=== PATIENT | female | born 1970 | race American Indian/Alaskan Native ===

== ENCOUNTER 2020-11-14 20:15 | Inpatient (IN) | payer MEDICAID ==
[2020-11-14] MEDS ORDERED: BUTALB/ACETAMINOPHEN/CAFFEINE TAB PO ONE (22:27)
[2020-11-14] MEDS ORDERED: diphenhydrAMINE 50 MG/ML VIAL IV ONE (22:28)
[2020-11-14] MEDS ORDERED: METOCLOPRAMIDE 10 MG/2 ML INJ IV ONE (22:28)
[2020-11-14] MEDS ORDERED: hydrALAZINE 20 MG/1 ML INJ IV ONE (22:29)
--- NOTE | 2020-11-14 23:14 | Cat Scan Report ---
CT head/brain Visualized paranasal sinuses and mastoid air cells are well aerated and clear. No calvarial abnormali ty. Con INDICATION / CLINICAL INFORMATION: headache. TECHNIQUE: Axial CT imaging of the brain was obtained without contrast. Coronal and sagittal reformatted imaging obtained and reviewed. All CT scans at this location are performed using CT dose reduction for ALAR A by means of automated exposure control. COMPARISON: None available. FINDINGS: No intracranial hemorrhage, mass, or midline shift is noted. No extra-axial fluid collection. There i s hypodense area 4 cm of edema in the left occipital lobe. The appearance is most likely due to to in farct, possibly subacute infarct. No hemorrhage associated with this finding. No significant surround ing mass effect. Additionally there are multiple lacunar infarcts in the left basial ganglia which ap pear old. No additional significant finding within the brain or cerebellum. Ventricular system and basilar cisterns are unremarkable. IMPRESSION: 1. 4 cm hypodense area within the left occipital lobe. The appearance is most consistent with CVA. Th e appearance is most suggestive of subacute CVA. Please correlate with clinical symptoms. 2. Left basal ganglia lacunar infarctions which are old. 3. No additional significant finding. Signer Name: Jamilah Keith MD Signed: 11/14/2020 11:10 PM Workstation Name: [id number]
--- NOTE | 2020-11-15 00:04 | XRay Report ---
CHEST 1 VIEW INDICATION / CLINICAL INFORMATION: dyspnea. COMPARISON: 09/27/2020 FINDINGS: SUPPORT DEVICES: None. HEART / MEDIASTINUM: No significant abnormality. LUNGS / PLEURA: No significant pulmonary or pleural abnormality. No pneumothorax. ADDITIONAL FINDINGS: No significant additional findings. IMPRESSION: 1. No acute findings. No interval change. Signer Name: Jamilah Keith MD Signed: 11/14/2020 11:59 PM Workstation Name: [id number]
[2020-11-15] MEDS ORDERED: ONDANSETRON 4 MG/2 ML INJ IV ONE (00:07)
[2020-11-15] MEDS ORDERED: MORPHINE 4 MG/1 ML INJ IV ONE (00:07)
[2020-11-15 00:17] LABS: Hematocrit 42.3 % (30.3-42.9); Hemoglobin 14.3 gm/dl (10.1-14.3); Mean Corpuscular HGB Conc 34 % (30-34); Mean Corpuscular Volume 88 fl (79-97); Platelet Count 288 K/mm3 (140-440); Red Cell Distribution Width 12.9 % (13.2-15.2)
[2020-11-15 00:30] LABS: INR 1.04 (0.87-1.13)
[2020-11-15 00:33] LABS: Alanine Aminotransferase 12 units/L (7-56); BUN/Creatinine Ratio 19; Blood Urea Nitrogen 29 mg/dL (7-17); Calcium 9.1 mg/dL (8.4-10.2); Hemolysis Index 8
[2020-11-15] MEDS ORDERED: INSULIN REGULAR, HUMAN 100 UNIT/ML 3ML VIAL IV ONE (00:52)
--- NOTE | 2020-11-15 00:58 | Emergency Department Report ---
ED Headache HPI - General Chief Complaint: Headache Stated Complaint: HEADACHE Time Seen by Provider: 11/14/20 23:49 Source: patient Exam Limitations: no limitations - History of Present Illness Initial Comments: 50-year-old female with a past medical history of hypertension, diabetes, diabetic neuropathy presents with complains of headache for 1 to 2 weeks. Patient is a constant severe left sided frontal headache with associated blurred vision. Patient has been taken multiple anqc-deo-rawpcub medications including BC powders, Advil, and Aleve without improvement. Positive associated nausea without vomiting, fever, neck pain, focal weakness or numbness. Patient denies previous history of headache syndrome or recent trauma. Patient was seen by an np yesterday for eye exam and was diagnosed with cataracts, diabetic retinopathy, and had a visual acuity of OD 20/400 and OS 20/200. She was referred to an whitesmith for outpatient funduscopic photography and optic coherence tomography exam. Patient states she is supposed to wear glasses at her baseline but she does not but does notice an acute decrease in her vision since symptoms started. Patient states she has been compliant with her medications. Pt did take bc powder today. Allergies/Adverse Reactions: Allergies bismuth subsalicylate [From Pepto-Bismol] Allergy (Verified 09/27/20 14:56) Nausea Penicillins Allergy (Verified 09/27/20 14:56) Nausea tramadol Allergy (Verified 09/27/20 14:56) Unknown Home Medications: Ambulatory Orders Gabapentin [Neurontin] 600 mg PO 4XD 09/28/20 ED Review of Systems ROS: Stated complaint: HEADACHE Other details as noted in HPI Comment: All other systems reviewed and negative ED Past Medical Hx - Past Medical History Previous Medical History?: Yes Hx Hypertension: Yes Hx Diabetes: Yes Hx Arthritis: Yes (SPINE) Hx Asthma: Yes Additional medical history: NEUROPATHY TO FEET AND LEGS - Surgical History Past Surgical History?: No - Social History Smoking Status: Never Smoker Substance Use Type: None - Medications Home Medications: Home Medications Medication Instructions Recorded Confirmed Last Taken Type Gabapentin [Neurontin] 600 mg PO 4XD 09/28/20 09/28/20 Unknown History ED Physical Exam - General Limitations: No Limitations - Other Other exam information: General: No acute distress Head: Atraumatic Eyes: normal appearance, STORM ENT: Moist mucous membranes Neck: Normal appearance, no midline tenderness Chest: Clear to auscultation bilaterally CV: Regular rate and rhythm Abdomen: Soft, normal bowel sounds, nontender, nondistended, no rebound or guarding Back: Normal inspection Extremity: Normal inspection, full range of motion Neuro: Alert O x 3, no facial asymmetry, speech clear, no gross motor sensory deficit Psych: Appropriate behavior Skin: No rash ED Course Vital Signs 11/14/20 11/15/20 22:08 01:05 Temperature 97.8 F Pulse Rate 93 H Respiratory 18 Rate Blood Pressure 190/103 146/92 O2 Sat by Pulse 99 Oximetry - Consultations Consultation #1: 11/15/20 01:13 Pt repeat BP 146/92 ED Medical Decision Making - Lab Data Result diagrams: 11/14/20 23:43 11/14/20 23:43 Lab Results 11/14/20 11/14/20 11/14/20 Range/Units 23:43 23:43 23:43 WBC 16.7 H (4.5-11.0) K/mm3 RBC 4.80 (3.65-5.03) M/mm3 Hgb 14.3 (10.1-14.3) gm/dl Hct 42.3 (30.3-42.9) % MCV 88 (79-97) fl MCH 30 (28-32) pg MCHC 34 (30-34) % RDW 12.9 L (13.2-15.2) % Plt Count 288 (140-440) K/mm3 Lymph # (Auto) Refinery Process Engineer PT 13.4 (12.2-14.9) Sec. INR 1.04 (0.87-1.13) APTT 25.0 (24.2-36.6) Sec. Thrombin Time (15.1-19.6) Sec. Sodium 133 L (137-145) mmol/L Potassium 4.9 (3.6-5.0) mmol/L Chloride 95.7 L (98-107) mmol/L Carbon Dioxide 24 (22-30) mmol/L Anion Gap 18 mmol/L BUN 29 H (7-17) mg/dL Creatinine 1.5 H (0.6-1.2) mg/dL Estimated GFR 44 ml/min BUN/Creatinine Ratio 19 % Glucose 392 H (65-100) mg/dL Calcium 9.1 (8.4-10.2) mg/dL Total Bilirubin 0.40 (0.1-1.2) mg/dL AST 12 (5-40) units/L ALT 12 (7-56) units/L Alkaline Phosphatase 179 H (35-129) units/L Troponin T < 0.010 (0.00-0.029) ng/mL Total Protein 7.1 (6.3-8.2) g/dL Albumin 4.0 (3.9-5) g/dL Albumin/Globulin Ratio 1.3 % 11/14/20 Range/Units 23:43 WBC (4.5-11.0) K/mm3 RBC (3.65-5.03) M/mm3 Hgb (10.1-14.3) gm/dl Hct (30.3-42.9) % MCV (79-97) fl MCH (28-32) pg MCHC (30-34) % RDW (13.2-15.2) % Plt Count (140-440) K/mm3 Lymph # (Auto) PT (12.2-14.9) Sec. INR (0.87-1.13) APTT (24.2-36.6) Sec. Thrombin Time 15.6 (15.1-19.6) Sec. Sodium (137-145) mmol/L Potassium (3.6-5.0) mmol/L Chloride (98-107) mmol/L Carbon Dioxide (22-30) mmol/L Anion Gap mmol/L BUN (7-17) mg/dL Creatinine (0.6-1.2) mg/dL Estimated GFR ml/min BUN/Creatinine Ratio % Glucose (65-100) mg/dL Calcium (8.4-10.2) mg/dL Total Bilirubin (0.1-1.2) mg/dL AST (5-40) units/L ALT (7-56) units/L Alkaline Phosphatase (35-129) units/L Troponin T (0.00-0.029) ng/mL Total Protein (6.3-8.2) g/dL Albumin (3.9-5) g/dL Albumin/Globulin Ratio % Critical Care Time: No Critical care attestation.: If time is entered above; I have spent that time in minutes in the direct care of this critically ill patient, excluding procedure time. ED Disposition Clinical Impression: Blurred vision, bilateral, Occipital stroke, Headache, Diabetes, HTN (hypertension) Disposition: DC-09 OP ADMIT IP TO THIS HOSP Is pt being admited?: Yes Condition: Stable Instructions: Diabetes Mellitus Type 2 in Adults (ED), Hypertension (ED) Referrals: JOSSELIN HOFF MD [Primary Care Provider] - 3-5 Days Time of Disposition: 01:03 (Dr Ram)
[2020-11-15] MEDS ORDERED: PROMETHAZINE 25 MG RECT SUPP PR PRN (01:17)
[2020-11-15] MEDS ORDERED: METOCLOPRAMIDE 10 MG TAB PO PRN (01:17)
[2020-11-15] MEDS ORDERED: MAGNESIUM HYDROXIDE (MOM) ORAL LIQD UDC PO PRN (01:17)
[2020-11-15] MEDS ORDERED: DEXTROSE 50% IN WATER (25GM) 50 ML SYRINGE IV PRN (01:21)
--- NOTE | 2020-11-15 01:27 | History and Physical Report ---
History of Present Illness Date of examination: 11/15/20 Chief complaint: Headache Blurred vision History of present illness: 50-year-old female with past medical history of hypertension, diabetes, diabetic neuropathy was brought to the emergency room because of headache for 1 to 2 weeks which is constant severe left sided frontal headache with associated blurred vision. Patient also complained of bilateral leg weakness and mild right upper extremity weakness for last 2 weeks. patient has been taken multiple psrn-mdt-upvvzvc medications including BC powders, Advil, and Aleve without improvement. Patient also complained of nausea but no vomiting. patient was seen by an prototyper yesterday for eye exam and was diagnosed with cataracts, diabetic retinopathy, and had a visual acuity of OD 20/400 and OS 20/200. She was referred to an electric train driver for outpatient funduscopic p hotography and optic coherence tomography exam. Patient states she is supposed to wear glasses at her baseline but she does not but does notice an acute decrease in her vision since symptoms started. Patient states she has been compliant with her medications. Pt did take bc powder today. Past History Past Medical History: diabetes Medications and Allergies Allergies Allergy/AdvReac Type Severity Reaction Status Date / Time bismuth subsalicylate Allergy Nausea Verified 09/27/20 14:56 [From Pepto-Bismol] Penicillins Allergy Nausea Verified 09/27/20 14:56 tramadol Allergy Unknown Verified 09/27/20 14:56 Home Medications Medication Instructions Recorded Confirmed Last Taken Type Gabapentin [Neurontin] 600 mg PO 4XD 09/28/20 09/28/20 Unknown History Review of Systems Eyes: bilateral: blurred vision Ears, nose, mouth and throat: headache Neurological: headaches Exam - Constitutional Vitals: Temp Pulse Resp BP Pulse Ox 97.8 F 93 H 18 146/92 99 11/14/20 22:08 11/14/20 22:08 11/14/20 22:08 11/15/20 01:05 11/14/20 22:08 General appearance: Present: no acute distress - EENT Eyes: Present: PERRL ENT: hearing intact, clear oral mucosa - Neck Neck: Present: supple, normal ROM - Respiratory Respiratory effort: normal Respiratory: bilateral: CTA - Cardiovascular Heart Sounds: Present: S1 & S2. Absent: rub, click - Extremities Extremities: pulses symmetrical, No edema Peripheral Pulses: within normal limits - Abdominal General gastrointestinal: Present: soft, non-tender, non-distended, normal bowel sounds Female genitourinary: Present: normal - Integumentary Integumentary: Present: clear, warm, dry - Musculoskeletal Musculoskeletal: gait normal, strength equal bilaterally - Psychiatric Psychiatric: appropriate mood/affect, intact judgment & insight - Neurologic Neurologic: CNII-XII intact, moves all extremities HEART Score - HEART Score Troponin: Troponin T < 0.010 ng/mL (0.00-0.029) 11/14/20 23:43 Results - Labs CBC & Chem 7: 11/14/20 23:43 11/14/20 23:43 Labs: Laboratory Last Values WBC 16.7 K/mm3 (4.5-11.0) H 11/14/20 23:43 RBC 4.80 M/mm3 (3.65-5.03) 11/14/20 23:43 Hgb 14.3 gm/dl (10.1-14.3) 11/14/20 23:43 Hct 42.3 % (30.3-42.9) 11/14/20 23:43 MCV 88 fl (79-97) 11/14/20 23:43 MCH 30 pg (28-32) 11/14/20 23:43 MCHC 34 % (30-34) 11/14/20 23:43 RDW 12.9 % (13.2-15.2) L 11/14/20 23:43 Plt Count 288 K/mm3 (140-440) 11/14/20 23:43 Lymph # (Auto) 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 (12.2-14.9) 11/14/20 23:43 INR 1.04 (0.87-1.13) 11/14/20 23:43 APTT 25.0 Sec. (24.2-36.6) 11/14/20 23:43 Thrombin Time 15.6 Sec. (15.1-19.6) 11/14/20 23:43 Sodium 133 mmol/L (137-145) L 11/14/20 23:43 Potassium 4.9 mmol/L (3.6-5.0) 11/14/20 23:43 Chloride 95.7 mmol/L (98-107) L 11/14/20 23:43 Carbon Dioxide 24 mmol/L (22-30) 11/14/20 23:43 Anion Gap 18 mmol/L 11/14/20 23:43 BUN 29 mg/dL (7-17) H 11/14/20 23:43 Creatinine 1.5 mg/dL (0.6-1.2) H 11/14/20 23:43 Estimated GFR 44 ml/min 11/14/20 23:43 BUN/Creatinine Ratio 19 % 11/14/20 23:43 Glucose 392 mg/dL (65-100) H 11/14/20 23:43 Calcium 9.1 mg/dL (8.4-10.2) 11/14/20 23:43 Total Bilirubin 0.40 mg/dL (0.1-1.2) 11/14/20 23:43 AST 12 units/L (5-40) 11/14/20 23:43 ALT 12 units/L (7-56) 11/14/20 23:43 Alkaline Phosphatase 179 units/L (35-129) H 11/14/20 23:43 Troponin T < 0.010 ng/mL (0.00-0.029) 11/14/20 23:43 Total Protein 7.1 g/dL (6.3-8.2) 11/14/20 23:43 Albumin 4.0 g/dL (3.9-5) 11/14/20 23:43 Albumin/Globulin Ratio 1.3 % 11/14/20 23:43 - Imaging and Cardiology CT Scan - head: image reviewed Assessment and Plan - Patient Problems (1) Blurred vision, bilateral Current Visit: Yes Status: Acute Plan to address problem: Admit the patient to the medical telemetry. Put the patient on CVA pathway. Aspirin 325 mg p.o. daily. Lipitor 80 mg p.o. daily. Patient is going to seen and evaluated by telemetry neurology. We will do MRI of the brain and MRA of the brain and neck with with and without contrast. Bilateral carotid duplex. We also consult PT OT speech evaluation. We will monitor the blood pressure closely. Please consult neurology in the morning. (2) Diabetes Current Visit: Yes Status: Acute Plan to address problem: We will put the patient on 1800 kcal ADA diet after swallow evaluation. We put the patient on moderate dose Humalog sliding scale. Recheck CBC BMP in the morning (3) Headache Current Visit: Yes Status: Acute Plan to address problem: Tylenol 650 p.o. every 6 as needed. Morphine 1 to 2 mg IV every 4 hours as needed. We will do MRI of the brain with and without contrast. (4) Occipital stroke Current Visit: Yes Status: Acute Plan to address problem: Admit the patient to the medical telemetry. Put the patient on CVA pathway. Aspirin 325 mg p.o. daily. Lipitor 80 mg p.o. daily. Patient is going to seen and evaluated by telemetry neurology. We will do MRI of the brain and MRA of the brain and neck with with and without contrast. Bilateral carotid duplex. We also consult PT OT speech evaluation. We will monitor the blood pressure closely. Please consult neurology in the morning.
--- NOTE | 2020-11-15 01:38 | Emergency Department Report ---
HPI - General Chief Complaint: Headache Time Seen by Provider: 11/14/20 23:49 - HPI HPI: [facility] Tele[facility] Consult Services Stat Consult Date of Service: 11/15/2020 01:00:53 Impression: I63.9 - Cerebrovascular accident (CVA), unspecified mechanism (HCC) Comments/Sign-Out: Patients clinical features are compatible with diagnosis of acute ischemic stroke. Pt not tPA candidate as her LKW>4.5 hrs. Pt agreed to be admitted for stroke blue CT HEAD: Reviewed Left occipital lobe hypodensity Metrics: [facility] Notification Time: 11/15/2020 01:00:53 Stamp Time: 11/15/2020 01:00:53 Our recommendations are outlined below. Recommendations: Antiplatelet Therapy Imaging Studies: MRI Head Without Contrast MRA Neck with and Without Contrast Therapies: Physical Therapy, Occupational Therapy, Speech Therapy Assessment When Applicable Other WorkUp: Infectious/metabolic workup per primary team Check B12 level Check TSH Disposition: Neurology Follow Up Recommended Sign Out: Discussed with Emergency Department Provider Chief Complaint: SMITH and blurred vision History of Present Illness: Patient is a 50 year old Female. DM, HTN, diabetic neuropathy, Left sided frontal SMITH for 1-2 weeks, whe was also having blurred visiion and complaining of nausea Patient saw an hris developer yesterday, who diagnosed diabetic retinopathy and referred her to an oph thalmologist CT showed a Left occipital hypodensity 190/103 88 Past Medical History: Diabetes Mellitus Anticoagulant use: No Antiplatelet use: No Examination: BP(190/103), Pulse(93), Blood Glucose(105) 1A: Level of Consciousness - Alert; keenly responsive + 0 1B: Ask Month and Age - Both Questions Right + 0 1C: Blink Eyes & Squeeze Hands - Performs Both Tasks + 0 2: Test Horizontal Extraocular Movements - Normal + 0 3: Test Visual [place] - Partial Hemianopia + 1 4: Test Facial Palsy (Use Grimace if Obtunded) - Normal symmetry + 0 5A: Test Left Arm Motor Drift - No Drift for 10 Seconds + 0 5B: Test Right Arm Motor Drift - No Drift for 10 Seconds + 0 6A: Test Left Leg Motor Drift - No Drift for 5 Seconds + 0 6B: Test Right Leg Motor Drift - No Drift for 5 Seconds + 0 7: Test Limb Ataxia (FNF/Heel-Mills) - No Ataxia + 0 8: Test Sensation - Normal; No sensory loss + 0 9: Test Language/Aphasia - Normal; No aphasia + 0 10: Test Dysarthria - Normal + 0 11: Test Extinction/Inattention - No abnormality + 0 NIHSS Score: 1 Patient/Family was informed the Neurology Consult would happen via TeleHealth consult by way of interactive audio and video telecommunications and consented to receiving care in this manner. Due to the immediate potential for life-threatening deterioration due to underlying acute neurologic illness, I spent 35 minutes providing critical care. This time includes time for face to face visit via telemedicine, review of medical records, imaging studies and discussion of findings with providers, the patient and/or family. Dr Linda Sanchez [facility] Case [id number] ED Past Medical Hx - Past Medical History Previous Medical History?: Yes Hx Hypertension: Yes Hx Diabetes: Yes Hx Arthritis: Yes (SPINE) Hx Asthma: Yes Additional medical history: NEUROPATHY TO FEET AND LEGS - Surgical History Past Surgical History?: No - Social History Smoking Status: Never Smoker Substance Use Type: None - Medications Home Medications: Home Medications Medication Instructions Recorded Confirmed Last Taken Type Gabapentin [Neurontin] 600 mg PO 4XD 09/28/20 09/28/20 Unknown History ED Review of Systems ROS: Stated complaint: HEADACHE Other details as noted in HPI Physical Exam - Physical Exam Vital Signs: Vital Signs 11/14/20 11/15/20 22:08 01:05 Temperature 97.8 F Pulse Rate 93 H Respiratory 18 Rate Blood Pressure 190/103 146/92 O2 Sat by Pulse 99 Oximetry ED Course Vital Signs 11/14/20 11/15/20 22:08 01:05 Temperature 97.8 F Pulse Rate 93 H Respiratory 18 Rate Blood Pressure 190/103 146/92 O2 Sat by Pulse 99 Oximetry ED Medical Decision Making - Lab Data Result diagrams: 11/14/20 23:43 11/14/20 23:43 Critical care attestation.: If time is entered above; I have spent that time in minutes in the direct care of this critically ill patient, excluding procedure time. ED Disposition Clinical Impression: Blurred vision, bilateral Disposition: DC-09 OP ADMIT IP TO THIS HOSP Is pt being admited?: Yes Condition: Stable Instructions: Diabetes Mellitus Type 2 in Adults (ED), Hypertension (ED) Referrals: JOSSELIN HOFF MD [Primary Care Provider] - 3-5 Days
[2020-11-15] MEDS: FAMOTIDINE 20 MG TAB PO SCH ×4 (01:56→21:44)
[2020-11-15] MEDS: MORPHINE 2 MG/1 ML INJ IV PRN (03:01)
[2020-11-15 03:16] LABS: Total Cells Counted 100
[2020-11-15 03:17] LABS: Platelet Estimate Consistent w Auto
[2020-11-15] MEDS: ASPIRIN 325 MG TAB PO SCH ×2 (09:27→12:10)
[2020-11-15] MEDS: INSULIN LISPRO 100 UNIT/ML VIAL 3 mL SUB-Q SCH ×5 (09:29→21:44)
--- NOTE | 2020-11-15 10:27 | Consultation ---
History of Present Illness Consult date: 11/15/20 Reason for Consult: CVA Chief complaint: Headache w/ blurred vision History of present illness: 50 yo female with htn, dm (w/ retinopathy, neuropathy), presenting with a headache (left frontoparietal, throbbing, w/ nausea w/o emesis) w/ blurred vision for approximately 2 weeks which she has tried to treat w/ OTC meds including BC powder and other NSAIDs. Notes that she was seen by ophthalmology and noted w/ worsening visual acuity. Notes that overall, her vision has improved since the initial insult. Past History Past Medical History: diabetes Medications and Allergies Allergies Allergy/AdvReac Type Severity Reaction Status Date / Time bismuth subsalicylate Allergy Nausea Verified 09/27/20 14:56 [From Pepto-Bismol] Penicillins Allergy Nausea Verified 09/27/20 14:56 tramadol Allergy Unknown Verified 09/27/20 14:56 Home Medications Medication Instructions Recorded Confirmed Last Taken Type Gabapentin [Neurontin] 600 mg PO TID 09/28/20 11/15/20 Unknown History DULoxetine [Cymbalta] 60 mg PO BID 11/15/20 11/15/20 Unknown History Exenatide Microspheres [Bydureon 2 mg SQ 1XW 11/15/20 11/15/20 Unknown History Pen] Insulin Lispro Prot/Lispro 50 unit SQ BIDAC 11/15/20 11/15/20 Unknown History [HumaLOG Mix 75/25 Vial] OXYCODONE hcl [Oxycodone] 15 mg PO 4XD PRN 11/15/20 11/15/20 Unknown History oxyCODONE ER [oxyCONTIN ER] 10 mg PO Q12HR 11/15/20 11/15/20 Unknown History tiZANidine [Zanaflex 4mg TAB] 4 mg PO QID PRN 11/15/20 11/15/20 Unknown History Active Meds: Active Medications Acetaminophen (Acetaminophen 325 Mg Tab) 650 mg PO Q4H PRN PRN Reason: Pain, Mild (1-3) Aspirin (Aspirin 325 Mg Tab) 325 mg PO QDAY ESTER Atorvastatin Calcium (Atorvastatin 40 Mg Tab) 80 mg PO QHS ESTER Bisacodyl (Bisacodyl 10 Mg Rect Supp) 10 mg MD QDAY PRN PRN Reason: Constipation Dextrose (Dextrose 50% In Water (25gm) 50 Ml Syringe) 50 ml IV Q30MIN PRN; Protocol PRN Reason: Hypoglycemia Famotidine (Famotidine 20 Mg Tab) 20 mg PO BID [facility] Last Admin: 11/15/20 01:56 Dose: 20 mg Documented by: Insulin Human Lispro (Insulin Lispro 100 Unit/Ml Vial 3 Ml) 0 unit SUB-Q ACHS [facility]; Protocol Last Admin: 11/15/20 10:06 Dose: Not Given Documented by: Labetalol HCl (Labetalol 20 Mg/4 Ml Inj) 10 mg IV Q5MIN PRN PRN Reason: to maintain SBP < 180 Magnesium Hydroxide (Magnesium Hydroxide (Mom) Oral Liqd Udc) 30 ml PO Q4H PRN PRN Reason: Constipation Metoclopramide HCl (Metoclopramide 10 Mg Tab) 10 mg PO Q6H PRN PRN Reason: Nausea And Vomiting Morphine Sulfate (Morphine 2 Mg/1 Ml Inj) 2 mg IV Q4H PRN PRN Reason: Pain, Moderate (4-6) Last Admin: 11/15/20 03:01 Dose: 2 mg Documented by: Ondansetron HCl (Ondansetron 4 Mg/2 Ml Inj) 4 mg IV Q8H PRN PRN Reason: Nausea And Vomiting Promethazine HCl (Promethazine 25 Mg Rect Supp) 25 mg MD Q6H PRN PRN Reason: Nausea And Vomiting Sodium Chloride (Sodium Chloride 0.9% 10 Ml Flush Syringe) 10 ml IV PRN PRN PRN Reason: LINE FLUSH Review of Systems All systems: negative (as per HPI;) Physical Examination - Vital Signs Vital Signs: Vital Signs Temp Pulse Resp BP Pulse Ox 97.8 F 93 H 18 190/103 99 11/14/20 22:08 11/14/20 22:08 11/14/20 22:08 11/14/20 22:08 11/14/20 22:08 - Physical Exam Narrative exam: Gen: nad, well-nourished; Head: normocephalic; Eyes: no gaze deviation; no ptosis; ENT: normal vocalization; CVS: warm and well-perfused; Pulm: no respiratory distress; GI: non-distended, protuberant; Ext: no cyanosis at distal extremities; Skin: no acute rash at distal extremities; Heme: no pathologic bruising at distal extremities; Neuro: alert, oriented to name, age, month, year, surroundings, no dysarthria, no aphasia, CN 2 - PERRL, visual heredia intact, CN 3, 4, 6 - EOMI, CN 5 - facial sensation symmetric to light touch, CN 7 - facial movement symmetric, CN 8 - he aring grossly intact, CN 9, 10 - uvula midline, CN 11 - shrug symmetric, CN 12 - tongue midline; Motor - at least 5-/5 in all exts except 4+/5 at LUE; Sensory - light touch symmetric, Cerebellar - fnf /hts intact, Gait - deferred secondary to fall risk; NIHSS (1a.) Level of Consciousness:0 (1b.) LOC Questions:0 (1c.) LOC Commands:0 (2.) Best Gaze:0 (3.) Visual:0 (4.) Facial Palsy:0 (5a.) Motor Arm, Left:0 (5b.) Motor Arm, Right:0 (6a.) Motor Leg, Left:0 (6b.) Motor Leg, Right:0 (7.) Limb Ataxia:0 (8.) Sensory:0 (9.) Best Language:0 (10.) Dysarthria:0 (11.) Extinction and Inattention:0 NIHSS Total Score:0 Results - Laboratory Findings CBC and BMP: 11/14/20 23:43 11/14/20 23:43 Abnormal Lab Findings: Abnormal Labs 11/14/20 11/14/20 11/15/20 23:43 23:43 04:33 WBC 16.7 H RDW 12.9 L Seg Neuts % (Manual) 78.0 H Seg Neutrophils # Man 13.0 H Sodium 133 L Chloride 95.7 L BUN 29 H Creatinine 1.5 H Glucose 392 H POC Glucose 200 H Alkaline Phosphatase 179 H 11/15/20 08:09 WBC RDW Seg Neuts % (Manual) Seg Neutrophils # Man Sodium Chloride BUN Creatinine Glucose POC Glucose 265 H Alkaline Phosphatase Assessment and Plan 50 yo female with htn, dm (w/ retinopathy, neuropathy), presenting with a headache (left frontoparietal, throbbing, w/ nausea w/o emesis) w/ blurred vision for approximately 2 weeks and noted with a subacute left occipital stroke. 1. Acute Ischemic Stroke: ASA 325 mg PO qday; Plavix 75 mg PO qday x 21 days; MRI Brain w/o contrast official results pending; MRA Head w/o contrast reveals intracranial atherosclerotic dx involving bilateral P1, TTEcho & CUS results pending; if TTE is normal, recommend YAMILEX (in the setting of leukocytosis, ?subacute endocarditis), confirm LDL/HgbA1C/TSH-T4, telemetry, SBP goal 160-200 mmHg and DBP 80-100 mmHg for for 48 more hours and then normalize; statin therapy for a goal LDL of 70, when patient passes swallow evaluation. PT/OT evaluation for low vision therapy. Long-term risk-factor modification, including a strict diet/exercise regimen for secondary stroke prophylaxis. 2. Hypertension - goal SBP 160-200 mmHg and DBP 80-100 mmHg for 48 more hours and then normalize. 3. Diabetes Mellitus - maintain euglycemia. 4. Blurred Vision - low vision OT evaluation/management. 5. Neuropathy - continue home regimen of gabapentin. 6. Headache (unilateral, non-positional) - ordered MRV Head w/o contrast to r/o cortical vein thrombosis. 7. Leukocytosis - per primary team. 8. Renal Insufficiency - per primary team. Parth Richard MD Neurology
--- NOTE | 2020-11-15 11:05 | Vascular Lab Report ---
BILATERAL CAROTID DOPPLER ULTRASOUND INDICATION : stroke TECHNIQUE: Grayscale and color Doppler imaging performed through the neck. COMPARISON: None FINDINGS: Right: There is mild soft plaque at the bifurcation. Peak systolic velocity in the CCA is 56 cm/s w ith end-diastolic velocity of 16 cm/s. Peak systolic velocity in the proximal ICA is 86 cm/s with end -diastolic velocity of 30 cm/s. ICA to CCA ratio is less than 2. There is antegrade flow in the ECA and the vertebral artery. Left: There is mild smooth partially calcified plaque in the mid CCA. Peak systolic velocity in the C CA is 99 cm/s with end-diastolic velocity of 22 cm/s. Peak systolic velocity in the proximal ICA is 9 2 cm/s with end-diastolic velocity of 35 cm/s. ICA to CCA ratio is less than 2. There is antegrade f low in the ECA and the vertebral artery. IMPRESSION: No hemodynamically significant stenosis by NASCET criteria. Doppler velocities indicate l ess than 50% luminal narrowing bilaterally. Signer Name: Marcial Self Jr, MD Signed: 11/15/2020 11:01 AM Workstation Name: [id number]
[2020-11-15] MEDS: ONDANSETRON 4 MG/2 ML INJ IV PRN (12:09)
[2020-11-15] MEDS: oxyCODONE /ACETAMINOPHEN 5-325MG TAB PO PRN (12:10)
--- NOTE | 2020-11-15 12:30 | Magnetic Resonance Report ---
MRA HEAD WITHOUT CONTRAST HISTORY: Left occipital cerebrovascular accident. COMPARISON: none TECHNIQUE: Routine MRA of the head performed. 3-D/MIP reformats postprocessed. CONTRAST: none FINDINGS: MRA HEAD: Intracranial vertebral arteries: Right vertebral artery is dominant. There appears to be a moderate s tenosis at the distal V4 segment of the left vertebral artery at the basilar artery origin. Basilar artery: Basilar artery has an unremarkable appearance. Posterior cerebral arteries: Bilateral stenoses are seen at the origins of the P1 segments of both po sterior cerebral artery suggesting the presence of intercranial atherosclerotic disease or vasospasm. There is decreased visualization of the P3 and proximal V4 segments of the left occipital artery ind icating slow flow in this region. There is evidence of occlusion of the mid and distal P 4 segments o f the left posterior cerebral artery. Intracranial internal carotid arteries: No significant abnormality. Anterior cerebral arteries: Bilaterally symmetrical A1 segments of the anterior cerebral arteries are demonstrated. No abnormalities are seen along the course of the A2 segments or visualized pericallos al branches. Middle cerebral arteries: Normal and symmetrical M1 segments are demonstrated bilaterally. No abnorma lities are seen on evaluation of the insular or opercular branches of the middle cerebral arteries. IMPRESSION: 1. No evidence of occlusion of the mid and distal V4 segments of the left posterior cerebral artery. 2. Findings suggest bilateral stenoses at the origins of the P1 segments of both posterior cerebral a rteries. 3. The anterior circulation has an unremarkable appearance. Signer Name: Roberto Edouard MD Signed: 11/15/2020 12:26 PM Workstation Name: [id number]
--- NOTE | 2020-11-15 13:18 | Progress Note ---
Assessment and Plan Assessment and plan: ---Acute ischemic stroke Current Visit: Yes Status: Acute Plan to address problem: Aspirin 325 mg daily Plavix 75 mg daily for 21 days MRI brain positive for occipital stroke. MRA brain shows no critical stenosis MRV head to rule out cortical vein thrombosis ordered Neurology recommendations appreciated Speech therapy PT/OT Tylenol as needed for headache --Headache Current Visit: Yes Status: Acute Plan to address problem: She denies any history of migraines in the past Need to have an MRV head with and without contrast to rule out any cortical vein thrombosis Neurology recommendations appreciated ---Diabetes Current Visit: Yes Status: Acute Plan to address problem: We will put the patient on 1800 kcal ADA diet after swallow evaluation. We put the patient on moderate dose Humalog sliding scale. Recheck CBC BMP in the morning History Interval history: Patient complains of headache on the left side Has associated nausea with no vomiting Denies any neck stiffness Hospitalist Physical - Physical exam Narrative exam: VITAL SIGNS: Reviewed. GENERAL: Awake HEAD: No signs of head trauma. EYES: Pupils are equal. Extraocular motions intact. MOUTH: Oropharynx is normal. NECK: No adenopathy, no JVD. CHEST: Chest with diminished breath sounds bilaterally. No wheezes, rales, or rhonchi. CARDIAC: normal S1 and S2, without murmurs, gallops, or rubs. ABDOMEN: Soft, non tender and non distended. No rebound or guarding, and no masses palpated. Bowel Sounds normal. MUSCULOSKELETAL: No edema NEUROLOGIC EXAM: Alert and oriented x3. No focal neurologic deficits SKIN: No obvious lesions - Constitutional Vitals: Temp Pulse Resp BP Pulse Ox 97.6 F 85 18 124/63 98 11/15/20 08:11 11/15/20 08:11 11/15/20 08:11 11/15/20 08:11 11/15/20 08:11 HEART Score - HEART Score Troponin: Troponin T < 0.010 ng/mL (0.00-0.029) 11/15/20 01:35 Results - Labs CBC & Chem 7: 11/14/20 23:43 11/14/20 23:43 Labs: Laboratory Last Values WBC 16.7 K/mm3 (4.5-11.0) H 11/14/20 23:43 RBC 4.80 M/mm3 (3.65-5.03) 11/14/20 23:43 Hgb 14.3 gm/dl (10.1-14.3) 11/14/20 23:43 Hct 42.3 % (30.3-42.9) 11/14/20 23:43 MCV 88 fl (79-97) 11/14/20 23:43 MCH 30 pg (28-32) 11/14/20 23:43 MCHC 34 % (30-34) 11/14/20 23:43 RDW 12.9 % (13.2-15.2) L 11/14/20 23:43 Plt Count 288 K/mm3 (140-440) 11/14/20 23:43 Lymph # (Auto) Lap Maker 11/14/20 23:43 Add Manual Diff Complete 11/14/20 23: Total Counted 100 11/14/20 23:43 Seg Neuts % (Manual) 78.0 % (40.0-70.0) H 11/14/20 23:43 Lymphocytes % (Manual) 18.0 % (13.4-35.0) 11/14/20 23:43 Monocytes % (Manual) 2.0 % (0.0-7.3) 11/14/20 23:43 Eosinophils % (Manual) 2.0 % (0.0-4.3) 11/14/20 23:43 Nucleated RBC % Not Reportable 11/14/20 23:43 Seg Neutrophils # Man 13.0 K/mm3 (1.8-7.7) H 11/14/20 23:43 Band Neutrophils # 0.0 K/mm3 11/14/20 23:43 Lymphocytes # (Manual) 3.0 K/mm3 (1.2-5.4) 11/14/20 23:43 Abs React Lymphs (Man) 0.0 K/mm3 11/14/20 23:43 Monocytes # (Manual) 0.3 K/mm3 (0.0-0.8) 11/14/20 23:43 Eosinophils # (Manual) 0.3 K/mm3 (0.0-0.4) 11/14/20 23:43 Basophils # (Manual) 0.0 K/mm3 (0.0-0.1) 11/14/20 23:43 Metamyelocytes # 0.0 K/mm3 11/14/20 23:43 Myelocytes # 0.0 K/mm3 11/14/20 23:43 Promyelocytes # 0.0 K/mm3 11/14/20 23:43 Blast Cells # 0.0 K/mm3 11/14/20 23:43 WBC Morphology Not Reportable 11/14/20 23:43 Hypersegmented Neuts Not Reportable 11/14/20 23:43 Hyposegmented Neuts Not Reportable 11/14/20 23:43 Hypogranular Neuts Not Reportable 11/14/20 23:43 Smudge Cells Not Reportable 11/14/20 23:43 Toxic Granulation Not Reportable 11/14/20 23:43 Toxic Vacuolation Not Reportable 11/14/20 23:43 Dohle Bodies Not Reportable 11/14/20 23:43 Pelger-Huet Anomaly Not Reportable 11/14/20 23:43 Dinah Rods Not Reportable 11/14/20 23:43 Platelet Estimate Consistent w auto 11/14/20 23:43 Clumped Platelets Not Reportable 11/14/20 23:43 Plt Clumps, EDTA Not Reportable 11/14/20 23:43 Large Platelets Not Reportable 11/14/20 23:43 Giant Platelets Not Reportable 11/14/20 23:43 Platelet Satelliting Not Reportable 11/14/20 23:43 Plt Morphology Comment Not Reportable 11/14/20 23:43 RBC Morphology Not Reportable 11/14/20 23:43 Dimorphic RBCs Not Reportable 11/14/20 23:43 Polychromasia Not Reportable 11/14/20 23:43 Hypochromasia Not Reportable 11/14/20 23:43 Poikilocytosis Not Reportable 11/14/20 23:43 Anisocytosis Not Reportable 11/14/20 23:43 Microcytosis Not Reportable 11/14/20 23:43 Macrocytosis Not Reportable 11/14/20 23:43 Spherocytes Not Reportable 11/14/20 23:43 Pappenheimer Bodies Not Reportable 11/14/20 23:43 Sickle Cells Not Reportable 11/14/20 23:43 Target Cells Not Reportable 11/14/20 23:43 Tear Drop Cells Not Reportable 11/14/20 23:43 Ovalocytes Not Reportable 11/14/20 23:43 Helmet Cells Not Reportable 11/14/20 23:43 [place] Bodies Not Reportable 11/14/20 23:43 [place] Rings Not Reportable 11/14/20 23:43 Joby Cells Not Reportable 11/14/20 23:43 Bite Cells Not Reportable 11/14/20 23:43 Crenated Cell Not Reportable 11/14/20 23:43 Elliptocytes Not Reportable 11/14/20 23:43 Acanthocytes (Spur) Not Reportable 11/14/20 23:43 Rouleaux Not Reportable 11/14/20 23:43 Hemoglobin C Crystals Not Reportable 11/14/20 23:43 Schistocytes Not Reportable 11/14/20 23:43 Malaria parasites Not Reportable 11/14/20 23:43 [place] Bodies Not Reportable 11/14/20 23:43 Hem Pathologist Commnt No 11/14/20 23:43 PT 13.4 Sec. (12.2-14.9) 11/14/20 23:43 INR 1.04 (0.87-1.13) 11/14/20 23:43 APTT 25.0 Sec. (24.2-36.6) 11/14/20 23:43 Thrombin Time 15.6 Sec. (15.1-19.6) 11/14/20 23:43 Sodium 133 mmol/L (137-145) L 11/14/20 23:43 Potassium 4.9 mmol/L (3.6-5.0) 11/14/20 23:43 Chloride 95.7 mmol/L (98-107) L 11/14/20 23:43 Carbon Dioxide 24 mmol/L (22-30) 11/14/20 23:43 Anion Gap 18 mmol/L 11/14/20 23:43 BUN 29 mg/dL (7-17) H 11/14/20 23:43 Creatinine 1.5 mg/dL (0.6-1.2) H 11/14/20 23:43 Estimated GFR 44 ml/min 11/14/20 23:43 BUN/Creatinine Ratio 19 % 11/14/20 23:43 Glucose 392 mg/dL (65-100) H 11/14/20 23:43 POC Glucose 284 mg/dL (70-105) H 11/15/20 11:51 Calcium 9.1 mg/dL (8.4-10.2) 11/14/20 23:43 Total Bilirubin 0.40 mg/dL (0.1-1.2) 11/14/20 23:43 AST 12 units/L (5-40) 11/14/20 23:43 ALT 12 units/L (7-56) 11/14/20 23:43 Alkaline Phosphatase 179 units/L (35-129) H 11/14/20 23:43 Troponin T < 0.010 ng/mL (0.00-0.029) 11/15/20 01:35 Total Protein 7.1 g/dL (6.3-8.2) 11/14/20 23:43 Albumin 4.0 g/dL (3.9-5) 11/14/20 23:43 Albumin/Globulin Ratio 1.3 % 11/14/20 23:43 Sanders/IV: Voiding Method Toilet IV Catheter Type [Left Forearm INT / Saline Lock ] Active Medications - Current Medications Current Medications: Generic Name Dose Route Start Last Admin Trade Name Freq PRN Reason Stop Dose Admin Acetaminophen 650 mg 11/15/20 01:17 Acetaminophen 325 Mg Tab PO Q4H PRN Pain, Mild (1-3) Aspirin 325 mg 11/15/20 10:00 11/15/20 12:10 Aspirin 325 Mg Tab PO 325 mg QDAY ESTER Administration Atorvastatin Calcium 80 mg 11/15/20 22:00 Atorvastatin 40 Mg Tab PO QHS ESTER Bisacodyl 10 mg 11/15/20 01:17 Bisacodyl 10 Mg Rect Supp MN QDAY PRN Constipation Dextrose 50 ml 11/15/20 01:21 Dextrose 50% In Water (25gm) 50 Ml Syringe IV Q30MIN PRN Hypoglycemia Protocol Famotidine 20 mg 11/15/20 02:00 11/15/20 12:10 Famotidine 20 Mg Tab PO 20 mg BID ESTER Administration Insulin Human Lispro 0 unit 11/15/20 07:30 11/15/20 12:10 Insulin Lispro 100 Unit/Ml Vial 3 Ml SUB-Q 4 unit ACHS ESTER Administration Protocol Labetalol HCl 10 mg 11/15/20 01:17 Labetalol 20 Mg/4 Ml Inj IV Q5MIN PRN to maintain SBP < 180 Magnesium Hydroxide 30 ml 11/15/20 01:17 Magnesium Hydroxide (Mom) Oral Liqd Udc PO Q4H PRN Constipation Metoclopramide HCl 10 mg 11/15/20 01:17 Metoclopramide 10 Mg Tab PO Q6H PRN Nausea And Vomiting Morphine Sulfate 2 mg 11/15/20 01:17 11/15/20 03:01 Morphine 2 Mg/1 Ml Inj IV 2 mg Q4H PRN Administration Pain, Moderate (4-6) Ondansetron HCl 4 mg 11/15/20 01:17 11/15/20 12:09 Ondansetron 4 Mg/2 Ml Inj IV 4 mg Q8H PRN Administration Nausea And Vomiting Oxycodone/Acetaminophen 2 tab 11/15/20 12:00 11/15/20 12:10 Oxycodone /Acetaminophen 5-325mg Tab PO 2 tab Q8H PRN Administration Pain, Moderate (4-6) Promethazine HCl 25 mg 11/15/20 01:17 Promethazine 25 Mg Rect Supp MN Q6H PRN Nausea And Vomiting Sodium Chloride 10 ml 11/15/20 01:17 Sodium Chloride 0.9% 10 Ml Flush Syringe IV PRN PRN LINE FLUSH
[2020-11-15] MEDS ORDERED: INSULIN REGULAR, HUMAN 100 UNITS/1 ML ONE (13:30)
--- NOTE | 2020-11-15 13:32 | Magnetic Resonance Report ---
NONENHANCED MR SCAN OF THE BRAIN: INDICATION / CLINICAL INFORMATION: stroke. TECHNIQUE: Multiplanar, multisequence MR images of the brain obtained. COMPARISON: CT scan of the brain from 11/14/2020 FINDINGS: BRAIN / INTRACRANIAL CONTENTS: 1. Subacute infarction in the left posterior cerebral artery territory; questionable petechial change s; no significant mass effect over the left occipital horn 2. Encephalomalacia in the left corpus stratum from old ischemia 3. Focal area of restrictive diffusion in the left side of corpus callosum extending into corpus call osum splenium, consistent with cytotoxic lesion of the corpus callosum; these are usually transient a nd seen in seizures, metabolic derangements, GARBAGE PERSON malignancy and due to drugs 4. Focal area of increased signal intensity in the right medial globus pallidus and left basal gangli a: Asymmetric; probably due to lacune that is at least several weeks old CRANIOCERVICAL JUNCTION: No significant abnormality. VASCULAR FLOW-VOIDS: No significant abnormality. ORBITS: No significant abnormality of visualized orbits. SINUSES / MASTOIDS: No significant abnormality of visualized sinuses and mastoid air cells. ADDITIONAL FINDINGS: Empty sella IMPRESSION: 1. Subacute infarction in the left posterior cerebral artery territory; questionable petechial change s Focal area of restrictive diffusion in the corpus callosum extending towards the corpus callosum sple nium on the left side Transient toxic lesion of corpus callosum Focal asymmetric basal ganglia lesions probably ischemic Signer Name: Cherry Jerez MD Signed: 11/15/2020 1:27 PM Workstation Name: [id number]
--- NOTE | 2020-11-15 17:07 | Magnetic Resonance Report ---
MRV brain without contrast. HISTORY: Cortical vein thrombosis, cerebrovascular accident. FINDINGS: 2-D [id number] MRV of the head was performed. The motion degrades the image quality lizbet pite repeat imaging at. There is relative small caliber of the left transverse and sigmoid sinuses wh ich appears to reflect developmental hypoplasia. There is no clear evidence of thrombosis involving t ransverse or sigmoid sinuses bilaterally. The heterogeneous signal seen within the left internal jugu lar vein may reflect flow related artifact at. The superior sagittal and straight sinuses also appear patent at. The internal cerebral veins are unr emarkable and best seen on the source images at. The veins of Rosemarie as well as the cortical veins yesica ng the high cerebral convexities demonstrate appropriate signal intensity. 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 There is no clear MRA evidence of venous sinus thrombosis. Signer Name: Dominic Mahan MD Signed: 11/15/2020 5:03 PM Workstation Name: [id number]
[2020-11-15] MEDS: ACETAMINOPHEN 325 MG TAB PO PRN (21:43)
[2020-11-16] MEDS: MORPHINE 2 MG/1 ML INJ IV PRN ×3 (00:33→21:43)
[2020-11-16] MEDS: ONDANSETRON 4 MG/2 ML INJ IV PRN (05:04)
[2020-11-16] MEDS: oxyCODONE /ACETAMINOPHEN 5-325MG TAB PO PRN (05:15)
[2020-11-16 07:28] LABS: Chol/HDL Ratio 4.91 %
[2020-11-16] MEDS: ASPIRIN 325 MG TAB PO SCH (09:46)
[2020-11-16] MEDS: FAMOTIDINE 20 MG TAB PO SCH ×2 (09:46→21:43)
[2020-11-16] MEDS: INSULIN LISPRO 100 UNIT/ML VIAL 3 mL SUB-Q SCH ×4 (09:48→21:43)
[2020-11-16] MEDS ORDERED: INSULIN GLARGINE 100 UNITS/ML SUB-Q SCH (10:00)
--- NOTE | 2020-11-16 10:47 | Progress Note ---
Assessment and Plan Assessment and plan: ---Acute ischemic stroke Current Visit: Yes Status: Acute Plan to address problem: Aspirin 325 mg daily Plavix 75 mg daily for 21 days MRI brain positive for occipital stroke. MRA brain shows no critical stenosis MRV head to rule out cortical vein thrombosis showed no thrombosis in the intracranial veins Transthoracic echocardiogram performed but results still pending. Patient will need a YAMILEX as per neurology if echo is negative. Neurology recommendations appreciated Speech therapy ordered PT/OT ordered Tylenol as needed for headache --Headache Current Visit: Yes Status: Acute Plan to address problem: She denies any history of migraines in the past Need to have an MRV head with and without contrast to rule out any cortical vein thrombosis Neurology recommendations appreciated ---Diabetes Current Visit: Yes Status: Acute Plan to address problem: We will put the patient on 1800 kcal ADA diet after swallow evaluation. We put the patient on moderate dose Humalog sliding scale. Recheck CBC BMP in the morning History Interval history: Her headache is improved Eager to go home Awaiting echocardiogram Hospitalist Physical - Physical exam Narrative exam: VITAL SIGNS: Reviewed. GENERAL: Awake HEAD: No signs of head trauma. EYES: Pupils are equal. Extraocular motions intact. MOUTH: Oropharynx is normal. NECK: No adenopathy, no JVD. CHEST: Chest with diminished breath sounds bilaterally. No wheezes, rales, or rhonchi. CARDIAC: normal S1 and S2, without murmurs, gallops, or rubs. ABDOMEN: Soft, non tender and non distended. No rebound or guarding, and no masses palpated. Bowel Sounds normal. MUSCULOSKELETAL: No edema NEUROLOGIC EXAM: Alert and oriented x3. No focal neurologic deficits SKIN: No obvious lesions - Constitutional Vitals: Temp Pulse Resp BP Pulse Ox 98.4 F 91 H 20 138/73 96 11/16/20 07:48 11/16/20 07:48 11/16/20 04:40 11/16/20 07:48 11/16/20 07:48 HEART Score - HEART Score Troponin: Troponin T < 0.010 ng/mL (0.00-0.029) 11/15/20 01:35 Results - Labs CBC & Chem 7: 11/14/20 23:43 11/14/20 23:43 Labs: Laboratory Last Values WBC 16.7 K/mm3 (4.5-11.0) H 11/14/20 23:43 RBC 4.80 M/mm3 (3.65-5.03) 11/14/20 23:43 Hgb 14.3 gm/dl (10.1-14.3) 11/14/20 23:43 Hct 42.3 % (30.3-42.9) 11/14/20 23:43 MCV 88 fl (79-97) 11/14/20 23:43 MCH 30 pg (28-32) 11/14/20 23:43 MCHC 34 % (30-34) 11/14/20 23:43 RDW 12.9 % (13.2-15.2) L 11/14/20 23:43 Plt Count 288 K/mm3 (140-440) 11/14/20 23:43 Lymph # (Auto) Animal Husbandry Technician 11/14/20 23:43 Add Manual Diff Complete 11/14/20 23:43 Total Counted 100 11/14/20 23:43 Seg Neuts % (Manual) 78.0 % (40.0-70.0) H 11/14/20 23:43 Lymphocytes % (Manual) 18.0 % (13.4-35.0) 11/14/20 23:43 Monocytes % (Manual) 2.0 % (0.0-7.3) 11/14/20 23:43 Eosinophils % (Manual) 2.0 % (0.0-4.3) 11/14/20 23:43 Nucleated RBC % Not Reportable 11/14/20 23:43 Seg Neutrophils # Man 13.0 K/mm3 (1.8-7.7) H 11/14/20 23:43 Band Neutrophils # 0.0 K/mm3 11/14/20 23:43 Lymphocytes # (Manual) 3.0 K/mm3 (1.2-5.4) 11/14/20 23:43 Abs React Lymphs (Man) 0.0 K/mm3 11/14/20 23:43 Monocytes # (Manual) 0.3 K/mm3 (0.0-0.8) 11/14/20 23:43 Eosinophils # (Manual) 0.3 K/mm3 (0.0-0.4) 11/14/20 23:43 Basophils # (Manual) 0.0 K/mm3 (0.0-0.1) 11/14/20 23:43 Metamyelocytes # 0.0 K/mm3 11/14/20 23:43 Myelocytes # 0.0 K/mm3 11/14/20 23:43 Promyelocytes # 0.0 K/mm3 11/14/20 23:43 Blast Cells # 0.0 K/mm3 11/14/20 23:43 WBC Morphology Not Reportable 11/14/20 23:43 Hypersegmented Neuts Not Reportable 11/14/20 23:43 Hyposegmented Neuts Not Reportable 11/14/20 23:43 Hypogranular Neuts Not Reportable 11/14/20 23:43 Smudge Cells Not Reportable 11/14/20 23:43 Toxic Granulation Not Reportable 11/14/20 23:43 Toxic Vacuolation Not Reportable 11/14/20 23:43 Dohle Bodies Not Reportable 11/14/20 23:43 Pelger-Huet Anomaly Not Reportable 11/14/20 23:43 Dinah Rods Not Reportable 11/14/20 23:43 Platelet Estimate Consistent w auto 11/14/20 23:43 Clumped Platelets Not Reportable 11/14/20 23:43 Plt Clumps, EDTA Not Reportable 11/14/20 23:43 Large Platelets Not Reportable 11/14/20 23:43 Giant Platelets Not Reportable 11/14/20 23:43 Platelet Satelliting Not Reportable 11/14/20 23:43 Plt Morphology Comment Not Reportable 11/14/20 23:43 RBC Morphology Not Reportable 11/14/20 23:43 Dimorphic RBCs Not Reportable 11/14/20 23:43 Polychromasia Not Reportable 11/14/20 23:43 Hypochromasia Not Reportable 11/14/20 23:43 Poikilocytosis Not Reportable 11/14/20 23:43 Anisocytosis Not Reportable 11/14/20 23:43 Microcytosis Not Reportable 11/14/20 23:43 Macrocytosis Not Reportable 11/14/20 23:43 Spherocytes Not Reportable 11/14/20 23:43 Pappenheimer Bodies Not Reportable 11/14/20 23:43 Sickle Cells Not Reportable 11/14/20 23:43 Target Cells Not Reportable 11/14/20 23:43 Tear Drop Cells Not Reportable 11/14/20 23:43 Ovalocytes Not Reportable 11/14/20 23:43 Helmet Cells Not Reportable 11/14/20 23:43 Serrato-Mcfall Bodies Not Reportable 11/14/20 23:43 [place] Rings Not Reportable 11/14/20 23:43 [place] Cells Not Reportable 11/14/20 23:43 Bite Cells Not Reportable 11/14/20 23:43 Crenated Cell Not Reportable 11/14/20 23:43 Elliptocytes Not Reportable 11/14/20 23:43 Acanthocytes (Spur) Not Reportable 11/14/20 23:43 Rouleaux Not Reportable 11/14/20 23:43 Hemoglobin C Crystals Not Reportable 11/14/20 23:43 Schistocytes Not Reportable 11/14/20 23:43 Malaria parasites Not Reportable 11/14/20 23:43 [place] Bodies Not Reportable 11/14/20 23:43 Hem Pathologist Commnt No 11/14/20 23:43 PT 13.4 Sec. (12.2-14.9) 11/14/20 23:43 INR 1.04 (0.87-1.13) 11/14/20 23:43 APTT 25.0 Sec. (24.2-36.6) 11/14/20 23:43 Thrombin Time 15.6 Sec. (15.1-19.6) 11/14/20 23:43 Sodium 133 mmol/L (137-145) L 11/14/20 23:43 Potassium 4.9 mmol/L (3.6-5.0) 11/14/20 23:43 Chloride 95.7 mmol/L (98-107) L 11/14/20 23:43 Carbon Dioxide 24 mmol/L (22-30) 11/14/20 23:43 Anion Gap 18 mmol/L 11/14/20 23:43 BUN 29 mg/dL (7-17) H 11/14/20 23:43 Creatinine 1.5 mg/dL (0.6-1.2) H 11/14/20 23:43 Estimated GFR 44 ml/min 11/14/20 23:43 BUN/Creatinine Ratio 19 % 11/14/20 23:43 Glucose 392 mg/dL (65-100) H 11/14/20 23:43 POC Glucose 335 mg/dL (70-105) H 11/16/20 07:49 Hemoglobin A1c 14.6 % (4-6) H 11/16/20 05:57 Calcium 9.1 mg/dL (8.4-10.2) 11/14/20 23:43 Total Bilirubin 0.40 mg/dL (0.1-1.2) 11/14/20 23:43 AST 12 units/L (5-40) 11/14/20 23:43 ALT 12 units/L (7-56) 11/14/20 23:43 Alkaline Phosphatase 179 units/L (35-129) H 11/14/20 23:43 Troponin T < 0.010 ng/mL (0.00-0.029) 11/15/20 01:35 Total Protein 7.1 g/dL (6.3-8.2) 11/14/20 23:43 Albumin 4.0 g/dL (3.9-5) 11/14/20 23:43 Albumin/Globulin Ratio 1.3 % 11/14/20 23:43 Triglycerides 211 mg/dL (2-149) H 11/16/20 05:57 Cholesterol 172 mg/dL (50-199) 11/16/20 05:57 LDL Cholesterol Direct 122 mg/dL (50-130) 11/16/20 05:57 HDL Cholesterol 35 mg/dL (40-59) L 11/16/20 05:57 Cholesterol/HDL Ratio 4.91 % 11/16/20 05:57 Sanders/IV: Voiding Method Toilet IV Catheter Type [Left Forearm INT / Saline Lock ] Active Medications - Current Medications Current Medications: Generic Name Dose Route Start Last Admin Trade Name Freq PRN Reason Stop Dose Admin Acetaminophen 650 mg 11/15/20 01:17 11/15/20 21:43 Acetaminophen 325 Mg Tab PO 650 mg Q4H PRN Administration Pain, Mild (1-3) Aspirin 325 mg 11/15/20 10:00 11/16/20 09:46 Aspirin 325 Mg Tab PO 325 mg QDAY ESTER Administration Atorvastatin Calcium 80 mg 11/15/20 22:00 11/15/20 21:44 Atorvastatin 40 Mg Tab PO 80 mg QHS ESTER Administration Bisacodyl 10 mg 11/15/20 01:17 Bisacodyl 10 Mg Rect Supp OK QDAY PRN Constipation Dextrose 50 ml 11/15/20 01:21 Dextrose 50% In Water (25gm) 50 Ml Syringe IV Q30MIN PRN Hypoglycemia Protocol Famotidine 20 mg 11/15/20 02:00 11/16/20 09:46 Famotidine 20 Mg Tab PO 20 mg BID ESTER Administration Insulin Glargine 20 units 11/16/20 10:00 11/16/20 09:46 Insulin Glargine 100 Units/Ml SUB-Q 20 units QAM ESTER Administration Insulin Human Lispro 0 unit 11/15/20 07:30 11/16/20 09:48 Insulin Lispro 100 Unit/Ml Vial 3 Ml SUB-Q 6 unit ACHS ESTER Administration Protocol Labetalol HCl 10 mg 11/15/20 01:17 Labetalol 20 Mg/4 Ml Inj IV Q5MIN PRN to maintain SBP < 180 Magnesium Hydroxide 30 ml 11/15/20 01:17 Magnesium Hydroxide (Mom) Oral Liqd Udc PO Q4H PRN Constipation Metoclopramide HCl 10 mg 11/15/20 01:17 Metoclopramide 10 Mg Tab PO Q6H PRN Nausea And Vomiting Morphine Sulfate 2 mg 11/15/20 01:17 11/16/20 00:33 Morphine 2 Mg/1 Ml Inj IV 2 mg Q4H PRN Administration Pain, Moderate (4-6) Ondansetron HCl 4 mg 11/15/20 01:17 11/16/20 05:04 Ondansetron 4 Mg/2 Ml Inj IV 4 mg Q8H PRN Administration Nausea And Vomiting Oxycodone/Acetaminophen 2 tab 11/15/20 12:00 11/16/20 05:15 Oxycodone /Acetaminophen 5-325mg Tab PO 2 tab Q8H PRN Administration Pain, Moderate (4-6) Promethazine HCl 25 mg 11/15/20 01:17 Promethazine 25 Mg Rect Supp OK Q6H PRN Nausea And Vomiting Sodium Chloride 10 ml 11/15/20 01:17 Sodium Chloride 0.9% 10 Ml Flush Syringe IV PRN PRN LINE FLUSH Nutrition/Malnutrition Assess - Dietary Evaluation Nutrition/Malnutrition Findings: Nutrition Notes Start: 11/15/20 13:47 Freq: Status: Active Protocol: Document 11/15/20 13:47 MELANIE (Rec: 11/15/20 14:07 MELANIE [id number]) Co-Sign 11/15/20 13:47 LP Nutrition Notes Need for Assessment generated from: MD Order,special education paraeducator,MST, Education Initial or Follow up Assessment Current Diagnosis Diabetes,Hypertension,Stroke Other Pertinent Diagnosis diabetic neuropathy, diabetic retinopathy, cataracts Current Diet NPO Labs/Tests 11/14 Na 133 BUN 29 Cr 1.5 BG 392 Pertinent Medications Insulin Zofran Height 5 ft 6 in Weight 103.147 kg Usual Body Weight 110.5 kg [place] Body Weight (kg) 59.09 BMI 36.7 Intake Prior to Admission Poor Weight change and time frame 6.4% wt loss, 1 month Weight Status Obese Subjective/Other Information MD consult for diet education, 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 Pt given education. 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 Pt reports nausea and appetite improving. Pt states normal intake is 1-2 meals/day . Burn Absent Trauma Absent GI Symptoms None Food Allergy No Current % PO Negligible Minimum of two criteria No Interpretation of Weight Loss (severe) >5% in 1 month #2 Nutrition Diagnosis Food and nutrition-related knowledge deficit Etiology pt has no prior diet education As Evidenced by Signs and Symptoms pt has questions #1 Nutrition Diagnosis Inadequate oral intake Etiology decreased appetite, nausea As Evidenced by Signs and Symptoms pt with 0% intakes Is patient on ventilator? No Is Patient Ambulatory and/or Out of Bed Yes REE-([facility]-ambulatory/OOB) [ 2155.686 [id number]] Kcal/Kg value to use for calculation 17 Approximate Energy Requirements Using 1753 kcal/Kg Calculation Used for Recommendations Kcal/kg Additional Notes Pro: 65-81 g (0.8-1 g/kg AdjBW , 81.0kg) Fluid: 1 ml/kcal Nutrition Intervention Change Diet Order: Diet advancement when medically able Teaching Recipient Patient Learning Readiness Good Teaching Methods Discussion,Handout Response to Teaching Verbalize understanding Education Handouts Provided CHO Counting for Diabetes Barriers to Learning No Barriers RD phone number provided Yes Patient aware of follow up options Yes Goal #1 Diet advancement Anticipated Discharge Needs: Consistent CHO diet Follow-Up By: 11/19/20 Additional Comments F/U for diet advancement/ intakes
[2020-11-16] MEDS ORDERED: INSULIN LISPRO 100 UNIT/ML VIAL 3 mL SUB-Q ONE (16:00)
[2020-11-16] MEDS: INSULIN GLARGINE 100 UNITS/ML SUB-Q SCH (21:48)
[2020-11-17] MEDS: ACETAMINOPHEN 325 MG TAB PO PRN ×2 (01:32→21:20)
[2020-11-17] MEDS: MORPHINE 2 MG/1 ML INJ IV PRN (04:43)
[2020-11-17] MEDS: INSULIN GLARGINE 100 UNITS/ML SUB-Q SCH ×2 (09:36→21:22)
[2020-11-17] MEDS: INSULIN LISPRO 100 UNIT/ML VIAL 3 mL SUB-Q SCH ×7 (09:36→21:22)
[2020-11-17] MEDS: ASPIRIN 325 MG TAB PO SCH (09:37)
[2020-11-17] MEDS: FAMOTIDINE 20 MG TAB PO SCH ×2 (09:37→21:21)
--- NOTE | 2020-11-17 13:46 | Progress Note ---
Assessment and Plan Assessment and plan: ---Acute ischemic stroke Current Visit: Yes Status: Acute Plan to address problem: Aspirin 325 mg daily Plavix 75 mg daily for 21 days MRI brain positive for occipital stroke. MRA brain shows no critical stenosis MRV head to rule out cortical vein thrombosis showed no thrombosis in the intracranial veins Transthoracic echocardiogram - negative shunt, thrombus. Patient will need a YAMILEX as per neurology. Cardiology consulted. Neurology recommendations appreciated Speech therapy/PT/OT Tylenol as needed for headache --Headache Current Visit: Yes Status: Acute Plan to address problem: Resolved She denies any history of migraines in the past MRV head with and without contrast -ve for cortical vein thrombosis Neurology recommendations appreciated ---Diabetes Current Visit: Yes Status: Acute Plan to address problem: Has poorly controlled DM - HbA1c 14.6 Lantus and lispro. Will adjust dose accordingly History Interval history: Has no complaints. Echo reveiwed. No thrombus or vegetation. Will need YAMILEX as per neurology Cardiology consulted Hospitalist Physical - Physical exam Narrative exam: VITAL SIGNS: Reviewed. GENERAL: Awake HEAD: No signs of head trauma. EYES: Pupils are equal. Extraocular motions intact. MOUTH: Oropharynx is normal. NECK: No adenopathy, no JVD. CHEST: Chest with diminished breath sounds bilaterally. No wheezes, rales, or rhonchi. CARDIAC: normal S1 and S2, without murmurs, gallops, or rubs. ABDOMEN: Soft, non tender and non distended. No rebound or guarding, and no masses palpated. Bowel Sounds normal. MUSCULOSKELETAL: No edema NEUROLOGIC EXAM: Alert and oriented x3. No focal neurologic deficits SKIN: No obvious lesions - Constitutional Vitals: Temp Pulse Resp BP Pulse Ox 98.3 F 96 H 18 132/84 94 11/17/20 09:13 11/17/20 09:25 11/17/20 09:13 11/17/20 09:13 11/17/20 09:13 HEART Score - HEART Score Troponin: Troponin T < 0.010 ng/mL (0.00-0.029) 11/15/20 01:35 Results - Labs CBC & Chem 7: 11/14/20 23:43 11/14/20 23:43 Labs: Laboratory Last Values WBC 16.7 K/mm3 (4.5-11.0) H 11/14/20 23:43 RBC 4.80 M/mm3 (3.65-5.03) 11/14/20 23:43 Hgb 14.3 gm/dl (10.1-14.3) 11/14/20 23:43 Hct 42.3 % (30.3-42.9) 11/14/20 23:43 MCV 88 fl (79-97) 11/14/20 23:43 MCH 30 pg (28-32) 11/14/20 23:43 MCHC 34 % (30-34) 11/14/20 23:43 RDW 12.9 % (13.2-15.2) L 11/14/20 23:43 Plt Count 288 K/mm3 (140-440) 11/14/20 23:43 Lymph # (Auto) Notched Blade Loader 11/14/20 23:43 Add Manual Diff Complete 11/14/20 23:43 Total Counted 100 11/14/20 23:43 Seg Neuts % (Manual) 78.0 % (40.0-70.0) H 11/14/20 23:43 Lymphocytes % (Manual) 18.0 % (13.4-35.0) 11/14/20 23:43 Monocytes % (Manual) 2.0 % (0.0-7.3) 11/14/20 23:43 Eosinophils % (Manual) 2.0 % (0.0-4.3) 11/14/20 23:43 Nucleated RBC % Not Reportable 11/14/20 23:43 Seg Neutrophils # Man 13.0 K/mm3 (1.8-7.7) H 11/14/20 23:43 Band Neutrophils # 0.0 K/mm3 11/14/20 23:43 Lymphocytes # (Manual) 3.0 K/mm3 (1.2-5.4) 11/14/20 23:43 Abs React Lymphs (Man) 0.0 K/mm3 11/14/20 23:43 Monocytes # (Manual) 0.3 K/mm3 (0.0-0.8) 11/14/20 23:43 Eosinophils # (Manual) 0.3 K/mm3 (0.0-0.4) 11/14/20 23:43 Basophils # (Manual) 0.0 K/mm3 (0.0-0.1) 11/14/20 23:43 Metamyelocytes # 0.0 K/mm3 11/14/20 23:43 Myelocytes # 0.0 K/mm3 11/14/20 23:43 Promyelocytes # 0.0 K/mm3 11/14/20 23:43 Blast Cells # 0.0 K/mm3 11/14/20 23:43 WBC Morphology Not Reportable 11/14/20 23:43 Hypersegmented Neuts Not Reportable 11/14/20 23:43 Hyposegmented Neuts Not Reportable 11/14/20 23:43 Hypogranular Neuts Not Reportable 11/14/20 23:43 Smudge Cells Not Reportable 11/14/20 23:43 Toxic Granulation Not Reportable 11/14/20 23:43 Toxic Vacuolation Not Reportable 11/14/20 23:43 Dohle Bodies Not Reportable 11/14/20 23:43 Pelger-Huet Anomaly Not Reportable 11/14/20 23:43 Dinah Rods Not Reportable 11/14/20 23:43 Platelet Estimate Consistent w auto 11/14/20 23:43 Clumped Platelets Not Reportable 11/14/20 23:43 Plt Clumps, EDTA Not Reportable 11/14/20 23:43 Large Platelets Not Reportable 11/14/20 23:43 Giant Platelets Not Reportable 11/14/20 23:43 Platelet Satelliting Not Reportable 11/14/20 23:43 Plt Morphology Comment Not Reportable 11/14/20 23:43 RBC Morphology Not Reportable 11/14/20 23:43 Dimorphic RBCs Not Reportable 11/14/20 23:43 Polychromasia Not Reportable 11/14/20 23:43 Hypochromasia Not Reportable 11/14/20 23:43 Poikilocytosis Not Reportable 11/14/20 23:43 Anisocytosis Not Reportable 11/14/20 23:43 Microcytosis Not Reportable 11/14/20 23:43 Macrocytosis Not Reportable 11/14/20 23:43 Spherocytes Not Reportable 11/14/20 23:43 Pappenheimer Bodies Not Reportable 11/14/20 23:43 Sickle Cells Not Reportable 11/14/20 23:43 Target Cells Not Reportable 11/14/20 23:43 Tear Drop Cells Not Reportable 11/14/20 23:43 Ovalocytes Not Reportable 11/14/20 23:43 Helmet Cells Not Reportable 11/14/20 23:43 Serrato-Whetstone Bodies Not Reportable 11/14/20 23:43 [place] Rings Not Reportable 11/14/20 23:43 Joby Cells Not Reportable 11/14/20 23:43 Bite Cells Not Reportable 11/14/20 23:43 Crenated Cell Not Reportable 11/14/20 23:43 Elliptocytes Not Reportable 11/14/20 23:43 Acanthocytes (Spur) Not Reportable 11/14/20 23:43 Rouleaux Not Reportable 11/14/20 23:43 Hemoglobin C Crystals Not Reportable 11/14/20 23:43 Schistocytes Not Reportable 11/14/20 23:43 Malaria parasites Not Reportable 11/14/20 23:43 [place] Bodies Not Reportable 11/14/20 23:43 Hem Pathologist Commnt No 11/14/20 23:43 PT 13.4 Sec. (12.2-14.9) 11/14/20 23:43 INR 1.04 (0.87-1.13) 11/14/20 23:43 APTT 25.0 Sec. (24.2-36.6) 11/14/20 23:43 Thrombin Time 15.6 Sec. (15.1-19.6) 11/14/20 23:43 Sodium 133 mmol/L (137-145) L 11/14/20 23:43 Potassium 4.9 mmol/L (3.6-5.0) 11/14/20 23:43 Chloride 95.7 mmol/L (98-107) L 11/14/20 23:43 Carbon Dioxide 24 mmol/L (22-30) 11/14/20 23:43 Anion Gap 18 mmol/L 11/14/20 23:43 BUN 29 mg/dL (7-17) H 11/14/20 23:43 Creatinine 1.5 mg/dL (0.6-1.2) H 11/14/20 23:43 Estimated GFR 44 ml/min 11/14/20 23:43 BUN/Creatinine Ratio 19 % 11/14/20 23:43 Glucose 392 mg/dL (65-100) H 11/14/20 23:43 POC Glucose 289 mg/dL (70-105) H 11/17/20 12:26 Hemoglobin A1c 14.6 % (4-6) H 11/16/20 05:57 Calcium 9.1 mg/dL (8.4-10.2) 11/14/20 23:43 Total Bilirubin 0.40 mg/dL (0.1-1.2) 11/14/20 23:43 AST 12 units/L (5-40) 11/14/20 23:43 ALT 12 units/L (7-56) 11/14/20 23:43 Alkaline Phosphatase 179 units/L (35-129) H 11/14/20 23:43 Troponin T < 0.010 ng/mL (0.00-0.029) 11/15/20 01:35 Total Protein 7.1 g/dL (6.3-8.2) 11/14/20 23:43 Albumin 4.0 g/dL (3.9-5) 11/14/20 23:43 Albumin/Globulin Ratio 1.3 % 11/14/20 23:43 Triglycerides 211 mg/dL (2-149) H 11/16/20 05:57 Cholesterol 172 mg/dL (50-199) 11/16/20 05:57 LDL Cholesterol Direct 122 mg/dL (50-130) 11/16/20 05:57 HDL Cholesterol 35 mg/dL (40-59) L 11/16/20 05:57 Cholesterol/HDL Ratio 4.91 % 11/16/20 05:57 - Diagnostic Impressions Diagnostic Impressions: Echocardiogram 11/15/20 13:14 Transthoracic Echocardiogram Indication: CVA BP: 124/63 HR: 87 Conclusions *The estimated ejection fraction is 55-60%. *There is an E to A reversal in the mitral valve flow pattern suggestive of diastolic dysfunction. *The right ventricular global systolic function is normal. Findings Left Ventricle: Global left ventricular wall motion and contractility are within normal limits. The estimated ejection fraction is 55-60%. There is an E to A reversal in the mitral valve flow pattern suggestive of diastolic dysfunction. Left Atrium: The left atrium is normal in size with no visual thrombus identified. Right Ventricle: The right ventricular global systolic function is normal. Right Atrium: The right atrium appears normal. Aortic Valve: The aortic valve is trileaflet. The leaflets are thin with normal excursion. There is no aortic stenosis or regurgitation present. Mitral Valve: The mitral valve appears normal in structure and function. Tricuspid Valve: The tricuspid valve appears normal in structure and function. The right ventricular systolic pressure is calculated at 15 mmHg. Pulmonic Valve: The pulmonic valve appears normal in structure and function. Measurements Chambers 2D Name Value Normal Range IVSd (2D) 1.22 cm (0.6 - 1.1) LVPWd (2D) 1.24 cm (0.6 - 1.1) LVIDd (2D) 3.81 cm (3.7 - 5.6) LVIDs (2D) 2.58 cm (2 - 3.8) LV FS (2D) 32.44 % - EF Teichholz (2D) 61.49 % - Ao root diameter (2D) 3.11 cm (2 - 3.7) Volumes/Mass Name Value Normal Range LA ESV SP 4CH (A/L) 31.17 ml - LA ESV SP 2CH (A/L) 19.58 ml - LA ESV BP (A/L) 29.37 ml - LA ESV BP (A/L) index 13.92 ml/m2 - LA ESV SP 4CH (MOD) 29.1 ml - LA ESV SP 2CH (MOD) 19.37 ml - LA ESV BP (MOD) 28.17 ml - LA ESV BP (MOD) index 13.35 ml/m2 - Diastolic/Systolic Function Name Value Normal Range MV E-wave Vmax 0.64 m/sec - MV deceleration time 310.23 msec - MV A-wave Vmax 0.91 m/sec - MV E:A ratio 0.71 ratio - Aortic Valve Name Value Normal Range AV Vmax 1.4 m/sec - AV VTI 22.38 cm - AV peak gradient 7.85 mmHg - AV mean gradient 3.63 mmHg - LVOT diameter 2.12 cm - LVOT Vmax 1.15 m/sec - LVOT VTI 22.56 cm - LVOT peak gradient 5.3 mmHg - LVOT mean gradient 2.64 mmHg - SV LVOT 79.21 ml - [place] (continuity Vmax) 2.89 cm2 - [place] (continuity VTI) 3.54 cm2 - Ascending Ao 3.27 cm - Tricuspid Valve Name Value Normal Range TR Vmax 1.72 m/sec - TR peak gradient 12 mmHg - RAP 3 mmHg - RVSP 15 mmHg - IVC diameter 1.4 cm (1.2 - 2.3) Pulmonic Valve/Qp:Qs Name Value Normal Range PV Vmax 0.7 m/sec - PV peak gradient 1.99 mmHg - ID end-diastolic Vmax 0.88 m/sec - PV acceleration time 91.34 msec - Sanders/IV: Voiding Method Toilet IV Catheter Type [Left Forearm INT / Saline Lock ] Active Medications - Current Medications Current Medications: Generic Name Dose Route Start Last Admin Trade Name Freq PRN Reason Stop Dose Admin Acetaminophen 650 mg 11/15/20 01:17 11/17/20 01:32 Acetaminophen 325 Mg Tab PO 650 mg Q4H PRN Administration Pain, Mild (1-3) Aspirin 325 mg 11/15/20 10:00 11/17/20 09:37 Aspirin 325 Mg Tab PO 325 mg QDAY ESTER Administration Atorvastatin Calcium 80 mg 11/15/20 22:00 11/16/20 21:43 Atorvastatin 40 Mg Tab PO 80 mg QHS ESTER Administration Bisacodyl 10 mg 11/15/20 01:17 Bisacodyl 10 Mg Rect Supp ID QDAY PRN Constipation Dextrose 50 ml 11/15/20 01:21 Dextrose 50% In Water (25gm) 50 Ml Syringe IV Q30MIN PRN Hypoglycemia Protocol Famotidine 20 mg 11/15/20 02:00 11/17/20 09:37 Famotidine 20 Mg Tab PO 20 mg BID ESTER Administration Insulin Glargine 20 units 11/16/20 22:00 11/17/20 09:36 Insulin Glargine 100 Units/Ml SUB-Q 20 units BID ESTER Administration Insulin Human Lispro 0 unit 11/15/20 07:30 11/17/20 13:03 Insulin Lispro 100 Unit/Ml Vial 3 Ml SUB-Q 6 unit ACHS ESTER Administration Protocol Insulin Human Lispro 4 unit 11/17/20 11:30 11/17/20 13:03 Insulin Lispro 100 Unit/Ml Vial 3 Ml SUB-Q 4 unit ACHS ESTER Administration Labetalol HCl 10 mg 11/15/20 01:17 Labetalol 20 Mg/4 Ml Inj IV Q5MIN PRN to maintain SBP < 180 Magnesium Hydroxide 30 ml 11/15/20 01:17 Magnesium Hydroxide (Mom) Oral Liqd Udc PO Q4H PRN Constipation Metoclopramide HCl 10 mg 11/15/20 01:17 Metoclopramide 10 Mg Tab PO Q6H PRN Nausea And Vomiting Morphine Sulfate 2 mg 11/15/20 01:17 11/17/20 04:43 Morphine 2 Mg/1 Ml Inj IV 2 mg Q4H PRN Administration Pain, Moderate (4-6) Ondansetron HCl 4 mg 11/15/20 01:17 11/16/20 05:04 Ondansetron 4 Mg/2 Ml Inj IV 4 mg Q8H PRN Administration Nausea And Vomiting Oxycodone/Acetaminophen 2 tab 11/15/20 12:00 11/16/20 05:15 Oxycodone /Acetaminophen 5-325mg Tab PO 2 tab Q8H PRN Administration Pain, Moderate (4-6) Promethazine HCl 25 mg 11/15/20 01:17 Promethazine 25 Mg Rect Supp ID Q6H PRN Nausea And Vomiting Sodium Chloride 10 ml 11/15/20 01:17 Sodium Chloride 0.9% 10 Ml Flush Syringe IV PRN PRN LINE FLUSH Nutrition/Malnutrition Assess - Dietary Evaluation Nutrition/Malnutrition Findings: Nutrition Notes Start: 11/15/20 13:47 Freq: Status: Active Protocol: Document 11/15/20 13:47 MELANIE (Rec: 11/15/20 14:07 MELANIE [id number]) Co-Sign 11/15/20 13:47 LP Nutrition Notes Need for Assessment generated from: MD Order,consumer relations complaint clerk,MST, Education Initial or Follow up Assessment Current Diagnosis Diabetes,Hypertension,Stroke Other Pertinent Diagnosis diabetic neuropathy, diabetic retinopathy, cataracts Current Diet NPO Labs/Tests 11/14 Na 133 BUN 29 Cr 1.5 BG 392 Pertinent Medications Insulin Zofran Height 5 ft 6 in Weight 103.147 kg Usual Body Weight 110.5 kg [place] Body Weight (kg) 59.09 BMI 36.7 Intake Prior to Admission Poor Weight change and time frame 6.4% wt loss, 1 month Weight Status Obese Subjective/Other Information MD consult for diet education, meat market manager for MST. Pt given education. 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 Pt reports nausea and appetite improving. Pt states normal intake is 1-2 meals/day . Burn Absent Trauma Absent GI Symptoms None Food Allergy No Current % PO Negligible Minimum of two criteria No Interpretation of Weight Loss (severe) >5% in 1 month #2 Nutrition Diagnosis Food and nutrition-related knowledge deficit Etiology pt has no prior diet education As Evidenced by Signs and Symptoms pt has questions #1 Nutrition Diagnosis Inadequate oral intake Etiology decreased appetite, nausea As Evidenced by Signs and Symptoms pt with 0% intakes Is patient on ventilator? No Is Patient Ambulatory and/or Out of Bed Yes REE-([place]-St. Jeor-ambulatory/OOB) [ 2155.686 NUTR.MSJOOB] Kcal/Kg value to use for calculation 17 Approximate Energy Requirements Using 1753 kcal/Kg Calculation Used for Recommendations Kcal/kg Additional Notes Pro: 65-81 g (0.8-1 g/kg AdjBW , 81.0kg) Fluid: 1 ml/kcal Nutrition Intervention Change Diet Order: Diet advancement when medically able Teaching Recipient Patient Learning Readiness Good Teaching Methods Discussion,Handout Response to Teaching Verbalize understanding Education Handouts Provided CHO Counting for Diabetes Barriers to Learning No Barriers RD phone number provided Yes Patient aware of follow up options Yes Goal #1 Diet advancement Anticipated Discharge Needs: Consistent CHO diet Follow-Up By: 11/19/20 Additional Comments F/U for diet advancement/ intakes
--- NOTE | 2020-11-17 16:25 | Consultation ---
History of Present Illness Consult date: 11/17/20 Requesting physician: BEAU ZHAO Consult reason: other (YAMILEX) History of present illness: Pt is a 50-year-old AA female, previously unknown to our practice, who presented with complaints of a headache and associated blurred vision x 2 weeks prior to arrival. Pt was found to have subacute left occipital stroke. Cardiology has been consulted to perform YAMILEX to r/o endocarditis. TTE completed 11/15/2020 revealed no thrombus or valvular vegetation. Past History Past Medical History: diabetes, hypertension, hyperlipidemia Social history: denies: smoking, alcohol abuse Medications and Allergies Allergies Allergy/AdvReac Type Severity Reaction Status Date / Time bismuth subsalicylate Allergy Nausea Verified 09/27/20 14:56 [From Pepto-Bismol] Penicillins Allergy Nausea Verified 09/27/20 14:56 tramadol Allergy Unknown Verified 09/27/20 14:56 Home Medications Medication Instructions Recorded Confirmed Last Taken Type Gabapentin [Neurontin] 600 mg PO TID 09/28/20 11/15/20 Unknown History DULoxetine [Cymbalta] 60 mg PO BID 11/15/20 11/15/20 Unknown History Exenatide Microspheres [Bydureon 2 mg SQ 1XW 11/15/20 11/15/20 Unknown History Pen] Insulin Lispro Prot/Lispro 50 unit SQ BIDAC 11/15/20 11/15/20 Unknown History [HumaLOG Mix 75/25 Vial] OXYCODONE hcl [Oxycodone] 15 mg PO 4XD PRN 11/15/20 11/15/20 Unknown History oxyCODONE ER [oxyCONTIN ER] 10 mg PO Q12HR 11/15/20 11/15/20 Unknown History tiZANidine [Zanaflex 4mg TAB] 4 mg PO QID PRN 11/15/20 11/15/20 Unknown History Active Meds: Active Medications Acetaminophen (Acetaminophen 325 Mg Tab) 650 mg PO Q4H PRN PRN Reason: Pain, Mild (1-3) Last Admin: 11/17/20 01:32 Dose: 650 mg Documented by: Aspirin (Aspirin 325 Mg Tab) 325 mg PO QDAY [facility] Last Admin: 11/17/20 09:37 Dose: 325 mg Documented by: Atorvastatin Calcium (Atorvastatin 40 Mg Tab) 80 mg PO QHS [facility] Last Admin: 11/16/20 21:43 Dose: 80 mg Documented by: Bisacodyl (Bisacodyl 10 Mg Rect Supp) 10 mg UT QDAY PRN PRN Reason: Constipation Dextrose (Dextrose 50% In Water (25gm) 50 Ml Syringe) 50 ml IV Q30MIN PRN; Protocol PRN Reason: Hypoglycemia Famotidine (Famotidine 20 Mg Tab) 20 mg PO BID [facility] Last Admin: 11/17/20 09:37 Dose: 20 mg Documented by: Insulin Glargine (Insulin Glargine 100 Units/Ml) 20 units SUB-Q BID [facility] Last Admin: 11/17/20 09:36 Dose: 20 units Documented by: Insulin Human Lispro (Insulin Lispro 100 Unit/Ml Vial 3 Ml) 0 unit SUB-Q [facility]; Protocol Last Admin: 11/17/20 13:03 Dose: 6 unit Documented by: Insulin Human Lispro (Insulin Lispro 100 Unit/Ml Vial 3 Ml) 4 unit SUB-Q [facility] Last Admin: 11/17/20 13:03 Dose: 4 unit Documented by: Labetalol HCl (Labetalol 20 Mg/4 Ml Inj) 10 mg IV Q5MIN PRN PRN Reason: to maintain SBP < 180 Magnesium Hydroxide (Magnesium Hydroxide (Mom) Oral Liqd Udc) 30 ml PO Q4H PRN PRN Reason: Constipation Metoclopramide HCl (Metoclopramide 10 Mg Tab) 10 mg PO Q6H PRN PRN Reason: Nausea And Vomiting Morphine Sulfate (Morphine 2 Mg/1 Ml Inj) 2 mg IV Q4H PRN PRN Reason: Pain, Moderate (4-6) Last Admin: 11/17/20 04:43 Dose: 2 mg Documented by: Ondansetron HCl (Ondansetron 4 Mg/2 Ml Inj) 4 mg IV Q8H PRN PRN Reason: Nausea And Vomiting Last Admin: 11/16/20 05:04 Dose: 4 mg Documented by: Oxycodone/Acetaminophen (Oxycodone /Acetaminophen 5-325mg Tab) 2 tab PO Q8H PRN PRN Reason: Pain, Moderate (4-6) Last Admin: 11/16/20 05:15 Dose: 2 tab Documented by: Promethazine HCl (Promethazine 25 Mg Rect Supp) 25 mg UT Q6H PRN PRN Reason: Nausea And Vomiting Sodium Chloride (Sodium Chloride 0.9% 10 Ml Flush Syringe) 10 ml IV PRN PRN PRN Reason: LINE FLUSH Review of Systems Constitutional: no fever, no chills, no sweats Eyes: bilateral: blurred vision Ears, nose, mouth and throat: no dysphagia Cardiovascular: no chest pain, no palpitations, no syncope, no lightheadedness Respiratory: no cough, no shortness of breath Gastrointestinal: no abdominal pain, no nausea, no vomiting Genitourinary Female: no dysuria Musculoskeletal: no neck stiffness, no neck pain Integumentary: no rash, no wounds Neurological: headaches, no head injury, no paralysis, no weakness, no parathesias, no numbness, no tingling, no seizures, no syncope, no vertigo Endocrine: no cold intolerance, no heat intolerance Hematologic/Lymphatic: no easy bruising, no easy bleeding Allergic/Immunologic: no anaphylaxis Physical Examination Last Vital Signs Temp 98.3 F 11/17/20 09:13 Pulse 96 H 11/17/20 09:25 Resp 18 11/17/20 09:13 BP 132/84 11/17/20 09:13 Pulse Ox 94 11/17/20 09:13 General appearance: no acute distress HEENT: Positive: EOMI, Normocephaly, Mucus Membranes Moist Neck: Positive: neck supple, trachea midline. Negative: JVD/HJR Cardiac: Positive: Reg Rate and Rhythm, S1/S2 Lungs: Positive: clear to auscultation Neuro: Positive: Grossly Intact Abdomen: Positive: Soft. Negative: Tender Skin: Negative: Rash Musculoskeletal: No Fluid Collection Extremities: Present: upper extr. pulses, lower extr. pulses. Absent: edema Results 11/14/20 23:43 11/14/20 23:43 - Imaging and Cardiology Echo: report reviewed (11/15/2020 - EF 50-55%, mild diastolic dysfxn, no thrombus or vegetation) EKG: report reviewed, image reviewed - EKG Interpretation EKG: no acute changes EKG interpretations - Telemetry EKG Rhythm: Sinus Rhythm - EKG Sinus rhythms and dysrhythmias: sinus rhythm Assessment and Plan Plan for YAMILEX in AM. NPO after midnight. Continue PRN IV Labetalol for now. Will optimize PO antihypertensive regimen following procedure in AM. Continue ASA and statin. Pt seen in conjunction with Dr. Ramírez, who agrees with the assessment and plan of care. - Patient Problems (1) CVA (cerebral vascular accident) Current Visit: Yes Status: Acute Qualifiers: Laterality of affected vessel: left (2) Headache Current Visit: Yes Status: Acute (3) Leukocytosis Current Visit: Yes Status: Acute (4) QUENTIN (acute kidney injury) Current Visit: Yes Status: Acute (5) Elevated LFTs Current Visit: Yes Status: Acute (6) HTN (hypertension) Current Visit: Yes Status: Chronic Qualifiers: Hypertension type: essential hypertension Qualified Code(s): I10 - Essential (primary) hypertension (7) HLD (hyperlipidemia) Current Visit: Yes Status: Chronic Qualifiers: Hyperlipidemia type: mixed hyperlipidemia Qualified Code(s): E78.2 - Mixed hyperlipidemia (8) DM2 (diabetes mellitus, type 2) Current Visit: Yes Status: Chronic
[2020-11-18] MEDS: MORPHINE 2 MG/1 ML INJ IV PRN (06:24)
[2020-11-18 08:00] LABS: Hematocrit 43.1 % (30.3-42.9); Hemoglobin 14.1 gm/dl (10.1-14.3); Mean Corpuscular HGB Conc 33 % (30-34); Mean Corpuscular Volume 89 fl (79-97); Platelet Count 290 K/mm3 (140-440); Red Blood Count 4.84 M/mm3 (3.65-5.03); Red Cell Distribution Width 12.8 % (13.2-15.2)
[2020-11-18] MEDS: oxyCODONE /ACETAMINOPHEN 5-325MG TAB PO PRN (08:00)
[2020-11-18 08:18] LABS: Calcium 9.2 mg/dL (8.4-10.2)
[2020-11-18] MEDS ORDERED: SODIUM CHLORIDE 0.9% 500 ML 500 ML ONE (08:41)
[2020-11-18] MEDS ORDERED: BENZOCAINE 20% TOP SPRAY 0.5 ML UNIT DOSE MM ONE (08:41)
[2020-11-18] MEDS ORDERED: propofoL 200 MG/20 ML VIAL IV ONE ×2 (08:45→08:46)
[2020-11-18] MEDS ORDERED: SODIUM CHLORIDE 0.9% 500 ML 500 ML IV SCH (09:00)
[2020-11-18] MEDS ORDERED: BENZOCAINE 20% TOP SPRAY 0.5 ML UNIT DOSE MM NR (09:00)
[2020-11-18] MEDS: INSULIN LISPRO 100 UNIT/ML VIAL 3 mL SUB-Q SCH ×8 (09:46→22:09)
[2020-11-18] MEDS: INSULIN GLARGINE 100 UNITS/ML SUB-Q SCH ×2 (09:46→22:08)
[2020-11-18] MEDS: ASPIRIN 325 MG TAB PO SCH (09:46)
[2020-11-18] MEDS: FAMOTIDINE 20 MG TAB PO SCH ×2 (09:52→22:08)
--- NOTE | 2020-11-18 10:21 | Anesthesia Day of Surgery ---
Anesthesia Day of Surgery - Day of Surgery Patient Examined: Yes Patient H&P Reviewed: Yes Patient is NPO: Yes
--- NOTE | 2020-11-18 10:21 | Anesthesia Consultation ---
Anesthesia Consult and Med Hx Date of service: 11/18/20 - Airway Anesthetic Teeth Evaluation: Good ROM Head & Neck: Adequate Mental/Hyoid Distance: Adequate Mallampati Class: Class II Intubation Access Assessment: Good - Pulmonary Exam CTA: Yes - Cardiac Exam Cardiac Exam: RRR - Pre-Operative Health Status ASA Pre-Surgery Classification: ASA4 Proposed Anesthetic Plan: MAC - Pulmonary Hx Asthma: Yes Hx Sleep Apnea: Yes - Cardiovascular System Hx Hypertension: Yes - Other Systems Hx Cancer: No
--- NOTE | 2020-11-18 10:24 | Post Anesthesia Evaluation ---
- Post Anesthesia Evaluation Patient Participated: Yes Airway Patent: Yes Stable Respiratory Function: Yes Nausea/Vomiting: No Temp > 96.8F: Yes Pain Manageable: Yes Adequeate Hydration: Yes Anesthesia Complications: No Block Receding Appropriately: Not Applicable Patient on Ventilator: No
--- NOTE | 2020-11-18 12:03 | Progress Note ---
Assessment and Plan Assessment and plan: ---Acute ischemic stroke Current Visit: Yes Status: Acute Plan to address problem: Aspirin 325 mg daily Plavix 75 mg daily for 21 days MRI brain positive for occipital stroke. MRA brain shows no critical stenosis TTE and YAMILEX- negative shunt or thrombus. Neurology recommendations appreciated Speech therapy/PT/OT Tylenol as needed for headache --Headache Current Visit: Yes Status: Acute Plan to address problem: Resolved She denies any history of migraines in the past MRV head with and without contrast -ve for cortical vein thrombosis She still complains of severe left sided headache. Will start on verapamil 80mg TID as per my discussion with teleneurologiust Will check ESR and CRP to rule out GCA though not likely given young age. If ESR or CRP is elevated, she will need steroids at discharge and rheumatology follow up Neurology recommendations appreciated ---Diabetes Current Visit: Yes Status: Acute Plan to address problem: Has poorly controlled DM - HbA1c 14.6 Lantus and lispro. 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 History Interval history: She complains of very severe headache on the left side. Has slight tenderness around the temporal area. YAMILEX negative for vegetation or embolus/thrombus Hospitalist Physical - Physical exam Narrative exam: VITAL SIGNS: Reviewed. GENERAL: Awake HEAD: No signs of head trauma. EYES: Pupils are equal. Extraocular motions intact. MOUTH: Oropharynx is normal. NECK: No adenopathy, no JVD. CHEST: Chest with diminished breath sounds bilaterally. No wheezes, rales, or rhonchi. CARDIAC: normal S1 and S2, without murmurs, gallops, or rubs. ABDOMEN: Soft, non tender and non distended. No rebound or guarding, and no masses palpated. Bowel Sounds normal. MUSCULOSKELETAL: No edema NEUROLOGIC EXAM: Alert and oriented x3. No focal neurologic deficits SKIN: No obvious lesions - Constitutional Vitals: Temp Pulse Resp BP Pulse Ox 97.4 F L 84 18 154/81 100 11/18/20 11:52 11/18/20 11:52 11/18/20 11:52 11/18/20 11:52 11/18/20 11:52 HEART Score - HEART Score Troponin: Troponin T < 0.010 ng/mL (0.00-0.029) 11/15/20 01:35 Results - Labs CBC & Chem 7: 11/18/20 07:40 11/18/20 07:40 Labs: Laboratory Last Values WBC 13.6 K/mm3 (4.5-11.0) H 11/18/20 07:40 RBC 4.84 M/mm3 (3.65-5.03) 11/18/20 07:40 Hgb 14.1 gm/dl (10.1-14.3) 11/18/20 07:40 Hct 43.1 % (30.3-42.9) H 11/18/20 07:40 MCV 89 fl (79-97) 11/18/20 07:40 MCH 29 pg (28-32) 11/18/20 07:40 MCHC 33 % (30-34) 11/18/20 07:40 RDW 12.8 % (13.2-15.2) L 11/18/20 07:40 Plt Count 290 K/mm3 (140-440) 11/18/20 07:40 Lymph # (Auto) Acid Splicer 11/14/20 23:43 Add Manual Diff Complete 11/14/20 23:43 Total Counted 100 11/14/20 23:43 Seg Neuts % (Manual) 78.0 % (40.0-70.0) H 11/14/20 23:43 Lymphocytes % (Manual) 18.0 % (13.4-35.0) 11/14/20 23:43 Monocytes % (Manual) 2.0 % (0.0-7.3) 11/14/20 23:43 Eosinophils % (Manual) 2.0 % (0.0-4.3) 11/14/20 23:43 Nucleated RBC % Not Reportable 11/14/20 23:43 Seg Neutrophils # Man 13.0 K/mm3 (1.8-7.7) H 11/14/20 23:43 Band Neutrophils # 0.0 K/mm3 11/14/20 23:43 Lymphocytes # (Manual) 3.0 K/mm3 (1.2-5.4) 11/14/20 23:43 Abs React Lymphs (Man) 0.0 K/mm3 11/14/20 23:43 Monocytes # (Manual) 0.3 K/mm3 (0.0-0.8) 11/14/20 23:43 Eosinophils # (Manual) 0.3 K/mm3 (0.0-0.4) 11/14/20 23:43 Basophils # (Manual) 0.0 K/mm3 (0.0-0.1) 11/14/20 23:43 Metamyelocytes # 0.0 K/mm3 11/14/20 23:43 Myelocytes # 0.0 K/mm3 11/14/20 23:43 Promyelocytes # 0.0 K/mm3 11/14/20 23:43 Blast Cells # 0.0 K/mm3 11/14/20 23:43 WBC Morphology Not Reportable 11/14/20 23:43 Hypersegmented Neuts Not Reportable 11/14/20 23:43 Hyposegmented Neuts Not Reportable 11/14/20 23:43 Hypogranular Neuts Not Reportable 11/14/20 23:43 Smudge Cells Not Reportable 11/14/20 23:43 Toxic Granulation Not Reportable 11/14/20 23:43 Toxic Vacuolation Not Reportable 11/14/20 23:43 Dohle Bodies Not Reportable 11/14/20 23:43 Pelger-Huet Anomaly Not Reportable 11/14/20 23:43 Dinah Rods Not Reportable 11/14/20 23:43 Platelet Estimate Consistent w auto 11/14/20 23:43 Clumped Platelets Not Reportable 11/14/20 23:43 Plt Clumps, EDTA Not Reportable 11/14/20 23:43 Large Platelets Not Reportable 11/14/20 23:43 Giant Platelets Not Reportable 11/14/20 23:43 Platelet Satelliting Not Reportable 11/14/20 23:43 Plt Morphology Comment Not Reportable 11/14/20 23:43 RBC Morphology Not Reportable 11/14/20 23:43 Dimorphic RBCs Not Reportable 11/14/20 23:43 Polychromasia Not Reportable 11/14/20 23:43 Hypochromasia Not Reportable 11/14/20 23:43 Poikilocytosis Not Reportable 11/14/20 23:43 Anisocytosis Not Reportable 11/14/20 23:43 Microcytosis Not Reportable 11/14/20 23:43 Macrocytosis Not Reportable 11/14/20 23:43 Spherocytes Not Reportable 11/14/20 23:43 Pappenheimer Bodies Not Reportable 11/14/20 23:43 Sickle Cells Not Reportable 11/14/20 23:43 Target Cells Not Reportable 11/14/20 23:43 Tear Drop Cells Not Reportable 11/14/20 23:43 Ovalocytes Not Reportable 11/14/20 23:43 Helmet Cells Not Reportable 11/14/20 23:43 Serrato-[place] Bodies Not Reportable 11/14/20 23:43 [place] Rings Not Reportable 11/14/20 23:43 Joby Cells Not Reportable 11/14/20 23:43 Bite Cells Not Reportable 11/14/20 23:43 Crenated Cell Not Reportable 11/14/20 23:43 Elliptocytes Not Reportable 11/14/20 23:43 Acanthocytes (Spur) Not Reportable 11/14/20 23:43 Rouleaux Not Reportable 11/14/20 23:43 Hemoglobin C Crystals Not Reportable 11/14/20 23:43 Schistocytes Not Reportable 11/14/20 23:43 Malaria parasites Not Reportable 11/14/20 23:43 [place] Bodies Not Reportable 11/14/20 23:43 Hem Pathologist Commnt No 11/14/20 23:43 PT 13.4 Sec. (12.2-14.9) 11/14/20 23:43 INR 1.04 (0.87-1.13) 11/14/20 23:43 APTT 25.0 Sec. (24.2-36.6) 11/14/20 23:43 Thrombin Time 15.6 Sec. (15.1-19.6) 11/14/20 23:43 Sodium 137 mmol/L (137-145) 11/18/20 07:40 Potassium 5.0 mmol/L (3.6-5.0) 11/18/20 07:40 Chloride 102.2 mmol/L (98-107) 11/18/20 07:40 Carbon Dioxide 28 mmol/L (22-30) 11/18/20 07:40 Anion Gap 12 mmol/L 11/18/20 07:40 BUN 22 mg/dL (7-17) H 11/18/20 07:40 Creatinine 1.3 mg/dL (0.6-1.2) H 11/18/20 07:40 Estimated GFR 52 ml/min 11/18/20 07:40 BUN/Creatinine Ratio 17 % 11/18/20 07:40 Glucose 319 mg/dL (65-100) H 11/18/20 07:40 POC Glucose 264 mg/dL (70-105) H 11/18/20 11:21 Hemoglobin A1c 14.6 % (4-6) H 11/16/20 05:57 Calcium 9.2 mg/dL (8.4-10.2) 11/18/20 07:40 Total Bilirubin 0.40 mg/dL (0.1-1.2) 11/14/20 23:43 AST 12 units/L (5-40) 11/14/20 23:43 ALT 12 units/L (7-56) 11/14/20 23:43 Alkaline Phosphatase 179 units/L (35-129) H 11/14/20 23:43 Troponin T < 0.010 ng/mL (0.00-0.029) 11/15/20 01:35 Total Protein 7.1 g/dL (6.3-8.2) 11/14/20 23:43 Albumin 4.0 g/dL (3.9-5) 11/14/20 23:43 Albumin/Globulin Ratio 1.3 % 11/14/20 23:43 Triglycerides 211 mg/dL (2-149) H 11/16/20 05:57 Cholesterol 172 mg/dL (50-199) 11/16/20 05:57 LDL Cholesterol Direct 122 mg/dL (50-130) 11/16/20 05:57 HDL Cholesterol 35 mg/dL (40-59) L 11/16/20 05:57 Cholesterol/HDL Ratio 4.91 % 11/16/20 05:57 Sanders/IV: Voiding Method Toilet IV Catheter Type [Left Forearm INT / Saline Lock ] Active Medications - Current Medications Current Medications: Generic Name Dose Route Start Last Admin Trade Name Freq PRN Reason Stop Dose Admin Acetaminophen 650 mg 11/15/20 01:17 11/17/20 21:20 Acetaminophen 325 Mg Tab PO 650 mg Q4H PRN Administration Pain, Mild (1-3) Aspirin 325 mg 11/15/20 10:00 11/18/20 09:46 Aspirin 325 Mg Tab PO Not Given [facility] Atorvastatin Calcium 80 mg 11/15/20 22:00 11/17/20 21:20 Atorvastatin 40 Mg Tab PO 80 mg [facility]HS [facility] Administration Bisacodyl 10 mg 11/15/20 01:17 Bisacodyl 10 Mg Rect Supp OR QDAY PRN Constipation Dextrose 50 ml 11/15/20 01:21 Dextrose 50% In Water (25gm) 50 Ml Syringe IV Q30MIN PRN Hypoglycemia Protocol Famotidine 20 mg 11/15/20 02:00 11/18/20 09:52 Famotidine 20 Mg Tab PO Not Given BID [facility] Insulin Glargine 20 units 11/16/20 22:00 11/18/20 09:46 Insulin Glargine 100 Units/Ml SUB-Q Not Given BID [facility] Insulin Human Lispro 0 unit 11/15/20 07:30 11/18/20 11:47 Insulin Lispro 100 Unit/Ml Vial 3 Ml SUB-Q 6 unit [facility] Administration Protocol Insulin Human Lispro 4 unit 11/17/20 11:30 11/18/20 11:48 Insulin Lispro 100 Unit/Ml Vial 3 Ml SUB-Q 4 unit [facility] Administration Labetalol HCl 10 mg 11/15/20 01:17 Labetalol 20 Mg/4 Ml Inj IV Q5MIN PRN to maintain SBP < 180 Magnesium Hydroxide 30 ml 11/15/20 01:17 Magnesium Hydroxide (Mom) Oral Liqd Udc PO Q4H PRN Constipation Metoclopramide HCl 10 mg 11/15/20 01:17 Metoclopramide 10 Mg Tab PO Q6H PRN Nausea And Vomiting Morphine Sulfate 2 mg 11/15/20 01:17 11/18/20 06:24 Morphine 2 Mg/1 Ml Inj IV 2 mg Q4H PRN Administration Pain, Moderate (4-6) Ondansetron HCl 4 mg 11/15/20 01:17 11/16/20 05:04 Ondansetron 4 Mg/2 Ml Inj IV 4 mg Q8H PRN Administration Nausea And Vomiting Oxycodone/Acetaminophen 2 tab 11/15/20 12:00 11/18/20 08:00 Oxycodone /Acetaminophen 5-325mg Tab PO 2 tab Q8H PRN Administration Pain, Moderate (4-6) Promethazine HCl 25 mg 11/15/20 01:17 Promethazine 25 Mg Rect Supp OR Q6H PRN Nausea And Vomiting Sodium Chloride 10 ml 11/15/20 01:17 Sodium Chloride 0.9% 10 Ml Flush Syringe IV PRN PRN LINE FLUSH Verapamil HCl 80 mg 11/18/20 11:58 Verapamil 80 Mg Tab PO Q8HR [facility] Nutrition/Malnutrition Assess - Dietary Evaluation Nutrition/Malnutrition Findings: Nutrition Notes Start: 11/15/20 13:47 Freq: Status: Active Protocol: Document 11/15/20 13:47 BK (Rec: 11/15/20 14:07 BK [id number]) Co-Sign 11/15/20 13:47 LP Nutrition Notes Need for Assessment generated from: 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 Pt given education. 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 Pt reports nausea and appetite improving. Pt states normal intake is 1-2 meals/day . Burn Absent Trauma Absent GI Symptoms None Food Allergy No Current % PO Negligible Minimum of two criteria No Interpretation of Weight Loss (severe) >5% in 1 month #2 Nutrition Diagnosis Food and nutrition-related knowledge deficit Etiology pt has no prior diet education As Evidenced by Signs and Symptoms pt has questions #1 Nutrition Diagnosis Inadequate oral intake Etiology decreased appetite, nausea As Evidenced by Signs and Symptoms pt with 0% intakes Is patient on ventilator? No Is Patient Ambulatory and/or Out of Bed Yes [facility] [ 3904.296 [id number]] Kcal/Kg value to use for calculation 17 Approximate Energy Requirements Using 1753 kcal/Kg Calculation Used for Recommendations Kcal/kg Additional Notes Pro: 65-81 g (0.8-1 g/kg AdjBW , 81.0kg) Fluid: 1 ml/kcal Nutrition Intervention Change Diet Order: Diet advancement when medically able Teaching Recipient Patient Learning Readiness Good Teaching Methods Discussion,Handout Response to Teaching Verbalize understanding Education Handouts Provided CHO Counting for Diabetes Barriers to Learning No Barriers RD phone number provided Yes Patient aware of follow up options Yes Goal #1 Diet advancement Anticipated Discharge Needs: Consistent CHO diet Follow-Up By: 11/19/20 Additional Comments F/U for diet advancement/ intakes
[2020-11-18] MEDS: VERAPAMIL 80 MG TAB PO SCH ×3 (12:47→22:08)
--- NOTE | 2020-11-18 16:35 | Progress Note ---
Assessment and Plan YAMILEX this AM revealed no cardiac source of emboli - normal LV size & fxn, no cardiac source of emboli with no clots seen in LA or MARCELL, normal pulse wave Doppler, neg bubble study, interatrial septum, no vegetation in all valves, mild MR, grade 1 aorta. Continue ASA and statin. Agree with current antihypertensive regimen. Otherwise stable cardiac status. Pt may be discharged from a Cardiology perspective. Recommend follow-up within 1-2 weeks ([phone]). Pt seen in conjunction with Dr. Ramírez, who agrees with the assessment and plan of care. - Patient Problems (1) CVA (cerebral vascular accident) Current Visit: Yes Status: Acute Qualifiers: Laterality of affected vessel: left (2) Headache Current Visit: Yes Status: Acute (3) Leukocytosis Current Visit: Yes Status: Acute (4) QUENTIN (acute kidney injury) Current Visit: Yes Status: Acute (5) Elevated LFTs Current Visit: Yes Status: Acute (6) HTN (hypertension) Current Visit: Yes Status: Chronic Qualifiers: Hypertension type: essential hypertension Qualified Code(s): I10 - Essential (primary) hypertension (7) HLD (hyperlipidemia) Current Visit: Yes Status: Chronic Qualifiers: Hyperlipidemia type: mixed hyperlipidemia Qualified Code(s): E78.2 - Mixed hyperlipidemia (8) DM2 (diabetes mellitus, type 2) Current Visit: Yes Status: Chronic Subjective Date of service: 11/18/20 Principal diagnosis: CVA Interval history: C/o severe headache this AM prior to YAMILEX. Otherwise no cardiac complaints. Tele reviewed - SR 80s, no events. Objective Last Vital Signs Temp 97.4 F L 11/18/20 11:52 Pulse 89 11/18/20 12:47 Resp 18 11/18/20 11:52 BP 158/70 11/18/20 12:47 Pulse Ox 100 11/18/20 11:52 - Physical Examination General: No Apparent Distress HEENT: Positive: EOMI, Normocephaly, Mucus Membranes Moist Neck: Positive: neck supple, trachea midline. Negative: JVD/HJR Cardiac: Positive: Reg Rate and Rhythm, S1/S2 Lungs: Positive: clear to auscultation Neuro: Positive: Grossly Intact Abdomen: Positive: Soft. Negative: Tender Skin: Negative: Rash Musculoskeletal: No Fluid Collection Extremities: Present: upper extr. pulses, lower extr. pulses. Absent: edema - Labs and Meds CBC 11/18/20 Range/Units 07:40 WBC 13.6 H (4.5-11.0) K/mm3 RBC 4.84 (3.65-5.03) M/mm3 Hgb 14.1 (10.1-14.3) gm/dl Hct 43.1 H (30.3-42.9) % Plt Count 290 (140-440) K/mm3 Comprehensive Metabolic Panel 11/18/20 Range/Units 07:40 Sodium 137 (137-145) mmol/L Potassium 5.0 (3.6-5.0) mmol/L Chloride 102.2 (98-107) mmol/L Carbon Dioxide 28 (22-30) mmol/L BUN 22 H (7-17) mg/dL Creatinine 1.3 H (0.6-1.2) mg/dL Glucose 319 H (65-100) mg/dL Calcium 9.2 (8.4-10.2) mg/dL - Imaging and Cardiology EKG: report reviewed, image reviewed Echo: report reviewed (11/15/2020 - EF 50-55%, mild diastolic dysfxn, no thrombus or vegetation) YAMILEX: report reviewed (11/18/2020 - normal LV size & fxn, no cardiac source of emboli with no clots seen in LA or MARCELL, normal pulse wave Doppler, neg bubble study, interatrial septum, no vegetation in all valves, mild MR, grade 1 aorta) - Telemetry EKG Rhythm: Sinus Rhythm - EKG Sinus rhythms and dysrhythmias: sinus rhythm
[2020-11-18] MEDS: ACETAMINOPHEN 325 MG TAB PO PRN ×2 (17:34→22:14)
[2020-11-19] MEDS: VERAPAMIL 80 MG TAB PO SCH ×2 (05:17→14:29)
[2020-11-19] MEDS: ACETAMINOPHEN 325 MG TAB PO PRN (08:08)
[2020-11-19] MEDS: INSULIN LISPRO 100 UNIT/ML VIAL 3 mL SUB-Q SCH ×4 (08:09→11:34)
[2020-11-19] MEDS: ASPIRIN 325 MG TAB PO SCH (09:08)
[2020-11-19] MEDS: FAMOTIDINE 20 MG TAB PO SCH (09:08)
[2020-11-19] MEDS: INSULIN GLARGINE 100 UNITS/ML SUB-Q SCH (09:08)
--- NOTE | 2020-11-19 09:23 | Discharge Summary ---
Providers - Providers Date of Admission: 11/15/20 01:04 Date of discharge: 11/19/20 Attending physician: BETO COWAN 11/15/20 01:17 Consult to Case Management [CONS] Routine Services Needed at Discharge: Other Notified:: cm notified Consult to Dietitian/Nutrition [CONS] Routine Physician Instructions: Reason For Exam: Reason for Consult: Nutrition Recommendations Reason for Consult: Diet education Occupational Therapy Evaluate and Treat [CONS] Routine Comment: Reason For Exam: Neuro deficits 11/15/20 07:50 Consult to Physician [CONS] Routine Comment: Consulting Provider: FOX FAY Physician Instructions: Reason For Exam: CVA 11/15/20 09:18 Physical Therapy Evaluation and Treat [CONS] Routine Comment: weakness Reason For Exam: debillity 11/17/20 11:01 Consult to Physician [CONS] Routine Comment: Consulting Provider: ROBIN HARDY Physician Instructions: Reason For Exam: For YAMILEX [facility] Reason for admission: h/a Condition: Stable Hospital course: Pt is a 50-year-old AA female, previously unknown to our practice, who presented with complaints of a headache and associated blurred vision x 2 weeks prior to arrival. Pt was found to have subacute left occipital stroke. Neurology was consulted and patient underwent work-up with MRI brain positive for occipital stroke. MRA brain showed no critical stenosis. Cardiology was consulted to perform YAMILEX to r/o endocarditis or embolic source. TTE completed 11/15/2020 revealed no thrombus or valvular vegetation. TTE and YAMILEX- negative shunt or thrombus. Patient was evaluated by speech therapy, physical therapy and Occupational Therapy. Recommendations were for home. Patient also complained of chronic headache. Patient denied history of migraines in the past. TTE and YAMILEX- negative shunt or thrombus. ESR and CRP were obtained to rule out GCA. ESR was elevated at 70. Therefore, patient will be discharged with Medrol Dosepak. Discussed with neurology. Patient will follow up with Dr. Tompkins as an outpatient. Patient will have CT of the head and if negative for bleed will be discharged home. Dedicated discharge time 35 minutes Disposition: DC-01 TO HOME OR SELFCARE Time spent for discharge: 35 - Discharge Diagnoses (1) Temporal arteritis syndrome Status: Acute (2) QUENTIN (acute kidney injury) Status: Acute (3) CVA (cerebral vascular accident) Status: Acute Qualifiers: Laterality of affected vessel: left (4) Diabetes Status: Acute (5) Elevated LFTs Status: Acute (6) Headache Status: Acute (7) Occipital stroke Status: Acute (8) DM2 (diabetes mellitus, type 2) Status: Chronic (9) HLD (hyperlipidemia) Status: Chronic Qualifiers: Hyperlipidemia type: mixed hyperlipidemia Qualified Code(s): E78.2 - Mixed hyperlipidemia (10) HTN (hypertension) Status: Chronic Qualifiers: Hypertension type: essential hypertension Qualified Code(s): I10 - Essential (primary) hypertension Core Measure Documentation - Palliative Care Palliative Care/ Comfort Measures: Not Applicable - Core Measures Any of the following diagnoses?: stroke - Stroke Discharge Requirements Statin for LDL = or >70 mg/dl on DC: Yes Anticoag for atrial fib/atrial flutter: Not Applicable Antithrombotic for ischemic stroke: Yes Exam - Constitutional Vitals: Temp Pulse Resp BP Pulse Ox 98.2 F 87 14 158/87 97 11/19/20 07:21 11/19/20 08:52 11/19/20 09:07 11/19/20 07:21 11/19/20 08:52 General appearance: Present: no acute distress, well-nourished - EENT Eyes: Present: PERRL ENT: hearing intact, clear oral mucosa - Neck Neck: Present: supple, normal ROM - Respiratory Respiratory effort: normal Respiratory: bilateral: CTA - Cardiovascular Heart Sounds: Present: S1 & S2. Absent: rub, click - Extremities Extremities: pulses symmetrical, No edema Peripheral Pulses: within normal limits - Abdominal General gastrointestinal: Present: soft, non-tender, non-distended, normal bowel sounds Female genitourinary: Present: normal - Integumentary Integumentary: Present: clear, warm, dry - Musculoskeletal Musculoskeletal: gait normal, strength equal bilaterally - Psychiatric Psychiatric: appropriate mood/affect, intact judgment & insight - Neurologic Neurologic: CNII-XII intact, moves all extremities Plan Activity: advance as tolerated Weight Bearing Status: Weight Bear as Tolerated Diet: low fat, low cholesterol, low salt Follow up with: JOSSELIN HOFF MD [Primary Care Provider] - 3-5 Days FLORENCIO FLORES MD [Staff Physician] - 7 Days Prescriptions: Aspirin 325 mg PO QDAY #30 tablet verapamiL [Calan] 80 mg PO Q8HR #90 tablet DULoxetine [Cymbalta] 60 mg PO BID #60 cap Insulin Lispro Prot/Lispro [HumaLOG Mix 75/25 Vial] 50 unit SQ BIDAC 30 Days units AtorvaSTATin [Lipitor] 80 mg PO QHS #30 tablet Gabapentin [Neurontin] 600 mg PO TID #90 oxyCODONE ER [oxyCONTIN ER] 10 mg PO Q12HR #10 oxyCODONE /ACETAMINOPHEN [Percocet 5/325 mg] 2 tab PO Q8H PRN #10 tablet PRN Reason: Pain, Moderate (4-6) tiZANidine [Zanaflex 4mg TAB] 4 mg PO QID PRN #10 PRN Reason: muscle relaxer
--- NOTE | 2020-11-19 10:09 | Cat Scan Report ---
CT HEAD WITHOUT CONTRAST INDICATION / CLINICAL INFORMATION: headache. TECHNIQUE: Axial imaging performed from the skull apex through the skull base without the use of cont rast. Sagittal and coronal reformatted images. All CT scans at this location are performed using CT dose reduction for ALARA by means of automated exposure control. COMPARISON: 11/14/2020 FINDINGS: CEREBRAL PARENCHYMA: Subacute to early chronic infarct in the posterior left occipital lobe is stable measuring 2.7 x 3.8 cm in axial plane. Chronic focal infarct in the left anterior basal ganglia clyde ures 1.3 x 0.4 cm. Mild nonspecific chronic white matter changes are noted and unchanged. No acute pa renchymal abnormality is appreciated since the previous exam. HEMORRHAGE: None. EXTRA-AXIAL SPACES: Normal in size and morphology for the patient's age. VENTRICULAR SYSTEM: Normal in size and morphology for the patient's age. MIDLINE SHIFT OR HERNIATION: None. CEREBELLUM / BRAINSTEM: No significant abnormality. CALVARIUM: No significant abnormality. ORBITS: Normal as visualized. PARANASAL SINUSES / MASTOID AIR CELLS: Normal as visualized. SOFT TISSUES of HEAD: No significant abnormality. ADDITIONAL FINDINGS: None. IMPRESSION: Stable appearance of the evolving subacute ischemic infarct in the left occipital lobe. No evidence f or hemorrhage or significant mass effect. Chronic left basal ganglia infarct. Mild nonspecific chronic white matter changes. No new acute process. Signer Name: Marcial Self Jr, MD Signed: 11/19/2020 10:05 AM Workstation Name: [id number]
[2020-11-19 11:33] VITALS: BP 143/71
== END 2020-11-19 16:51 | disposition home health service (06) | DRG 64 ==
LOC: ED 20:15 → IMCU 11-15 01:04 → 4A 11-15 03:56
PROVIDERS: ADMIT Internal Medicine Geriatric Medicine; ATTEND Hospitalist
DX: I63.9 Cerebral infarction, unspecified (principal); N17.0 Acute kidney failure with tubular necrosis; R51.9 Headache, unspecified; H53.8 Other visual disturbances; I10 Essential (primary) hypertension; E11.40 Type 2 diabetes mellitus with diabetic neuropathy, unspecified; M19.90 Unspecified osteoarthritis, unspecified site; R29.701 NIHSS score 1; E78.2 Mixed hyperlipidemia; E11.319 Type 2 diabetes mellitus with unspecified diabetic retinopathy without macular edema; M31.6 Other giant cell arteritis; D72.829 Elevated white blood cell count, unspecified; J45.909 Unspecified asthma, uncomplicated; Z88.0 Allergy status to penicillin; Z88.8 Allergy status to other drugs, medicaments and biological substances; Z79.84 Long term (current) use of oral hypoglycemic drugs; Z79.899 Other long term (current) drug therapy
CPT/HCPCS: 36415; 70450; 70544; 70546; 70551; 71045; 80048; 80053; 80061; 82962; 83036; 84484; 85007; 85025; 85027; 85610; 85652; 85670; 85730; 86140; 93005; 93306; 93312; 93320; 93325; 93880; 96366; 96374; G0378; A9270-GY; A9577; J1815; J2270; J2405; J2704; J7040

== ENCOUNTER 2021-02-01 03:50 | Emergency (ER) | payer MEDICAID ==
[2021-02-01 04:22] VITALS: BP 178/100
[2021-02-01 05:05] LABS: Basophils # (Auto) 0.1 K/mm3 (0.0-0.1); Basophils % (Auto) 0.4 % (0.0-1.8); Eosinophils # (Auto) 0.1 K/mm3 (0.0-0.4); Eosinophils % (Auto) 0.7 % (0.0-4.3); Hematocrit 41.4 % (30.3-42.9); Hemoglobin 13.4 gm/dl (10.1-14.3); Lymphocytes # (Auto) 3.2 K/mm3 (1.2-5.4); Lymphocytes % (Auto) 21.8 % (13.4-35.0); Mean Corpuscular HGB Conc 32 % (30-34); Mean Corpuscular Volume 89 fl (79-97); Monocytes # (Auto) 0.8 K/mm3 (0.0-0.8); Monocytes % (Auto) 5.4 % (0.0-7.3); Platelet Count 300 K/mm3 (140-440); Red Blood Count 4.65 M/mm3 (3.65-5.03)
[2021-02-01 05:25] LABS: Alanine Aminotransferase 11 units/L (7-56); Albumin 4.1 g/dL (3.9-5); BUN/Creatinine Ratio 19; Blood Urea Nitrogen 21 mg/dL (7-17); Calcium 9.2 mg/dL (8.4-10.2); Hemolysis Index 0
== END 2021-02-01 04:15 | disposition left against medical advice (07) ==
LOC: ED 03:50
DX: M79.673 Pain in unspecified foot (principal); Z53.21 Procedure and treatment not carried out due to patient leaving prior to being seen by health care provider
CPT/HCPCS: 36415; 80053; 85025

== ENCOUNTER 2021-02-01 08:13 | Emergency (ER) | payer MEDICAID ==
[2021-02-01] MEDS ORDERED: oxyCODONE /ACETAMINOPHEN 5-325MG TAB PO ONE (08:48)
--- NOTE | 2021-02-01 08:54 | Emergency Department Report ---
ED General Adult HPI - General Chief complaint: Pain General Stated complaint: DIABETES/LEG AND FEET PAIN Time Seen by Provider: 02/01/21 08:47 Source: patient Mode of arrival: Ambulatory Limitations: No Limitations - History of Present Illness Initial comments: 50-year-old female presents to the emergency room with complaining of bilateral foot pain from her neuropathy. Patient states she ran out of her oxycodone and gabapentin 3 days ago, which she normally takes for neuropathy. she has a past medical history of hypertension diabetes and asthma. Patient denies any chest pain or shortness of breath ,she denies frequent urination thirst she denies any falls or injuries this is her chronic neuropathy pain. Patient states that she has appointment with her PCP on February 06 and plan to get her refills for her pain medication then. She is not out of her insulin she states she took her usual morning dose of 50 units of lispro prior to coming to the emergency room. Patient is in no acute distress -: This morning Location: lower extremity (Bilateral foot pain) Radiation: non-radiation Severity scale (0 -10): 9 Quality: burning Consistency: constant Worsens with: none Associated Symptoms: denies other symptoms. denies: chest pain, fever/chills, loss of appetite, malaise, nausea/vomiting, shortness of breath, syncope, weakness, other Treatments Prior to Arrival: none - Related Data Home Medications Medication Instructions Recorded Confirmed Last Taken Exenatide Microspheres [Bydureon 2 mg SQ 1XW 11/15/20 11/23/20 Unknown Pen] OXYCODONE hcl [Oxycodone] 15 mg PO 4XD PRN 11/15/20 11/23/20 Unknown Previous Rx's Medication Instructions Recorded Last Taken Type Aspirin 325 mg PO QDAY #30 tablet 11/19/20 Unknown Rx AtorvaSTATin [Lipitor] 80 mg PO QHS #30 tablet 11/19/20 Unknown Rx DULoxetine [Cymbalta] 60 mg PO BID #60 cap 11/19/20 Unknown Rx Insulin Lispro Prot/Lispro 50 unit SQ BIDAC 30 Days units 11/19/20 Unknown Rx [HumaLOG Mix 75/25 Vial] oxyCODONE /ACETAMINOPHEN [Percocet 2 tab PO Q8H PRN #10 tablet 11/19/20 Unknown Rx 5/325 mg] tiZANidine [Zanaflex 4mg TAB] 4 mg PO QID PRN #10 11/19/20 Unknown Rx verapamiL [Calan] 80 mg PO Q8HR #90 tablet 11/19/20 Unknown Rx Clopidogrel [Plavix] 75 mg PO QDAY #90 tablet 11/26/20 Unknown Rx Gabapentin [Neurontin] 600 mg PO TID #90 cap 02/01/21 Unknown Rx Allergies Allergy/AdvReac Type Severity Reaction Status Date / Time bismuth subsalicylate Allergy Nausea Verified 09/27/20 14:56 [From Pepto-Bismol] Penicillins Allergy Nausea Verified 09/27/20 14:56 tramadol Allergy Unknown Verified 09/27/20 14:56 ED Review of Systems ROS: Stated complaint: DIABETES/LEG AND FEET PAIN Other details as noted in HPI Comment: All other systems reviewed and negative Constitutional: no symptoms reported. denies: weakness Eyes: denies: eye pain ENT: denies: ear pain, dental pain, congestion Respiratory: denies: cough, shortness of breath, SOB with exertion, wheezing Cardiovascular: denies: chest pain, palpitations, dyspnea on exertion, edema, syncope, paroxysmal nocturnal dyspnea Endocrine: denies: excessive sweating, intolerance to cold, increased hunger, increased thirst, increased urine, unexplained weight gain Genitourinary: denies: urgency, dysuria, frequency, hematuria, discharge Skin: denies: rash, change in hair/nails Neurological: denies: headache, numbness Psychiatric: denies: anxiety, auditory hallucinations ED Past Medical Hx - Past Medical History Hx Hypertension: Yes Hx Diabetes: Yes Hx Arthritis: Yes (SPINE) Hx Asthma: Yes Additional medical history: NEUROPATHY TO FEET AND LEGS. Obesity - Social History Smoking Status: Never Smoker - Medications Home Medications: Home Medications Medication Instructions Recorded Confirmed Last Taken Type Exenatide Microspheres [Bydureon 2 mg SQ 1XW 11/15/20 11/23/20 Unknown History Pen] OXYCODONE hcl [Oxycodone] 15 mg PO 4XD PRN 11/15/20 11/23/20 Unknown History Aspirin 325 mg PO QDAY #30 tablet 11/19/20 11/23/20 Unknown Rx AtorvaSTATin [Lipitor] 80 mg PO QHS #30 tablet 11/19/20 11/23/20 Unknown Rx DULoxetine [Cymbalta] 60 mg PO BID #60 cap 11/19/20 11/23/20 Unknown Rx Insulin Lispro Prot/Lispro 50 unit SQ BIDAC 30 Days units 11/19/20 11/23/20 Unknown Rx [HumaLOG Mix 75/25 Vial] oxyCODONE /ACETAMINOPHEN [Percocet 2 tab PO Q8H PRN #10 tablet 11/19/20 11/23/20 Unknown Rx 5/325 mg] tiZANidine [Zanaflex 4mg TAB] 4 mg PO QID PRN #10 11/19/20 11/23/20 Unknown Rx verapamiL [Calan] 80 mg PO Q8HR #90 tablet 11/19/20 11/23/20 Unknown Rx Clopidogrel [Plavix] 75 mg PO QDAY #90 tablet 11/26/20 Unknown Rx Gabapentin [Neurontin] 600 mg PO TID #90 cap 02/01/21 Unknown Rx ED Physical Exam - General Limitations: No Limitations General appearance: alert, in no apparent distress - Head Head exam: Present: atraumatic - Eye Eye exam: Present: normal appearance - ENT ENT exam: Present: normal exam - Neck Neck exam: Present: normal inspection - Respiratory Respiratory exam: Present: normal lung sounds bilaterally - Cardiovascular Cardiovascular Exam: Present: regular rate, normal heart sounds - GI/Abdominal GI/Abdominal exam: Present: soft. Absent: distended, tenderness - Extremities Exam Extremities exam: Present: normal inspection, normal capillary refill. Absent: full ROM, tenderness, pedal edema, joint swelling, calf tenderness - Back Exam Back exam: Present: normal inspection - Neurological Exam Neurological exam: Present: alert, oriented X3 - Psychiatric Psychiatric exam: Present: normal affect - Skin Skin exam: Present: warm, dry, intact ED Course Vital Signs 02/01/21 02/01/21 02/01/21 08:22 08:24 09:01 Temperature 98.3 F Pulse Rate 106 H Respiratory 18 16 Rate Blood Pressure 168/89 O2 Sat by Pulse 100 98 Oximetry 02/01/21 09:35 Temperature Pulse Rate Respiratory 18 Rate Blood Pressure O2 Sat by Pulse 98 Oximetry - Reevaluation(s) Reevaluation #1: 02/01/21 10:02 Pain has diminished and patient feels like she is ready to go home ED Medical Decision Making - Medical Decision Making 50-year-old patient with a history of diabetes and neuropathy. She has been out of her neuropathy medication for 3 days. She takes Neurontin 600 mg 3 times daily she also takes oxycodone 10 mg q. eight as needed for pain. Patient states she is out of her meds and had to establish care with a new PCP her new PCP appointment is on February 06. Patient is not out of her insulin she confirms that she took 50 units of lispro this morning her blood sugar is 353 in the emergency room but because of her insistence that she took her lispro I will not give any additional insulin today. She denies any symptoms other than neuropathy pain to her her feet bilaterally. Patient will consist continue with taking her insulin as prescribed - Differential Diagnosis Diabetic neuropathy Critical Care Time: No Critical care attestation.: If time is entered above; I have spent that time in minutes in the direct care of this critically ill patient, excluding procedure time. ED Disposition Clinical Impression: Neuropathy, Hyperglycemia Disposition: - TO HOME OR SELFCARE Is pt being admited?: No Does the pt Need Aspirin: No Condition: Stable Instructions: Peripheral Neuropathy, Hyperglycemia, [id number] Additional Instructions: Please continue to take your insulin as previously prescribed. Check your sugar at home if your blood sugar continue to be greater than 300 and please follow-up with your primary care doctor as soon as possible or return to the emergency room for any worsening symptoms. In addition to the gabapentin please take Tylenol 650 every 4-6 hours as needed for pain. Prescriptions: Gabapentin [Neurontin] 600 mg PO TID #90 cap Referrals: PRIMARY MD KENNETH [Primary Care Provider] - 3-5 Days NEFTALY RUIZ MD [Staff Physician] - 3-5 Days Time of Disposition: 10:11
[2021-02-01 11:12] VITALS: BP 148/82
== END 2021-02-01 11:10 | disposition home or self-care (01) ==
LOC: ED 08:13
DX: E11.65 Type 2 diabetes mellitus with hyperglycemia (principal); E11.40 Type 2 diabetes mellitus with diabetic neuropathy, unspecified; I10 Essential (primary) hypertension; J45.909 Unspecified asthma, uncomplicated; M19.91 Primary osteoarthritis, unspecified site; Z79.4 Long term (current) use of insulin; Z79.899 Other long term (current) drug therapy; Z88.0 Allergy status to penicillin; Z88.8 Allergy status to other drugs, medicaments and biological substances
CPT/HCPCS: 36415; 80053; 82962; 85025; 99282

== ENCOUNTER 2021-03-17 10:24 | Outpatient (CLI) | payer MEDICAID ==
[2021-03-17] MEDS ORDERED: LIDOCAINE (4%) 40 MG/ML TOPICAL SOLN 50 ML BOTTLE TP ONE (12:41)
[2021-03-17] MEDS ORDERED: SODIUM HYPOCHLORITE, DAKIN'S 1/2 STRENGTH (0.25%) 473 ML TOPICAL SOLN TP SCH (13:00)
== END 2021-03-17 10:25 | disposition home or self-care (01) ==
LOC: WOUND 10:24
PROVIDERS: ATTEND Surgery
DX: E11.621 Type 2 diabetes mellitus with foot ulcer (principal); I70.235 Atherosclerosis of native arteries of right leg with ulceration of other part of foot; L97.513 Non-pressure chronic ulcer of other part of right foot with necrosis of muscle; I70.234 Atherosclerosis of native arteries of right leg with ulceration of heel and midfoot; L97.411 Non-pressure chronic ulcer of right heel and midfoot limited to breakdown of skin; E11.40 Type 2 diabetes mellitus with diabetic neuropathy, unspecified; E11.52 Type 2 diabetes mellitus with diabetic peripheral angiopathy with gangrene; I96 Gangrene, not elsewhere classified; L84 Corns and callosities; I10 Essential (primary) hypertension; F40.240 Claustrophobia; F32.9 Major depressive disorder, single episode, unspecified; Z87.891 Personal history of nicotine dependence
CPT/HCPCS: 11043; 11046; A6260; G0463; 99214

== ENCOUNTER 2021-03-24 11:08 | Inpatient (IN) | payer MEDICAID ==
[2021-03-24] MEDS ORDERED: VANCOMYCIN/NS 1 GM/250 ML 1 GM/250 ML BAG IV ONE (11:33)
[2021-03-24] MEDS ORDERED: ONDANSETRON 4 MG/2 ML INJ ONE (11:40)
[2021-03-24] MEDS ORDERED: MORPHINE 4 MG/1 ML INJ ONE (11:40)
--- NOTE | 2021-03-24 11:40 | Emergency Department Report ---
ED General Adult HPI - General Stated complaint: RT FOOT PAIN/FEVER Time Seen by Provider: 03/24/21 11:31 Source: patient, EMS - History of Present Illness Initial comments: Patient is 50 years old female with history of diabetes, hypertension and asthma. Patient recently diagnosed with diabetic foot and underwent abscess department. Patient also had a vascular surgery including superficial femoral artery stenting and popliteal artery also. Patient brought to the emergency room via EMS from a local wound clinic after patient found to be febrile and right foot turned into black color. - Related Data Home Medications Medication Instructions Recorded Confirmed Last Taken Exenatide Microspheres [Bydureon 2 mg SQ 1XW 11/15/20 02/23/21 Unknown Pen] Previous Rx's Medication Instructions Recorded Last Taken Type AtorvaSTATin [Lipitor] 80 mg PO QHS #30 tablet 11/19/20 Unknown Rx DULoxetine [Cymbalta] 60 mg PO BID #60 cap 11/19/20 Unknown Rx tiZANidine [Zanaflex 4mg TAB] 4 mg PO QID PRN #10 11/19/20 Unknown Rx verapamiL [Calan] 80 mg PO Q8HR #90 tablet 11/19/20 Unknown Rx Clopidogrel [Plavix] 75 mg PO QDAY #90 tablet 11/26/20 Unknown Rx Gabapentin [Neurontin] 600 mg PO TID #90 cap 02/01/21 Unknown Rx Aspirin EC [Halfprin EC] 81 mg PO QDAY #30 tablet 02/28/21 Unknown Rx Insulin NPH/Regular [NovoLIN 70/30] 22 unit SUB-Q BIDDIAB 30 Days 02/28/21 Unknown Rx Lispro Insulin [HumaLOG] 0 unit SUB-Q ACHS 30 Days #1 units 02/28/21 Unknown Rx Pantoprazole [Protonix TAB] 40 mg PO QDAC #30 tablet 02/28/21 Unknown Rx oxyCODONE /ACETAMINOPHEN [Percocet 2 tab PO Q4H PRN #20 tablet 02/28/21 Unknown Rx 5/325 mg] Allergies Allergy/AdvReac Type Severity Reaction Status Date / Time bismuth subsalicylate Allergy Nausea Verified 02/20/21 15:36 [From Pepto-Bismol] Penicillins Allergy Nausea Verified 02/20/21 15:36 tramadol Allergy Unknown Verified 09/27/20 14:56 ED Review of Systems ROS: Stated complaint: RT FOOT PAIN/FEVER Other details as noted in HPI Comment: All other systems reviewed and negative Constitutional: chills, fever Respiratory: denies: cough, shortness of breath Cardiovascular: denies: chest pain, palpitations Gastrointestinal: denies: abdominal pain, nausea, vomiting Musculoskeletal: denies: back pain Neurological: denies: headache, weakness ED Past Medical Hx - Past Medical History Hx Hypertension: Yes Hx Diabetes: Yes Hx Deep Vein Thrombosis: No Hx Arthritis: Yes (SPINE) Hx Asthma: Yes Additional medical history: NEUROPATHY TO FEET AND LEGS. Obesity - Surgical History Hx Pacemaker: No Hx Internal Defibrillator: No - Social History Smoking Status: Never Smoker - Medications Home Medications: Home Medications Medication Instructions Recorded Confirmed Last Taken Type Exenatide Microspheres [Bydureon 2 mg SQ 1XW 11/15/20 02/23/21 Unknown History Pen] AtorvaSTATin [Lipitor] 80 mg PO QHS #30 tablet 11/19/20 02/23/21 Unknown Rx DULoxetine [Cymbalta] 60 mg PO BID #60 cap 11/19/20 02/23/21 Unknown Rx tiZANidine [Zanaflex 4mg TAB] 4 mg PO QID PRN #10 11/19/20 02/23/21 Unknown Rx verapamiL [Calan] 80 mg PO Q8HR #90 tablet 11/19/20 02/23/21 Unknown Rx Clopidogrel [Plavix] 75 mg PO QDAY #90 tablet 11/26/20 02/23/21 Unknown Rx Gabapentin [Neurontin] 600 mg PO TID #90 cap 02/01/21 02/23/21 Unknown Rx Aspirin EC [Halfprin EC] 81 mg PO QDAY #30 tablet 02/28/21 Unknown Rx Insulin NPH/Regular [NovoLIN 70/30] 22 unit SUB-Q BIDDIAB 30 Days 02/28/21 Unknown Rx Lispro Insulin [HumaLOG] 0 unit SUB-Q ACHS 30 Days #1 units 02/28/21 Unknown Rx Pantoprazole [Protonix TAB] 40 mg PO QDAC #30 tablet 02/28/21 Unknown Rx oxyCODONE /ACETAMINOPHEN [Percocet 2 tab PO Q4H PRN #20 tablet 02/28/21 Unknown Rx 5/325 mg] ED Physical Exam - General General appearance: alert, in distress - Head Head exam: Present: atraumatic, normocephalic, normal inspection - Eye Eye exam: Present: normal appearance - ENT ENT exam: Present: normal exam, normal orophraynx, mucous membranes moist - Neck Neck exam: Present: normal inspection, full ROM. Absent: tenderness, meningismus - Respiratory Respiratory exam: Present: normal lung sounds bilaterally (She is below the) - Cardiovascular Cardiovascular Exam: Present: regular rate ( knee to be with DrJoel), normal rhy thm, normal heart sounds - GI/Abdominal GI/Abdominal exam: Present: soft, normal bowel sounds. Absent: distended, tenderness, guarding, rebound, rigid, organomegaly, mass, bruit, pulsatile mass, hernia - Extremities Exam Extremities exam: Present: other (Right foot with wet gangrene. I cannot appreciate any peripheral pulses.) - Neurological Exam Neurological exam: Present: alert, oriented X3, CN II-XII intact ED Course Vital Signs 03/24/21 11:26 Temperature 100.3 F H Pulse Rate 106 H Respiratory 28 H Rate Blood Pressure 156/98 Blood Pressure 156/98 [Left] O2 Sat by Pulse 99 Oximetry - Consultations Consultation #1: 03/24/21 12:02 Cells Vascular surgeons consulted and offices stated that one of the surgeons can come down and examined the patient. 03/24/21 12:32 I discussed the patient with Dr. RODRIGUES, vascular surgeon. He advised admit the patient to the hospitalist, continue vancomycin and agreed with the Rocephin. ED Medical Decision Making - Lab Data Result diagrams: 03/24/21 11:52 03/24/21 11:52 - Medical Decision Making Patient is 50 years old female with history of diabetes, hypertension and asthma. Patient recently diagnosed with diabetic foot and underwent abscess department. Patient also had a vascular surgery including superficial femoral artery stenting and popliteal artery also. Patient brought to the emergency room via EMS from a local wound clinic after patient found to be febrile and right foot turned into black color. Examination of foot revealed white gangrene of right foot. I immediately consulted Dr. Luis's, patient surgeon and he advised to contact vascular surgeon. I discussed the patient with Dr. RODRIGUES, he advised to continue vancomycin and add Rocephin and he will follow up with the patient in the hospital. Labs reviewed and showed a white blood cells of 13,000. I discussed the patient with Dr. Suazo, he agreed to admit the patient to medical service for further management. Critical Care Time: Yes Critical care time in (mins) excluding proc time.: 30 Critical care attestation.: If time is entered above; I have spent that time in minutes in the direct care of this critically ill patient, excluding procedure time. ED Disposition Clinical Impression: Gangrene of right foot, Acute hyperkalemia Disposition: OP ADMIT IP TO THIS HOSP Is pt being admited?: Yes Condition: Stable Referrals: PRIMARY CARE,MD [Primary Care Provider] - 3-5 Days
[2021-03-24] MEDS ORDERED: MORPHINE 4 MG/1 ML INJ IV ONE (11:41)
[2021-03-24] MEDS ORDERED: ONDANSETRON 4 MG/2 ML INJ IV ONE (11:42)
[2021-03-24] MEDS ORDERED: ACETAMINOPHEN 500 MG TAB PO ONE (11:46)
[2021-03-24] MEDS ORDERED: SODIUM CHLORIDE 0.9% 1000 ML 1,000 ML IV ONE (11:54)
[2021-03-24 12:29] LABS: Basophils % (Auto) 0.3 % (0.0-1.8); Eosinophils # (Auto) 0.1 K/mm3 (0.0-0.4); Eosinophils % (Auto) 0.4 % (0.0-4.3); Hematocrit 32.3 % (30.3-42.9); Hemoglobin 10.9 gm/dl (10.1-14.3); Lymphocytes # (Auto) 1.9 K/mm3 (1.2-5.4); Lymphocytes % (Auto) 13.4 % (13.4-35.0); Mean Corpuscular HGB Conc 34 % (30-34); Mean Corpuscular Volume 89 fl (79-97); Monocytes # (Auto) 1.6 K/mm3 (0.0-0.8); Monocytes % (Auto) 11.6 % (0.0-7.3); Platelet Count 417 K/mm3 (140-440); Red Blood Count 3.63 M/mm3 (3.65-5.03)
[2021-03-24] MEDS ORDERED: cefTRIAXone/NS 1 GM/50 ML 1 GM/50 ML BAG IV ONE (12:30)
[2021-03-24 12:39] LABS: INR 1.25 (0.87-1.13)
[2021-03-24 12:40] LABS: Partial Thromboplastin Time 32.6 Sec. (24.2-36.6)
[2021-03-24 12:47] LABS: Alanine Aminotransferase 25 units/L (7-56); Albumin 2.5 g/dL (3.9-5); BUN/Creatinine Ratio 14; Blood Urea Nitrogen 17 mg/dL (7-17); Calcium 8.9 mg/dL (8.4-10.2); Hemolysis Index 12
[2021-03-24 12:58] LABS: Bilirubin,Direct < 0.2 mg/dL (0-0.2)
[2021-03-24] MEDS ORDERED: INSULIN REGULAR, HUMAN 100 UNITS/1 ML IV ONE (13:28)
[2021-03-24] MEDS ORDERED: DEXTROSE 50% IN WATER (25GM) 50 ML SYRINGE IV ONE (13:28)
--- NOTE | 2021-03-24 16:26 | Consultation ---
History of Present Illness - Reason for Consult Consult date: 03/24/21 RLE necotic foot Requesting physician: DERIK INGRAM - History of Present Illness 50 years old female with history of diabetes, hypertension and asthma. Patient recently diagnosed with diabetic foot and underwent abscess debridement patient also had a vascular surgery including superficial femoral artery stenting and popliteal artery also. Patient brought to the emergency room via EMS from a local wound clinic after patient found to be febrile and right foot turned into black color. Contacted by ER for necrotic foot. Ordered arterial duplex and ISABELLA. Patient has a palpable right DP. Difficult to palpate PT due to swelling. PVR and ISABELLA of the right lower extremity are within normal limits. Arterial duplex demonstrates some distal monophasic flow which based on recent angiogram likely represents low resistance waveforms due to underlying wound. Ulcer is quite extensive and also has necrotic first and second digit. Third and fourth digit are dusky. Discussed this in depth with patient. ROS: Stated complaint: RT FOOT PAIN/FEVER Other details as noted in HPI Comment: All other systems reviewed and negative Constitutional: chills, fever Respiratory: denies: cough, shortness of breath Cardiovascular: denies: chest pain, palpitations Gastrointestinal: denies: abdominal pain, nausea, vomiting Musculoskeletal: denies: back pain Neurological: denies: headache, weakness Past Medical History Hx Hypertension: Yes Hx Diabetes: Yes Hx Deep Vein Thrombosis: No Hx Arthritis: Yes (SPINE) Hx Asthma: Yes Additional medical history: NEUROPATHY TO FEET AND LEGS. Obesity Surgical History Hx Pacemaker: No Hx Internal Defibrillator: No Social History Smoking Status: Never Smoker Medications and Allergies Allergies Allergy/AdvReac Type Severity Reaction Status Date / Time bismuth subsalicylate Allergy Nausea Verified 02/20/21 15:36 [From Pepto-Bismol] Penicillins Allergy Nausea Verified 02/20/21 15:36 tramadol Allergy Unknown Verified 09/27/20 14:56 Home Medications Medication Instructions Recorded Confirmed Last Taken Type Exenatide Microspheres [Bydureon 2 mg SQ 1XW 11/15/20 02/23/21 Unknown History Pen] AtorvaSTATin [Lipitor] 80 mg PO QHS #30 tablet 11/19/20 02/23/21 Unknown Rx DULoxetine [Cymbalta] 60 mg PO BID #60 cap 11/19/20 02/23/21 Unknown Rx tiZANidine [Zanaflex 4mg TAB] 4 mg PO QID PRN #10 11/19/20 02/23/21 Unknown Rx verapamiL [Calan] 80 mg PO Q8HR #90 tablet 11/19/20 02/23/21 Unknown Rx Clopidogrel [Plavix] 75 mg PO QDAY #90 tablet 11/26/20 02/23/21 Unknown Rx Gabapentin [Neurontin] 600 mg PO TID #90 cap 02/01/21 02/23/21 Unknown Rx Aspirin EC [Halfprin EC] 81 mg PO QDAY #30 tablet 02/28/21 Unknown Rx Insulin NPH/Regular [NovoLIN 70/30] 22 unit SUB-Q BIDDIAB 30 Days 02/28/21 Unknown Rx Lispro Insulin [HumaLOG] 0 unit SUB-Q ACHS 30 Days #1 units 02/28/21 Unknown Rx Pantoprazole [Protonix TAB] 40 mg PO QDAC #30 tablet 02/28/21 Unknown Rx oxyCODONE /ACETAMINOPHEN [Percocet 2 tab PO Q4H PRN #20 tablet 02/28/21 Unknown Rx 5/325 mg] Exam - Constitutional Vitals: Temp Pulse Resp BP Pulse Ox 100.3 F H 93 H 12 145/62 97 03/24/21 11:26 03/24/21 14:00 03/24/21 13:31 03/24/21 13:31 03/24/21 13:31 General appearance: Present: mild distress (Right foot) - EENT Eyes: Present: EOM intact ENT: hearing intact - Neck Neck: Present: supple - Respiratory Respiratory effort: normal - Extremities Extremities: pulses intact, abnormal (Right first and second digit are gangrenous, third and fourth digit are dusky, and dorsum of the foot has a large wound with fibrinous exudate) - Psychiatric Psychiatric: appropriate mood/affect, cooperative Results - Labs CBC & Chem 7: 03/24/21 11:52 03/24/21 11:52 Labs: Abnormal lab results 03/24/21 03/24/21 03/24/21 Range/Units 11:52 11:52 11:52 WBC 13.8 H (4.5-11.0) K/mm3 RBC 3.63 L (3.65-5.03) M/mm3 RDW 13.0 L (13.2-15.2) % Warren % (Auto) 11.6 H (0.0-7.3) % Warren # (Auto) 1.6 H (0.0-0.8) K/mm3 Seg Neutrophils % 74.3 H (40.0-70.0) % Seg Neutrophils # 10.3 H (1.8-7.7) K/mm3 PT 15.5 H (12.2-14.9) Sec. INR 1.25 H (0.87-1.13) Sodium 134 L (137-145) mmol/L Potassium 6.1 H* (3.6-5.0) mmol/L Glucose 224 H (65-100) mg/dL Alkaline Phosphatase 255 H (35-129) units/L Total Protein 8.9 H (6.3-8.2) g/dL Albumin 2.5 L (3.9-5) g/dL Assessment and Plan 50-year-old uncontrolled diabetic female with right forefoot and dorsal midfoot ulceration with gangrene. Patient has palpable pulses and adequate blood flow to heal. Underlying reason for poor healing is uncontrolled diabetes and probable infectious component. Recommend infectious disease consult. Recommend wound care consult. Options involve TMA versus BKA. TMA may be partially open. TMA may also require staging based on how patient responds to antibiotics with open and then closed TMA.
--- NOTE | 2021-03-24 16:44 | Vascular Lab Report ---
DUPLEX DOPPLER LOWER EXTREMITY ARTERIAL, BILATERAL INDICATION: Right foot ulcer/gangrene. History of right SFA and popliteal artery stenting with debridement of rig ht foot ulcer. History of diabetes, hypertension and hyperlipidemia. TECHNIQUE: Arterial duplex examination of both lower extremities performed using B-mode, color flow and spectral Doppler assessment. FINDINGS: RIGHT: Common Femoral Artery: PSV 149 cm/sec. Triphasic waveform. Proximal SFA: PSV 164 cm/sec. Triphasic waveform. Mid SFA: PSV 152 cm/sec. Biphasic waveform. Distal SFA: PSV 167 cm/sec. Triphasic waveform. Popliteal artery: PSV 142 cm/sec. Biphasic waveform. Posterior tibial artery: PSV 111 cm/sec. Biphasic waveform. Dorsalis Pedis Artery: PSV 113 cm/sec. Monophasic waveform. LEFT: Common Femoral Artery: PSV 111 cm/sec. Triphasic waveform. Proximal SFA: PSV 144 cm/sec. Triphasic waveform. Mid SFA: PSV 142 cm/sec. Triphasic waveform. Distal SFA: PSV 78 cm/sec. Biphasic waveform. Popliteal artery: PSV 139 cm/sec. Biphasic waveform. Posterior tibial artery: PSV 41 cm/sec. Biphasic waveform. Dorsalis Pedis Artery: PSV 42 cm/sec. Biphasic waveform. Right ISABELLA: 1.12. Left ISABELLA: Unable to calculate IMPRESSION: 1. Interval improvement of the previously seen abnormally elevated right SFA velocity following stent placement. Normal right ISABELLA. 2. Unable to calculate left ISABELLA for reasons unspecified by technologist. No sonographic evidence of h emodynamically significant left lower extremity peripheral artery disease. Signer Name: Mark Anthony Bowen MD Signed: 03/24/2021 4:40 PM Workstation Name: [id number]
[2021-03-24 19:15] LABS: BUN/Creatinine Ratio 15; Blood Urea Nitrogen 16 mg/dL (7-17); Calcium 8.6 mg/dL (8.4-10.2); Hemolysis Index 58
[2021-03-24] MEDS ORDERED: ACETAMINOPHEN 325 MG TAB PO PRN (22:31)
[2021-03-24] MEDS ORDERED: GABAPENTIN 100 MG CAP PO ONE (22:40)
[2021-03-24] MEDS: ACETAMINOPHEN 325 MG TAB PO PRN (22:45)
[2021-03-24] MEDS ORDERED: ONDANSETRON 4 MG/2 ML INJ IV PRN (23:35)
[2021-03-24] MEDS ORDERED: SODIUM CHLORIDE 0.9% 1000 ML 1,000 ML IV SCH (23:45)
--- NOTE | 2021-03-24 23:45 | History and Physical Report ---
History of Present Illness Date of examination: 03/24/21 Date of admission: 03/24/21 13:21 Chief complaint: Right foot gangrene and right foot ulcer for 1 month History of present illness: Patient is 50 years old female with history of diabetes, hypertension and ast hma. Patient recently diagnosed with diabetic foot and underwent abscess department. Patient also had a vascular surgery including superficial femoral artery stenting and popliteal artery also. Patient brought to the emergency room via EMS from a local wound clinic after patient found to be febrile and right foot turned into black color. No gangrenous changes of the first 4 toes and a deep ulcer exposing the tendons on the right dorsum of the foot 10 cm x 7 cm x 1 cm depth. Also low-grade fever. Patient has a recent admission in January and was discharged on February 02, [id number]. Patient had extensive wound debridement of the right foot. Patient had necrotizing infection of the right foot. Patient was discharged on IV antibiotics. Patient also had a vascular surgery intervention and extensive debridement of the right dorsum of the foot. -- "Discharge summary from 02/28/2021 50-year-old obese female patient was admitted on 02/21/21 with diabetic ketoacidosis and cellulitis of the foot secondary to spider bite In the emergency room Patient blood glucose was 668 bicarb 22 anion gap 23 sodium 127 potassium 5.1 and lactic acid 2.10, WBC 29.6 Patient also found to have right foot cellulitis/ulcer X-ray ; soft tissue swelling CT right lower extremity diffuse edema with subcutaneous emphysema seenalong the medial distal right foot no drainable abscess no CT evidence of osteomyelitis CT Patient placed on DKA protocol, IV antibiotics, subsequently underwent surgical debridement of right foot per surgery Received postop care, blood sugars brought to reasonable control, HbA1c 15.5. patient had arterial doppler with findings suggestive of Rt SFA narrowing, s/p Atherectomy with Angioplasty of Right SFA and Popliteal Artery by vascular. Wound Culture growing beta-hemolytic group B streptococcus. ID recommended to continue IV ceftriaxone 2 g daily for 6 weeks ending 04/06/2021, PICC line was placed. Patient was then discharged home in stable condition with home health and home IV antibiotics set up. - - Past Medical History --Hypertension: Yes --Diabetes: Yes --Deep Vein Thrombosis: No --Arthritis: Yes (SPINE) --Asthma: Yes Additional medical history: NEUROPATHY TO FEET AND LEGS. Obesity - Surgical History no - Social History Smoking Status: Never Smoker Review of Systems ROS: Stated complaint: RT FOOT PAIN/FEVER Other details as noted in HPI Comment: All other systems reviewed and negative Constitutional: chills, fever Respiratory: denies: cough, shortness of breath Cardiovascular: denies: chest pain, palpitations Gastrointestinal: denies: abdominal pain, nausea, vomiting Musculoskeletal: denies: back pain Neurological: denies: headache, weakness Medications and Allergies Allergies Allergy/AdvReac Type Severity Reaction Status Date / Time bismuth subsalicylate Allergy Nausea Verified 02/20/21 15:36 [From Pepto-Bismol] Penicillins Allergy Nausea Verified 02/20/21 15:36 tramadol Allergy Unknown Verified 09/27/20 14:56 Home Medications Medication Instructions Recorded Confirmed Last Taken Type Exenatide Microspheres [Bydureon 2 mg SQ 1XW 11/15/20 02/23/21 Unknown History Pen] AtorvaSTATin [Lipitor] 80 mg PO QHS #30 tablet 11/19/20 02/23/21 Unknown Rx DULoxetine [Cymbalta] 60 mg PO BID #60 cap 11/19/20 02/23/21 Unknown Rx tiZANidine [Zanaflex 4mg TAB] 4 mg PO QID PRN #10 11/19/20 02/23/21 Unknown Rx verapamiL [Calan] 80 mg PO Q8HR #90 tablet 11/19/20 02/23/21 Unknown Rx Clopidogrel [Plavix] 75 mg PO QDAY #90 tablet 11/26/20 02/23/21 Unknown Rx Gabapentin [Neurontin] 600 mg PO TID #90 cap 02/01/21 02/23/21 Unknown Rx Aspirin EC [Halfprin EC] 81 mg PO QDAY #30 tablet 02/28/21 Unknown Rx Insulin NPH/Regular [NovoLIN 70/30] 22 unit SUB-Q BIDDIAB 30 Days 02/28/21 Unknown Rx Lispro Insulin [HumaLOG] 0 unit SUB-Q ACHS 30 Days #1 units 02/28/21 Unknown Rx Pantoprazole [Protonix TAB] 40 mg PO QDAC #30 tablet 02/28/21 Unknown Rx oxyCODONE /ACETAMINOPHEN [Percocet 2 tab PO Q4H PRN #20 tablet 02/28/21 Unknown Rx 5/325 mg] Active Meds: Active Medications Acetaminophen (Acetaminophen 325 Mg Tab) 650 mg PO Q6H PRN PRN Reason: Pain, Mild (1-3) Acetaminophen (Acetaminophen 325 Mg Tab) 650 mg PO Q4H PRN PRN Reason: Pain MILD(1-3)/Fever >100.5/SMITH Aspirin (Aspirin Ec 81 Mg Tab) 81 mg PO QDAY ESTER Atorvastatin Calcium (Atorvastatin 40 Mg Tab) 80 mg PO QHS ESTER Duloxetine HCl (Duloxetine 30 Mg Cap) 60 mg PO BID ESTER Famotidine (Famotidine 20 Mg/2 Ml Inj) 20 mg IV BID ESTER Gabapentin (Gabapentin 300 Mg Cap) 600 mg PO TID ESTER Hydromorphone HCl (Hydromorphone 1 Mg/1 Ml Inj) 0.5 mg IV Q3H PRN PRN Reason: Pain , Severe (7-10) Sodium Chloride (Nacl 0.9% 1000 Ml) 1,000 mls @ 100 mls/hr IV DIRECT ESTER Stop: 03/25/21 12:00 Insulin Human Isoph/Insulin Regular (Insulin Nph/Regular 70/30 Inj) 22 unit SUB-Q BIDDIAB ESTER Insulin Human Lispro (Insulin Lispro 100 Unit/Ml) 0 unit SUB-Q ACHS ESTER; Protocol Ondansetron HCl (Ondansetron 4 Mg/2 Ml Inj) 4 mg IV Q8H PRN PRN Reason: Nausea And Vomiting Oxycodone/Acetaminophen (Oxycodone /Acetaminophen 5-325mg Tab) 2 tab PO Q4H PRN PRN Reason: Pain, Moderate (4-6) Pantoprazole Sodium (Pantoprazole 40 Mg Tab) 40 mg PO QDAC ESTER Sodium Chloride (Sodium Chloride 0.9% 10 Ml Flush Syringe) 10 ml IV BID ESTER Sodium Chloride (Sodium Chloride 0.9% 10 Ml Flush Syringe) 10 ml IV PRN PRN PRN Reason: LINE FLUSH Tizanidine HCl (Tizanidine Tab 4 Mg Tab) 4 mg PO QID PRN PRN Reason: muscle relaxer Verapamil HCl (Verapamil 80 Mg Tab) 80 mg PO Q8HR ESTER Exam - Constitutional Vitals: Temp Pulse Resp BP Pulse Ox 98.3 F 100 H 13 170/86 97 03/24/21 16:42 03/24/21 19:01 03/24/21 20:01 03/24/21 20:01 03/24/21 20:01 General appearance: Present: no acute distress, well-nourished - EENT Eyes: Present: PERRL ENT: hearing intact, clear oral mucosa - Neck Neck: Present: supple, normal ROM - Respiratory Respiratory effort: normal Respiratory: bilateral: CTA - Cardiovascular Heart rate: 78 Rhythm: regular Heart Sounds: Present: S1 & S2. Absent: rub, click - Extremities Extremities: pulses symmetrical, No edema, abnormal (Right foot extensive gangrenous changes especially involving the first 4 toes and large ulcer on the dorsum of the foot 10 cm x 7 cm x 1 cm depth exposing the tendons.) Extremity abnormal: other (Same as above.) Peripheral Pulses: within normal limits - Abdominal General gastrointestinal: Present: soft, non-tender, non-distended, normal bowel sounds Female genitourinary: Present: normal - Integumentary Integumentary: Present: clear, warm, dry - Musculoskeletal Musculoskeletal: gait normal, strength equal bilaterally - Psychiatric Psychiatric: appropriate mood/affect, intact judgment & insight - Neurologic Neurologic: CNII-XII intact, moves all extremities Results - Labs CBC & Chem 7: 03/25/21 04:34 03/25/21 04:34 Labs: Laboratory Last Values WBC 13.8 K/mm3 (4.5-11.0) H 03/24/21 11:52 RBC 3.63 M/mm3 (3.65-5.03) L 03/24/21 11:52 Hgb 10.9 gm/dl (10.1-14.3) 03/24/21 11:52 Hct 32.3 % (30.3-42.9) 03/24/21 11:52 MCV 89 fl (79-97) 03/24/21 11:52 MCH 30 pg (28-32) 03/24/21 11:52 MCHC 34 % (30-34) 03/24/21 11:52 RDW 13.0 % (13.2-15.2) L 03/24/21 11:52 Plt Count 417 K/mm3 (140-440) 03/24/21 11:52 Lymph % (Auto) 13.4 % (13.4-35.0) 03/24/21 11:52 [place] % (Auto) 11.6 % (0.0-7.3) H 03/24/21 11:52 Eos % (Auto) 0.4 % (0.0-4.3) 03/24/21 11:52 Baso % (Auto) 0.3 % (0.0-1.8) 03/24/21 11:52 Lymph # (Auto) 1.9 K/mm3 (1.2-5.4) 03/24/21 11:52 [place] # (Auto) 1.6 K/mm3 (0.0-0.8) H 03/24/21 11:52 Eos # (Auto) 0.1 K/mm3 (0.0-0.4) 03/24/21 11:52 Baso # (Auto) 0.0 K/mm3 (0.0-0.1) 03/24/21 11:52 Seg Neutrophils % 74.3 % (40.0-70.0) H 03/24/21 11:52 Seg Neutrophils # 10.3 K/mm3 (1.8-7.7) H 03/24/21 11:52 PT 15.5 Sec. (12.2-14.9) H 03/24/21 11:52 INR 1.25 (0.87-1.13) H 03/24/21 11:52 APTT 32.6 Sec. (24.2-36.6) 03/24/21 11:52 Sodium 133 mmol/L (137-145) L 03/24/21 18:50 Potassium 5.4 mmol/L (3.6-5.0) H 03/24/21 18:50 Chloride 99.8 mmol/L (98-107) 03/24/21 18:50 Carbon Dioxide 22 mmol/L (22-30) 03/24/21 18:50 Anion Gap 17 mmol/L 03/24/21 18:50 BUN 16 mg/dL (7-17) 03/24/21 18:50 Creatinine 1.1 mg/dL (0.6-1.2) 03/24/21 18:50 Estimated GFR > 60 ml/min 03/24/21 18:50 BUN/Creatinine Ratio 15 % 03/24/21 18:50 Glucose 259 mg/dL (65-100) H 03/24/21 18:50 Calcium 8.6 mg/dL (8.4-10.2) 03/24/21 18:50 Total Bilirubin 0.40 mg/dL (0.1-1.2) 03/24/21 11:52 Direct Bilirubin < 0.2 mg/dL (0-0.2) 03/24/21 11:52 Indirect Bilirubin 0.2 mg/dL 03/24/21 11:52 AST 21 units/L (5-40) 03/24/21 11:52 ALT 25 units/L (7-56) 03/24/21 11:52 Alkaline Phosphatase 255 units/L (35-129) H 03/24/21 11:52 Total Protein 8.9 g/dL (6.3-8.2) H 03/24/21 11:52 Albumin 2.5 g/dL (3.9-5) L 03/24/21 11:52 Albumin/Globulin Ratio 0.4 % 03/24/21 11:52 Short CBC 03/24/21 03/25/21 Range/Units 11:52 04:34 WBC 13.8 H 9.7 (4.5-11.0) K/mm3 Hgb 10.9 9.4 L (10.1-14.3) gm/dl Hct 32.3 28.8 L (30.3-42.9) % Plt Count 417 387 (140-440) K/mm3 BMP 03/24/21 03/24/21 03/25/21 11:52 18:50 04:34 Sodium 134 L 133 L 135 L Potassium 6.1 H* 5.4 H 4.8 Chloride 98.9 99.8 100.0 Carbon Dioxide 24 22 24 BUN 17 16 18 H Creatinine 1.2 1.1 1.1 Glucose 224 H 259 H 224 H Calcium 8.9 8.6 8.2 L Liver Function 03/24/21 03/25/21 Range/Units 11:52 04:34 Total Bilirubin 0.40 0.20 (0.1-1.2) mg/dL Direct Bilirubin < 0.2 (0-0.2) mg/dL AST 21 18 (5-40) units/L ALT 25 20 (7-56) units/L Alkaline Phosphatase 255 H 210 H (35-129) units/L Albumin 2.5 L 2.5 L (3.9-5) g/dL Microbiology: Microbiology 03/24/21 11:52 Peripheral/Venous Blood Culture - Preliminary Culture in Progress 03/24/21 11:52 Peripheral/Venous Blood Culture - Preliminary Culture in Progress Assessment and Plan Advance Directives: Yes (Full code) VTE prophylaxis?: Chemical Plan of care discussed with patient/family: Yes - Patient Problems (1) Gangrene of right foot Current Visit: Yes Status: Acute Plan to address problem: Patient was admitted here and discharged on 02/28/2021 with IV antibiotics till April 06, 2021 and referral to wound care clinic. Now the right foot has become gangrenous especially the first 4 toes. May need amputation-TMA versus right below-knee Surgery and vascular surgery consulted Patient initiated on IV antibiotics-ceftriaxone and vancomycin (2) Peripheral vascular disease Current Visit: Yes Status: Chronic Plan to address problem: Vascular surgery consulted (3) Hypertension Current Visit: Yes Status: Chronic Qualifiers: Hypertension type: essential hypertension Qualified Code(s): I10 - Essential (primary) hypertension Plan to address problem: Continue antihypertensives (4) IDDM (insulin dependent diabetes mellitus) Current Visit: Yes Status: Chronic Plan to address problem: Tight control of blood glucose levels Check hemoglobin A1c Adjust insulin and coverage for now (5) DVT prophylaxis Current Visit: Yes Status: Acute Plan to address problem: On heparin and GI prophylaxis
[2021-03-25] MEDS ORDERED: BUPIVACAINE/PF (0.25%) 2.5 MG/ML 30 ML VIAL INFILTRATI ONE
[2021-03-25] MEDS: VERAPAMIL 80 MG TAB PO SCH ×4 (00:03→23:08)
[2021-03-25] MEDS: HYDROmorphone 1 MG/1 ML INJ IV PRN ×6 (02:50→21:30)
[2021-03-25 06:24] LABS: Basophils % (Auto) 0.4 % (0.0-1.8); Eosinophils # (Auto) 0.1 K/mm3 (0.0-0.4); Eosinophils % (Auto) 0.7 % (0.0-4.3); Hematocrit 28.8 % (30.3-42.9); Hemoglobin 9.4 gm/dl (10.1-14.3); Lymphocytes # (Auto) 1.6 K/mm3 (1.2-5.4); Lymphocytes % (Auto) 16.9 % (13.4-35.0); Mean Corpuscular HGB Conc 33 % (30-34); Mean Corpuscular Volume 90 fl (79-97); Monocytes # (Auto) 1.4 K/mm3 (0.0-0.8); Monocytes % (Auto) 14.4 % (0.0-7.3); Platelet Count 387 K/mm3 (140-440); Red Blood Count 3.22 M/mm3 (3.65-5.03); Red Cell Distribution Width 12.8 % (13.2-15.2)
[2021-03-25] MEDS: PANTOPRAZOLE 40 MG TAB PO SCH (06:34)
[2021-03-25 06:46] LABS: Alanine Aminotransferase 20 units/L (7-56); Albumin 2.5 g/dL (3.9-5); BUN/Creatinine Ratio 16; Blood Urea Nitrogen 18 mg/dL (7-17); Calcium 8.2 mg/dL (8.4-10.2); Hemolysis Index 53
[2021-03-25] MEDS ORDERED: NON-FORMULARY EACH (Gabapentin [Neurontin] 600 MG Tablet) PO SCH (08:00)
[2021-03-25] MEDS: GABAPENTIN 300 MG CAP PO SCH ×3 (09:22→21:40)
[2021-03-25] MEDS: DULoxetine 30 MG CAP PO SCH ×2 (09:22→21:41)
[2021-03-25] MEDS: ASPIRIN EC 81 MG TAB PO SCH (09:22)
[2021-03-25] MEDS: INSULIN LISPRO 100 UNIT/ML SUB-Q SCH ×2 (09:23→18:02)
[2021-03-25] MEDS ORDERED: FAMOTIDINE 20 MG/2 ML INJ IV SCH (10:00)
[2021-03-25] MEDS: cefTRIAXone/NS 2 GM/100 ML 2 GM/100 ML BAG IV SCH (10:39)
[2021-03-25] MEDS: INSULIN NPH/REGULAR 70/30 INJ SUB-Q SCH ×2 (10:40→18:05)
[2021-03-25] MEDS: oxyCODONE /ACETAMINOPHEN 5-325MG TAB PO PRN ×2 (10:47→22:01)
--- NOTE | 2021-03-25 14:16 | Progress Note ---
Assessment and Plan - Patient Problems (1) Atherosclerosis of right lower extremity with gangrene Current Visit: Yes Status: Acute Plan to address problem: 1) I discussed this pt's situation with Dr. Harkins, vascular surgery. We both agree that TMA vs BKA is indicated. I presented both options to the pt. She desires to proceed with a right BKA. Will post in the OR at 4:00 pm today. Subjective Date of service: 03/25/21 Patient Reports: Positive: still having pain Objective Vital Signs - 12hr 03/25/21 03/25/21 03/25/21 04:16 06:16 09:19 Temperature 98.1 F 99.2 F Pulse Rate 91 H 102 H Respiratory 20 18 Rate Blood Pressure 158/86 158/86 132/67 O2 Sat by Pulse 96 98 Oximetry - Integumentary other (No change in right foot exam.) - Labs 03/25/21 04:34 03/25/21 04:34 Diabetes panel 03/24/21 03/25/21 03/25/21 Range/Units 18:50 04:34 04:34 Sodium 133 L 135 L (137-145) mmol/L Potassium 5.4 H 4.8 (3.6-5.0) mmol/L Chloride 99.8 100.0 (98-107) mmol/L Carbon Dioxide 22 24 (22-30) mmol/L BUN 16 18 H (7-17) mg/dL Creatinine 1.1 1.1 (0.6-1.2) mg/dL Glucose 259 H 224 H (65-100) mg/dL Hemoglobin A1c 12.0 H (4-6) % Calcium 8.6 8.2 L (8.4-10.2) mg/dL AST 18 (5-40) units/L ALT 20 (7-56) units/L Alkaline Phosphatase 210 H (35-129) units/L Total Protein 8.2 (6.3-8.2) g/dL Albumin 2.5 L (3.9-5) g/dL Calcium panel 03/24/21 03/25/21 Range/Units 18:50 04:34 Calcium 8.6 8.2 L (8.4-10.2) mg/dL Albumin 2.5 L (3.9-5) g/dL Pituitary panel 03/24/21 03/25/21 Range/Units 18:50 04:34 Sodium 133 L 135 L (137-145) mmol/L Potassium 5.4 H 4.8 (3.6-5.0) mmol/L Chloride 99.8 100.0 (98-107) mmol/L Carbon Dioxide 22 24 (22-30) mmol/L BUN 16 18 H (7-17) mg/dL Creatinine 1.1 1.1 (0.6-1.2) mg/dL Glucose 259 H 224 H (65-100) mg/dL Calcium 8.6 8.2 L (8.4-10.2) mg/dL Adrenal panel 03/24/21 03/25/21 Range/Units 18:50 04:34 Sodium 133 L 135 L (137-145) mmol/L Potassium 5.4 H 4.8 (3.6-5.0) mmol/L Chloride 99.8 100.0 (98-107) mmol/L Carbon Dioxide 22 24 (22-30) mmol/L BUN 16 18 H (7-17) mg/dL Creatinine 1.1 1.1 (0.6-1.2) mg/dL Glucose 259 H 224 H (65-100) mg/dL Calcium 8.6 8.2 L (8.4-10.2) mg/dL Total Bilirubin 0.20 (0.1-1.2) mg/dL AST 18 (5-40) units/L ALT 20 (7-56) units/L Alkaline Phosphatase 210 H (35-129) units/L Total Protein 8.2 (6.3-8.2) g/dL Albumin 2.5 L (3.9-5) g/dL
--- NOTE | 2021-03-25 14:47 | Anesthesia Consultation ---
Anesthesia Consult and Med Hx Date of service: 03/25/21 - Airway Anesthetic Teeth Evaluation: Poor (multiple chipped teeth) ROM Head & Neck: Adequate Mental/Hyoid Distance: Adequate Mallampati Class: Class III Intubation Access Assessment: Possibly Difficult - Pre-Operative Health Status ASA Pre-Surgery Classification: ASA3 Proposed Anesthetic Plan: General - Pulmonary Hx Asthma: Yes Hx Pneumonia: No Hx Sleep Apnea: Yes - Cardiovascular System Hx Hypertension: Yes Hx Pacemaker: No Hx Internal Defibrillator: No Hx Peripheral Vascular Disease: Yes (had revascularization of the right lower extremity) - Central Nervous System CVA: Yes (had CVA in Nov 2020, memory loss, vision changes, weakness, unknown cause ) - Endocrine Hx Insulin Dependent Diabetes: Yes (uncontrolled diabetes, A1c 15.5) - Other Systems Hx Alcohol Use: No Hx Cancer: No Hx Obesity: Yes (BMI 35.2)
--- NOTE | 2021-03-25 14:52 | Anesthesia Day of Surgery ---
Anesthesia Day of Surgery - Day of Surgery Patient Examined: Yes Patient H&P Reviewed: Yes Patient is NPO: Yes (after 8AM)
[2021-03-25] MEDS ORDERED: propofoL 200 MG/20 ML VIAL IV ONE (15:56)
[2021-03-25] MEDS ORDERED: LIDOCAINE MPF (2%) 20 MG/1 ML VIAL 5 ML ONE (15:56)
[2021-03-25] MEDS ORDERED: ONDANSETRON 4 MG/2 ML INJ IV PRN (16:00)
[2021-03-25] MEDS ORDERED: BUPIVACAINE/PF (0.5%) 5 MG/1 ML 30 ML VIAL INFILTRATI ONE (16:12)
[2021-03-25] MEDS ORDERED: SODIUM CHLORIDE 0.9% 1000 ML 1,000 ML ONE (16:29)
[2021-03-25] MEDS ORDERED: SODIUM CHLORIDE 0.9% IRR 1,500 ML BOTTLE IR ONE ×2 (16:58)
--- NOTE | 2021-03-25 16:58 | Progress Note ---
Assessment and Plan 50-year-old obese female patient was admitted on 02/21/21 with diabetic ketoacidosis and cellulitis of the foot secondary to spider bite was discharged home on IV ceftriaxone 2 g daily for 6 weeks ending 04/06/2021 brought back to the emergency room via EMS from a local wound clinic after patient found to be febrile and right foot turned into black color. A/P; -- Gangrene of right foot Patient was admitted here and discharged on 02/28/2021 with IV antibiotics till April 06, 2021 and referral to wound care clinic. Now the right foot has become gangrenous especially the first 4 toes. May need amputation-TMA versus right below-knee Surgery and vascular surgery consulted Patient initiated on IV antibiotics-ceftriaxone and vancomycin --Peripheral vascular disease Vascular surgery consulted --Hypertension Continue antihypertensives --IDDM (insulin dependent diabetes mellitus) Tight control of blood glucose levels Check hemoglobin A1c Adjust insulin and coverage for now --DVT prophylaxis On heparin and GI prophylaxis --Full CODE STATUS Daily clinical course: 03/25/21: Patient is scheduled for right foot amputation today, continue empiric antibiotics, n.p.o. for now. Follow clinically. Subjective Date of service: 03/25/21 Interval history: Patient seen and examined. Medical records and medication list reviewed. No acute event overnight noted by the RN. Patient waiting for right foot amputation Discussed plan of care at bedside with patient. Objective - Exam Narrative Exam: General appearance: Present: no acute distress, well-nourished - EENT Eyes: Present: PERRL ENT: hearing intact, clear oral mucosa - Neck Neck: Present: supple, normal ROM - Respiratory Respiratory effort: normal Respiratory: bilateral: CTA - Cardiovascular Heart rate: 78 Rhythm: regular Heart Sounds: Present: S1 & S2. Absent: rub, click - Extremities Extremities: pulses symmetrical, No edema, abnormal (Right foot extensive gangrenous changes especially involving the first 4 toes and large ulcer on the dorsum of the foot 10 cm x 7 cm x 1 cm depth exposing the tendons.) Extremity abnormal: other (Same as above.) Peripheral Pulses: within normal limits - Abdominal General gastrointestinal: Present: soft, non-tender, non-distended, normal bowel sounds Female genitourinary: Present: normal - Integumentary Integumentary: Present: clear, warm, dry - Musculoskeletal Musculoskeletal: gait normal, strength equal bilaterally - Psychiatric Psychiatric: appropriate mood/affect, intact judgment & insight - Neurologic Neurologic: CNII-XII intact, moves all extremities - Constitutional Vitals: Vital Signs - 12hr 03/25/21 03/25/21 03/25/21 06:16 09:19 16:08 Temperature 99.2 F 98.9 F Pulse Rate 102 H 96 H Respiratory 18 18 Rate Blood Pressure 158/86 132/67 178/98 O2 Sat by Pulse 98 100 Oximetry - Labs CBC & Chem 7: 03/26/21 04:39 03/27/21 05:15 Labs: Abnormal lab results 03/24/21 03/25/21 03/25/21 Range/Units 18:50 04:34 04:34 RBC 3.22 L (3.65-5.03) M/mm3 Hgb 9.4 L (10.1-14.3) gm/dl Hct 28.8 L (30.3-42.9) % RDW 12.8 L (13.2-15.2) % Kaufman % (Auto) 14.4 H (0.0-7.3) % Kaufman # (Auto) 1.4 H (0.0-0.8) K/mm3 Sodium 133 L 135 L (137-145) mmol/L Potassium 5.4 H (3.6-5.0) mmol/L BUN 18 H (7-17) mg/dL Glucose 259 H 224 H (65-100) mg/dL POC Glucose (70-105) mg/dL Hemoglobin A1c (4-6) % Calcium 8.2 L (8.4-10.2) mg/dL Alkaline Phosphatase 210 H (35-129) units/L Albumin 2.5 L (3.9-5) g/dL 03/25/21 03/25/21 Range/Units 04:34 12:07 RBC (3.65-5.03) M/mm3 Hgb (10.1-14.3) gm/dl Hct (30.3-42.9) % RDW (13.2-15.2) % [place]auf[place] % (Auto) (0.0-7.3) % [place] # (Auto) (0.0-0.8) K/mm3 Sodium (137-145) mmol/L Potassium (3.6-5.0) mmol/L BUN (7-17) mg/dL Glucose (65-100) mg/dL POC Glucose 248 H (70-105) mg/dL Hemoglobin A1c 12.0 H (4-6) % Calcium (8.4-10.2) mg/dL Alkaline Phosphatase (35-129) units/L Albumin (3.9-5) g/dL
[2021-03-25] MEDS ORDERED: ONDANSETRON 4 MG/2 ML INJ ONE (18:41)
--- NOTE | 2021-03-25 18:56 | Procedure Note ---
Date of procedure: 03/25/21 Pre-op diagnosis: Right foot gangrene Post-op diagnosis: same Procedure: Right BKA Description of procedure: Pt was placed supine on the OR table. General anesthesia was administered. RLE was prepped and draped. The right proximal- mid leg was incised with a long posterior flap. SQ bleeding was controlled with the Bovie. Greater saphenous vein was clamped, divided and ligated with 2-0 silk ties. Anterior compartment musculature was divided with the Bovie, exposing the tibia. The lateral compartment musculature was divided exposing the fibula. The anterior tibial artery and vein were clamped and stick tied with sutures of 2-0 silk. The tibia and fibula were amputated with a bone saw. The posterior musculature was divided with an amputation knife. Right leg and foot were passed off the table. Posterior tibial and peroneal vessels were clamped with hemostats and ligated with stick ties of 2-0 silk. Smaller bleeders were controlled with the Bovie. Wound was irrigated with warm saline. Anterior and posterior fascia were approximated with interrupted sutures of 2-0 Vicryl. Skin was approximated with taylor. Xeroform gauze was applied to the incision followed by dry 4 X 4's, a Kerlix wrap and a Coban wrap. Pt tolerated the pr ocedure well. Pt was taken to PACU in stable condition. Anesthesia: other (LMA) Surgeon: ALEXIS GOODMAN Estimated blood loss: other (300 ml) Pathology: list (Right leg and foot) Specimen disposition: to lab Condition: stable Disposition: PACU
[2021-03-25] MEDS ORDERED: fentaNYL 100 MCG/2 ML INJ ONE (19:08)
[2021-03-25] MEDS ORDERED: MIDAZOLAM 2 MG/2 ML INJ ONE ×2 (19:12→20:02)
[2021-03-25] MEDS ORDERED: LACTATED RINGERS 1,000 ML ONE (19:12)
[2021-03-25] MEDS ORDERED: KETAMINE/STERILE WATER 50 MG/ML SYRINGE ONE (19:23)
[2021-03-25] MEDS ORDERED: MIDAZOLAM 2 MG/2 ML INJ IV PRN (20:09)
--- NOTE | 2021-03-25 20:50 | Post Anesthesia Evaluation ---
- Post Anesthesia Evaluation Patient Participated: Yes Airway Patent: Yes Stable Respiratory Function: Yes Nausea/Vomiting: No Temp > 96.8F: Yes Pain Manageable: Yes Adequeate Hydration: Yes Anesthesia Complications: No Other Comments: Ketamine 25mg IV given in PACU by myself for post op analgesia.
[2021-03-25] MEDS: tiZANidine TAB 4 MG TAB PO PRN (23:09)
[2021-03-26] MEDS: HYDROmorphone 1 MG/1 ML INJ IV PRN ×5 (00:37→22:34)
[2021-03-26] MEDS: INSULIN LISPRO 100 UNIT/ML SUB-Q SCH ×5 (00:47→22:48)
[2021-03-26 05:54] LABS: Basophils % (Auto) 0.3 % (0.0-1.8); Hematocrit 25.1 % (30.3-42.9); Hemoglobin 8.4 gm/dl (10.1-14.3); Lymphocytes # (Auto) 2.4 K/mm3 (1.2-5.4); Lymphocytes % (Auto) 18.7 % (13.4-35.0); Mean Corpuscular HGB Conc 33 % (30-34); Mean Corpuscular Volume 90 fl (79-97); Monocytes # (Auto) 1.1 K/mm3 (0.0-0.8); Monocytes % (Auto) 8.4 % (0.0-7.3); Platelet Count 343 K/mm3 (140-440); Red Cell Distribution Width 12.6 % (13.2-15.2)
[2021-03-26 06:21] LABS: BUN/Creatinine Ratio 16; Blood Urea Nitrogen 18 mg/dL (7-17); Calcium 7.7 mg/dL (8.4-10.2); Hemolysis Index 2
[2021-03-26] MEDS: VERAPAMIL 80 MG TAB PO SCH ×3 (07:05→22:33)
[2021-03-26] MEDS: INSULIN NPH/REGULAR 70/30 INJ SUB-Q SCH ×2 (10:15→18:32)
[2021-03-26] MEDS: GABAPENTIN 300 MG CAP PO SCH ×3 (10:15→22:32)
[2021-03-26] MEDS: ASPIRIN EC 81 MG TAB PO SCH (10:15)
[2021-03-26] MEDS: DULoxetine 30 MG CAP PO SCH ×2 (10:15→22:33)
[2021-03-26] MEDS: cefTRIAXone/NS 2 GM/100 ML 2 GM/100 ML BAG IV SCH (10:16)
[2021-03-26] MEDS: PANTOPRAZOLE 40 MG TAB PO SCH (10:16)
--- NOTE | 2021-03-26 13:07 | Progress Note ---
Assessment and Plan - Patient Problems (1) Atherosclerosis of right lower extremity with gangrene Current Visit: Yes Status: Acute Plan to address problem: 1) Satisfactory course. I asked the nurses to give the pt some IV analgesics. Pt can be discharged once her pain is controlled on oral narcotics. She can f/u in my office in 2 weeks. Subjective Date of service: 03/26/21 Patient Reports: Positive: other (C/o pain at BKA site.) Objective Vital Signs - 12hr 03/26/21 03/26/21 03/26/21 01:07 04:15 07:19 Temperature 98.4 F 99.4 F Pulse Rate 83 96 H Respiratory 22 18 20 Rate Blood Pressure 109/80 121/71 O2 Sat by Pulse 93 100 Oximetry - Musculoskeletal other (Right BKA stump is c/d/i.) - Labs 03/26/21 04:39 03/26/21 04:39 Diabetes panel 03/26/21 Range/Units 04:39 Sodium 136 L (137-145) mmol/L Potassium 5.7 H (3.6-5.0) mmol/L Chloride 102.2 (98-107) mmol/L Carbon Dioxide 22 (22-30) mmol/L BUN 18 H (7-17) mg/dL Creatinine 1.1 (0.6-1.2) mg/dL Glucose 191 H (65-100) mg/dL Calcium 7.7 L (8.4-10.2) mg/dL Calcium panel 03/26/21 Range/Units 04:39 Calcium 7.7 L (8.4-10.2) mg/dL Pituitary panel 03/26/21 Range/Units 04:39 Sodium 136 L (137-145) mmol/L Potassium 5.7 H (3.6-5.0) mmol/L Chloride 102.2 (98-107) mmol/L Carbon Dioxide 22 (22-30) mmol/L BUN 18 H (7-17) mg/dL Creatinine 1.1 (0.6-1.2) mg/dL Glucose 191 H (65-100) mg/dL Calcium 7.7 L (8.4-10.2) mg/dL Adrenal panel 03/26/21 Range/Units 04:39 Sodium 136 L (137-145) mmol/L Potassium 5.7 H (3.6-5.0) mmol/L Chloride 102.2 (98-107) mmol/L Carbon Dioxide 22 (22-30) mmol/L BUN 18 H (7-17) mg/dL Creatinine 1.1 (0.6-1.2) mg/dL Glucose 191 H (65-100) mg/dL Calcium 7.7 L (8.4-10.2) mg/dL
--- NOTE | 2021-03-26 14:43 | Progress Note ---
Assessment and Plan 50-year-old obese female patient was admitted on 02/21/21 with diabetic ketoacidosis and cellulitis of the foot secondary to spider bite was discharged home on IV ceftriaxone 2 g daily for 6 weeks ending 04/06/2021 brought back to the emergency room via EMS from a local wound clinic after patient found to be febrile and right foot turned into black color. A/P; -- Gangrene of right foot Patient was admitted here and discharged on 02/28/2021 with IV antibiotics till April 06, 2021 and referral to wound care clinic. Now the right foot has become gangrenous especially the first 4 toes. Surgery and vascular surgery consulted, status post right leg BKA Continue empiric Rocephin for now, PT consulted --Hyperkalemia, ordered Kayexalate, monitor BMP --Peripheral vascular disease Vascular surgery consulted --Hypertension Continue antihypertensives --IDDM (insulin dependent diabetes mellitus) Tight control of blood glucose levels Check hemoglobin A1c Adjust insulin and coverage for now --DVT prophylaxis On heparin and GI prophylaxis --Full CODE STATUS Daily clinical course: 03/25/21: Patient is scheduled for right foot amputation today, continue empiric antibiotics, n.p.o. for now. Follow clinically. 03/26/21: s/p right BKA yesterday. cont to adjust pain meds. wait for PT eval. K 5.7 - ordered kayexalate. Subjective Date of service: 03/26/21 Interval history: Patient seen and examined. Medical records and medication list reviewed. No acute event overnight noted by the RN. Patient continues to complains of severe pain and intermittently screaming out Discussed plan of care at bedside with patient's RN. Objective - Exam Narrative Exam: General appearance: Present: Appears to be in moderate distress due to right leg pain - EENT Eyes: Present: PERRL ENT: hearing intact, clear oral mucosa - Neck Neck: Present: supple, normal ROM - Respiratory Respiratory effort: normal Respiratory: bilateral: CTA - Cardiovascular Heart rate: 78 Rhythm: regular Heart Sounds: Present: S1 & S2. Absent: rub, click - Extremities Extremities: pulses symmetrical, No edema, abnormal -right leg BKA noted without any active bleeding or discharges. Amputated leg covered with wound dressing. Extremity abnormal: other (Same as above.) Peripheral Pulses: within normal limits - Abdominal General gastrointestinal: Present: soft, non-tender, non-distended, normal bowel sounds Female genitourinary: Present: normal - Integumentary Integumentary: Present: clear, warm, dry - Musculoskeletal Musculoskeletal: gait normal, strength equal bilaterally - Psychiatric Psychiatric: appropriate mood/affect, intact judgment & insight - Neurologic Neurologic: CNII-XII intact, moves all extremities - Constitutional Vitals: Vital Signs - 12hr 03/26/21 03/26/21 04:15 07:19 Temperature 98.4 F 99.4 F Pulse Rate 83 96 H Respiratory 18 20 Rate Blood Pressure 109/80 121/71 O2 Sat by Pulse 93 100 Oximetry - Labs CBC & Chem 7: 03/26/21 04:39 03/27/21 05:15 Labs: Abnormal lab results 03/25/21 03/25/21 03/25/21 Range/Units 12:07 16:08 19:21 WBC (4.5-11.0) K/mm3 RBC (3.65-5.03) M/mm3 Hgb (10.1-14.3) gm/dl Hct (30.3-42.9) % RDW (13.2-15.2) % [place] % (Auto) (0.0-7.3) % [place] # (Auto) (0.0-0.8) K/mm3 Seg Neutrophils % (40.0-70.0) % Seg Neutrophils # (1.8-7.7) K/mm3 Sodium (137-145) mmol/L Potassium (3.6-5.0) mmol/L BUN (7-17) mg/dL Glucose (65-100) mg/dL POC Glucose 248 H 137 H 175 H (70-105) mg/dL Calcium (8.4-10.2) mg/dL 03/25/21 03/26/21 03/26/21 Range/Units 21:17 04:39 04:39 WBC 12.6 H (4.5-11.0) K/mm3 RBC 2.80 L (3.65-5.03) M/mm3 Hgb 8.4 L (10.1-14.3) gm/dl Hct 25.1 L (30.3-42.9) % RDW 12.6 L (13.2-15.2) % [place] % (Auto) 8.4 H (0.0-7.3) % [place] # (Auto) 1.1 H (0.0-0.8) K/mm3 Seg Neutrophils % 72.6 H (40.0-70.0) % Seg Neutrophils # 9.1 H (1.8-7.7) K/mm3 Sodium 136 L (137-145) mmol/L Potassium 5.7 H (3.6-5.0) mmol/L BUN 18 H (7-17) mg/dL Glucose 191 H (65-100) mg/dL POC Glucose 210 H (70-105) mg/dL Calcium 7.7 L (8.4-10.2) mg/dL 03/26/21 03/26/21 Range/Units 07:22 11:44 WBC (4.5-11.0) K/mm3 RBC (3.65-5.03) M/mm3 Hgb (10.1-14.3) gm/dl Hct (30.3-42.9) % RDW (13.2-15.2) % [place] % (Auto) (0.0-7.3) % [place] # (Auto) (0.0-0.8) K/mm3 Seg Neutrophils % (40.0-70.0) % Seg Neutrophils # (1.8-7.7) K/mm3 Sodium (137-145) mmol/L Potassium (3.6-5.0) mmol/L BUN (7-17) mg/dL Glucose (65-100) mg/dL POC Glucose 190 H 245 H (70-105) mg/dL Calcium (8.4-10.2) mg/dL
[2021-03-26] MEDS ORDERED: SODIUM POLYSTYRENE 15 GM/60 ML ORAL LIQD PO SCH (15:00)
--- NOTE | 2021-03-26 15:18 | Post Anesthesia Evaluation ---
- Post Anesthesia Evaluation Patient Participated: Yes Airway Patent: Yes Stable Respiratory Function: Yes Nausea/Vomiting: No Temp > 96.8F: Yes Pain Manageable: Yes Adequeate Hydration: Yes Anesthesia Complications: No
[2021-03-27] MEDS: oxyCODONE /ACETAMINOPHEN 5-325MG TAB PO PRN (05:20)
[2021-03-27 06:09] LABS: BUN/Creatinine Ratio 14; Blood Urea Nitrogen 14 mg/dL (7-17); Calcium 8.1 mg/dL (8.4-10.2); Hemolysis Index 0
[2021-03-27] MEDS: INSULIN LISPRO 100 UNIT/ML SUB-Q SCH ×3 (08:16→23:05)
[2021-03-27] MEDS: PANTOPRAZOLE 40 MG TAB PO SCH (08:26)
[2021-03-27] MEDS: GABAPENTIN 300 MG CAP PO SCH ×3 (08:26→23:09)
[2021-03-27] MEDS: VERAPAMIL 80 MG TAB PO SCH ×2 (08:38→13:20)
[2021-03-27] MEDS: INSULIN NPH/REGULAR 70/30 INJ SUB-Q SCH ×2 (08:39→17:24)
[2021-03-27] MEDS: DULoxetine 30 MG CAP PO SCH ×2 (09:30→23:10)
[2021-03-27] MEDS: ASPIRIN EC 81 MG TAB PO SCH (09:30)
[2021-03-27] MEDS: cefTRIAXone/NS 2 GM/100 ML 2 GM/100 ML BAG IV SCH (09:33)
[2021-03-27] MEDS: HYDROmorphone 1 MG/1 ML INJ IV PRN ×2 (09:39→17:18)
--- NOTE | 2021-03-27 14:28 | Progress Note ---
Assessment and Plan 50-year-old obese female patient was admitted on 02/21/21 with diabetic ketoacidosis and cellulitis of the foot secondary to spider bite was discharged home on IV ceftriaxone 2 g daily for 6 weeks ending 04/06/2021 brought back to the emergency room via EMS from a local wound clinic after patient found to be febrile and right foot turned into black color. A/P; -- Gangrene of right foot Patient was admitted here and discharged on 02/28/2021 with IV antibiotics till April 06, 2021 and referral to wound care clinic. Now the right foot has become gangrenous especially the first 4 toes. Surgery and vascular surgery consulted, status post right leg BKA Continue empiric Rocephin for now, PT consulted --Hyperkalemia, s/p Kayexalate, monitor BMP --Peripheral vascular disease Vascular surgery consulted --Hypertension Continue antihypertensives --IDDM (insulin dependent diabetes mellitus) Tight control of blood glucose levels Check hemoglobin A1c Adjust insulin and coverage for now --DVT prophylaxis On heparin and GI prophylaxis --Full CODE STATUS Daily clinical course: 03/25/21: Patient is scheduled for right foot amputation today, continue empiric antibiotics, n.p.o. for now. Follow clinically. 03/26/21: s/p right BKA yesterday. cont to adjust pain meds. wait for PT eval. K 5.7 - ordered kayexalate. 03/27/21: Continue to complains of severe pain on amputated leg. Pending PT eval and will follow surgery recommendation. Potassium level appears to be normal today. Subjective Date of service: 03/27/21 Interval history: Patient seen and examined. Medical records and medication list reviewed. No acute event overnight noted by the RN. Patient continues to complains of severe pain on amputated right leg PT eval pending Discussed plan of care at bedside with patient's RN. Objective - Exam Narrative Exam: General appearance: Present: Appears to be in moderate distress due to right leg pain - EENT Eyes: Present: PERRL ENT: hearing intact, clear oral mucosa - Neck Neck: Present: supple, normal ROM - Respiratory Respiratory effort: normal Respiratory: bilateral: CTA - Cardiovascular Heart rate: 78 Rhythm: regular Heart Sounds: Present: S1 & S2. Absent: rub, click - Extremities Extremities: pulses symmetrical, No edema, abnormal -right leg BKA noted without any active bleeding or discharges. Amputated leg covered with wound dressing. Extremity abnormal: other (Same as above.) Peripheral Pulses: within normal limits - Abdominal General gastrointestinal: Present: soft, non-tender, non-distended, normal bowel sounds Female genitourinary: Present: normal - Integumentary Integumentary: Present: clear, warm, dry - Musculoskeletal Musculoskeletal: gait normal, strength equal bilaterally - Psychiatric Psychiatric: appropriate mood/affect, intact judgment & insight - Neurologic Neurologic: CNII-XII intact, moves all extremities - Constitutional Vitals: Vital Signs - 12hr 03/27/21 03/27/21 03/27/21 04:38 05:00 07:15 Temperature 100.0 F H 99.7 F H Pulse Rate 116 H 106 H Respiratory 22 18 Rate Respiratory 20 Rate [Right Foot] Blood Pressure 125/91 127/71 O2 Sat by Pulse 90 93 Oximetry 03/27/21 03/27/21 03/27/21 07:16 08:38 11:37 Temperature 99.5 F Pulse Rate 107 H 106 H 97 H Respiratory 18 Rate Respiratory Rate [Right Foot] Blood Pressure 127/71 130/76 O2 Sat by Pulse 96 96 Oximetry 03/27/21 13:20 Temperature Pulse Rate 97 H Respiratory Rate Respiratory Rate [Right Foot] Blood Pressure 130/76 O2 Sat by Pulse Oximetry - Labs CBC & Chem 7: 03/26/21 04:39 03/27/21 05:15 Labs: Abnormal lab results 03/26/21 03/26/21 03/27/21 Range/Units 17:28 21:27 05:15 Glucose 123 H (65-100) mg/dL POC Glucose 183 H 126 H (70-105) mg/dL Calcium 8.1 L (8.4-10.2) mg/dL 03/27/21 03/27/21 Range/Units 07:17 11:39 Glucose (65-100) mg/dL POC Glucose 127 H 189 H (70-105) mg/dL Calcium (8.4-10.2) mg/dL
--- NOTE | 2021-03-27 15:11 | Event Note ---
Date: 03/27/21 Patient Covid test came as positive Patient is apparently asymptomatic We will transfer the patient to Covid floor and will consult ID Order for inflammatory markers
[2021-03-27] MEDS: ACETAMINOPHEN 325 MG TAB PO PRN (16:33)
[2021-03-27 16:55] LABS: C-Reactive Protein 25.4 mg/dL (0.00-1.30)
[2021-03-27] MEDS: SODIUM CHLORIDE 0.9% 1000 ML 1,000 ML IV SCH (16:59)
[2021-03-27] MEDS: HEPARIN 5,000 UNIT/1 ML VIAL SUB-Q SCH (18:19)
--- NOTE | 2021-03-27 20:51 | XRay Report ---
CHEST 1 VIEW INDICATION / CLINICAL INFORMATION: covid PNA. COMPARISON: 02/24/2021 FINDINGS: SUPPORT DEVICES: None. HEART / MEDIASTINUM: No significant abnormality. LUNGS / PLEURA: No significant pulmonary or pleural abnormality. No pneumothorax. ADDITIONAL FINDINGS: No significant additional findings. IMPRESSION: No acute disease or interval change from 02/24/2021 Signer Name: Hank Randall MD FACR Signed: 03/27/2021 8:46 PM Workstation Name: [id number]
[2021-03-28] MEDS: VERAPAMIL 80 MG TAB PO SCH ×4 (00:25→23:41)
[2021-03-28] MEDS: oxyCODONE /ACETAMINOPHEN 5-325MG TAB PO PRN ×2 (00:26→06:47)
[2021-03-28] MEDS: HEPARIN 5,000 UNIT/1 ML VIAL SUB-Q SCH ×4 (00:57→22:31)
[2021-03-28] MEDS: INSULIN LISPRO 100 UNIT/ML SUB-Q SCH ×5 (00:58→23:06)
[2021-03-28] MEDS: SODIUM CHLORIDE 0.9% 1000 ML 1,000 ML IV SCH ×3 (05:51→19:46)
[2021-03-28 06:39] LABS: Basophils % (Auto) 0.1 % (0.0-1.8); Hematocrit 23.9 % (30.3-42.9); Hemoglobin 7.8 gm/dl (10.1-14.3); Lymphocytes % (Auto) 11.9 % (13.4-35.0); Mean Corpuscular HGB Conc 33 % (30-34); Mean Corpuscular Volume 88 fl (79-97); Monocytes % (Auto) 5.9 % (0.0-7.3); Platelet Count 328 K/mm3 (140-440); Red Cell Distribution Width 12.8 % (13.2-15.2)
[2021-03-28 07:44] LABS: Calcium 8.3 mg/dL (8.4-10.2)
[2021-03-28] MEDS: cefTRIAXone/NS 2 GM/100 ML 2 GM/100 ML BAG IV SCH (10:22)
[2021-03-28] MEDS: ASPIRIN EC 81 MG TAB PO SCH (10:23)
[2021-03-28] MEDS: DULoxetine 30 MG CAP PO SCH ×2 (10:23→23:32)
[2021-03-28] MEDS: PANTOPRAZOLE 40 MG TAB PO SCH (10:23)
[2021-03-28] MEDS: GABAPENTIN 300 MG CAP PO SCH ×3 (10:23→19:49)
[2021-03-28] MEDS: INSULIN NPH/REGULAR 70/30 INJ SUB-Q SCH ×2 (10:24→18:30)
[2021-03-28] MEDS ORDERED: SODIUM POLYSTYRENE 15 GM/60 ML ORAL LIQD PO NR (10:30)
--- NOTE | 2021-03-28 12:30 | Progress Note ---
Assessment and Plan 50-year-old obese female patient was admitted on 02/21/21 with diabetic ketoacidosis and cellulitis of the foot secondary to spider bite was discharged home on IV ceftriaxone 2 g daily for 6 weeks ending 04/06/2021 brought back to the emergency room via EMS from a local wound clinic after patient found to be febrile and right foot turned into black color. s/p BKA and now tested positive for COVID. A/P; --COVID-19 infection CXR w/o any infiltrates Patient asymptomatic, follow inflammatory markers consulted ID -- Gangrene of right foot Patient was admitted here and discharged on 02/28/2021 with IV antibiotics till April 06, 2021 and referral to wound care clinic. Now the right foot has become gangrenous especially the first 4 toes. Surgery and vascular surgery consulted, status post right leg BKA Continue empiric Rocephin for now, PT consulted --Hyperkalemia, s/p Kayexalate, monitor BMP --Peripheral vascular disease Vascular surgery consulted --Hypertension Continue antihypertensives --IDDM (insulin dependent diabetes mellitus) Tight control of blood glucose levels hemoglobin A1c 12 Adjust insulin dose as needed --normocytic anemia, follow h/h --DVT prophylaxis On heparin and GI prophylaxis --Full CODE STATUS Daily clinical course: 03/25/21: Patient is scheduled for right foot amputation today, continue empiric antibiotics, n.p.o. for now. Follow clinically. 03/26/21: s/p right BKA yesterday. cont to adjust pain meds. wait for PT eval. K 5.7 - ordered kayexalate. 03/27/21: Continue to complains of severe pain on amputated leg. Pending PT eval and will follow surgery recommendation. Potassium level appears to be normal today. 03/28/21: PT recommended ARMANDO, tested positive for covid. Per ID: she is currently on oxygen but not sure merely for comfort or due to hypoxia. Discussed with RN who will try to wean the oxygen off. If she remains hypoxic, start remdesivir and steroids. Subjective Date of service: 03/28/21 Interval history: Patient seen and examined. Medical records and medication list reviewed. No acute event overnight noted by the RN. Patient continues to complains of severe pain on amputated right leg PT recommended ARMANDO, she tested positive for COVID Discussed plan of care at bedside with patient's RN. Objective - Exam Narrative Exam: General appearance: Present: Appears to be in moderate distress due to right leg pain - EENT Eyes: Present: PERRL ENT: hearing intact, clear oral mucosa - Neck Neck: Present: supple, normal ROM - Respiratory Respiratory effort: normal Respiratory: bilateral: CTA - Cardiovascular Heart rate: 78 Rhythm: regular Heart Sounds: Present: S1 & S2. Absent: rub, click - Extremities Extremities: pulses symmetrical, No edema, abnormal -right leg BKA noted without any active bleeding or discharges. Amputated leg covered with wound dressing. Extremity abnormal: other (Same as above.) Peripheral Pulses: within normal limits - Abdominal General gastrointestinal: Present: soft, non-tender, non-distended, normal bowel sounds Female genitourinary: Present: normal - Integumentary Integumentary: Present: clear, warm, dry - Musculoskeletal Musculoskeletal: gait normal, strength equal bilaterally - Psychiatric Psychiatric: appropriate mood/affect, intact judgment & insight - Neurologic Neurologic: CNII-XII intact, moves all extremities - Constitutional Vitals: Vital Signs - 12hr 03/28/21 04:00 Temperature 98.7 F Pulse Rate 100 H Respiratory 16 Rate Blood Pressure 108/67 O2 Sat by Pulse 93 Oximetry - Labs CBC & Chem 7: 03/28/21 05:50 03/28/21 05:50 Labs: Abnormal lab results 03/26/21 03/27/21 03/27/21 Range/Units Unknown 11:39 16:17 WBC (4.5-11.0) K/mm3 RBC (3.65-5.03) M/mm3 Hgb (10.1-14.3) gm/dl Hct (30.3-42.9) % RDW (13.2-15.2) % Lymph % (Auto) (13.4-35.0) % [place] # (Auto) (0.0-0.8) K/mm3 Seg Neutrophils % (40.0-70.0) % Seg Neutrophils # (1.8-7.7) K/mm3 D-Dimer 1177.49 H (0-234) ng/mlDDU Potassium (3.6-5.0) mmol/L BUN (7-17) mg/dL Creatinine (0.6-1.2) mg/dL Glucose (65-100) mg/dL POC Glucose 189 H (70-105) mg/dL Calcium (8.4-10.2) mg/dL Ferritin (10.0-200.0) ng/mL Lactate Dehydrogenase (91-180) units/L C-Reactive Protein (0.00-1.30) mg/dL Coronavirus (PCR) Positive A (Negative) 03/27/21 03/27/21 03/27/21 Range/Units 16:17 16:17 16:23 WBC (4.5-11.0) K/mm3 RBC (3.65-5.03) M/mm3 Hgb (10.1-14.3) gm/dl Hct (30.3-42.9) % RDW (13.2-15.2) % Lymph % (Auto) (13.4-35.0) % [place] # (Auto) (0.0-0.8) K/mm3 Seg Neutrophils % (40.0-70.0) % Seg Neutrophils # (1.8-7.7) K/mm3 D-Dimer (0-234) ng/mlDDU Potassium (3.6-5.0) mmol/L BUN (7-17) mg/dL Creatinine (0.6-1.2) mg/dL Glucose (65-100) mg/dL POC Glucose 186 H (70-105) mg/dL Calcium (8.4-10.2) mg/dL Ferritin 385.5 H (10.0-200.0) ng/mL Lactate Dehydrogenase 230 H (91-180) units/L C-Reactive Protein 25.40 H (0.00-1.30) mg/dL Coronavirus (PCR) (Negative) 03/27/21 03/28/21 03/28/21 Range/Units 20:55 05:50 05:50 WBC 16.5 H (4.5-11.0) K/mm3 RBC 2.70 L (3.65-5.03) M/mm3 Hgb 7.8 L (10.1-14.3) gm/dl Hct 23.9 L (30.3-42.9) % RDW 12.8 L (13.2-15.2) % Lymph % (Auto) 11.9 L (13.4-35.0) % [place] # (Auto) 1.0 H (0.0-0.8) K/mm3 Seg Neutrophils % 82.1 H (40.0-70.0) % Seg Neutrophils # 13.5 H (1.8-7.7) K/mm3 D-Dimer (0-234) ng/mlDDU Potassium 5.1 H (3.6-5.0) mmol/L BUN 21 H (7-17) mg/dL Creatinine 1.4 H (0.6-1.2) mg/dL Glucose 140 H (65-100) mg/dL POC Glucose 172 H (70-105) mg/dL Calcium 8.3 L (8.4-10.2) mg/dL Ferritin (10.0-200.0) ng/mL Lactate Dehydrogenase (91-180) units/L C-Reactive Protein (0.00-1.30) mg/dL Coronavirus (PCR) (Negative) 03/28/21 03/28/21 Range/Units 07:42 11:44 WBC (4.5-11.0) K/mm3 RBC (3.65-5.03) M/mm3 Hgb (10.1-14.3) gm/dl Hct (30.3-42.9) % RDW (13.2-15.2) % Lymph % (Auto) (13.4-35.0) % [place] # (Auto) (0.0-0.8) K/mm3 Seg Neutrophils % (40.0-70.0) % Seg Neutrophils # (1.8-7.7) K/mm3 D-Dimer (0-234) ng/mlDDU Potassium (3.6-5.0) mmol/L BUN (7-17) mg/dL Creatinine (0.6-1.2) mg/dL Glucose (65-100) mg/dL POC Glucose 148 H 161 H (70-105) mg/dL Calcium (8.4-10.2) mg/dL Ferritin (10.0-200.0) ng/mL Lactate Dehydrogenase (91-180) units/L C-Reactive Protein (0.00-1.30) mg/dL Coronavirus (PCR) (Negative)
[2021-03-28] MEDS ORDERED: SODIUM POLYSTYRENE 15 GM/60 ML ORAL LIQD PO PRN (13:00)
--- NOTE | 2021-03-28 16:55 | Consultation ---
History of Present Illness - Reason for Consult Consult date: 03/28/21 COVID-19 Requesting physician: BARBARA CORREA - History of Present Illness The patient is a 50-year-old female with diabetes, hypertension, known to me from her recent hospitalization for right foot necrotic wound and cellulitis for which she was set up with IV antibiotics for 6 weeks ending 04/06/2021 was admitted to the hospital on 03/24/2021 with significant worsening. She is now s tatus post BKA by Dr. Luis on 03/25/2021. Preprocedural Covid test ordered came back positive, hence infectious diseases was consulted. Review of Systems: Poor historian, limited ROS Medications and Allergies Allergies Allergy/AdvReac Type Severity Reaction Status Date / Time bismuth subsalicylate Allergy Nausea Verified 02/20/21 15:36 [From Pepto-Bismol] Penicillins Allergy Nausea Verified 02/20/21 15:36 tramadol Allergy Unknown Verified 09/27/20 14:56 Home Medications Medication Instructions Recorded Confirmed Last Taken Type Exenatide Microspheres [Bydureon 2 mg SQ 1XW 11/15/20 03/26/21 Unknown History Pen] AtorvaSTATin [Lipitor] 80 mg PO QHS #30 tablet 11/19/20 03/26/21 Unknown Rx DULoxetine [Cymbalta] 60 mg PO BID #60 cap 11/19/20 03/26/21 Unknown Rx tiZANidine [Zanaflex 4mg TAB] 4 mg PO QID PRN #10 11/19/20 03/26/21 Unknown Rx verapamiL [Calan] 80 mg PO Q8HR #90 tablet 11/19/20 03/26/21 Unknown Rx Clopidogrel [Plavix] 75 mg PO QDAY #90 tablet 11/26/20 03/26/21 Unknown Rx Gabapentin [Neurontin] 600 mg PO TID #90 cap 02/01/21 03/26/21 Unknown Rx Aspirin EC [Halfprin EC] 81 mg PO QDAY #30 tablet 02/28/21 03/26/21 Unknown Rx Insulin NPH/Regular [NovoLIN 70/30] 22 unit SUB-Q BIDDIAB 30 Days 02/28/21 03/26/21 Unknown Rx Lispro Insulin [HumaLOG] 0 unit SUB-Q ACHS 30 Days #1 units 02/28/21 03/26/21 Unknown Rx Pantoprazole [Protonix TAB] 40 mg PO QDAC #30 tablet 02/28/21 03/26/21 Unknown Rx oxyCODONE /ACETAMINOPHEN [Percocet 2 tab PO Q4H PRN #20 tablet 02/28/21 03/26/21 Unknown Rx 5/325 mg] Active Meds: Active Medications Acetaminophen (Acetaminophen 325 Mg Tab) 650 mg PO Q4H PRN PRN Reason: Pain MILD(1-3)/Fever >100.5/SMITH Last Admin: 03/27/21 16:33 Dose: 650 mg Documented by: Aspirin (Aspirin Ec 81 Mg Tab) 81 mg PO QDAY [facility] Last Admin: 03/28/21 10:23 Dose: 81 mg Documented by: Atorvastatin Calcium (Atorvastatin 40 Mg Tab) 80 mg PO QHS [facility] Last Admin: 03/27/21 23:10 Dose: 80 mg Documented by: Duloxetine HCl (Duloxetine 30 Mg Cap) 60 mg PO BID [facility] Last Admin: 03/28/21 10:23 Dose: 60 mg Documented by: Gabapentin (Gabapentin 300 Mg Cap) 600 mg PO TID [facility] Last Admin: 03/28/21 14:05 Dose: 600 mg Documented by: Heparin Sodium (Porcine) (Heparin 5,000 Unit/1 Ml Vial) 5,000 unit SUB-Q Q8HR [facility] Last Admin: 03/28/21 14:05 Dose: 5,000 unit Documented by: Hydromorphone HCl (Hydromorphone 1 Mg/1 Ml Inj) 2 mg IV Q3H PRN PRN Reason: Pain , Severe (7-10) Last Admin: 03/27/21 17:18 Dose: 2 mg Documented by: Ceftriaxone Sodium (Rocephin/Ns 2 Gm/100 Ml) 2 gm in 100 mls @ 200 mls/hr IV Q24HR [facility]; Protocol Last Admin: 03/28/21 10:22 Dose: 200 mls/hr Documented by: Sodium Chloride (Nacl 0.9% 1000 Ml) 1,000 mls @ 75 mls/hr IV DIRECT [facility] Last Admin: 03/28/21 05:54 Dose: 75 mls/hr Documented by: Insulin Human Isoph/Insulin Regular (Insulin Nph/Regular 70/30 Inj) 22 unit SUB-Q BIDDIAB [facility] Last Admin: 03/28/21 10:24 Dose: 22 unit Documented by: Insulin Human Lispro (Insulin Lispro 100 Unit/Ml) 0 unit SUB-Q ACHS [facility]; Prot ocol Last Admin: 03/28/21 12:30 Dose: 2 unit Documented by: Labetalol HCl (Labetalol 20 Mg/4 Ml Inj) 5 mg IV Q10MIN PRN PRN Reason: Hypertension Ondansetron HCl (Ondansetron 4 Mg/2 Ml Inj) 4 mg IV Q8H PRN PRN Reason: Nausea And Vomiting Last Admin: 03/26/21 00:37 Dose: 4 mg Documented by: Oxycodone/Acetaminophen (Oxycodone /Acetaminophen 5-325mg Tab) 2 tab PO Q4H PRN PRN Reason: Pain, Moderate (4-6) Last Admin: 03/28/21 06:47 Dose: 2 tab Documented by: Pantoprazole Sodium (Pantoprazole 40 Mg Tab) 40 mg PO QDAC [facility] Last Admin: 03/28/21 10:23 Dose: 40 mg Documented by: Sodium Chloride (Sodium Chloride 0.9% 10 Ml Flush Syringe) 10 ml IV BID [facility] Last Admin: 03/28/21 10:24 Dose: 10 ml Documented by: Sodium Chloride (Sodium Chloride 0.9% 10 Ml Flush Syringe) 10 ml IV PRN PRN PRN Reason: LINE FLUSH Sodium Polystyrene Sulfonate (Sodium Polystyrene 15 Gm/60 Ml Oral Liqd) 15 gm PO Q6HR PRN PRN Reason: Hyperkalemia Tizanidine HCl (Tizanidine Tab 4 Mg Tab) 4 mg PO QID PRN PRN Reason: muscle relaxer Last Admin: 03/25/21 23:09 Dose: 4 mg Documented by: Verapamil HCl (Verapamil 80 Mg Tab) 80 mg PO Q8HR [facility] Last Admin: 03/28/21 06:46 Dose: 80 mg Documented by: Physical Examination - Physical Exam Narrative exam: Physical Exam: Constitutional: sleepy. No acute distress Head, Ears, Nose: Normocephalic, atraumatic. External ears, nose normal Eyes: Conjunctivae/corneas clear. No icterus. No ptosis. Neck: Supple, no meningeal signs Cardiovascular: S1, S2 normal. Respiratory: Good air entry, clear to auscultation bilaterally GI: Soft, non-tender; bowel sounds normal. No peritoneal signs Musculoskeletal: Right BKA in dressing Skin: No rash or abscess Hem/Lymphatic: No palpable cervical or supraclavicular nodes. No lymphangitis Psych: no agitation, calm Neurological: sleepy, poor historian - Constitutional Vitals: Vital Signs Temp Pulse Resp BP Pulse Ox 98.7 F 103 H 16 108/67 93 03/28/21 04:00 03/28/21 11:00 03/28/21 04:00 03/28/21 04:00 03/28/21 04:00 Temperature -Last 24 Hours Temperature 98.7 F Temperature 98.5 F Temperature 99.4 F Results - Labs CBC & Chem 7: 03/28/21 05:50 03/28/21 05:50 Labs: Abnormal lab results 03/27/21 03/27/21 03/27/21 Range/Units 16:17 16:17 16:23 WBC (4.5-11.0) K/mm3 RBC (3.65-5.03) M/mm3 Hgb (10.1-14.3) gm/dl Hct (30.3-42.9) % RDW (13.2-15.2) % Lymph % (Auto) (13.4-35.0) % [place] # (Auto) (0.0-0.8) K/mm3 Seg Neutrophils % (40.0-70.0) % Seg Neutrophils # (1.8-7.7) K/mm3 Potassium (3.6-5.0) mmol/L BUN (7-17) mg/dL Creatinine (0.6-1.2) mg/dL Glucose (65-100) mg/dL POC Glucose 186 H (70-105) mg/dL Calcium (8.4-10.2) mg/dL Ferritin 385.5 H (10.0-200.0) ng/mL Lactate Dehydrogenase 230 H (91-180) units/L C-Reactive Protein 25.40 H (0.00-1.30) mg/dL 03/27/21 03/28/21 03/28/21 Range/Units 20:55 05:50 05:50 WBC 16.5 H (4.5-11.0) K/mm3 RBC 2.70 L (3.65-5.03) M/mm3 Hgb 7.8 L (10.1-14.3) gm/dl Hct 23.9 L (30.3-42.9) % RDW 12.8 L (13.2-15.2) % Lymph % (Auto) 11.9 L (13.4-35.0) % [place] # (Auto) 1.0 H (0.0-0.8) K/mm3 Seg Neutrophils % 82.1 H (40.0-70.0) % Seg Neutrophils # 13.5 H (1.8-7.7) K/mm3 Potassium 5.1 H (3.6-5.0) mmol/L BUN 21 H (7-17) mg/dL Creatinine 1.4 H (0.6-1.2) mg/dL Glucose 140 H (65-100) mg/dL POC Glucose 172 H (70-105) mg/dL Calcium 8.3 L (8.4-10.2) mg/dL Ferritin (10.0-200.0) ng/mL Lactate Dehydrogenase (91-180) units/L C-Reactive Protein (0.00-1.30) mg/dL 03/28/21 03/28/21 Range/Units 07:42 11:44 WBC (4.5-11.0) K/mm3 RBC (3.65-5.03) M/mm3 Hgb (10.1-14.3) gm/dl Hct (30.3-42.9) % RDW (13.2-15.2) % Lymph % (Auto) (13.4-35.0) % [place] # (Auto) (0.0-0.8) K/mm3 Seg Neutrophils % (40.0-70.0) % Seg Neutrophils # (1.8-7.7) K/mm3 Potassium (3.6-5.0) mmol/L BUN (7-17) mg/dL Creatinine (0.6-1.2) mg/dL Glucose (65-100) mg/dL POC Glucose 148 H 161 H (70-105) mg/dL Calcium (8.4-10.2) mg/dL Ferritin (10.0-200.0) ng/mL Lactate Dehydrogenase (91-180) units/L C-Reactive Protein (0.00-1.30) mg/dL - Imaging and Cardiology Chest x-ray: report reviewed, image reviewed (no pneumonia) Assessment and Plan Cultures: SARS CoV2 PCR: Positive 03/24/2021 blood culture: No growth 03/24/2021 right fourth toe wound culture: GNR A/P: 50-year-old female with diabetes, hypertension, known to me from her recent hospitalization for right foot necrotic wound and cellulitis for which she was set up with IV antibiotics for 6 weeks ending 04/06/2021 was admitted to the hospital on 03/24/2021 with significant worsening and gangrene: #COVID-19: Chest x-ray from last night does not show any evidence of pneumonia. And is on minimal oxygen at this time. #Sepsis, gangrenous right foot: Status post right BKA #Diabetes mellitus #Peripheral vascular disease Recs: -hope to stop abx soon since patient got BKA -From COVID-19 standpoint, it is unclear if she is currently on oxygen merely for comfort or due to hypoxia. Discussed with RN who will try to wean the oxygen off. If she remains hypoxic, start remdesivir and steroids with blood sugar monitoring due to her DM -Difficult to interpret her inflammatory markers in the setting of gangrenous foot and recent surgery Edison Limon MD, FACP [facility] ([facility] O: [phone] F: [phone]
[2021-03-28] MEDS: HYDROmorphone 1 MG/1 ML INJ IV PRN (23:50)
[2021-03-29] MEDS: ACETAMINOPHEN 325 MG TAB PO PRN ×2 (04:48→22:50)
[2021-03-29] MEDS: SODIUM CHLORIDE 0.9% 1000 ML 1,000 ML IV SCH (06:11)
[2021-03-29] MEDS: VERAPAMIL 80 MG TAB PO SCH ×4 (06:12→21:12)
[2021-03-29] MEDS: HEPARIN 5,000 UNIT/1 ML VIAL SUB-Q SCH ×3 (06:30→21:07)
[2021-03-29] MEDS: INSULIN LISPRO 100 UNIT/ML SUB-Q SCH ×4 (10:11→23:58)
[2021-03-29] MEDS: PANTOPRAZOLE 40 MG TAB PO SCH (10:13)
[2021-03-29] MEDS: ASPIRIN EC 81 MG TAB PO SCH (10:13)
[2021-03-29] MEDS: INSULIN NPH/REGULAR 70/30 INJ SUB-Q SCH ×2 (10:13→16:35)
[2021-03-29] MEDS: DULoxetine 30 MG CAP PO SCH ×2 (10:13→21:13)
[2021-03-29] MEDS: GABAPENTIN 300 MG CAP PO SCH ×3 (10:13→21:04)
[2021-03-29] MEDS: cefTRIAXone/NS 2 GM/100 ML 2 GM/100 ML BAG IV SCH (10:14)
--- NOTE | 2021-03-29 11:21 | Progress Note ---
Assessment and Plan Cultures: SARS CoV2 PCR: Positive 03/24/2021 blood culture: No growth 03/24/2021 right fourth toe wound culture: GNR A/P: 50-year-old female with diabetes, hypertension, known to me from her recent hospitalization for right foot necrotic wound and cellulitis for which she was set up with IV antibiotics for 6 weeks ending 04/06/2021 was admitted to the hospital on 03/24/2021 with significant worsening and gangrene: #COVID-19: Remains on oxygen. #Acute hypoxic respiratory failure: on NC. #Sepsis, gangrenous right foot: Status post right BKA #Diabetes mellitus #Peripheral vascular disease Recs: -continue Ceftriaxone for now, given low grade fevers -Hypoxia has remained persistent, also with low-grade fevers. We will start her on remdesivir and steroids -Monitor blood sugars closely given she is diabetic -Monitor inflammatory markers every 2 to 3 days Edison Limon MD, FACP [facility] ([facility] O: [phone] F: [phone] Subjective Date of service: 03/29/21 Interval history: Low-grade fever, remains on oxygen. Pain in leg. Objective - Exam Narrative Exam: Physical Exam: Constitutional: sleepy. No acute distress Head, Ears, Nose: Normocephalic, atraumatic. External ears, nose normal Eyes: Conjunctivae/corneas clear. No icterus. No ptosis. Neck: Supple, no meningeal signs Cardiovascular: S1, S2 normal. Respiratory: Good air entry, clear to auscultation bilaterally GI: Soft, non-tender; bowel sounds normal. No peritoneal signs Musculoskeletal: Right BKA in dressing Skin: No rash or abscess Hem/Lymphatic: No palpable cervical or supraclavicular nodes. No lymphangitis Psych: no agitation, calm Neurological: sleepy, poor historian - Constitutional Vitals: Vital Signs Temp Pulse Resp BP Pulse Ox 100.9 F H 110 H 20 130/77 84 03/29/21 04:23 03/29/21 04:23 03/29/21 04:23 03/29/21 04:23 03/29/21 04:23 Temperature -Last 24 Hours Temperature 100.9 F Temperature 99.4 F - Labs CBC & Chem 7: 03/28/21 05:50 03/28/21 05:50 Labs: Abnormal lab results 03/28/21 03/28/21 03/28/21 Range/Units 11:44 18:27 21:57 POC Glucose 161 H 134 H 120 H (70-105) mg/dL 03/29/21 03/29/21 Range/Units 07:38 11:08 POC Glucose 127 H 125 H (70-105) mg/dL
[2021-03-29] MEDS ORDERED: REMDESIVIR 200 MG in SODIUM CHLORIDE 0.9% 250ML 250 ML IV ONE (12:00)
[2021-03-29] MEDS ORDERED: SODIUM CHLORIDE 0.9% 50 ML IVPB IV SCH (12:00)
[2021-03-29] MEDS: dexAMETHasone 4 MG/ML VIAL IV SCH (14:20)
--- NOTE | 2021-03-29 16:10 | Progress Note ---
Assessment and Plan - Patient Problems (1) Gangrene of right foot Current Visit: Yes Status: Acute Plan to address problem: S/p Rt BKA (2) Peripheral vascular disease Current Visit: Yes Status: Chronic Plan to address problem: S/p right BKA (3) Hypertension Current Visit: Yes Status: Chronic Qualifiers: Hypertension type: essential hypertension Qualified Code(s): I10 - Essential (primary) hypertension Plan to address problem: Continue antihypertensives (4) IDDM (insulin dependent diabetes mellitus) Current Visit: Yes Status: Chronic Plan to address problem: Tight control of blood glucose levels Check hemoglobin A1c Increase insulin by 5 units (5) QUENTIN (acute kidney injury) Current Visit: No Status: Acute Plan to address problem: IV fluids initiated Vasomotor nephropathy (6) DVT prophylaxis Current Visit: Yes Status: Acute Plan to address problem: On heparin and GI prophylaxis Subjective Date of service: 03/29/21 Principal diagnosis: Right foot gangrene, s/p right BKA, Covid positive Interval history: 50-year-old obese female patient was admitted on 02/21/21 with diabetic ketoacidosis and cellulitis of the foot secondary to spider bite was discharged home on IV ceftriaxone 2 g daily for 6 weeks ending 04/06/2021 brought back to the emergency room via EMS from a local wound clinic after patient found to be febrile and right foot turned into black color. s/p BKA and now tested positive for COVID. Daily clinical course: 03/25/21: Patient is scheduled for right foot amputation today, continue empiric antibiotics, n.p.o. for now. Follow clinically. 03/26/21: s/p right BKA yesterday. cont to adjust pain meds. wait for PT eval. K 5.7 - ordered kayexalate. 03/27/21: Continue to complains of severe pain on amputated leg. Pending PT eval and will follow surgery recommendation. Potassium level appears to be normal today. 03/28/21: PT recommended ARMANDO, tested positive for covid. Per ID: she is currently on oxygen but not sure merely for comfort or due to hypoxia. Discussed with RN who will try to wean the oxygen off. If she remains hypoxic, start remdesivir and steroids. 03/29/21 S/p BKA of the right lower extremity Covid positive Patient on 35 L nasal cannula oxygen IV antibiotics as per ID recommendations Objective - Constitutional Vitals: Vital Signs - 12hr 03/29/21 04:23 Temperature 100.9 F H Pulse Rate 110 H Respiratory 20 Rate Blood Pressure 130/77 O2 Sat by Pulse 84 Oximetry General appearance: Present: no acute distress, well-nourished - EENT Eyes: PERRL, EOM intact ENT: hearing intact, clear oral mucosa Ears: bilateral: normal - Neck Neck: supple, normal ROM - Respiratory Respiratory effort: normal Respiratory: bilateral: CTA - Breasts Breasts: normal - Cardiovascular Heart rate: 78 Rhythm: regular Heart Sounds: Present: S1 & S2. Absent: gallop, rub Extremities: pulses intact, No edema, normal color, Full ROM, abnormal (Right BKA) Extremity abnormal: other (Right BKA) - Gastrointestinal General gastrointestinal: Present: soft, non-tender, non-distended, normal bowel sounds - Genitourinary Female genitourinary: normal - Integumentary Integumentary: clear, warm, dry - Musculoskeletal Musculoskeletal: 1, strength equal bilaterally - Neurologic Neurologic: moves all extremities - Psychiatric Psychiatric: memory intact, appropriate mood/affect, intact judgment & insight - Labs CBC & Chem 7: 03/30/21 00:51 03/30/21 03:55 Labs: Abnormal lab results 03/28/21 03/28/21 03/29/21 Range/Units 18:27 21:57 07:38 POC Glucose 134 H 120 H 127 H (70-105) mg/dL 03/29/21 Range/Units 11:08 POC Glucose 125 H (70-105) mg/dL
[2021-03-30] MEDS ORDERED: ACETAMINOPHEN 650 MG RECT SUPP PR PRN ×2 (00:14→01:58)
[2021-03-30] MEDS ORDERED: SODIUM CHLORIDE 0.9% 1000 ML 1,000 ML IV SCH (00:40)
[2021-03-30 01:17] LABS: Basophils % (Auto) 0.1 % (0.0-1.8); Hematocrit 23.2 % (30.3-42.9); Hemoglobin 7.5 gm/dl (10.1-14.3); Lymphocytes # (Auto) 1.3 K/mm3 (1.2-5.4); Mean Corpuscular HGB Conc 33 % (30-34); Mean Corpuscular Volume 90 fl (79-97); Monocytes # (Auto) 0.5 K/mm3 (0.0-0.8); Platelet Count 363 K/mm3 (140-440); Red Blood Count 2.59 M/mm3 (3.65-5.03); Red Cell Distribution Width 13.4 % (13.2-15.2)
[2021-03-30] MEDS ORDERED: SODIUM BICARB 8.4% 50 MEQ/50 ML SYRINGE IV ONE (01:29)
[2021-03-30 05:08] LABS: Albumin 2.4 g/dL (3.9-5); Calcium 7.9 mg/dL (8.4-10.2)
[2021-03-30] MEDS: VERAPAMIL 80 MG TAB PO SCH ×3 (05:52→22:00)
[2021-03-30] MEDS: HEPARIN 5,000 UNIT/1 ML VIAL SUB-Q SCH ×3 (06:00→21:58)
[2021-03-30] MEDS: INSULIN LISPRO 100 UNIT/ML SUB-Q SCH ×4 (09:07→21:57)
[2021-03-30] MEDS: PANTOPRAZOLE 40 MG TAB PO SCH (09:10)
[2021-03-30] MEDS: GABAPENTIN 300 MG CAP PO SCH (09:10)
[2021-03-30] MEDS: DULoxetine 30 MG CAP PO SCH ×2 (09:10→21:58)
[2021-03-30] MEDS: ASPIRIN EC 81 MG TAB PO SCH (09:10)
[2021-03-30] MEDS: cefTRIAXone/NS 2 GM/100 ML 2 GM/100 ML BAG IV SCH (09:10)
[2021-03-30] MEDS: dexAMETHasone 4 MG/ML VIAL IV SCH (09:11)
[2021-03-30] MEDS: INSULIN NPH/REGULAR 70/30 INJ SUB-Q SCH ×3 (10:35→17:14)
--- NOTE | 2021-03-30 10:49 | Progress Note ---
Assessment and Plan - Patient Problems (1) Acute hyperkalemia Current Visit: Yes Status: Acute Plan to address problem: Patient initiated on IV calcium gluconate and [facility] was requested to put the order in (2) QUENTIN (acute kidney injury) Current Visit: No Status: Acute Plan to address problem: IV fluids initiated Vasomotor nephropathy Creatinine worsened to 5.3 from 1.4 Nephrology consult requested (3) Gangrene of right foot Current Visit: Yes Status: Acute Plan to address problem: S/p Rt BKA (4) Peripheral vascular disease Current Visit: Yes Status: Chronic Plan to address problem: S/p right BKA (5) Hypertension Current Visit: Yes Status: Chronic Qualifiers: Hypertension type: essential hypertension Qualified Code(s): I10 - Essential (primary) hypertension Plan to address problem: Continue antihypertensives Blood pressure well controlled (6) IDDM (insulin dependent diabetes mellitus) Current Visit: Yes Status: Chronic Plan to address problem: Tight control of blood glucose levels Check hemoglobin A1c Increase insulin by 5 units (7) DVT prophylaxis Current Visit: Yes Status: Acute Plan to address problem: On heparin and GI prophylaxis Subjective Date of service: 03/30/21 Principal diagnosis: Right foot gangrene, s/p right BKA, Covid positive Interval history: 50-year-old obese female patient was admitted on 02/21/21 with diabetic ketoacidosis and cellulitis of the foot secondary to spider bite was discharged home on IV ceftriaxone 2 g daily for 6 weeks ending 04/06/2021 brought back to the emergency room via EMS from a local wound clinic after patient found to be febrile and right foot turned into black color. s/p BKA and now tested positive for COVID. Daily clinical course: 03/25/21: Patient is scheduled for right foot amputation today, continue empiric antibiotics, n.p.o. for now. Follow clinically. 03/26/21: s/p right BKA yesterday. cont to adjust pain meds. wait for PT eval. K 5.7 - ordered kayexalate. 03/27/21: Continue to complains of severe pain on amputated leg. Pending PT eval and will follow surgery recommendation. Potassium level appears to be normal today. 03/28/21: PT recommended ARMANDO, tested positive for covid. Per ID: she is currently on oxygen but not sure merely for comfort or due to hypoxia. Discussed with RN who will try to wean the oxygen off. If she remains hypoxic, start remdesivir and steroids. 03/29/21 S/p BKA of the right lower extremity Covid positive Patient on 35 L nasal cannula oxygen IV antibiotics as per ID recommendations 03/30/21 On 35 L high flow oxygen Slightly lethargic Creatinine has worsened from 1.4-5.3 over the last 48 hours Renal consult requested--- Dr. Valenzuela data visualization developer today IV fluids increased to 100 mL/h Objective - Constitutional Vitals: Vital Signs - 12hr 03/29/21 03/30/21 03/30/21 23:52 01:00 02:05 Temperature 100.2 F H Pulse Rate Respiratory 22 Rate Blood Pressure O2 Sat by Pulse 94 94 94 Oximetry 03/30/21 03/30/21 03/30/21 02:27 05:01 05:52 Temperature 98.9 F 98.7 F Pulse Rate 91 H 363 H Respiratory 22 Rate Blood Pressure 132/85 O2 Sat by Pulse 92 91 Oximetry 03/30/21 08:04 Temperature Pulse Rate Respiratory Rate Blood Pressure O2 Sat by Pulse 91 Oximetry General appearance: Present: no acute distress, well-nourished - EENT Eyes: PERRL, EOM intact ENT: hearing intact, clear oral mucosa Ears: bilateral: normal - Neck Neck: supple, normal ROM - Respiratory Respiratory effort: normal Respiratory: bilateral: CTA - Breasts Breasts: normal - Cardiovascular Rhythm: regular Heart Sounds: Present: S1 & S2. Absent: gallop, rub Extremities: pulses intact, No edema, normal color, Full ROM, abnormal (Right BKA) Extremity abnormal: other (Right BKA) - Gastrointestinal General gastrointestinal: Present: soft, non-tender, non-distended, normal bowel sounds - Genitourinary Female genitourinary: normal - Integumentary Integumentary: clear, warm, dry - Musculoskeletal Musculoskeletal: 1, strength equal bilaterally - Neurologic Neurologic: moves all extremities - Psychiatric Psychiatric: memory intact, appropriate mood/affect, intact judgment & insight - Labs CBC & Chem 7: 03/30/21 00:51 03/30/21 03:55 Labs: Abnormal lab results 03/29/21 03/29/21 03/29/21 Range/Units 07:38 11:08 16:30 WBC (4.5-11.0) K/mm3 RBC (3.65-5.03) M/mm3 Hgb (10.1-14.3) gm/dl Hct (30.3-42.9) % Lymph % (Auto) (13.4-35.0) % Seg Neutrophils % (40.0-70.0) % Seg Neutrophils # (1.8-7.7) K/mm3 POC ABG pCO2 (32.0-48.0) mmHg POC ABG pO2 (83-108) mmHg ABG Hemoglobin (12.0-17.5) ABG Oxyhemoglobin (94-98) ABG Potassium (3.40-4.50) mmol/L ABG Chloride (98-107) mmol/L ABG Glucose (65-95) mg/dL Potassium (3.6-5.0) mmol/L Chloride (98-107) mmol/L Carbon Dioxide (22-30) mmol/L BUN (7-17) mg/dL Creatinine (0.6-1.2) mg/dL Glucose (65-100) mg/dL POC Glucose 127 H 125 H 156 H (70-105) mg/dL Calcium (8.4-10.2) mg/dL AST (5-40) units/L Alkaline Phosphatase (35-129) units/L Albumin (3.9-5) g/dL Arterial Blood Glucose (65-95) mg/dL Arterial Blood Ionized Calcium (4.6-5.3) mg/dL 03/29/21 03/30/21 03/30/21 Range/Units 21:40 00:17 00:51 WBC 16.2 H (4.5-11.0) K/mm3 RBC 2.59 L (3.65-5.03) M/mm3 Hgb 7.5 L (10.1-14.3) gm/dl Hct 23.2 L (30.3-42.9) % Lymph % (Auto) 8.0 L (13.4-35.0) % Seg Neutrophils % 88.9 H (40.0-70.0) % Seg Neutrophils # 14.4 H (1.8-7.7) K/mm3 POC ABG pCO2 26.6 L (32.0-48.0) mmHg POC ABG pO2 66.7 L (83-108) mmHg ABG Hemoglobin 7.9 L (12.0-17.5) ABG Oxyhemoglobin 91.8 L (94-98) ABG Potassium 5.5 H (3.40-4.50) mmol/L ABG Chloride 112.0 H (98-107) mmol/L ABG Glucose 233 H (65-95) mg/dL Potassium (3.6-5.0) mmol/L Chloride (98-107) mmol/L Carbon Dioxide (22-30) mmol/L BUN (7-17) mg/dL Creatinine (0.6-1.2) mg/dL Glucose (65-100) mg/dL POC Glucose 183 H (70-105) mg/dL Calcium (8.4-10.2) mg/dL AST (5-40) units/L Alkaline Phosphatase (35-129) units/L Albumin (3.9-5) g/dL Arterial Blood Glucose 233 H (65-95) mg/dL Arterial Blood Ionized Calcium 4.4 L (4.6-5.3) mg/dL 03/30/21 03/30/21 Range/Units 03:55 07:42 WBC (4.5-11.0) K/mm3 RBC (3.65-5.03) M/mm3 Hgb (10.1-14.3) gm/dl Hct (30.3-42.9) % Lymph % (Auto) (13.4-35.0) % Seg Neutrophils % (40.0-70.0) % Seg Neutrophils # (1.8-7.7) K/mm3 POC ABG pCO2 (32.0-48.0) mmHg POC ABG pO2 (83-108) mmHg ABG Hemoglobin (12.0-17.5) ABG Oxyhemoglobin (94-98) ABG Potassium (3.40-4.50) mmol/L ABG Chloride (98-107) mmol/L ABG Glucose (65-95) mg/dL Potassium 5.6 H (3.6-5.0) mmol/L Chloride 107.1 H (98-107) mmol/L Carbon Dioxide 17 L D (22-30) mmol/L BUN 50 H (7-17) mg/dL Creatinine 5.3 H D (0.6-1.2) mg/dL Glucose 239 H (65-100) mg/dL POC Glucose 264 H (70-105) mg/dL Calcium 7.9 L (8.4-10.2) mg/dL AST 124 H (5-40) units/L Alkaline Phosphatase 136 H (35-129) units/L Albumin 2.4 L (3.9-5) g/dL Arterial Blood Glucose (65-95) mg/dL Arterial Blood Ionized Calcium (4.6-5.3) mg/dL
[2021-03-30] MEDS ORDERED: CALCIUM GLUCONATE 2,000 MG in SODIUM CHLORIDE 0.9% 100 ML IV ONE (10:56)
--- NOTE | 2021-03-30 10:57 | Progress Note ---
Assessment and Plan Cultures: SARS CoV2 PCR: Positive 03/24/2021 blood culture: No growth 03/24/2021 right fourth toe wound culture: GNR A/P: 50-year-old female with diabetes, hypertension, known to me from her recent hospitalization for right foot necrotic wound and cellulitis for which she was set up with IV antibiotics for 6 weeks ending 04/06/2021 was admitted to the hospital on 03/24/2021 with significant worsening and gangrene: #COVID-19: hypoxia worse. #Acute hypoxic respiratory failure: on HFNC. #QUENTIN: creatinine much worse. #Sepsis, gangrenous right foot: Status post right BKA #Diabetes mellitus #Peripheral vascular disease Recs: -creatinine worsened, hence remdesivir held -continue steroids, Decadron D2 of 10 -continue Ceftriaxone for now -Monitor inflammatory markers every 2 to 3 days -probably not a candidate for tocilizumab due to her gangrenous R foot requiring BKA Edison Limon MD, FACP [facility] O: [phone] F: [phone] Subjective Date of service: 03/30/21 Principal diagnosis: Right foot gangrene, s/p right BKA, Covid positive Interval history: Low-grade fever. Oxygenation has worsened requiring HFNC. Also, creatinine much worse. Objective - Exam Narrative Exam: Physical Exam: (deferred to minimize risk of transmission) reviewed in chart - Constitutional Vitals: Vital Signs Temp Pulse Resp BP Pulse Ox 98.7 F 363 H 22 132/85 91 03/30/21 05:01 03/30/21 05:52 03/30/21 05:01 03/30/21 05:01 03/30/21 08:04 Temperature -Last 24 Hours Temperature 98.7 F Temperature 98.9 F Temperature 100.2 F Temperature 100.0 F - Labs CBC & Chem 7: 03/30/21 00:51 03/30/21 03:55 Labs: Abnormal lab results 03/29/21 03/29/21 03/29/21 Range/Units 07:38 11:08 16:30 WBC (4.5-11.0) K/mm3 RBC (3.65-5.03) M/mm3 Hgb (10.1-14.3) gm/dl Hct (30.3-42.9) % Lymph % (Auto) (13.4-35.0) % Seg Neutrophils % (40.0-70.0) % Seg Neutrophils # (1.8-7.7) K/mm3 POC ABG pCO2 (32.0-48.0) mmHg POC ABG pO2 (83-108) mmHg ABG Hemoglobin (12.0-17.5) ABG Oxyhemoglobin (94-98) ABG Potassium (3.40-4.50) mmol/L ABG Chloride (98-107) mmol/L ABG Glucose (65-95) mg/dL Potassium (3.6-5.0) mmol/L Chloride (98-107) mmol/L Carbon Dioxide (22-30) mmol/L BUN (7-17) mg/dL Creatinine (0.6-1.2) mg/dL Glucose (65-100) mg/dL POC Glucose 127 H 125 H 156 H (70-105) mg/dL Calcium (8.4-10.2) mg/dL AST (5-40) units/L Alkaline Phosphatase (35-129) units/L Albumin (3.9-5) g/dL Arterial Blood Glucose (65-95) mg/dL Arterial Blood Ionized Calcium (4.6-5.3) mg/dL 03/29/21 03/30/21 03/30/21 Range/Units 21:40 00:17 00:51 WBC 16.2 H (4.5-11.0) K/mm3 RBC 2.59 L (3.65-5.03) M/mm3 Hgb 7.5 L (10.1-14.3) gm/dl Hct 23.2 L (30.3-42.9) % Lymph % (Auto) 8.0 L (13.4-35.0) % Seg Neutrophils % 88.9 H (40.0-70.0) % Seg Neutrophils # 14.4 H (1.8-7.7) K/mm3 POC ABG pCO2 26.6 L (32.0-48.0) mmHg POC ABG pO2 66.7 L (83-108) mmHg ABG Hemoglobin 7.9 L (12.0-17.5) ABG Oxyhemoglobin 91.8 L (94-98) ABG Potassium 5.5 H (3.40-4.50) mmol/L ABG Chloride 112.0 H (98-107) mmol/L ABG Glucose 233 H (65-95) mg/dL Potassium (3.6-5.0) mmol/L Chloride (98-107) mmol/L Carbon Dioxide (22-30) mmol/L BUN (7-17) mg/dL Creatinine (0.6-1.2) mg/dL Glucose (65-100) mg/dL POC Glucose 183 H (70-105) mg/dL Calcium (8.4-10.2) mg/dL AST (5-40) units/L Alkaline Phosphatase (35-129) units/L Albumin (3.9-5) g/dL Arterial Blood Glucose 233 H (65-95) mg/dL Arterial Blood Ionized Calcium 4.4 L (4.6-5.3) mg/dL 03/30/21 03/30/21 Range/Units 03:55 07:42 WBC (4.5-11.0) K/mm3 RBC (3.65-5.03) M/mm3 Hgb (10.1-14.3) gm/dl Hct (30.3-42.9) % Lymph % (Auto) (13.4-35.0) % Seg Neutrophils % (40.0-70.0) % Seg Neutrophils # (1.8-7.7) K/mm3 POC ABG pCO2 (32.0-48.0) mmHg POC ABG pO2 (83-108) mmHg ABG Hemoglobin (12.0-17.5) ABG Oxyhemoglobin (94-98) ABG Potassium (3.40-4.50) mmol/L ABG Chloride (98-107) mmol/L ABG Glucose (65-95) mg/dL Potassium 5.6 H (3.6-5.0) mmol/L Chloride 107.1 H (98-107) mmol/L Carbon Dioxide 17 L D (22-30) mmol/L BUN 50 H (7-17) mg/dL Creatinine 5.3 H D (0.6-1.2) mg/dL Glucose 239 H (65-100) mg/dL POC Glucose 264 H (70-105) mg/dL Calcium 7.9 L (8.4-10.2) mg/dL AST 124 H (5-40) units/L Alkaline Phosphatase 136 H (35-129) units/L Albumin 2.4 L (3.9-5) g/dL Arterial Blood Glucose (65-95) mg/dL Arterial Blood Ionized Calcium (4.6-5.3) mg/dL
--- NOTE | 2021-03-30 11:50 | Consultation ---
History of Present Illness - Reason for Consult Consult date: 03/30/21 acute renal failure, accelerated hypertension Requesting physician: LIYA GARCIA - History of Present Illness Patient is 50 years old female with history of diabetes, hypertension and asthma. Patient recently diagnosed with diabetic foot and underwent abscess department. Patient also had a vascular surgery including superficial femoral artery stenting and popliteal artery also. Patient brought to the emergency room via EMS from a local wound clinic after patient found to be febrile and rig ht foot turned into black color. she is s/p bka and found to be covid positive and now with QUENTIN ROS: Stated complaint: RT FOOT PAIN/FEVER Other details as noted in HPI Comment: All other systems reviewed and negative Constitutional: chills, fever Respiratory: denies: cough, shortness of breath Cardiovascular: denies: chest pain, palpitations Gastrointestinal: denies: abdominal pain, nausea, vomiting Musculoskeletal: denies: back pain - Past Medical History Hx Hypertension: Yes Hx Diabetes: Yes Hx Deep Vein Thrombosis: No Hx Arthritis: Yes (SPINE) Hx Asthma: Yes Additional medical history: NEUROPATHY TO FEET AND LEGS. Obesity - Surgical History Hx Pacemaker: No Hx Internal Defibrillator: No - Social History Smoking Status: Never Smoker t Medications and Allergies Allergies Allergy/AdvReac Type Severity Reaction Status Date / Time bismuth subsalicylate Allergy Nausea Verified 02/20/21 15:36 [From Pepto-Bismol] Penicillins Allergy Nausea Verified 02/20/21 15:36 tramadol Allergy Unknown Verified 09/27/20 14:56 Home Medications Medication Instructions Recorded Confirmed Last Taken Type Exenatide Microspheres [Bydureon 2 mg SQ 1XW 11/15/20 03/26/21 Unknown History Pen] AtorvaSTATin [Lipitor] 80 mg PO QHS #30 tablet 11/19/20 03/26/21 Unknown Rx DULoxetine [Cymbalta] 60 mg PO BID #60 cap 11/19/20 03/26/21 Unknown Rx tiZANidine [Zanaflex 4mg TAB] 4 mg PO QID PRN #10 11/19/20 03/26/21 Unknown Rx verapamiL [Calan] 80 mg PO Q8HR #90 tablet 11/19/20 03/26/21 Unknown Rx Clopidogrel [Plavix] 75 mg PO QDAY #90 tablet 11/26/20 03/26/21 Unknown Rx Gabapentin [Neurontin] 600 mg PO TID #90 cap 02/01/21 03/26/21 Unknown Rx Aspirin EC [Halfprin EC] 81 mg PO QDAY #30 tablet 02/28/21 03/26/21 Unknown Rx Insulin NPH/Regular [NovoLIN 70/30] 22 unit SUB-Q BIDDIAB 30 Days 02/28/21 03/26/21 Unknown Rx Lispro Insulin [HumaLOG] 0 unit SUB-Q ACHS 30 Days #1 units 02/28/21 03/26/21 Unknown Rx Pantoprazole [Protonix TAB] 40 mg PO QDAC #30 tablet 02/28/21 03/26/21 Unknown Rx oxyCODONE /ACETAMINOPHEN [Percocet 2 tab PO Q4H PRN #20 tablet 02/28/21 03/26/21 Unknown Rx 5/325 mg] Active Meds: Active Medications Acetaminophen (Acetaminophen 325 Mg Tab) 650 mg PO Q4H PRN PRN Reason: Pain MILD(1-3)/Fever >100.5/SMITH Last Admin: 03/29/21 22:50 Dose: 650 mg Documented by: Acetaminophen (Acetaminophen 650 Mg Rect Supp) 650 mg [place] Q4H PRN PRN Reason: Pain, Mild (1-3) Aspirin (Aspirin Ec 81 Mg Tab) 81 mg PO QDAY [facility] Last Admin: 03/30/21 09:10 Dose: 81 mg Documented by: Atorvastatin Calcium (Atorvastatin 40 Mg Tab) 80 mg PO QHS [facility] Last Admin: 03/29/21 22:28 Dose: Not Given Documented by: Dexamethasone (Dexamethasone 4 Mg/Ml Vial) 6 mg IV DAILY [facility] Stop: 04/07/21 10:01 Last Admin: 03/30/21 09:11 Dose: 6 mg Documented by: Duloxetine HCl (Duloxetine 30 Mg Cap) 60 mg PO BID [facility] Last Admin: 03/30/21 09:10 Dose: 60 mg Documented by: Gabapentin (Gabapentin 100 Mg Cap) 100 mg PO Q8HR [facility] Heparin Sodium (Porcine) (Heparin 5,000 Unit/1 Ml Vial) 5,000 unit SUB-Q Q8HR [facility] Last Admin: 03/30/21 06:00 Dose: 5,000 unit Documented by: Hydromorphone HCl (Hydromorphone 1 Mg/1 Ml Inj) 1 mg IV Q4H PRN PRN Reason: Pain , Severe (7-10) Last Admin: 03/28/21 23:50 Dose: 1 mg Documented by: Ceftriaxone Sodium (Rocephin/Ns 2 Gm/100 Ml) 2 gm in 100 mls @ 200 mls/hr IV Q24HR [facility]; Protocol Last Admin: 03/30/21 09:10 Dose: 200 mls/hr Documented by: Sodium Chloride (Nacl 0.9% 1000 Ml) 1,000 mls @ 100 mls/hr IV DIRECT [facility] Insulin Human Isoph/Insulin Regular (Insulin Nph/Regular 70/30 Inj) 27 unit SUB-Q BIDDIAB [facility] Insulin Human Lispro (Insulin Lispro 100 Unit/Ml) 0 unit SUB-Q ACHS [facility]; Protocol Last Admin: 03/30/21 09:07 Dose: 4 unit Documented by: Labetalol HCl (Labetalol 20 Mg/4 Ml Inj) 5 mg IV Q10MIN PRN PRN Reason: Hypertension Ondansetron HCl (Ondansetron 4 Mg/2 Ml Inj) 4 mg IV Q8H PRN PRN Reason: Nausea And Vomiting Last Admin: 03/26/21 00:37 Dose: 4 mg Documented by: Oxycodone/Acetaminophen (Oxycodone /Acetaminophen 5-325mg Tab) 2 tab PO Q4H PRN PRN Reason: Pain, Moderate (4-6) Last Admin: 03/28/21 06:47 Dose: 2 tab Documented by: Pantoprazole Sodium (Pantoprazole 40 Mg Tab) 40 mg PO QDAC [facility] Last Admin: 03/30/21 09:10 Dose: 40 mg Documented by: Sodium Chloride (Sodium Chloride 0.9% 10 Ml Flush Syringe) 10 ml IV BID [facility] Last Admin: 03/30/21 09:10 Dose: 10 ml Documented by: Sodium Chloride (Sodium Chloride 0.9% 10 Ml Flush Syringe) 10 ml IV PRN PRN PRN Reason: LINE FLUSH Sodium Chloride (Sodium Chloride 0.9% 50 Ml Ivpb) 50 ml IV 2100 [facility] Stop: 04/02/21 21:01 Last Admin: 03/29/21 14:20 Dose: 50 ml Documented by: Sodium Polystyrene Sulfonate (Sodium Polystyrene 15 Gm/60 Ml Oral Liqd) 15 gm PO ONCE ONE Stop: 03/30/21 13:01 Tizanidine HCl (Tizanidine Tab 4 Mg Tab) 4 mg PO QID PRN PRN Reason: muscle relaxer Last Admin: 03/25/21 23:09 Dose: 4 mg Documented by: Verapamil HCl (Verapamil 80 Mg Tab) 80 mg PO Q8HR [facility] Last Admin: 03/30/21 05:52 Dose: 80 mg Documented by: Exam - Vital Signs Vital signs: Vital Signs Temp Pulse Resp BP Pulse Ox 100.3 F H 109 H 21 156/98 99 03/24/21 11:26 03/24/21 11:26 03/24/21 11:26 03/24/21 11:03/24/21 11:26 - Physical Exam Narrative exam: deferred to minimize transmission of COVID Results - Lab Results 03/30/21 00:51 03/30/21 03:55 Most recent lab results ABG pH 7.357 (7.320-7.450) 03/30/21 00:17 ABG O2 Saturation 92.5 (0-100) 03/30/21 00:17 Calcium 7.9 mg/dL (8.4-10.2) L 03/30/21 03:55 Assessment and Plan Impression: * QUENTIN--likely atn due to COVID and hypoperfusion with sepsis * Hyperkalemia * Metabolic aciosis * Covid PNA * Acute Hypoxic Resp Failure * Type 2 DM * PVD s/p BKA Recs: * creatinine worsened, remdesivir held * strict i/os, avoid nephrotoxins * daily lytes * place galelgos to gravitiy if urinary retension * follow up renal us and post void residual * treat k medically, kayezalate ordered * follow up urine lytes and ua * ivfs, add sodium bicarb gtt * she is high risk of progression of renal disease, will need ENDODONTICS DENTIST if no improvement in next 24 to 36 hrs * continue steroids * iv abx per ID * Monitor inflammatory markers every 2 to 3 days * probably not a candidate for tocilizumab due to her gangrenous R foot re quiring BKA per ID
[2021-03-30] MEDS ORDERED: SODIUM POLYSTYRENE 15 GM/60 ML ORAL LIQD PO ONE ×2 (12:00→13:00)
[2021-03-30] MEDS ORDERED: SODIUM CHLORIDE 0.45% 1000 ML 1,000 ML with SODIUM BICARBONATE 75 MEQ IV SCH (12:00)
[2021-03-30] MEDS: GABAPENTIN 100 MG CAP PO SCH ×2 (14:14→21:58)
[2021-03-30 16:33] LABS: Creatinine,Urine 175.6 mg/dL (0.1-20.0)
[2021-03-30 16:39] LABS: Bacteria,Urine 4+ /HPF (Negative); Bilirubin,Urine NEG (Negative); Blood,Urine MOD (Negative); Color,Urine Amber (Yellow); Mucus,Urine 1+ /HPF; Urobilinogen,Urine < 2.0 mg/dL (<2.0)
[2021-03-30] MEDS ORDERED: REMDESIVIR 100 MG in SODIUM CHLORIDE 0.9% 250ML 250 ML IV SCH (21:00)
[2021-03-30] MEDS: oxyCODONE /ACETAMINOPHEN 5-325MG TAB PO PRN (21:58)
[2021-03-31 03:09] LABS: Basophils % (Auto) 0.1 % (0.0-1.8); Hematocrit 25.7 % (30.3-42.9); Hemoglobin 8.5 gm/dl (10.1-14.3); Lymphocytes # (Auto) 1.2 K/mm3 (1.2-5.4); Lymphocytes % (Auto) 6.9 % (13.4-35.0); Mean Corpuscular HGB Conc 33 % (30-34); Mean Corpuscular Volume 89 fl (79-97); Monocytes # (Auto) 0.7 K/mm3 (0.0-0.8); Monocytes % (Auto) 4.2 % (0.0-7.3); Platelet Count 433 K/mm3 (140-440); Red Blood Count 2.88 M/mm3 (3.65-5.03); Red Cell Distribution Width 13.5 % (13.2-15.2)
[2021-03-31 03:22] LABS: Calcium 8.3 mg/dL (8.4-10.2)
[2021-03-31] MEDS: HEPARIN 5,000 UNIT/1 ML VIAL SUB-Q SCH ×3 (05:18→21:37)
[2021-03-31] MEDS: VERAPAMIL 80 MG TAB PO SCH ×3 (05:18→21:36)
[2021-03-31] MEDS: GABAPENTIN 100 MG CAP PO SCH ×3 (05:18→21:37)
--- NOTE | 2021-03-31 11:10 | Progress Note ---
Assessment and Plan Cultures: SARS CoV2 PCR: Positive 03/24/2021 blood culture: No growth 03/24/2021 right fourth toe wound culture: Pseudomonas A/P: 50-year-old female with diabetes, hypertension, known to me from her recent hospitalization for right foot necrotic wound and cellulitis for which she was set up with IV antibiotics for 6 weeks ending 04/06/2021 was admitted to the hospital on 03/24/2021 with significant worsening and gangrene: #COVID-19: hypoxia worse. #Acute hypoxic respiratory failure: on HFNC. #QUENTIN: creatinine much worse. CK also elevated. #Sepsis, gangrenous right foot: Status post right BKA. Wound culture with Pseudomonas. #Diabetes mellitus #Peripheral vascular disease Recs: -creatinine remains elevated, continue to hold remdesivir hence remdesivir held -continue steroids, Decadron D3 of 10 -ceftriaxone switched to levofloxacin renally dosed -Monitor inflammatory markers every 2 to 3 days -As per hospital criteria, not a candidate for tocilizumab due to her gangrenous R foot requiring BKA Edison Limon MD, FACP [facility] O: [phone] F: [phone] Subjective Date of service: 03/31/21 Principal diagnosis: Right foot gangrene, s/p right BKA, Covid positive Interval history: No fever. Moved to [facility], remains on HFNC. Creatinine remains elevated, was seen by nephrology. Objective - Exam Narrative Exam: Physical Exam: (deferred to minimize risk of transmission) reviewed in chart - Constitutional Vitals: Vital Signs Temp Pulse Resp BP Pulse Ox 98.7 F 82 20 134/71 96 03/31/21 08:00 03/31/21 10:00 03/30/21 09:06 03/31/21 05:18 03/31/21 08:37 Temperature -Last 24 Hours Temperature 98.7 F Temperature 99.1 F Temperature 98.8 F Temperature 97.8 F - Labs CBC & Chem 7: 03/31/21 02:38 03/31/21 02:38 Labs: Abnormal lab results 03/30/21 03/30/21 03/30/21 Range/Units 11:24 11:48 16:59 WBC (4.5-11.0) K/mm3 RBC (3.65-5.03) M/mm3 Hgb (10.1-14.3) gm/dl Hct (30.3-42.9) % Lymph % (Auto) (13.4-35.0) % Seg Neutrophils % (40.0-70.0) % Seg Neutrophils # (1.8-7.7) K/mm3 Sodium (137-145) mmol/L Chloride (98-107) mmol/L Carbon Dioxide (22-30) mmol/L BUN (7-17) mg/dL Creatinine (0.6-1.2) mg/dL Glucose (65-100) mg/dL POC Glucose 303 H 285 H (70-105) mg/dL Calcium (8.4-10.2) mg/dL Total Creatine Kinase > 2000 H (30-135) units/L Urine WBC (Auto) (0.0-6.0) /HPF U Epithel Cells (Auto) (0-13.0) /HPF Urine Creatinine (0.1-20.0) mg/dL 03/30/21 03/30/21 03/30/21 Range/Units 21:39 23:51 Unknown WBC (4.5-11.0) K/mm3 RBC (3.65-5.03) M/mm3 Hgb (10.1-14.3) gm/dl Hct (30.3-42.9) % Lymph % (Auto) (13.4-35.0) % Seg Neutrophils % (40.0-70.0) % Seg Neutrophils # (1.8-7.7) K/mm3 Sodium (137-145) mmol/L Chloride (98-107) mmol/L Carbon Dioxide (22-30) mmol/L BUN (7-17) mg/dL Creatinine (0.6-1.2) mg/dL Glucose (65-100) mg/dL POC Glucose 247 H (70-105) mg/dL Calcium (8.4-10.2) mg/dL Total Creatine Kinase 4345 H (30-135) units/L Urine WBC (Auto) (0.0-6.0) /HPF U Epithel Cells (Auto) (0-13.0) /HPF Urine Creatinine 175.6 H (0.1-20.0) mg/dL 05/03/31/21 03/31/21 Range/Units Unknown 02:38 02:38 WBC 17.3 H (4.5-11.0) K/mm3 RBC 2.88 L (3.65-5.03) M/mm3 Hgb 8.5 L (10.1-14.3) gm/dl Hct 25.7 L (30.3-42.9) % Lymph % (Auto) 6.9 L (13.4-35.0) % Seg Neutrophils % 88.8 H (40.0-70.0) % Seg Neutrophils # 15.4 H (1.8-7.7) K/mm3 Sodium 146 H (137-145) mmol/L Chloride 108.6 H (98-107) mmol/L Carbon Dioxide 19 L (22-30) mmol/L BUN 66 H (7-17) mg/dL Creatinine 6.1 H (0.6-1.2) mg/dL Glucose 243 H (65-100) mg/dL POC Glucose (70-105) mg/dL Calcium 8.3 L (8.4-10.2) mg/dL Total Creatine Kinase (30-135) units/L Urine WBC (Auto) 23.0 H (0.0-6.0) /HPF U Epithel Cells (Auto) 33.0 H (0-13.0) /HPF Urine Creatinine (0.1-20.0) mg/dL
[2021-03-31] MEDS: INSULIN LISPRO 100 UNIT/ML SUB-Q SCH ×4 (11:44→21:37)
[2021-03-31] MEDS: PANTOPRAZOLE 40 MG TAB PO SCH (11:44)
[2021-03-31] MEDS: INSULIN NPH/REGULAR 70/30 INJ SUB-Q SCH ×2 (11:44→16:51)
[2021-03-31] MEDS: DULoxetine 30 MG CAP PO SCH ×2 (11:45→21:35)
[2021-03-31] MEDS: dexAMETHasone 4 MG/ML VIAL IV SCH (11:45)
[2021-03-31] MEDS: ASPIRIN EC 81 MG TAB PO SCH (11:45)
--- NOTE | 2021-03-31 13:31 | Progress Note ---
Assessment and Plan Impression: * QUENTIN--likely atn due to COVID and hypoperfusion with sepsis * Hyperkalemia * Metabolic aciosis * Covid PNA * Sepsis * UTI * Acute Hypoxic Resp Failure * Type 2 DM * PVD s/p BKA Recs: * creatinine worsened, remdesivir held * strict i/os, avoid nephrotoxins * daily lytes * place gallegos to gravitiy if urinary retension * follow up renal us and post void residual, still not done * treat k medically, kayezalate ordered * follow up urine lytes and ua noted, uti with ATN * ivfs, added sodium bicarb gtt * she is high risk of progression of renal disease, will need [employer] if no improvement in next 24hrs * continue steroids * iv abx per ID * Monitor inflammatory markers every 2 to 3 days * probably not a candidate for tocilizumab due to her gangrenous R foot requiring BKA per ID Subjective Date of service: 03/31/21 Principal diagnosis: Right foot gangrene, s/p right BKA, Covid positive Interval history: events noted Objective - Exam Narrative Exam: deferred to minimize transmission of COVID - Vital Signs Vital signs: Vital Signs - 12hr 03/31/21 03/31/21 03/31/21 02:51 04:00 05:18 Temperature 99.1 F Pulse Rate 87 Blood Pressure 134/71 O2 Sat by Pulse 98 Oximetry 03/31/21 03/31/21 03/31/21 08:00 08:37 10:00 Temperature 98.7 F Pulse Rate 82 Blood Pressure O2 Sat by Pulse 96 Oximetry 03/31/21 12:32 Temperature 98.6 F Pulse Rate Blood Pressure O2 Sat by Pulse Oximetry - Lab 03/31/21 02:38 03/31/21 02:38 Most recent lab results ABG pH 7.357 (7.320-7.450) 03/30/21 00:17 ABG O2 Saturation 92.5 (0-100) 03/30/21 00:17 Calcium 8.3 mg/dL (8.4-10.2) L 03/31/21 02:38 Urine Creatinine 175.6 mg/dL (0.1-20.0) H 03/30/21 Unknown Urine Sodium 72 mmol/L 03/30/21 Unknown Medications & Allergies - Medications Allergies/Adverse Reactions: Allergies bismuth subsalicylate [From Pepto-Bismol] Allergy (Verified 02/20/21 15:36) Nausea Penicillins Allergy (Verified 02/20/21 15:36) Nausea tramadol Allergy (Verified 09/27/20 14:56) Unknown Home Medications: Home Medications Medication Instructions Recorded Confirmed Last Taken Type Exenatide Microspheres [Bydureon 2 mg SQ 1XW 11/15/20 03/26/21 Unknown History Pen] AtorvaSTATin [Lipitor] 80 mg PO QHS #30 tablet 11/19/20 03/26/21 Unknown Rx DULoxetine [Cymbalta] 60 mg PO BID #60 cap 11/19/20 03/26/21 Unknown Rx tiZANidine [Zanaflex 4mg TAB] 4 mg PO QID PRN #10 11/19/20 03/26/21 Unknown Rx verapamiL [Calan] 80 mg PO Q8HR #90 tablet 11/19/20 03/26/21 Unknown Rx Clopidogrel [Plavix] 75 mg PO QDAY #90 tablet 11/26/20 03/26/21 Unknown Rx Gabapentin [Neurontin] 600 mg PO TID #90 cap 02/01/21 03/26/21 Unknown Rx Aspirin EC [Halfprin EC] 81 mg PO QDAY #30 tablet 02/28/21 03/26/21 Unknown Rx Insulin NPH/Regular [NovoLIN 70/30] 22 unit SUB-Q BIDDIAB 30 Days 02/28/21 03/26/21 Unknown Rx Lispro Insulin [HumaLOG] 0 unit SUB-Q ACHS 30 Days #1 units 02/28/21 03/26/21 Unknown Rx Pantoprazole [Protonix TAB] 40 mg PO QDAC #30 tablet 02/28/21 03/26/21 Unknown Rx oxyCODONE /ACETAMINOPHEN [Percocet 2 tab PO Q4H PRN #20 tablet 02/28/21 03/26/21 Unknown Rx 5/325 mg] Active Medications: Generic Name Dose Route Start Last Admin Trade Name Freq PRN Reason Stop Dose Admin Acetaminophen 650 mg 03/24/21 23:35 03/29/21 22:50 Acetaminophen 325 Mg Tab PO 650 mg Q4H PRN Administration Pain MILD(1-3)/Fever >100.5/SMITH Acetaminophen 650 mg 03/30/21 01:58 Acetaminophen 650 Mg Rect Supp MO Q4H PRN Pain, Mild (1-3) Aspirin 81 mg 03/25/21 10:00 03/31/21 11:45 Aspirin Ec 81 Mg Tab PO 81 mg QDAY [facility] Administration Atorvastatin Calcium 80 mg 03/25/21 22:00 03/30/21 21:58 Atorvastatin 40 Mg Tab PO 80 mg QHS [facility] Administration Dexamethasone 6 mg 03/29/21 12:00 03/31/21 11:45 Dexamethasone 4 Mg/Ml Vial IV 04/07/21 10:01 6 mg DAILY [facility] Administration Duloxetine HCl 60 mg 03/25/21 10:00 03/31/21 11:45 Duloxetine 30 Mg Cap PO 60 mg BID [facility] Administration Gabapentin 100 mg 03/30/21 14:00 03/31/21 05:18 Gabapentin 100 Mg Cap PO 100 mg Q8HR [facility] Administration Heparin Sodium (Porcine) 5,000 unit 03/27/21 18:07 03/31/21 05:18 Heparin 5,000 Unit/1 Ml Vial SUB-Q 5,000 unit Q8HR [facility] Administration Hydromorphone HCl 1 mg 03/28/21 17:57 03/28/21 23:50 Hydromorphone 1 Mg/1 Ml Inj IV 1 mg Q4H PRN Administration Pain , Severe (7-10) Sodium Bicarbonate 75 meq/ 1,075 mls @ 100 mls/hr 03/30/21 12:00 03/30/21 13:30 Sodium Chloride IV 100 mls/hr DIRECT [facility] Administration Levofloxacin/Dextrose 500 mg in 100 mls @ 100 mls/hr 03/31/21 12:00 Levaquin 500mg/100ml IV Q48H [facility] Protocol Insulin Human Isoph/Insulin Regular 27 unit 03/30/21 12:00 03/31/21 11:44 Insulin Nph/Regular 70/30 Inj SUB-Q 27 unit BIDDIAB [facility] Administration Insulin Human Lispro 0 unit 03/25/21 07:30 03/31/21 11:44 Insulin Lispro 100 Unit/Ml SUB-Q 4 unit ACHS [facility] Administration Protocol Labetalol HCl 5 mg 03/25/21 20:09 Labetalol 20 Mg/4 Ml Inj IV Q10MIN PRN Hypertension Ondansetron HCl 4 mg 03/24/21 23:35 03/26/21 00:37 Ondansetron 4 Mg/2 Ml Inj IV 4 mg Q8H PRN Administration Nausea And Vomiting Oxycodone/Acetaminophen 2 tab 03/24/21 23:33 03/30/21 21:58 Oxycodone /Acetaminophen 5-325mg Tab PO 2 tab Q4H PRN Administration Pain, Moderate (4-6) Pantoprazole Sodium 40 mg 03/25/21 07:30 03/31/21 11:44 Pantoprazole 40 Mg Tab PO 40 mg QDAC [facility] Administration Sodium Chloride 10 ml 03/24/21 23:45 03/31/21 11:45 Sodium Chloride 0.9% 10 Ml Flush Syringe IV 10 ml BID [facility] Administration Sodium Chloride 10 ml 03/24/21 23:35 Sodium Chloride 0.9% 10 Ml Flush Syringe IV PRN PRN LINE FLUSH Tizanidine HCl 4 mg 03/24/21 23:33 03/25/21 23:09 Tizanidine Tab 4 Mg Tab PO 4 mg QID PRN Administration muscle relaxer Verapamil HCl 80 mg 03/24/21 23:45 03/31/21 05:18 Verapamil 80 Mg Tab PO 80 mg Q8HR [facility] Administration
[2021-03-31] MEDS: oxyCODONE /ACETAMINOPHEN 5-325MG TAB PO PRN ×2 (13:44→16:51)
[2021-03-31 14:57] LABS: Alanine Aminotransferase 37 units/L (7-56); Albumin 2.3 g/dL (3.9-5); Blood Urea Nitrogen 76 mg/dL (7-17); Calcium 7.6 mg/dL (8.4-10.2); Hemolysis Index 5
[2021-03-31 14:59] LABS: BUN/Creatinine Ratio 12
[2021-03-31] MEDS: cefTRIAXone/NS 2 GM/100 ML 2 GM/100 ML BAG IV SCH (21:10)
[2021-03-31] MEDS: tiZANidine TAB 4 MG TAB PO PRN (21:35)
[2021-03-31] MEDS ORDERED: SODIUM BICARBONATE 75 MEQ in SODIUM CHLORIDE 0.45% 1000 ML 1,000 ML IV SCH (23:00)
[2021-04-01] MEDS: VERAPAMIL 80 MG TAB PO SCH ×3 (05:02→21:04)
[2021-04-01] MEDS: GABAPENTIN 100 MG CAP PO SCH ×3 (05:02→21:04)
[2021-04-01] MEDS: HEPARIN 5,000 UNIT/1 ML VIAL SUB-Q SCH ×3 (05:03→21:05)
[2021-04-01] MEDS: oxyCODONE /ACETAMINOPHEN 5-325MG TAB PO PRN ×2 (05:06→16:56)
[2021-04-01 05:28] LABS: Albumin 2.3 g/dL (3.9-5)
--- NOTE | 2021-04-01 07:56 | Progress Note ---
Assessment and Plan - Patient Problems (1) Acute respiratory failure with hypoxia Current Visit: Yes Status: Acute Plan to address problem: Patient on high flow oxygen nearly FiO2 100% Patient may need intubation (2) Pneumonia due to COVID-19 virus Current Visit: Yes Status: Acute Plan to address problem: IV Decadron for now No remdesivir because of the high creatinine (3) Acute hyperkalemia Current Visit: Yes Status: Acute Plan to address problem: Patient initiated on IV calcium gluconate and [facility] was requested to put the order in (4) QUENTIN (acute kidney injury) Current Visit: No Status: Acute Plan to address problem: IV fluids initiated Vasomotor nephropathy Creatinine worsened to 5.3 from 1.4 on 03/30/2021 Nephrology consult requested Creatinine has worsened to 6.6 today-03/31/2021 from 5.3 (5) Gangrene of right foot Current Visit: Yes Status: Acute Plan to address problem: S/p Rt BKA (6) Peripheral vascular disease Current Visit: Yes Status: Chronic Plan to address problem: S/p right BKA (7) Hypertension Current Visit: Yes Status: Chronic Qualifiers: Hypertension type: essential hypertension Qualified Code(s): I10 - Essential (primary) hypertension Plan to address problem: Continue antihypertensives Blood pressure well controlled (8) IDDM (insulin dependent diabetes mellitus) Current Visit: Yes Status: Chronic Plan to address problem: Tight control of blood glucose levels Check hemoglobin A1c Increase insulin by 5 units (9) DVT prophylaxis Current Visit: Yes Status: Acute Plan to address problem: On heparin and GI prophylaxis Subjective Date of service: 03/31/21 Principal diagnosis: Right foot gangrene, s/p right BKA, Covid positive Interval history: 50-year-old obese female patient was admitted on 02/21/21 with diabetic ketoacidosis and cellulitis of the foot secondary to spider bite was discharged home on IV ceftriaxone 2 g daily for 6 weeks ending 04/06/2021 brought back to the emergency room via EMS from a local wound clinic after patient found to be febrile and right foot turned into black color. s/p BKA and now tested positive for COVID. Daily clinical course: 03/25/21: Patient is scheduled for right foot amputation today, continue empiric antibiotics, n.p.o. for now. Follow clinically. 03/26/21: s/p right BKA yesterday. cont to adjust pain meds. wait for PT eval. K 5.7 - ordered kayexalate. 03/27/21: Continue to complains of severe pain on amputated leg. Pending PT eval and will follow surgery recommendation. Potassium level appears to be normal today. 03/28/21: PT recommended ARMANDO, tested positive for covid. Per ID: she is currently on oxygen but not sure merely for comfort or due to hypoxia. Discussed with RN who will try to wean the oxygen off. If she remains hypoxic, start remdesivir and steroids. 03/29/21 S/p BKA of the right lower extremity Covid positive Patient on 35 L nasal cannula oxygen IV antibiotics as per ID recommendations 03/30/21 On 35 L high flow oxygen Slightly lethargic Creatinine has worsened from 1.4-5.3 over the last 48 hours Renal consult requested--- Dr. Valenzuela couture alterations dressmaker today IV fluids increased to 100 mL/h 03/31/2021 On 100% FiO2 Objective - Constitutional Vitals: Vital Signs - 12hr 03/31/21 03/31/21 03/31/21 20:00 20:08 21:00 Temperature 99.0 F Pulse Rate 87 88 81 Pulse Rate [ 87 From Monitor] Respiratory 10 L 10 L Rate Respiratory Rate [ Generalized] Respiratory Rate [Right Knee] Blood Pressure 151/85 147/80 O2 Sat by Pulse 95 95 Oximetry 03/31/21 03/31/21 03/31/21 21:36 22:00 23:00 Temperature Pulse Rate 85 86 69 Pulse Rate [ From Monitor] Respiratory 12 10 L Rate Respiratory Rate [ Generalized] Respiratory Rate [Right Knee] Blood Pressure 147/80 149/82 149/82 O2 Sat by Pulse 95 93 Oximetry 03/31/21 03/31/21 04/01/21 23:30 23:38 00:00 Temperature 98.1 F Pulse Rate 69 70 Pulse Rate [ 70 From Monitor] Respiratory 10 L 11 L Rate Respiratory 12 Rate [ Generalized] Respiratory 12 Rate [Right Knee] Blood Pressure 112/61 117/70 O2 Sat by Pulse 94 95 Oximetry 04/01/21 04/01/21 04/01/21 00:05 01:00 02:00 Temperature Pulse Rate 69 72 74 Pulse Rate [ From Monitor] Respiratory 11 L 12 Rate Respiratory Rate [ Generalized] Respiratory Rate [Right Knee] Blood Pressure 125/71 121/70 O2 Sat by Pulse 95 96 Oximetry 04/01/21 04/01/21 04/01/21 02:10 03:00 03:34 Temperature 98.8 F Pulse Rate 71 Pulse Rate [ From Monitor] Respiratory 11 L Rate Respiratory Rate [ Generalized] Respiratory Rate [Right Knee] Blood Pressure 125/68 O2 Sat by Pulse 94 96 Oximetry 04/01/21 04/01/21 04/01/21 04:00 05:00 05:02 Temperature Pulse Rate 78 85 86 Pulse Rate [ 79 From Monitor] Respiratory 11 L 13 Rate Respiratory Rate [ Generalized] Respiratory Rate [Right Knee] Blood Pressure 130/71 137/78 137/78 O2 Sat by Pulse 95 97 Oximetry 04/01/21 04/01/21 04/01/21 05:06 06:00 06:06 Temperature Pulse Rate 87 Pulse Rate [ From Monitor] Respiratory 15 15 10 L Rate Respiratory Rate [ Generalized] Respiratory Rate [Right Knee] Blood Pressure 137/78 O2 Sat by Pulse 98 Oximetry General appearance: Present: severe distress, well-nourished - EENT Eyes: PERRL, EOM intact ENT: hearing intact, clear oral mucosa Ears: bilateral: normal - Neck Neck: supple, normal ROM - Respiratory Respiratory effort: normal Respiratory: bilateral: CTA - Breasts Breasts: normal - Cardiovascular Heart rate: 108 Rhythm: regular Heart Sounds: Present: S1 & S2. Absent: gallop, rub Extremities: no ischemia, pulses intact, No edema, normal color, Full ROM, abnormal (BKA) Extremity abnormal: other (BKA) - Gastrointestinal General gastrointestinal: Present: soft, non-tender, non-distended, normal bowel sounds, hypoactive bowel sounds - Genitourinary Female genitourinary: normal - Integumentary Integumentary: clear, warm, dry - Musculoskeletal Musculoskeletal: 1, strength equal bilaterally - Neurologic Neurologic: moves all extremities - Psychiatric Psychiatric: memory intact, appropriate mood/affect, intact judgment & insight - Labs CBC & Chem 7: 03/31/21 02:38 04/01/21 04:50 Labs: Abnormal lab results 03/31/21 03/31/21 03/31/21 Range/Units 07:52 11:31 14:10 Sodium (137-145) mmol/L Chloride 107.9 H (98-107) mmol/L Carbon Dioxide 19 L (22-30) mmol/L BUN 76 H (7-17) mg/dL Creatinine 6.6 H (0.6-1.2) mg/dL Glucose 235 H (65-100) mg/dL POC Glucose 209 H 214 H (70-105) mg/dL Calcium 7.6 L (8.4-10.2) mg/dL AST 84 H (5-40) units/L Alkaline Phosphatase 138 H (35-129) units/L Total Creatine Kinase (30-135) units/L Albumin 2.3 L (3.9-5) g/dL 03/31/21 03/31/21 03/31/21 Range/Units 14:10 15:25 16:50 Sodium (137-145) mmol/L Chloride (98-107) mmol/L Carbon Dioxide (22-30) mmol/L BUN (7-17) mg/dL Creatinine (0.6-1.2) mg/dL Glucose (65-100) mg/dL POC Glucose 197 H 201 H (70-105) mg/dL Calcium (8.4-10.2) mg/dL AST (5-40) units/L Alkaline Phosphatase (35-129) units/L Total Creatine Kinase 3042 H (30-135) units/L Albumin (3.9-5) g/dL 03/31/21 03/31/21 04/01/21 Range/Units 21:12 23:10 04:50 Sodium 146 H (137-145) mmol/L Chloride 108.3 H (98-107) mmol/L Carbon Dioxide (22-30) mmol/L BUN 83 H (7-17) mg/dL Creatinine 7.1 H (0.6-1.2) mg/dL Glucose (65-100) mg/dL POC Glucose 125 H (70-105) mg/dL Calcium 8.0 L (8.4-10.2) mg/dL AST 70 H (5-40) units/L Alkaline Phosphatase 134 H (35-129) units/L Total Creatine Kinase 1972 H (30-135) units/L Albumin 2.3 L (3.9-5) g/dL
[2021-04-01] MEDS: INSULIN LISPRO 100 UNIT/ML SUB-Q SCH ×4 (09:05→23:17)
[2021-04-01] MEDS: PANTOPRAZOLE 40 MG TAB PO SCH (10:03)
[2021-04-01] MEDS: INSULIN NPH/REGULAR 70/30 INJ SUB-Q SCH ×2 (10:03→17:49)
[2021-04-01] MEDS: DULoxetine 30 MG CAP PO SCH ×2 (10:04→21:04)
[2021-04-01] MEDS: dexAMETHasone 4 MG/ML VIAL IV SCH (10:04)
[2021-04-01] MEDS: ASPIRIN EC 81 MG TAB PO SCH (10:04)
[2021-04-01] MEDS ORDERED: SODIUM CHLORIDE 0.9% 100 ML IV PRN (11:51)
--- NOTE | 2021-04-01 12:41 | Progress Note ---
Assessment and Plan Cultures: SARS CoV2 PCR: Positive 03/24/2021 blood culture: No growth 03/24/2021 right fourth toe wound culture: Pseudomonas A/P: 50-year-old female with diabetes, hypertension, known to me from her recent hospitalization for right foot necrotic wound and cellulitis for which she was set up with IV antibiotics for 6 weeks ending 04/06/2021 was admitted to the hospital on 03/24/2021 with significant worsening and gangrene: #COVID-19: severe. As per hospital criteria, not a candidate for tocilizumab due to her gangrenous R foot requiring BKA #Acute hypoxic respiratory failure: on HFNC. #QUENTIN: creatinine much worse. CK also elevated. Nephrology following. #Sepsis, gangrenous right foot: Status post right BKA. Wound culture with Pseudomonas. #Diabetes mellitus #Peripheral vascular disease: underwent BKA. Recs: -creatinine remains elevated, continue to hold remdesivir -continue steroids, Decadron D4 of 10 -continue levofloxacin renally dosed, D2 -Monitor inflammatory markers every 2 to 3 days Edison Limon MD, FACP [facility], [place], [facility] ([facility] O: [phone] F: [phone] Subjective Date of service: 04/01/21 Principal diagnosis: Right foot gangrene, s/p right BKA, Covid positive Interval history: Afebrile, remains on HFNC. Creatinine rising. Drowsy. Objective - Exam Narrative Exam: Physical Exam: (deferred to minimize risk of transmission) reviewed in chart - Constitutional Vitals: Vital Signs Temp Pulse Resp BP Pulse Ox 98.8 F 79 8 L 128/76 95 04/01/21 03:34 04/01/21 12:00 04/01/21 12:00 04/01/21 12:00 04/01/21 12:00 Temperature -Last 24 Hours Temperature 98.8 F Temperature 98.1 F Temperature 99.0 F - Labs CBC & Chem 7: 03/31/21 02:38 04/01/21 04:50 Labs: Abnormal lab results 03/31/21 03/31/21 03/31/21 Range/Units 07:52 11:31 14:10 Sodium (137-145) mmol/L Chloride 107.9 H (98-107) mmol/L Carbon Dioxide 19 L (22-30) mmol/L BUN 76 H (7-17) mg/dL Creatinine 6.6 H (0.6-1.2) mg/dL Glucose 235 H (65-100) mg/dL POC Glucose 209 H 214 H (70-105) mg/dL Calcium 7.6 L (8.4-10.2) mg/dL AST 84 H (5-40) units/L Alkaline Phosphatase 138 H (35-129) units/L Total Creatine Kinase (30-135) units/L Albumin 2.3 L (3.9-5) g/dL 03/31/21 03/31/21 03/31/21 Range/Units 14:10 15:25 16:50 Sodium (137-145) mmol/L Chloride (98-107) mmol/L Carbon Dioxide (22-30) mmol/L BUN (7-17) mg/dL Creatinine (0.6-1.2) mg/dL Glucose (65-100) mg/dL POC Glucose 197 H 201 H (70-105) mg/dL Calcium (8.4-10.2) mg/dL AST (5-40) units/L Alkaline Phosphatase (35-129) units/L Total Creatine Kinase 3042 H (30-135) units/L Albumin (3.9-5) g/dL 03/31/21 03/31/21 04/01/21 Range/Units 21:12 23:10 04:50 Sodium 146 H (137-145) mmol/L Chloride 108.3 H (98-107) mmol/L Carbon Dioxide (22-30) mmol/L BUN 83 H (7-17) mg/dL Creatinine 7.1 H (0.6-1.2) mg/dL Glucose (65-100) mg/dL POC Glucose 125 H (70-105) mg/dL Calcium 8.0 L (8.4-10.2) mg/dL AST 70 H (5-40) units/L Alkaline Phosphatase 134 H (35-129) units/L Total Creatine Kinase 1972 H (30-135) units/L Albumin 2.3 L (3.9-5) g/dL
--- NOTE | 2021-04-01 12:43 | Progress Note ---
Assessment and Plan The high probability OF a clinically significant sudden or life-threatening deterioration of the cardiorespiratory system and endocrine system required my full and direct attention, intervention and postoperative management. The aggregate critical care time was 40 minutes. The time is in addition to time spent performing reported procedures but includes the followin: Data review and interpretation 2: Patient assessment and monitoring of vital signs 3: Documentation 4:: Medication orders and management - Patient Problems (1) Acute respiratory failure with hypoxia Current Visit: Yes Status: Acute Plan to address problem: Patient on high flow oxygen nearly FiO2 100% yesterday FiO2 dropped to 90% On 35 hours liters high flow nasal cannula oxygen Pulmonary consult requested (2) Pneumonia due to COVID-19 virus Current Visit: Yes Status: Acute Plan to address problem: IV Decadron for now No remdesivir because of the high creatinine (3) Acute hyperkalemia Current Visit: Yes Status: Acute Plan to address problem: Hyperkalemia resolved (4) QUENTIN (acute kidney injury) Current Visit: No Status: Acute Plan to address problem: IV fluids initiated Vasomotor nephropathy Creatinine worsened to 5.3 from 1.4 on 03/30/2021 Nephrology consult requested Creatinine has worsened to 6.6 on-03/31/2021 Today creatinine up to 7.[address] Harkins for Vas-Cath We will discuss with him (5) Gangrene of right foot Current Visit: Yes Status: Acute Plan to address problem: S/p Rt BKA (6) Peripheral vascular disease Current Visit: Yes Status: Chronic Plan to address problem: S/p right BKA (7) Hypertension Current Visit: Yes Status: Chronic Qualifiers: Hypertension type: essential hypertension Qualified Code(s): I10 - Essent ial (primary) hypertension Plan to address problem: Continue antihypertensives Blood pressure well controlled (8) IDDM (insulin dependent diabetes mellitus) Current Visit: Yes Status: Chronic Plan to address problem: Tight control of blood glucose levels Check hemoglobin A1c Increase insulin by 5 units (9) DVT prophylaxis Current Visit: Yes Status: Acute Plan to address problem: On heparin and GI prophylaxis Subjective Date of service: 04/01/21 Principal diagnosis: Right foot gangrene, s/p right BKA, Covid positive Interval history: 50-year-old obese female patient was admitted on 02/21/21 with diabetic ketoacidosis and cellulitis of the foot secondary to spider bite was discharged home on IV ceftriaxone 2 g daily for 6 weeks ending 04/06/2021 brought back to the emergency room via EMS from a local wound clinic after patient found to be febrile and right foot turned into black color. s/p BKA and now tested positive for COVID. Daily clinical course: 03/25/21: Patient is scheduled for right foot amputation today, continue empiric antibiotics, n.p.o. for now. Follow clinically. 03/26/21: s/p right BKA yesterday. cont to adjust pain meds. wait for PT eval. K 5.7 - ordered kayexalate. 03/27/21: Continue to complains of severe pain on amputated leg. Pending PT eval and will follow surgery recommendation. Potassium level appears to be normal today. 03/28/21: PT recommended ARMANDO, tested positive for covid. Per ID: she is currently on oxygen but not sure merely for comfort or due to hypoxia. Discussed with RN who will try to wean the oxygen off. If she remains hypoxic, start remdesivir and steroids. 03/29/21 S/p BKA of the right lower extremity Covid positive Patient on 35 L nasal cannula oxygen IV antibiotics as per ID recommendations 03/30/21 On 35 L high flow oxygen Slightly lethargic Creatinine has worsened from 1.4-5.3 over the last 48 hours Renal consult requested--- Dr. Valenzuela machine feeder floorperson today IV fluids increased to 100 mL/h 03/31/2021 On 100% FiO2 04/01/2021 On 90% FiO2 35 L high flow oxygen And respiratory distress Pulmonary consult requested Objective - Constitutional Vitals: Vital Signs - 12hr 04/01/21 04/01/21 04/01/21 01:00 02:00 02:10 Temperature Pulse Rate 72 74 Pulse Rate [ From Monitor] Respiratory 11 L 12 Rate Respiratory Rate [ Generalized] Respiratory Rate [Right Knee] Blood Pressure 125/71 121/70 O2 Sat by Pulse 95 96 94 Oximetry 04/01/21 04/01/21 04/01/21 03:00 03:34 04:00 Temperature 98.8 F Pulse Rate 71 78 Pulse Rate [ 79 From Monitor] Respiratory 11 L 11 L Rate Respiratory Rate [ Generalized] Respiratory Rate [Right Knee] Blood Pressure 125/68 130/71 O2 Sat by Pulse 96 95 Oximetry 04/01/21 04/01/21 04/01/21 05:00 05:02 05:06 Temperature Pulse Rate 85 86 Pulse Rate [ From Monitor] Respiratory 13 15 Rate Respiratory Rate [ Generalized] Respiratory Rate [Right Knee] Blood Pressure 137/78 137/78 O2 Sat by Pulse 97 Oximetry 04/01/21 04/01/21 04/01/21 06:00 06:06 07:00 Temperature Pulse Rate 87 78 Pulse Rate [ From Monitor] Respiratory 15 10 L 13 Rate Respiratory Rate [ Generalized] Respiratory Rate [Right Knee] Blood Pressure 137/78 100/59 O2 Sat by Pulse 98 94 Oximetry 04/01/21 04/01/21 04/01/21 07:58 08:00 09:00 Temperature Pulse Rate 77 73 Pulse Rate [ 79 From Monitor] Respiratory 11 L 10 L Rate Respiratory Rate [ Generalized] Respiratory Rate [Right Knee] Blood Pressure 77/35 128/73 O2 Sat by Pulse 92 95 93 Oximetry 04/01/21 04/01/21 04/01/21 10:00 11:00 12:00 Temperature Pulse Rate 82 83 82 Pulse Rate [ 79 From Monitor] Respiratory 11 L 12 8 L Rate Respiratory 16 Rate [ Generalized] Respiratory 16 Rate [Right Knee] Blood Pressure 110/75 128/76 128/76 O2 Sat by Pulse 95 95 94 Oximetry General appearance: Present: severe distress, well-nourished - EENT Eyes: PERRL, EOM intact ENT: hearing intact, clear oral mucosa Ears: bilateral: normal - Neck Neck: supple, normal ROM - Respiratory Respiratory effort: normal Respiratory: bilateral: CTA - Breasts Breasts: normal - Cardiovascular Heart rate: 98 Rhythm: regular Heart Sounds: Present: S1 & S2. Absent: gallop, rub Extremities: pulses intact, No edema, normal color, Full ROM, abnormal (Right BKA) Extremity abnormal: other (Right BKA) - Gastrointestinal General gastrointestinal: Present: soft, non-tender, non-distended, normal bowel sounds - Genitourinary Female genitourinary: normal - Integumentary Integumentary: clear, warm, dry - Musculoskeletal Musculoskeletal: 1, strength equal bilaterally - Neurologic Neurologic: moves all extremities - Psychiatric Psychiatric: memory intact, appropriate mood/affect, intact judgment & insight - Labs CBC & Chem 7: 03/31/21 02:38 04/01/21 04:50 Labs: Abnormal lab results 03/31/21 03/31/21 03/31/21 Range/Units 07:52 11:31 14:10 Sodium (137-145) mmol/L Chloride 107.9 H (98-107) mmol/L Carbon Dioxide 19 L (22-30) mmol/L BUN 76 H (7-17) mg/dL Creatinine 6.6 H (0.6-1.2) mg/dL Glucose 235 H (65-100) mg/dL POC Glucose 209 H 214 H (70-105) mg/dL Calcium 7.6 L (8.4-10.2) mg/dL AST 84 H (5-40) units/L Alkaline Phosphatase 138 H (35-129) units/L Total Creatine Kinase (30-135) units/L Albumin 2.3 L (3.9-5) g/dL 03/31/21 03/31/21 03/31/21 Range/Units 14:10 15:25 16:50 Sodium (137-145) mmol/L Chloride (98-107) mmol/L Carbon Dioxide (22-30) mmol/L BUN (7-17) mg/dL Creatinine (0.6-1.2) mg/dL Glucose (65-100) mg/dL POC Glucose 197 H 201 H (70-105) mg/dL Calcium (8.4-10.2) mg/dL AST (5-40) units/L Alkaline Phosphatase (35-129) units/L Total Creatine Kinase 3042 H (30-135) units/L Albumin (3.9-5) g/dL 03/31/21 03/31/21 04/01/21 Range/Units 21:12 23:10 04:50 Sodium 146 H (137-145) mmol/L Chloride 108.3 H (98-107) mmol/L Carbon Dioxide (22-30) mmol/L BUN 83 H (7-17) mg/dL Creatinine 7.1 H (0.6-1.2) mg/dL Glucose (65-100) mg/dL POC Glucose 125 H (70-105) mg/dL Calcium 8.0 L (8.4-10.2) mg/dL AST 70 H (5-40) units/L Alkaline Phosphatase 134 H (35-129) units/L Total Creatine Kinase 1972 H (30-135) units/L Albumin 2.3 L (3.9-5) g/dL
--- NOTE | 2021-04-01 16:07 | Progress Note ---
Assessment and Plan Impression: * QUENTIN--likely atn due to COVID and hypoperfusion with sepsis/hemodynamic fluctuation * Hyperkalemia * Metabolic aciosis * Covid PNA * Sepsis * UTI * Acute Hypoxic Resp Failure * Type 2 DM * PVD s/p BKA Recs: * creatinine worsened, remdesivir held * Plan for HD following access placement - orders placed * follow up renal us and post void residual, not yet done * Recheck UA * Avoid hemodynamic fluctuations * May need renal biopsy once clinically stable * Hold IVF * strict i/os, avoid nephrotoxins * daily lytes * continue steroids * iv abx per ID * Monitor inflammatory markers every 2 to 3 days * probably not a candidate for tocilizumab due to her gangrenous R foot requiring BKA per ID We will continue to follow along and make recommendation from renal standpoint. Plan was discussed with primary team and patient in detail Critical care time 35 minutes. Subjective Date of service: 04/01/21 Principal diagnosis: Right foot gangrene, s/p right BKA, Covid positive Interval history: Sitting up on bed, on high flow 90% Objective - Exam Narrative Exam: General: No acute distress, on high flow Neck: Supple, no JVD Chest: Disposable stethoscope unavailable at bedside Heart: Disposable stethoscope unavailable at bedside Abdomen: Soft, nontender, no renal bruit Extremity: No peripheral cyanosis, edema Neurological: Alert, awake, no asterixis Dermatology: No skin rash Psych: No agitation Musculoskeletal: No joint effusion - Vital Signs Vital signs: Vital Signs - 12hr 04/01/21 04/01/21 04/01/21 05:00 05:02 05:06 Pulse Rate 85 86 Pulse Rate [ From Monitor] Respiratory 13 15 Rate Respiratory Rate [ Generalized] Respiratory Rate [Right Knee] Blood Pressure 137/78 137/78 O2 Sat by Pulse 97 Oximetry 04/01/21 04/01/21 04/01/21 06:00 06:06 07:00 Pulse Rate 87 78 Pulse Rate [ From Monitor] Respiratory 15 10 L 13 Rate Respiratory Rate [ Generalized] Respiratory Rate [Right Knee] Blood Pressure 137/78 100/59 O2 Sat by Pulse 98 94 Oximetry 04/01/21 04/01/21 04/01/21 07:58 08:00 09:00 Pulse Rate 77 73 Pulse Rate [ 79 From Monitor] Respiratory 11 L 10 L Rate Respiratory Rate [ Generalized] Respiratory Rate [Right Knee] Blood Pressure 77/35 128/73 O2 Sat by Pulse 92 95 93 Oximetry 04/01/21 04/01/21 04/01/21 10:00 11:00 12:00 Pulse Rate 82 83 82 Pulse Rate [ 79 From Monitor] Respiratory 11 L 12 8 L Rate Respiratory 16 Rate [ Generalized] Respiratory 16 Rate [Right Knee] Blood Pressure 110/75 128/76 128/76 O2 Sat by Pulse 95 95 94 Oximetry 04/01/21 04/01/21 04/01/21 13:00 14:00 15:00 Pulse Rate 87 89 87 Pulse Rate [ From Monitor] Respiratory 11 L 12 13 Rate Respiratory Rate [ Generalized] Respiratory Rate [Right Knee] Blood Pressure 140/81 150/91 150/91 O2 Sat by Pulse 93 93 93 Oximetry - Lab 03/31/21 02:38 04/01/21 04:50 Most recent lab results ABG pH 7.357 (7.320-7.450) 03/30/21 00:17 ABG O2 Saturation 92.5 (0-100) 03/30/21 00:17 Calcium 8.0 mg/dL (8.4-10.2) L 04/01/21 04:50 Urine Creatinine 175.6 mg/dL (0.1-20.0) H 03/30/21 Unknown Urine Sodium 72 mmol/L 03/30/21 Unknown Medications & Allergies - Medications Allergies/Adverse Reactions: Allergies bismuth subsalicylate [From Pepto-Bismol] Allergy (Verified 02/20/21 15:36) Nausea Penicillins Allergy (Verified 02/20/21 15:36) Nausea tramadol Allergy (Verified 09/27/20 14:56) Unknown Home Medications: Home Medications Medication Instructions Recorded Confirmed Last Taken Type Exenatide Microspheres [Bydureon 2 mg SQ 1XW 11/15/20 03/26/21 Unknown History Pen] AtorvaSTATin [Lipitor] 80 mg PO QHS #30 tablet 11/19/20 03/26/21 Unknown Rx DULoxetine [Cymbalta] 60 mg PO BID #60 cap 11/19/20 03/26/21 Unknown Rx tiZANidine [Zanaflex 4mg TAB] 4 mg PO QID PRN #10 11/19/20 03/26/21 Unknown Rx verapamiL [Calan] 80 mg PO Q8HR #90 tablet 11/19/20 03/26/21 Unknown Rx Clopidogrel [Plavix] 75 mg PO QDAY #90 tablet 11/26/20 03/26/21 Unknown Rx Gabapentin [Neurontin] 600 mg PO TID #90 cap 02/01/21 03/26/21 Unknown Rx Aspirin EC [Halfprin EC] 81 mg PO QDAY #30 tablet 02/28/21 03/26/21 Unknown Rx Insulin NPH/Regular [NovoLIN 70/30] 22 unit SUB-Q BIDDIAB 30 Days 02/28/21 03/26/21 Unknown Rx Lispro Insulin [HumaLOG] 0 unit SUB-Q ACHS 30 Days #1 units 02/28/21 03/26/21 Unknown Rx Pantoprazole [Protonix TAB] 40 mg PO QDAC #30 tablet 02/28/21 03/26/21 Unknown Rx oxyCODONE /ACETAMINOPHEN [Percocet 2 tab PO Q4H PRN #20 tablet 02/28/21 03/26/21 Unknown Rx 5/325 mg] Active Medications: Generic Name Dose Route Start Last Admin Trade Name Freq PRN Reason Stop Dose Admin Acetaminophen 650 mg 03/24/21 23:35 03/29/21 22:50 Acetaminophen 325 Mg Tab PO 650 mg Q4H PRN Administration Pain MILD(1-3)/Fever >100.5/SMITH Acetaminophen 650 mg 03/30/21 01:58 Acetaminophen 650 Mg Rect Supp RI Q4H PRN Pain, Mild (1-3) Aspirin 81 mg 03/25/21 10:00 04/01/21 10:04 Aspirin Ec 81 Mg Tab PO 81 mg QDAY ESTER Administration Atorvastatin Calcium 80 mg 03/25/21 22:00 03/31/21 21:36 Atorvastatin 40 Mg Tab PO 80 mg QHS ESTER Administration Dexamethasone 6 mg 03/29/21 12:00 04/01/21 10:04 Dexamethasone 4 Mg/Ml Vial IV 04/07/21 10:01 6 mg DAILY ESTER Administration Duloxetine HCl 60 mg 03/25/21 10:00 04/01/21 10:04 Duloxetine 30 Mg Cap PO 60 mg BID ESTER Administration Gabapentin 100 mg 03/30/21 14:00 04/01/21 15:23 Gabapentin 100 Mg Cap PO 100 mg Q8HR ESTER Administration Heparin Sodium (Porcine) 5,000 unit 03/27/21 18:07 04/01/21 15:24 Heparin 5,000 Unit/1 Ml Vial SUB-Q 5,000 unit Q8HR ESTER Administration Hydromorphone HCl 1 mg 03/28/21 17:57 03/28/21 23:50 Hydromorphone 1 Mg/1 Ml Inj IV 1 mg Q4H PRN Administration Pain , Severe (7-10) Levofloxacin/Dextrose 500 mg in 100 mls @ 100 mls/hr 03/31/21 12:00 03/31/21 13:39 Levaquin 500mg/100ml IV 100 mls/hr Q48H ESTER Administration Protocol Sodium Bicarbonate 75 meq/ 1,075 mls @ 100 mls/hr 03/31/21 23:00 04/01/21 01:21 Sodium Chloride IV 100 mls/hr DIRECT ESTER Administration Sodium Chloride 100 mls @ 999 mls/hr 04/01/21 11:51 Nacl 0.9% IV KARTHIK PRN Hypotension Insulin Human Isoph/Insulin Regular 27 unit 03/30/21 12:00 04/01/21 10:03 Insulin Nph/Regular 70/30 Inj SUB-Q 27 unit BIDDIAB ESTER Administration Insulin Human Lispro 0 unit 03/25/21 07:30 04/01/21 13:36 Insulin Lispro 100 Unit/Ml SUB-Q Not Given ACHS [facility] Protocol Labetalol HCl 5 mg 03/25/21 20:09 Labetalol 20 Mg/4 Ml Inj IV Q10MIN PRN Hypertension Ondansetron HCl 4 mg 03/24/21 23:35 03/26/21 00:37 Ondansetron 4 Mg/2 Ml Inj IV 4 mg Q8H PRN Administration Nausea And Vomiting Oxycodone/Acetaminophen 2 tab 03/24/21 23:33 04/01/21 05:06 Oxycodone /Acetaminophen 5-325mg Tab PO 2 tab Q4H PRN Administration Pain, Moderate (4-6) Pantoprazole Sodium 40 mg 03/25/21 07:30 04/01/21 10:03 Pantoprazole 40 Mg Tab PO 40 mg QDAC ESTER Administration Sodium Chloride 10 ml 03/24/21 23:45 04/01/21 10:04 Sodium Chloride 0.9% 10 Ml Flush Syringe IV 10 ml BID ESTER Administration Sodium Chloride 10 ml 03/24/21 23:35 Sodium Chloride 0.9% 10 Ml Flush Syringe IV PRN PRN LINE FLUSH Tizanidine HCl 4 mg 03/24/21 23:33 03/31/21 21:35 Tizanidine Tab 4 Mg Tab PO 4 mg QID PRN Administration muscle relaxer Verapamil HCl 80 mg 03/24/21 23:45 04/01/21 15:23 Verapamil 80 Mg Tab PO 80 mg Q8HR ESTER Administration
[2021-04-01 16:45] LABS: Bacteria,Urine 2+ /HPF (Negative); Bilirubin,Urine NEG (Negative); Blood,Urine LG (Negative); Color,Urine Yellow (Yellow); Mucus,Urine 1+ /HPF; Urobilinogen,Urine < 2.0 mg/dL (<2.0)
--- NOTE | 2021-04-01 18:18 | Ultrasound Report ---
ULTRASOUND RENAL INDICATION / CLINICAL INFORMATION: renal failure. COMPARISON: CT from 09/27/2020 FINDINGS: Right kidney measures up to 12.8 cm, and the left kidney measures up to 11.2 cm. Bilateral renal cyst s are present. Largest in the right kidney measures up to 3 cm, and the largest in the left kidney me asures up to 3.3 cm. No solid renal mass. No evidence of hydronephrosis following drainage of bladder . Bladder is markedly distended, though is decompressed status post Sanders catheter insertion. IMPRESSION: Markedly distended bladder, which was decompressed by Sanders catheter. No acute sonographic abnormality of the kidneys. No evidence of hydronephrosis following drainage of bladder. Signer Name: Drew Sanchez MD Signed: 04/01/2021 6:13 PM Workstation Name: [id number]
--- NOTE | 2021-04-01 20:00 | Event Note ---
Date: 04/01/21 [address] back in to place vascath at request of Nephrology. Called patient's Daughter Mia Toribio [phone]. She states that she cannot give consent for line placement as she had not spoken to a [employer] solution architect about her mothers kidney issues. Per patient she spoke to nursing but no physician. She had questions regarding the renal that I was not able to answer. She is requesting to speak to the renal physician who saw her mother today. Called twice but no answer. Line will not be placed tonight. Daughter aware of this. The daughter above states that she should be the point person, not her sister Bailey or her sister Олег.
[2021-04-01 22:06] LABS: Hepatitis B Surface Antigen Non-Reactive (Negative)
[2021-04-01 22:07] LABS: Hepatitis C Virus Antibody Non-Reactive (NonReactive)
[2021-04-02] MEDS: HYDROmorphone 1 MG/1 ML INJ IV PRN ×2 (06:04→11:50)
[2021-04-02] MEDS: INSULIN LISPRO 100 UNIT/ML SUB-Q SCH ×4 (07:45→21:15)
[2021-04-02] MEDS: INSULIN NPH/REGULAR 70/30 INJ SUB-Q SCH ×2 (07:45→16:40)
[2021-04-02] MEDS: PANTOPRAZOLE 40 MG TAB PO SCH (07:45)
[2021-04-02] MEDS: DULoxetine 30 MG CAP PO SCH ×2 (09:00→21:14)
[2021-04-02] MEDS: ASPIRIN EC 81 MG TAB PO SCH (09:00)
[2021-04-02] MEDS: dexAMETHasone 4 MG/ML VIAL IV SCH (09:00)
--- NOTE | 2021-04-02 10:45 | Progress Note ---
Assessment and Plan Cultures: SARS CoV2 PCR: Positive 03/24/2021 blood culture: No growth 03/24/2021 right fourth toe wound culture: Pseudomonas, Enterococcus faecalis A/P: 50-year-old female with diabetes, hypertension, known to me from her recent hospitalization for right foot necrotic wound and cellulitis for which she was set up with IV antibiotics for 6 weeks ending 04/06/2021 was admitted to the hospital on 03/24/2021 with significant worsening and gangrene: #COVID-19: severe. As per hospital criteria, not a candidate for tocilizumab due to her gangrenous R foot requiring BKA #Acute hypoxic respiratory failure: on HFNC. #QUENTIN: creatinine elevated. CK also elevated. Nephrology following, planning HD. #Sepsis, gangrenous right foot: Status post right BKA. Wound culture with Pseudomonas. #Diabetes mellitus #Peripheral vascular disease: underwent BKA. Recs: -creatinine remains elevated, continue to hold remdesivir -continue steroids, Decadron D5 of 10 -continue levofloxacin renally dosed, D3 -Monitor inflammatory markers every 2 to 3 days -prophylactic anticoag per protocol, based on d-dimer Edison Limon MD, FACP [facility] O: [phone] F: [phone] Subjective Date of service: 04/02/21 Principal diagnosis: Right foot gangrene, s/p right BKA, Covid positive Interval history: Afebrile, remains on oxygen. Nephrology planning HD. Objective - Exam Narrative Exam: Physical Exam: (deferred to minimize risk of transmission) reviewed in chart - Constitutional Vitals: Vital Signs Temp Pulse Resp BP Pulse Ox 98.4 F 73 15 166/94 97 04/02/21 08:00 04/02/21 10:00 04/02/21 10:00 04/02/21 10:00 04/02/21 10:00 Temperature -Last 24 Hours Temperature 98.4 F Temperature 100.4 F Temperature 100.4 F Temperature 99.6 F - Labs CBC & Chem 7: 03/31/21 02:38 04/01/21 04:50 Labs: Abnormal lab results 04/01/21 04/01/21 04/01/21 Range/Units 16:00 16:58 21:00 POC Glucose 130 H (70-105) mg/dL Total Creatine Kinase 1023 H (30-135) units/L Urine WBC (Auto) 75.0 H (0.0-6.0) /HPF 04/01/21 04/02/21 Range/Units 21:55 08:05 POC Glucose 177 H 194 H (70-105) mg/dL Total Creatine Kinase (30-135) units/L Urine WBC (Auto) (0.0-6.0) /HPF
[2021-04-02 11:19] LABS: Hematocrit 25.6 % (30.3-42.9); Hemoglobin 8.6 gm/dl (10.1-14.3); Mean Corpuscular HGB Conc 34 % (30-34); Mean Corpuscular Volume 88 fl (79-97); Platelet Count 512 K/mm3 (140-440); Red Blood Count 2.92 M/mm3 (3.65-5.03); Red Cell Distribution Width 13.9 % (13.2-15.2)
[2021-04-02 12:01] LABS: Band Neutrophils # (Manual) 0.4 K/mm3; Total Cells Counted 100
[2021-04-02 12:02] LABS: Large Platelets Few; Platelet Estimate Consistent w Auto; RBC Morphology Normal
[2021-04-02 12:03] LABS: Albumin 2.5 g/dL (3.9-5); Calcium 8.2 mg/dL (8.4-10.2)
--- NOTE | 2021-04-02 12:24 | Progress Note ---
Assessment and Plan Impression: * QUENTIN--likely atn due to COVID and hypoperfusion with sepsis/hemodynamic fluctuation * Hyperkalemia * Hypernatremia * Metabolic aciosis * Covid PNA * Sepsis * UTI * Acute Hypoxic Resp Failure * Type 2 DM * PVD s/p BKA * Bilateral renal cysts Recs: * Plan for HD following access placement - orders placed. Plan was discussed with the patient yesterday as well as today for initiation of dialysis. Patient takes time to respond but responds appropriately and communicates effectively in full sentences during conversation. Patient in agreement for HD today as well. Permission also obtained from patient to talk to daughter as critical care team is requesting communication with daughter.Spoke with Mia Toribio as well about plan who is in agreement. * remdesivir held * Avoid hemodynamic fluctuations * May need renal biopsy once clinically stable * Hold IVF * strict i/os, avoid nephrotoxins * daily lytes * continue steroids * iv abx per ID * Monitor inflammatory markers every 2 to 3 days * probably not a candidate for tocilizumab due to her gangrenous R foot requiring BKA per ID * Will need outpatient f/u with urology for cysts Subjective Date of service: 04/02/21 Principal diagnosis: Right foot gangrene, s/p right BKA, Covid positive Interval history: Patient transferred to the ICU Low urine output Objective - Exam Narrative Exam: General: No acute distress, on high flow Neck: Supple, no JVD Chest: Disposable stethoscope unavailable at bedside Heart: Disposable stethoscope unavailable at bedside Abdomen: Soft, nontender, no renal bruit Extremity: No peripheral cyanosis, edema Neurological: Alert, awake, no asterixis Dermatology: No skin rash Psych: No agitation Musculoskeletal: No joint effusion - Vital Signs Vital signs: Vital Signs - 12hr 04/02/21 04/02/21 04/02/21 01:00 02:00 03:00 Temperature Pulse Rate 85 87 88 Pulse Rate [ From Monitor] Respiratory 13 13 13 Rate Blood Pressure 146/84 155/86 158/87 O2 Sat by Pulse 93 92 94 Oximetry 04/02/21 04/02/21 04/02/21 03:37 04:00 05:00 Temperature 100.4 F H Pulse Rate 89 87 Pulse Rate [ From Monitor] Respiratory 13 15 Rate Blood Pressure 160/88 160/91 O2 Sat by Pulse 93 94 Oximetry 04/02/21 04/02/21 04/02/21 06:00 07:00 08:00 Temperature 98.4 F Pulse Rate 95 H 86 86 Pulse Rate [ 85 From Monitor] Respiratory 17 12 13 Rate Blood Pressure 170/100 149/83 156/85 O2 Sat by Pulse 100 96 96 Oximetry 04/02/21 04/02/21 04/02/21 09:00 10:00 11:00 Temperature Pulse Rate 88 89 92 H Pulse Rate [ From Monitor] Respiratory 11 L 15 13 Rate Blood Pressure 157/88 166/94 168/93 O2 Sat by Pulse 96 97 95 Oximetry - Lab 04/02/21 11:08 04/02/21 11:08 Most recent lab results ABG pH 7.357 (7.320-7.450) 03/30/21 00:17 ABG O2 Saturation 92.5 (0-100) 03/30/21 00:17 Calcium 8.2 mg/dL (8.4-10.2) L 04/02/21 11:08 Urine Creatinine 175.6 mg/dL (0.1-20.0) H 03/30/21 Unknown Urine Sodium 72 mmol/L 03/30/21 Unknown Medications & Allergies - Medications Allergies/Adverse Reactions: Allergies bismuth subsalicylate [From Pepto-Bismol] Allergy (Verified 02/20/21 15:36) Nausea Penicillins Allergy (Verified 02/20/21 15:36) Nausea tramadol Allergy (Verified 09/27/20 14:56) Unknown Home Medications: Home Medications Medication Instructions Recorded Confirmed Last Taken Type Exenatide Microspheres [Bydureon 2 mg SQ 1XW 11/15/20 03/26/21 Unknown History Pen] AtorvaSTATin [Lipitor] 80 mg PO QHS #30 tablet 11/19/20 03/26/21 Unknown Rx DULoxetine [Cymbalta] 60 mg PO BID #60 cap 11/19/20 03/26/21 Unknown Rx tiZANidine [Zanaflex 4mg TAB] 4 mg PO QID PRN #10 11/19/20 03/26/21 Unknown Rx verapamiL [Calan] 80 mg PO Q8HR #90 tablet 11/19/20 03/26/21 Unknown Rx Clopidogrel [Plavix] 75 mg PO QDAY #90 tablet 11/26/20 03/26/21 Unknown Rx Gabapentin [Neurontin] 600 mg PO TID #90 cap 02/01/21 03/26/21 Unknown Rx Aspirin EC [Halfprin EC] 81 mg PO QDAY #30 tablet 02/28/21 03/26/21 Unknown Rx Insulin NPH/Regular [NovoLIN 70/30] 22 unit SUB-Q BIDDIAB 30 Days 02/28/21 03/26/21 Unknown Rx Lispro Insulin [HumaLOG] 0 unit SUB-Q ACHS 30 Days #1 units 02/28/21 03/26/21 Unknown Rx Pantoprazole [Protonix TAB] 40 mg PO QDAC #30 tablet 02/28/21 03/26/21 Unknown Rx oxyCODONE /ACETAMINOPHEN [Percocet 2 tab PO Q4H PRN #20 tablet 02/28/21 03/26/21 Unknown Rx 5/325 mg] Active Medications: Generic Name Dose Route Start Last Admin Trade Name Freq PRN Reason Stop Dose Admin Acetaminophen 650 mg 03/24/21 23:35 03/29/21 22:50 Acetaminophen 325 Mg Tab PO 650 mg Q4H PRN Administration Pain MILD(1-3)/Fever >100.5/SMITH Acetaminophen 650 mg 03/30/21 01:58 Acetaminophen 650 Mg Rect Supp TN Q4H PRN Pain, Mild (1-3) Aspirin 81 mg 03/25/21 10:00 04/02/21 09:00 Aspirin Ec 81 Mg Tab PO 81 mg QDAY ESTER Administration Atorvastatin Calcium 80 mg 03/25/21 22:00 04/01/21 21:04 Atorvastatin 40 Mg Tab PO 80 mg QHS ESTER Administration Dexamethasone 6 mg 03/29/21 12:00 04/02/21 09:00 Dexamethasone 4 Mg/Ml Vial IV 04/07/21 10:01 6 mg DAILY ESTER Administration Duloxetine HCl 60 mg 03/25/21 10:00 04/02/21 09:00 Duloxetine 30 Mg Cap PO 60 mg BID ESTER Administration Gabapentin 100 mg 03/30/21 14:00 04/01/21 21:04 Gabapentin 100 Mg Cap PO 100 mg Q8HR ESTER Administration Heparin Sodium (Porcine) 5,000 unit 03/27/21 18:07 04/01/21 21:05 Heparin 5,000 Unit/1 Ml Vial SUB-Q 5,000 unit Q8HR ESTER Administration Hydromorphone HCl 1 mg 03/28/21 17:57 04/02/21 11:50 Hydromorphone 1 Mg/1 Ml Inj IV 1 mg Q4H PRN Administration Pain , Severe (7-10) Levofloxacin/Dextrose 500 mg in 100 mls @ 100 mls/hr 03/31/21 12:00 04/02/21 11:51 Levaquin 500mg/100ml IV 100 mls/hr Q48H ESTER Administration Protocol Sodium Chloride 100 mls @ 999 mls/hr 04/01/21 11:51 Nacl 0.9% IV KARTHIK PRN Hypotension Insulin Human Isoph/Insulin Regular 27 unit 03/30/21 12:00 04/02/21 07:45 Insulin Nph/Regular 70/30 Inj SUB-Q 27 unit BIDDIAB ESTER Administration Insulin Human Lispro 0 unit 03/25/21 07:30 04/02/21 11:51 Insulin Lispro 100 Unit/Ml SUB-Q 3 unit ACHS ESTER Administration Protocol Labetalol HCl 5 mg 03/25/21 20:09 Labetalol 20 Mg/4 Ml Inj IV Q10MIN PRN Hypertension Ondansetron HCl 4 mg 03/24/21 23:35 03/26/21 00:37 Ondansetron 4 Mg/2 Ml Inj IV 4 mg Q8H PRN Administration Nausea And Vomiting Oxycodone/Acetaminophen 2 tab 03/24/21 23:33 04/01/21 16:56 Oxycodone /Acetaminophen 5-325mg Tab PO 2 tab Q4H PRN Administration Pain, Moderate (4-6) Pantoprazole Sodium 40 mg 03/25/21 07:30 04/02/21 07:45 Pantoprazole 40 Mg Tab PO 40 mg QDAC ESTER Administration Sodium Chloride 10 ml 03/24/21 23:45 04/02/21 09:01 Sodium Chloride 0.9% 10 Ml Flush Syringe IV Not Given BID ESTER Sodium Chloride 10 ml 03/24/21 23:35 Sodium Chloride 0.9% 10 Ml Flush Syringe IV PRN PRN LINE FLUSH Tizanidine HCl 4 mg 03/24/21 23:33 03/31/21 21:35 Tizanidine Tab 4 Mg Tab PO 4 mg QID PRN Administration muscle relaxer Verapamil HCl 80 mg 03/24/21 23:45 06/01/21 21:04 Verapamil 80 Mg Tab PO 80 mg Q8HR ESTER Administration
[2021-04-02] MEDS: HEPARIN 5,000 UNIT/1 ML VIAL SUB-Q SCH ×3 (13:11→21:15)
[2021-04-02] MEDS: VERAPAMIL 80 MG TAB PO SCH ×3 (13:11→21:14)
[2021-04-02] MEDS: GABAPENTIN 100 MG CAP PO SCH ×3 (13:12→21:14)
[2021-04-02] MEDS ORDERED: HYDROmorphone 1 MG/1 ML INJ IV ONE (13:46)
--- NOTE | 2021-04-02 14:37 | Procedure Note ---
Date of procedure: 04/02/21 Pre-op diagnosis: Renal Failure Post-op diagnosis: same Procedure: Right Femoral Vascath placement Daughter has agreed to consent after speaking renal. Right Femoral artery accessed and cannulated using ultrasound guidance and seldinger technique. Catheter sutured in and HD alerted that she is ready for dialysis. No immediate complications noted. Anesthesia: local Surgeon: LUL MANSFIELD Collections Clerk: BEKAH BURROUGHS Estimated blood loss: none Pathology: none Condition: stable Disposition: other ([facility])
[2021-04-03 05:46] LABS: C-Reactive Protein 8.9 mg/dL (0.00-1.30)
[2021-04-03] MEDS: HEPARIN 5,000 UNIT/1 ML VIAL SUB-Q SCH ×3 (05:55→22:51)
[2021-04-03] MEDS: GABAPENTIN 100 MG CAP PO SCH ×3 (06:08→22:51)
[2021-04-03] MEDS: VERAPAMIL 80 MG TAB PO SCH ×3 (06:08→22:51)
[2021-04-03] MEDS: oxyCODONE /ACETAMINOPHEN 5-325MG TAB PO PRN ×2 (07:51→15:36)
[2021-04-03] MEDS: INSULIN NPH/REGULAR 70/30 INJ SUB-Q SCH ×2 (10:12→18:15)
[2021-04-03] MEDS: DULoxetine 30 MG CAP PO SCH ×2 (10:12→22:51)
[2021-04-03] MEDS: ASPIRIN EC 81 MG TAB PO SCH (10:12)
[2021-04-03] MEDS: INSULIN LISPRO 100 UNIT/ML SUB-Q SCH ×4 (10:13→22:52)
[2021-04-03] MEDS: dexAMETHasone 4 MG/ML VIAL IV SCH (10:13)
[2021-04-03] MEDS: PANTOPRAZOLE 40 MG TAB PO SCH (10:13)
--- NOTE | 2021-04-03 11:46 | Progress Note ---
Assessment and Plan Cultures: SARS CoV2 PCR: Positive 03/24/2021 blood culture: No growth 03/24/2021 right fourth toe wound culture: Pseudomonas, Enterococcus faecalis A/P: 50-year-old female with diabetes, hypertension, known to me from her recent hospitalization for right foot necrotic wound and cellulitis for which she was set up with IV antibiotics for 6 weeks ending 04/06/2021 was admitted to the hospital on 03/24/2021 with significant worsening and gangrene: #COVID-19: severe. As per hospital criteria, not a candidate for tocilizumab due to her gangrenous R foot requiring BKA. Got few days of remdesivir. On steroids. #Acute hypoxic respiratory failure: on HFNC. #QUENTIN: creatinine elevated. CK was also elevated. Nephrology following, now on HD. #Sepsis, gangrenous right foot: Status post right BKA. Wound culture with Pseudomonas. #Diabetes mellitus #Peripheral vascular disease: underwent BKA. Recs: -continue steroids, Decadron D6 of 10 -continue levofloxacin renally dosed, D4 of 5 -Monitor inflammatory markers every 2 to 3 days -prophylactic anticoag per protocol, based on d-dimer Edison Limon MD, FACP [facility] O: [phone] F: [phone] Subjective Date of service: 04/03/21 Principal diagnosis: Right foot gangrene, s/p right BKA, Covid positive Interval history: Low grade fever. Getting dialysis at bedside. Remains on HFNC. Objective - Exam Narrative Exam: Physical Exam: (deferred to minimize risk of transmission) reviewed in chart - Constitutional Vitals: Vital Signs Temp Pulse Resp BP Pulse Ox 99.3 F 92 H 20 172/93 98 04/03/21 08:00 04/03/21 06:00 04/03/21 06:00 04/03/21 06:00 04/03/21 06:00 Temperature -Last 24 Hours Temperature 99.3 F Temperature 99.2 F Temperature 99.2 F Temperature 98.4 F Temperature 98.1 F - Labs CBC & Chem 7: 04/02/21 11:08 04/02/21 11:08 Labs: Abnormal lab results 04/02/21 04/02/21 04/02/21 Range/Units 11:08 11:08 11:43 Seg Neuts % (Manual) 91.0 H (40.0-70.0) % Lymphocytes % (Manual) 2.0 L (13.4-35.0) % Seg Neutrophils # Man 16.5 H (1.8-7.7) K/mm3 Lymphocytes # (Manual) 0.4 L (1.2-5.4) K/mm3 D-Dimer (0-234) ng/mlDDU Sodium 151 H (137-145) mmol/L Chloride 113.0 H (98-107) mmol/L BUN 88 H (7-17) mg/dL Creatinine 5.9 H (0.6-1.2) mg/dL Glucose 202 H (65-100) mg/dL POC Glucose 191 H (70-105) mg/dL Calcium 8.2 L (8.4-10.2) mg/dL Ferritin (10.0-200.0) ng/mL Alkaline Phosphatase 146 H (35-129) units/L Lactate Dehydrogenase (91-180) units/L C-Reactive Protein (0.00-1.30) mg/dL Albumin 2.5 L (3.9-5) g/dL 04/02/21 04/02/21 04/03/21 Range/Units 16:17 20:56 04:27 Seg Neuts % (Manual) (40.0-70.0) % Lymphocytes % (Manual) (13.4-35.0) % Seg Neutrophils # Man (1.8-7.7) K/mm3 Lymphocytes # (Manual) (1.2-5.4) K/mm3 D-Dimer 2842.63 H (0-234) ng/mlDDU Sodium (137-145) mmol/L Chloride (98-107) mmol/L BUN (7-17) mg/dL Creatinine (0.6-1.2) mg/dL Glucose (65-100) mg/dL POC Glucose 181 H 170 H (70-105) mg/dL Calcium (8.4-10.2) mg/dL Ferritin (10.0-200.0) ng/mL Alkaline Phosphatase (35-129) units/L Lactate Dehydrogenase (91-180) units/L C-Reactive Protein (0.00-1.30) mg/dL Albumin (3.9-5) g/dL 04/03/21 04/03/21 04/03/21 Range/Units 04:27 04:27 07:51 Seg Neuts % (Manual) (40.0-70.0) % Lymphocytes % (Manual) (13.4-35.0) % Seg Neutrophils # Man (1.8-7.7) K/mm3 Lymphocytes # (Manual) (1.2-5.4) K/mm3 D-Dimer (0-234) ng/mlDDU Sodium (137-145) mmol/L Chloride (98-107) mmol/L BUN (7-17) mg/dL Creatinine (0.6-1.2) mg/dL Glucose (65-100) mg/dL POC Glucose 136 H (70-105) mg/dL Calcium (8.4-10.2) mg/dL Ferritin 912.6 H (10.0-200.0) ng/mL Alkaline Phosphatase (35-129) units/L Lactate Dehydrogenase 537 H (91-180) units/L C-Reactive Protein 8.90 H (0.00-1.30) mg/dL Albumin (3.9-5) g/dL 04/03/21 Range/Units 11:24 Seg Neuts % (Manual) (40.0-70.0) % Lymphocytes % (Manual) (13.4-35.0) % Seg Neutrophils # Man (1.8-7.7) K/mm3 Lymphocytes # (Manual) (1.2-5.4) K/mm3 D-Dimer (0-234) ng/mlDDU Sodium (137-145) mmol/L Chloride (98-107) mmol/L BUN (7-17) mg/dL Creatinine (0.6-1.2) mg/dL Glucose (65-100) mg/dL POC Glucose 144 H (70-105) mg/dL Calcium (8.4-10.2) mg/dL Ferritin (10.0-200.0) ng/mL Alkaline Phosphatase (35-129) units/L Lactate Dehydrogenase (91-180) units/L C-Reactive Protein (0.00-1.30) mg/dL Albumin (3.9-5) g/dL
--- NOTE | 2021-04-03 13:22 | Progress Note ---
Assessment and Plan The high probability OF a clinically significant sudden or life-threatening deterioration of the cardiorespiratory system and endocrine system required my full and direct attention, intervention and postoperative management. The aggregate critical care time was 40 minutes. The time is in addition to time spent performing reported procedures but includes the followin: Data review and interpretation 2: Patient assessment and monitoring of vital signs 3: Documentation 4:: Medication orders and management - Patient Problems (1) Acute respiratory failure with hypoxia Current Visit: Yes Status: Acute Plan to address problem: Patient on high flow oxygen nearly FiO2 100% yesterday FiO2 dropped to 90% On 35 hours liters high flow nasal cannula oxygen Pulmonary consult requested (2) Pneumonia due to COVID-19 virus Current Visit: Yes Status: Acute Plan to address problem: IV Decadron for now No remdesivir because of the high creatinine (3) Acute hyperkalemia Current Visit: Yes Status: Acute Plan to address problem: Hyperkalemia resolved (4) QUENTIN (acute kidney injury) Current Visit: No Status: Acute Plan to address problem: IV fluids initiated Vasomotor nephropathy Creatinine worsened to 5.3 from 1.4 on 03/30/2021 Nephrology consult requested Creatinine has worsened to 6.6 on-03/31/2021 Creatinine went up to 7.1 yesterday Patient getting Vas-Cath today for possible dialysis (5) Gangrene of right foot Current Visit: Yes Status: Acute Plan to address problem: S/p Rt BKA (6) Peripheral vascular disease Current Visit: Yes Status: Chronic Plan to address problem: S/p right BKA (7) Hypertension Current Visit: Yes Status: Chronic Qualifiers: Hypertension type: essential hypertension Qualified Code(s): I10 - E ssential (primary) hypertension Plan to address problem: Continue antihypertensives Blood pressure well controlled (8) IDDM (insulin dependent diabetes mellitus) Current Visit: Yes Status: Chronic Plan to address problem: Tight control of blood glucose levels Check hemoglobin A1c Increase insulin by 5 units (9) DVT prophylaxis Current Visit: Yes Status: Acute Plan to address problem: On heparin and GI prophylaxis Subjective Date of service: 04/02/21 Principal diagnosis: Right foot gangrene, s/p right BKA, Covid positive Interval history: 50-year-old obese female patient was admitted on 02/21/21 with diabetic ketoacidosis and cellulitis of the foot secondary to spider bite was discharged home on IV ceftriaxone 2 g daily for 6 weeks ending 04/06/2021 brought back to the emergency room via EMS from a local wound clinic after patient found to be febrile and right foot turned into black color. s/p BKA and now tested positive for COVID. Daily clinical course: 03/25/21: Patient is scheduled for right foot amputation today, continue empiric antibiotics, n.p.o. for now. Follow clinically. 03/26/21: s/p right BKA yesterday. cont to adjust pain meds. wait for PT eval. K 5.7 - ordered kayexalate. 03/27/21: Continue to complains of severe pain on amputated leg. Pending PT eval and will follow surgery recommendation. Potassium level appears to be normal today. 03/28/21: PT recommended ARMANDO, tested positive for covid. Per ID: she is currently on oxygen but not sure merely for comfort or due to hypoxia. Discussed with RN who will try to wean the oxygen off. If she remains hypoxic, start remdesivir and steroids. 03/29/21 S/p BKA of the right lower extremity Covid positive Patient on 35 L nasal cannula oxygen IV antibiotics as per ID recommendations 03/30/21 On 35 L high flow oxygen Slightly lethargic Creatinine has worsened from 1.4-5.3 over the last 48 hours Renal consult requested--- Dr. Valenzuela precision aircraft systems assembler today IV fluids increased to 100 mL/h 03/31/2021 On 100% FiO2 04/01/2021 On 90% FiO2 35 L high flow oxygen And respiratory distress Pulmonary consult requested 04/02/2021 Patient still on 35 L nasal cannula high flow oxygen Patient getting Vas-Cath today Objective - Constitutional Vitals: Vital Signs - 12hr 04/03/21 04/03/21 04/03/21 02:00 03:00 04:00 Temperature Pulse Rate 84 95 H 89 Pulse Rate [ 73 From Monitor] Respiratory 14 21 17 Rate Blood Pressure 160/91 138/88 156/89 O2 Sat by Pulse 100 95 99 Oximetry O2 Sat by Pulse Oximetry [ Anterior Bilateral Throughout] 04/03/21 04/03/21 04/03/21 05:00 05:24 06:00 Temperature Pulse Rate 90 92 H Pulse Rate [ From Monitor] Respiratory 18 20 Rate Blood Pressure 150/89 172/93 O2 Sat by Pulse 96 98 98 Oximetry O2 Sat by Pulse Oximetry [ Anterior Bilateral Throughout] 04/03/21 04/03/21 04/03/21 07:00 08:00 09:00 Temperature 99.3 F Pulse Rate 93 H 96 H 86 Pulse Rate [ From Monitor] Respiratory 16 16 14 Rate Blood Pressure 162/102 170/92 136/73 O2 Sat by Pulse 100 100 100 Oximetry O2 Sat by Pulse Oximetry [ Anterior Bilateral Throughout] 04/03/21 04/03/21 04/03/21 10:00 11:00 11:15 Temperature 99.1 F 99.1 F Pulse Rate 87 89 89 Pulse Rate [ From Monitor] Respiratory 13 15 15 Rate Blood Pressure 136/88 145/85 142/88 O2 Sat by Pulse 100 100 Oximetry O2 Sat by Pulse 97 Oximetry [ Anterior Bilateral Throughout] 04/03/21 04/03/21 04/03/21 11:30 11:45 12:00 Temperature Pulse Rate 89 90 100 H Pulse Rate [ From Monitor] Respiratory 21 Rate Blood Pressure 142/88 138/84 110/66 O2 Sat by Pulse 93 Oximetry O2 Sat by Pulse Oximetry [ Anterior Bilateral Throughout] 04/03/21 04/03/21 04/03/21 12:15 12:30 12:45 Temperature Pulse Rate 99 H 98 H 103 H Pulse Rate [ From Monitor] Respiratory Rate Blood Pressure 112/64 121/74 101/60 O2 Sat by Pulse Oximetry O2 Sat by Pulse Oximetry [ Anterior Bilateral Throughout] 04/03/21 13:00 Temperature Pulse Rate 100 H Pulse Rate [ From Monitor] Respiratory Rate Blood Pressure 106/48 O2 Sat by Pulse Oximetry O2 Sat by Pulse Oximetry [ Anterior Bilateral Throughout] General appearance: Present: severe distress, well-nourished - EENT Eyes: PERRL, EOM intact ENT: hearing intact, clear oral mucosa Ears: bilateral: normal - Neck Neck: supple, normal ROM - Respiratory Respiratory effort: normal Respiratory: bilateral: CTA - Breasts Breasts: normal - Cardiovascular Heart rate: 78 Rhythm: regular Heart Sounds: Present: S1 & S2. Absent: gallop, rub Extremities: pulses intact, No edema, normal color, Full ROM - Gastrointestinal General gastrointestinal: Present: soft, non-tender, non-distended, normal bowel sounds - Genitourinary Female genitourinary: normal - Integumentary Integumentary: clear, warm, dry - Musculoskeletal Musculoskeletal: 1, strength equal bilaterally - Neurologic Neurologic: moves all extremities - Psychiatric Psychiatric: memory intact, appropriate mood/affect, intact judgment & insight - Labs CBC & Chem 7: 04/02/21 11:08 04/02/21 11:08 Labs: Abnormal lab results 04/02/21 04/02/21 04/02/21 Range/Units 11:43 16:17 20:56 D-Dimer (0-234) ng/mlDDU POC Glucose 191 H 181 H 170 H (70-105) mg/dL Ferritin (10.0-200.0) ng/mL Lactate Dehydrogenase (91-180) units/L C-Reactive Protein (0.00-1.30) mg/dL 04/03/21 04/03/21 04/03/21 Range/Units 04:27 04:27 04:27 D-Dimer 2842.63 H (0-234) ng/mlDDU POC Glucose (70-105) mg/dL Ferritin 912.6 H (10.0-200.0) ng/mL Lactate Dehydrogenase 537 H (91-180) units/L C-Reactive Protein 8.90 H (0.00-1.30) mg/dL 04/03/21 04/03/21 Range/Units 07:51 11:24 D-Dimer (0-234) ng/mlDDU POC Glucose 136 H 144 H (70-105) mg/dL Ferritin (10.0-200.0) ng/mL Lactate Dehydrogenase (91-180) units/L C-Reactive Protein (0.00-1.30) mg/dL
--- NOTE | 2021-04-03 15:10 | Event Note ---
Date: 04/03/21 Spoke with both the daughters and updated the patient's condition Called Олег telephone #[phone] And also called Ms. Bellamy at [phone]. Both the daughters were requesting transfer to [facility]. Initiated transfer to [facility] at 15 0 0 hours
--- NOTE | 2021-04-03 15:19 | Progress Note ---
Assessment and Plan The high probability OF a clinically significant sudden or life-threatening deterioration of the cardiorespiratory system and endocrine system required my full and direct attention, intervention and postoperative management. The aggregate critical care time was 40 minutes. The time is in addition to time spent performing reported procedures but includes the followin: Data review and interpretation 2: Patient assessment and monitoring of vital signs 3: Documentation 4:: Medication orders and management - Patient Problems (1) Acute respiratory failure with hypoxia Current Visit: Yes Status: Acute Plan to address problem: Patient on high flow oxygen nearly FiO2 100% FiO2 dropped to 90% On 35 hours liters high flow nasal cannula oxygen Pulmonary consult appreciated (2) Pneumonia due to COVID-19 virus Current Visit: Yes Status: Acute Plan to address problem: IV Decadron for now No remdesivir because of the high creatinine (3) Acute hyperkalemia Current Visit: Yes Status: Acute Plan to address problem: Hyperkalemia resolved (4) QUENTIN (acute kidney injury) Current Visit: No Status: Acute Plan to address problem: IV fluids initiated ATN On hemodialysis-second session today (5) Gangrene of right foot Current Visit: Yes Status: Acute Plan to address problem: S/p Rt BKA Stump care (6) Peripheral vascular disease Current Visit: Yes Status: Chronic Plan to address problem: S/p right BKA (7) Hypertension Current Visit: Yes Status: Chronic Qualifiers: Hypertension type: essential hypertension Qualified Code(s): I10 - Essential (primary) hypertension Plan to address problem: Continue antihypertensives Blood pressure well controlled Patient had couple of hypotensive episodes 3 to 4 days ago (8) IDDM (insulin dependent diabetes mellitus) Current Visit: Yes Status: Chronic Plan to address problem: Tight control of blood glucose levels Check hemoglobin A1c Increase insulin by 5 units Tighter control of blood glucose levels (9) DVT prophylaxis Current Visit: Yes Status: Acute Plan to address problem: On heparin and GI prophylaxis (10) Discharge planning issues Current Visit: Yes Status: Acute Plan to address problem: Initiated transfer to [place] because of the daughter's request Daughter's phone numbers Ms. Denney with telephone number [phone] Also updated daughter Mia. Talked with transfer center at 15 0 0 hours Subjective Date of service: 04/03/21 Principal diagnosis: Right foot gangrene, s/p right BKA, Covid positive Interval history: 50-year-old obese female patient was admitted on 02/21/21 with diabetic ketoacidosis and cellulitis of the foot secondary to spider bite was discharged home on IV ceftriaxone 2 g daily for 6 weeks ending 04/06/2021 brought back to the emergency room via EMS from a local wound clinic after patient found to be febrile and right foot turned into black color. s/p BKA and now tested positive for COVID. Daily clinical course: 03/25/21: Patient is scheduled for right foot amputation today, continue empiric antibiotics, n.p.o. for now. Follow clinically. 03/26/21: s/p right BKA yesterday. cont to adjust pain meds. wait for PT eval. K 5.7 - ordered kayexalate. 03/27/21: Continue to complains of severe pain on amputated leg. Pending PT eval and will follow surgery recommendation. Potassium level appears to be normal today. 03/28/21: PT recommended ARMANDO, tested positive for covid. Per ID: she is currently on oxygen but not sure merely for comfort or due to hypoxia. Discussed with RN who will try to wean the oxygen off. If she remains hypoxic, start remdesivir and steroids. 03/29/21 S/p BKA of the right lower extremity Covid positive Patient on 35 L nasal cannula oxygen IV antibiotics as per ID recommendations 03/30/21 On 35 L high flow oxygen Slightly lethargic Creatinine has worsened from 1.4-5.3 over the last 48 hours Renal consult requested--- Dr. Valenzuela portrait consultant today IV fluids increased to 100 mL/h 03/31/2021 On 100% FiO2 04/01/2021 On 90% FiO2 35 L high flow oxygen And respiratory distress Pulmonary consult requested 04/02/2021 Patient still on 35 L nasal cannula high flow oxygen Patient getting Vas-Cath today 04/03/2021 Education Department Registrar, ID, renal consults appreciated Patient is in the process of getting hemodialysis Patient on 35 L nasal cannula oxygen 100% FiO2 Alert but confused As per the daughters request initiated patient transfer to [place] Objective - Constitutional Vitals: Vital Signs - 12hr 04/03/21 04/03/21 04/03/21 04:00 05:00 05:24 Temperature Pulse Rate 89 90 Pulse Rate [ 73 From Monitor] Respiratory 17 18 Rate Respiratory Rate [Right Knee] Blood Pressure 156/89 150/89 O2 Sat by Pulse 99 96 98 Oximetry O2 Sat by Pulse Oximetry [ Anterior Bilateral Throughout] 04/03/21 04/03/21 04/03/21 06:00 07:00 07:05 Temperature Pulse Rate 92 H 93 H Pulse Rate [ From Monitor] Respiratory 20 16 Rate Respiratory 16 Rate [Right Knee] Blood Pressure 172/93 162/102 O2 Sat by Pulse 98 100 Oximetry O2 Sat by Pulse Oximetry [ Anterior Bilateral Throughout] 04/03/21 04/03/21 04/03/21 08:00 09:00 10:00 Temperature 99.3 F Pulse Rate 96 H 86 87 Pulse Rate [ 73 From Monitor] Respiratory 12 14 13 Rate Respiratory Rate [Right Knee] Blood Pressure 170/92 136/73 136/88 O2 Sat by Pulse 98 100 100 Oximetry O2 Sat by Pulse Oximetry [ Anterior Bilateral Throughout] 04/03/21 04/03/21 04/03/21 11:00 11:15 11:30 Temperature 99.1 F 99.1 F Pulse Rate 89 89 89 Pulse Rate [ From Monitor] Respiratory 15 15 Rate Respiratory Rate [Right Knee] Blood Pressure 145/85 142/88 142/88 O2 Sat by Pulse 100 Oximetry O2 Sat by Pulse 97 Oximetry [ Anterior Bilateral Throughout] 04/03/21 04/03/21 04/03/21 11:45 12:00 12:15 Temperature Pulse Rate 90 86 99 H Pulse Rate [ 73 From Monitor] Respiratory 12 Rate Respiratory Rate [Right Knee] Blood Pressure 138/84 110/66 112/64 O2 Sat by Pulse 98 Oximetry O2 Sat by Pulse Oximetry [ Anterior Bilateral Throughout] 04/03/21 04/03/21 04/03/21 12:30 12:45 13:00 Temperature Pulse Rate 98 H 103 H 96 H Pulse Rate [ From Monitor] Respiratory 22 Rate Respiratory Rate [Right Knee] Blood Pressure 121/74 101/60 106/48 O2 Sat by Pulse 95 Oximetry O2 Sat by Pulse Oximetry [ Anterior Bilateral Throughout] 04/03/21 04/03/21 04/03/21 13:30 13:46 14:00 Temperature 99.1 F Pulse Rate 92 H 91 H 100 H Pulse Rate [ From Monitor] Respiratory 23 20 Rate Respiratory Rate [Right Knee] Blood Pressure 113/51 113/51 94/71 O2 Sat by Pulse 93 Oximetry O2 Sat by Pulse 97 Oximetry [ Anterior Bilateral Throughout] General appearance: Present: severe distress, well-nourished - EENT Eyes: PERRL, EOM intact ENT: hearing intact, clear oral mucosa Ears: bilateral: normal - Neck Neck: supple, normal ROM - Respiratory Respiratory effort: normal Respiratory: bilateral: CTA - Breasts Breasts: normal - Cardiovascular Heart rate: 78 Rhythm: regular Heart Sounds: Present: S1 & S2. Absent: gallop, rub Extremities: pulses intact, No edema, normal color, Full ROM, abnormal (Right BKA) Extremity abnormal: other (Right BKA) - Gastrointestinal General gastrointestinal: Present: soft, non-tender, non-distended, normal bowel sounds - Genitourinary Female genitourinary: normal - Integumentary Integumentary: clear, warm, dry - Musculoskeletal Musculoskeletal: 1, strength equal bilaterally - Neurologic Neurologic: moves all extremities - Psychiatric Psychiatric: memory intact, appropriate mood/affect, intact judgment & insight - Labs CBC & Chem 7: 04/02/21 11:08 04/02/21 11:08 Labs: Abnormal lab results 04/02/21 04/02/21 04/02/21 Range/Units 11:43 16:17 20:56 D-Dimer (0-234) ng/mlDDU POC Glucose 191 H 181 H 170 H (70-105) mg/dL Ferritin (10.0-200.0) ng/mL Lactate Dehydrogenase (91-180) units/L C-Reactive Protein (0.00-1.30) mg/dL 04/03/21 04/03/21 04/03/21 Range/Units 04:27 04:27 04:27 D-Dimer 2842.63 H (0-234) ng/mlDDU POC Glucose (70-105) mg/dL Ferritin 912.6 H (10.0-200.0) ng/mL Lactate Dehydrogenase 537 H (91-180) units/L C-Reactive Protein 8.90 H (0.00-1.30) mg/dL 04/03/21 04/03/21 Range/Units 07:51 11:24 D-Dimer (0-234) ng/mlDDU POC Glucose 136 H 144 H (70-105) mg/dL Ferritin (10.0-200.0) ng/mL Lactate Dehydrogenase (91-180) units/L C-Reactive Protein (0.00-1.30) mg/dL
--- NOTE | 2021-04-03 15:24 | Progress Note ---
Assessment and Plan Impression: * QUENTIN--likely atn due to COVID and hypoperfusion with sepsis/hemodynamic fluctuation * Mild rhabdomyolysis * Hyperkalemia * Hypernatremia * Metabolic aciosis * Covid PNA * Sepsis * UTI * Acute Hypoxic Resp Failure * Type 2 DM * PVD s/p BKA * Bilateral renal cysts Recs: * First session of HD 04/02, repeat today * Recheck CPK * remdesivir held * Avoid hemodynamic fluctuations * May need renal biopsy once clinically stable * strict i/os, avoid nephrotoxins * daily electrolytes * continue steroids * iv abx per ID * Monitor inflammatory markers every 2 to 3 days * Will need outpatient f/u with urology for cysts Subjective Date of service: 04/03/21 Principal diagnosis: Right foot gangrene, s/p right BKA, Covid positive Interval history: Seen during dialysis this morning. Somnolent today. Objective - Exam Narrative Exam: General: No acute distress, on high flow Neck: Supple, no JVD Chest: Disposable stethoscope unavailable at bedside Heart: Disposable stethoscope unavailable at bedside Abdomen: Soft, nontender, no renal bruit Extremity: No peripheral cyanosis, edema Neurological: Somnolent Dermatology: No skin rash Psych: Unable to assess Musculoskeletal: No joint effusion - Vital Signs Vital signs: Vital Signs - 12hr 04/03/21 04/03/21 04/03/21 04:00 05:00 05:24 Temperature Pulse Rate 89 90 Pulse Rate [ 73 From Monitor] Respiratory 17 18 Rate Respiratory Rate [Right Knee] Blood Pressure 156/89 150/89 O2 Sat by Pulse 99 96 98 Oximetry O2 Sat by Pulse Oximetry [ Anterior Bilateral Throughout] 04/03/21 04/03/21 04/03/21 06:00 07:00 07:05 Temperature Pulse Rate 92 H 93 H Pulse Rate [ From Monitor] Respiratory 20 16 Rate Respiratory 16 Rate [Right Knee] Blood Pressure 172/93 162/102 O2 Sat by Pulse 98 100 Oximetry O2 Sat by Pulse Oximetry [ Anterior Bilateral Throughout] 04/03/21 04/03/21 04/03/21 08:00 09:00 10:00 Temperature 99.3 F Pulse Rate 96 H 86 87 Pulse Rate [ 73 From Monitor] Respiratory 12 14 13 Rate Respiratory Rate [Right Knee] Blood Pressure 170/92 136/73 136/88 O2 Sat by Pulse 98 100 100 Oximetry O2 Sat by Pulse Oximetry [ Anterior Bilateral Throughout] 04/03/21 04/03/21 04/03/21 11:00 11:15 11:30 Temperature 99.1 F 99.1 F Pulse Rate 89 89 89 Pulse Rate [ From Monitor] Respiratory 15 15 Rate Respiratory Rate [Right Knee] Blood Pressure 145/85 142/88 142/88 O2 Sat by Pulse 100 Oximetry O2 Sat by Pulse 97 Oximetry [ Anterior Bilateral Throughout] 04/03/21 04/03/21 04/03/21 11:45 12:00 12:15 Temperature Pulse Rate 90 86 99 H Pulse Rate [ 73 From Monitor] Respiratory 12 Rate Respiratory Rate [Right Knee] Blood Pressure 138/84 110/66 112/64 O2 Sat by Pulse 98 Oximetry O2 Sat by Pulse Oximetry [ Anterior Bilateral Throughout] 04/03/21 04/03/21 04/03/21 12:30 12:45 13:00 Temperature Pulse Rate 98 H 103 H 96 H Pulse Rate [ From Monitor] Respiratory 22 Rate Respiratory Rate [Right Knee] Blood Pressure 121/74 101/60 106/48 O2 Sat by Pulse 95 Oximetry O2 Sat by Pulse Oximetry [ Anterior Bilateral Throughout] 04/03/21 04/03/21 04/03/21 13:30 13:46 14:00 Temperature 99.1 F Pulse Rate 92 H 91 H 100 H Pulse Rate [ From Monitor] Respiratory 23 20 Rate Respiratory Rate [Right Knee] Blood Pressure 113/51 113/51 94/71 O2 Sat by Pulse 93 Oximetry O2 Sat by Pulse 97 Oximetry [ Anterior Bilateral Throughout] 04/03/21 15:00 Temperature Pulse Rate 104 H Pulse Rate [ From Monitor] Respiratory 21 Rate Respiratory Rate [Right Knee] Blood Pressure 110/68 O2 Sat by Pulse 95 Oximetry O2 Sat by Pulse Oximetry [ Anterior Bilateral Throughout] - Lab 04/02/21 11:08 04/02/21 11:08 Most recent lab results ABG pH 7.357 (7.320-7.450) 03/30/21 00:17 ABG O2 Saturation 92.5 (0-100) 03/30/21 00:17 Calcium 8.2 mg/dL (8.4-10.2) L 04/02/21 11:08 Urine Creatinine 175.6 mg/dL (0.1-20.0) H 03/30/21 Unknown Urine Sodium 72 mmol/L 03/30/21 Unknown Medications & Allergies - Medications Allergies/Adverse Reactions: Allergies bismuth subsalicylate [From Pepto-Bismol] Allergy (Verified 02/20/21 15:36) Nausea Penicillins Allergy (Verified 02/20/21 15:36) Nausea tramadol Allergy (Verified 09/27/20 14:56) Unknown Home Medications: Home Medications Medication Instructions Recorded Confirmed Last Taken Type Exenatide Microspheres [Bydureon 2 mg SQ 1XW 11/15/20 03/26/21 Unknown History Pen] AtorvaSTATin [Lipitor] 80 mg PO QHS #30 tablet 11/19/20 03/26/21 Unknown Rx DULoxetine [Cymbalta] 60 mg PO BID #60 cap 11/19/20 03/26/21 Unknown Rx tiZANidine [Zanaflex 4mg TAB] 4 mg PO QID PRN #10 11/19/20 03/26/21 Unknown Rx verapamiL [Calan] 80 mg PO Q8HR #90 tablet 11/19/20 03/26/21 Unknown Rx Clopidogrel [Plavix] 75 mg PO QDAY #90 tablet 11/26/20 03/26/21 Unknown Rx Gabapentin [Neurontin] 600 mg PO TID #90 cap 02/01/21 03/26/21 Unknown Rx Aspirin EC [Halfprin EC] 81 mg PO QDAY #30 tablet 02/28/21 03/26/21 Unknown Rx Insulin NPH/Regular [NovoLIN 70/30] 22 unit SUB-Q BIDDIAB 30 Days 02/28/21 03/26/21 Unknown Rx Lispro Insulin [HumaLOG] 0 unit SUB-Q ACHS 30 Days #1 units 02/28/21 03/26/21 Unknown Rx Pantoprazole [Protonix TAB] 40 mg PO QDAC #30 tablet 02/28/21 03/26/21 Unknown Rx oxyCODONE /ACETAMINOPHEN [Percocet 2 tab PO Q4H PRN #20 tablet 02/28/21 03/26/21 Unknown Rx 5/325 mg] Active Medications: Generic Name Dose Route Start Last Admin Trade Name Freq PRN Reason Stop Dose Admin Acetaminophen 650 mg 03/24/21 23:35 03/29/21 22:50 Acetaminophen 325 Mg Tab PO 650 mg Q4H PRN Administration Pain MILD(1-3)/Fever >100.5/SMITH Acetaminophen 650 mg 03/30/21 01:58 Acetaminophen 650 Mg Rect Supp [place] Q4H PRN Pain, Mild (1-3) Aspirin 81 mg 03/25/21 10:00 04/03/21 10:12 Aspirin Ec 81 Mg Tab PO 81 mg QDAY ESTER Administration Atorvastatin Calcium 80 mg 03/25/21 22:00 04/02/21 21:13 Atorvastatin 40 Mg Tab PO 80 mg QHS ESTER Administration Dexamethasone 6 mg 03/29/21 12:00 04/03/21 10:13 Dexamethasone 4 Mg/Ml Vial IV 04/07/21 10:01 6 mg DAILY ESTER Administration Duloxetine HCl 60 mg 03/25/21 10:00 04/03/21 10:12 Duloxetine 30 Mg Cap PO 60 mg BID ESTER Administration Gabapentin 100 mg 03/30/21 14:00 04/03/21 06:08 Gabapentin 100 Mg Cap PO Not Given Q8HR ESTER Heparin Sodium (Porcine) 5,000 unit 03/27/21 18:07 04/03/21 05:55 Heparin 5,000 Unit/1 Ml Vial SUB-Q 5,000 unit Q8HR ESTER Administration Hydromorphone HCl 1 mg 03/28/21 17:57 04/02/21 11:50 Hydromorphone 1 Mg/1 Ml Inj IV 1 mg Q4H PRN Administration Pain , Severe (7-10) Levofloxacin/Dextrose 500 mg in 100 mls @ 100 mls/hr 03/31/21 12:00 04/02/21 11:51 Levaquin 500mg/100ml IV 100 mls/hr Q48H ESTER Administration Protocol Sodium Chloride 100 mls @ 999 mls/hr 04/01/21 11:51 Nacl 0.9% IV KARTHIK PRN Hypotension Insulin Human Isoph/Insulin Regular 27 unit 03/30/21 12:00 04/03/21 10:12 Insulin Nph/Regular 70/30 Inj SUB-Q 27 unit BIDDIAB ESTER Administration Insulin Human Lispro 0 unit 03/25/21 07:30 04/03/21 13:18 Insulin Lispro 100 Unit/Ml SUB-Q Not Given ACHS ESTER Protocol Labetalol HCl 5 mg 03/25/21 20:09 Labetalol 20 Mg/4 Ml Inj IV Q10MIN PRN Hypertension Ondansetron HCl 4 mg 03/24/21 23:35 03/26/21 00:37 Ondansetron 4 Mg/2 Ml Inj IV 4 mg Q8H PRN Administration Nausea And Vomiting Oxycodone/Acetaminophen 2 tab 03/24/21 23:33 04/03/21 07:51 Oxycodone /Acetaminophen 5-325mg Tab PO 2 tab Q4H PRN Administration Pain, Moderate (4-6) Pantoprazole Sodium 40 mg 03/25/21 07:30 04/03/21 10:13 Pantoprazole 40 Mg Tab PO 40 mg QDAC ESTER Administration Sodium Chloride 10 ml 03/24/21 23:45 04/03/21 10:14 Sodium Chloride 0.9% 10 Ml Flush Syringe IV 10 ml BID ESTER Administration Sodium Chloride 10 ml 03/24/21 23:35 Sodium Chloride 0.9% 10 Ml Flush Syringe IV PRN PRN LINE FLUSH Tizanidine HCl 4 mg 03/24/21 23:33 03/31/21 21:35 Tizanidine Tab 4 Mg Tab PO 4 mg QID PRN Administration muscle relaxer Verapamil HCl 80 mg 03/24/21 23:45 04/03/21 06:08 Verapamil 80 Mg Tab PO Not Given Q8HR ESTER
[2021-04-03 16:50] LABS: Calcium 8.4 mg/dL (8.4-10.2)
[2021-04-03] MEDS: tiZANidine TAB 4 MG TAB PO PRN (22:56)
[2021-04-04] MEDS: HYDROmorphone 1 MG/1 ML INJ IV PRN (03:32)
[2021-04-04 04:39] LABS: Hematocrit 26.1 % (30.3-42.9); Hemoglobin 8.5 gm/dl (10.1-14.3); Mean Corpuscular HGB Conc 33 % (30-34); Mean Corpuscular Volume 88 fl (79-97); Platelet Count 391 K/mm3 (140-440); Red Blood Count 2.95 M/mm3 (3.65-5.03); Red Cell Distribution Width 13.5 % (13.2-15.2)
[2021-04-04 06:15] LABS: Anisocytosis 1+; Band Neutrophils # (Manual) 0.4 K/mm3; Total Cells Counted 100
[2021-04-04 06:16] LABS: Platelet Clumps Rare; Platelet Estimate Consistent w Auto
[2021-04-04] MEDS: GABAPENTIN 100 MG CAP PO SCH ×3 (06:49→22:08)
[2021-04-04] MEDS: HEPARIN 5,000 UNIT/1 ML VIAL SUB-Q SCH ×3 (06:49→22:10)
[2021-04-04] MEDS: VERAPAMIL 80 MG TAB PO SCH ×3 (06:50→22:08)
--- NOTE | 2021-04-04 07:05 | Event Note ---
Date: 04/03/21 [facility] declined transfer saying that they were not accepting Covid positive patient
[2021-04-04] MEDS ORDERED: DEXTROSE 50% IN WATER (25GM) 50 ML SYRINGE IV SCH (07:30)
[2021-04-04] MEDS ORDERED: DEXTROSE 50% IN WATER (25GM) 50 ML SYRINGE IV ONE (07:42)
[2021-04-04] MEDS: INSULIN LISPRO 100 UNIT/ML SUB-Q SCH ×4 (08:04→22:11)
[2021-04-04] MEDS: INSULIN NPH/REGULAR 70/30 INJ SUB-Q SCH ×2 (08:04→17:21)
[2021-04-04] MEDS: PANTOPRAZOLE 40 MG TAB PO SCH (08:04)
[2021-04-04] MEDS: dexAMETHasone 4 MG/ML VIAL IV SCH (09:54)
[2021-04-04] MEDS: DULoxetine 30 MG CAP PO SCH ×2 (10:03→22:08)
[2021-04-04] MEDS: ASPIRIN EC 81 MG TAB PO SCH (10:03)
--- NOTE | 2021-04-04 12:06 | Progress Note ---
Assessment and Plan Cultures: SARS CoV2 PCR: Positive 03/24/2021 blood culture: No growth 03/24/2021 right fourth toe wound culture: Pseudomonas, Enterococcus faecalis A/P: 50-year-old female with diabetes, hypertension, known to me from her recent hospitalization for right foot necrotic wound and cellulitis for which she was set up with IV antibiotics for 6 weeks ending 04/06/2021 was admitted to the hospital on 03/24/2021 with significant worsening and gangrene: #COVID-19: severe. As per hospital criteria, not a candidate for tocilizumab due to her gangrenous R foot requiring BKA. Got few days of remdesivir. On steroids. #Acute hypoxic respiratory failure: on HFNC. #QUENTIN: creatinine elevated. CK was also elevated. Nephrology following, now on HD. #Sepsis, gangrenous right foot: Status post right BKA. Wound culture with Pseudomonas. #Diabetes mellitus #Peripheral vascular disease: underwent BKA. Recs: -continue steroids, Decadron D7 of 10 -continue levofloxacin renally dosed, D5 of 5 -if she spikes another fever >101.5F, get blood cultures and start IV Cefepime + Vancomycin renally dosed -Monitor inflammatory markers every 2 to 3 days -prophylactic anticoag per protocol, based on d-dimer Edison Limon MD, FACP [facility] ([facility]) O: [phone] F: [phone] Subjective Date of service: 04/04/21 Principal diagnosis: Right foot gangrene, s/p right BKA, Covid positive Interval history: Febrile x 1. Drowsy. Remains on HFNC. Got dialyzed yesterday. Objective - Exam Narrative Exam: Physical Exam: (deferred to minimize risk of transmission) reviewed in chart - Constitutional Vitals: Vital Signs Temp Pulse Resp BP Pulse Ox 99.6 F 104 H 14 102/60 93 04/04/21 11:30 04/04/21 07:00 04/04/21 07:00 04/04/21 07:00 04/04/21 07:38 Temperature -Last 24 Hours Temperature 99.6 F Temperature 101.8 F Temperature 97.8 F Temperature 98.8 F Temperature 98.3 F Temperature 98.8 F Temperature 99.1 F - Labs CBC & Chem 7: 04/04/21 03:35 04/03/21 15:40 Labs: Abnormal lab results 04/03/21 04/03/21 04/03/21 Range/Units 15:40 15:40 15:54 WBC (4.5-11.0) K/mm3 RBC (3.65-5.03) M/mm3 Hgb (10.1-14.3) gm/dl Hct (30.3-42.9) % Seg Neuts % (Manual) (40.0-70.0) % Lymphocytes % (Manual) (13.4-35.0) % Nucleated RBC % (0.0-0.9) % Seg Neutrophils # Man (1.8-7.7) K/mm3 Monocytes # (Manual) (0.0-0.8) K/mm3 BUN 44 H (7-17) mg/dL Creatinine 3.4 H (0.6-1.2) mg/dL Glucose 163 H (65-100) mg/dL POC Glucose 157 H (70-105) mg/dL Total Creatine Kinase 309 H (30-135) units/L 04/03/21 04/04/21 04/04/21 Range/Units 21:53 03:35 07:40 WBC 22.4 H (4.5-11.0) K/mm3 RBC 2.95 L (3.65-5.03) M/mm3 Hgb 8.5 L (10.1-14.3) gm/dl Hct 26.1 L (30.3-42.9) % Seg Neuts % (Manual) 81.0 H (40.0-70.0) % Lymphocytes % (Manual) 11.0 L (13.4-35.0) % Nucleated RBC % 1.0 H (0.0-0.9) % Seg Neutrophils # Man 18.1 H (1.8-7.7) K/mm3 Monocytes # (Manual) 1.1 H (0.0-0.8) K/mm3 BUN (7-17) mg/dL Creatinine (0.6-1.2) mg/dL Glucose (65-100) mg/dL POC Glucose 107 H 59 L (70-105) mg/dL Total Creatine Kinase (30-135) units/L 04/04/21 Range/Units 08:28 WBC (4.5-11.0) K/mm3 RBC (3.65-5.03) M/mm3 Hgb (10.1-14.3) gm/dl Hct (30.3-42.9) % Seg Neuts % (Manual) (40.0-70.0) % Lymphocytes % (Manual) (13.4-35.0) % Nucleated RBC % (0.0-0.9) % Seg Neutrophils # Man (1.8-7.7) K/mm3 Monocytes # (Manual) (0.0-0.8) K/mm3 BUN (7-17) mg/dL Creatinine (0.6-1.2) mg/dL Glucose (65-100) mg/dL POC Glucose 155 H (70-105) mg/dL Total Creatine Kinase (30-135) units/L
--- NOTE | 2021-04-04 12:16 | Progress Note ---
Assessment and Plan Impression: * QUENTIN--likely atn due to COVID and hypoperfusion with sepsis/hemodynamic fluctuation * Mild rhabdomyolysis * Hyperkalemia * Hypernatremia * Metabolic aciosis * Covid PNA * Sepsis * UTI * Acute Hypoxic Resp Failure * Type 2 DM * PVD s/p BKA * Bilateral renal cysts Recs: * Patient had dialysis on 04/02 and 04/03/2021. * Schedule patient for dialysis again for tomorrow. No urgent indication for dialysis today. * CPK level is 309 * remdesivir held * Avoid hemodynamic fluctuations * May need renal biopsy once clinically stable * strict i/os, avoid nephrotoxins * daily electrolytes * continue steroids * iv abx per ID * Monitor inflammatory markers every 2 to 3 days * Will need outpatient f/u with urology for cysts Subjective Date of service: 04/04/21 Principal diagnosis: Right foot gangrene, s/p right BKA, Covid positive Interval history: Patient remains on high flow oxygen. Appears comfortable. Uneventful hemodialysis yesterday. Objective - Vital Signs Vital signs: Vital Signs - 12hr 04/04/21 04/04/21 04/04/21 01:00 02:00 03:00 Temperature Pulse Rate 83 88 94 H Pulse Rate [ From Monitor] Respiratory 17 20 17 Rate Blood Pressure 91/59 93/56 104/61 O2 Sat by Pulse 93 93 92 Oximetry 04/04/21 04/04/21 04/04/21 03:21 03:32 03:55 Temperature 97.8 F Pulse Rate 94 H Pulse Rate [ From Monitor] Respiratory 21 Rate Blood Pressure O2 Sat by Pulse Oximetry 04/04/21 04/04/21 04/04/21 04:00 05:00 06:00 Temperature Pulse Rate 93 H 92 H 96 H Pulse Rate [ 93 H From Monitor] Respiratory 13 15 18 Rate Blood Pressure 101/63 96/60 108/59 O2 Sat by Pulse 96 98 95 Oximetry 04/04/21 04/04/21 04/04/21 06:50 07:00 07:38 Temperature 101.8 F H Pulse Rate 96 H 104 H Pulse Rate [ From Monitor] Respiratory 14 Rate Blood Pressure 106/64 102/60 O2 Sat by Pulse 97 93 Oximetry 04/04/21 11:30 Temperature 99.6 F Pulse Rate Pulse Rate [ From Monitor] Respiratory Rate Blood Pressure O2 Sat by Pulse Oximetry - General Appearance General appearance: well-developed, well-nourished, appears stated age, obese EENT: PERRL, mucous membranes moist Neck: no JVD, no thyromegaly Respiratory: Present: Clear to Ascultation Cardiology: regular, normal heart rate Gastrointestinal: normal, normoactive bowel sounds Integumentary: other (Right femoral Vas-Cath in place) - Lab 04/04/21 03:35 04/03/21 15:40 Most recent lab results ABG pH 7.357 (7.320-7.450) 03/30/21 00:17 ABG O2 Saturation 92.5 (0-100) 03/30/21 00:17 Calcium 8.4 mg/dL (8.4-10.2) 04/03/21 15:40 Urine Creatinine 175.6 mg/dL (0.1-20.0) H 03/30/21 Unknown Urine Sodium 72 mmol/L 03/30/21 Unknown Medications & Allergies - Medications Allergies/Adverse Reactions: Allergies bismuth subsalicylate [From Pepto-Bismol] Allergy (Verified 02/20/21 15:36) Nausea Penicillins Allergy (Verified 02/20/21 15:36) Nausea tramadol Allergy (Verified 09/27/20 14:56) Unknown Home Medications: Home Medications Medication Instructions Recorded Confirmed Last Taken Type Exenatide Microspheres [Bydureon 2 mg SQ 1XW 11/15/20 03/26/21 Unknown History Pen] AtorvaSTATin [Lipitor] 80 mg PO QHS #30 tablet 11/19/20 03/26/21 Unknown Rx DULoxetine [Cymbalta] 60 mg PO BID #60 cap 11/19/20 03/26/21 Unknown Rx tiZANidine [Zanaflex 4mg TAB] 4 mg PO QID PRN #10 11/19/20 03/26/21 Unknown Rx verapamiL [Calan] 80 mg PO Q8HR #90 tablet 11/19/20 03/26/21 Unknown Rx Clopidogrel [Plavix] 75 mg PO QDAY #90 tablet 11/26/20 03/26/21 Unknown Rx Gabapentin [Neurontin] 600 mg PO TID #90 cap 02/01/21 03/26/21 Unknown Rx Aspirin EC [Halfprin EC] 81 mg PO QDAY #30 tablet 02/28/21 03/26/21 Unknown Rx Insulin NPH/Regular [NovoLIN 70/30] 22 unit SUB-Q BIDDIAB 30 Days 02/28/21 03/26/21 Unknown Rx Lispro Insulin [HumaLOG] 0 unit SUB-Q ACHS 30 Days #1 units 02/28/21 03/26/21 Unknown Rx Pantoprazole [Protonix TAB] 40 mg PO QDAC #30 tablet 02/28/21 03/26/21 Unknown Rx oxyCODONE /ACETAMINOPHEN [Percocet 2 tab PO Q4H PRN #20 tablet 02/28/21 03/26/21 Unknown Rx 5/325 mg] Active Medications: Generic Name Dose Route Start Last Admin Trade Name Freq PRN Reason Stop Dose Admin Acetaminophen 650 mg 03/24/21 23:35 03/29/21 22:50 Acetaminophen 325 Mg Tab PO 650 mg Q4H PRN Administration Pain MILD(1-3)/Fever >100.5/SMITH Acetaminophen 650 mg 03/30/21 01:58 Acetaminophen 650 Mg Rect Supp NE Q4H PRN Pain, Mild (1-3) Aspirin 81 mg 03/25/21 10:00 04/04/21 10:03 Aspirin Ec 81 Mg Tab PO Not Given QDAY ESTER Atorvastatin Calcium 80 mg 03/25/21 22:00 04/03/21 22:51 Atorvastatin 40 Mg Tab PO 80 mg QHS ESTER Administration Dexamethasone 6 mg 03/29/21 12:00 04/04/21 09:54 Dexamethasone 4 Mg/Ml Vial IV 04/07/21 10:01 6 mg DAILY ESTER Administration Duloxetine HCl 60 mg 03/25/21 10:00 04/04/21 10:03 Duloxetine 30 Mg Cap PO Not Given BID ESTER Gabapentin 100 mg 03/30/21 14:00 04/04/21 06:49 Gabapentin 100 Mg Cap PO Not Given Q8HR ESTER Heparin Sodium (Porcine) 5,000 unit 03/27/21 18:07 04/04/21 06:49 Heparin 5,000 Unit/1 Ml Vial SUB-Q 5,000 unit Q8HR ESTER Administration Hydromorphone HCl 1 mg 03/28/21 17:57 04/04/21 03:32 Hydromorphone 1 Mg/1 Ml Inj IV 1 mg Q4H PRN Administration Pain , Severe (7-10) Levofloxacin/Dextrose 500 mg in 100 mls @ 100 mls/hr 03/31/21 12:00 04/04/21 11:39 Levaquin 500mg/100ml IV 04/05/21 12:59 100 mls/hr Q48H ESTER Administration Protocol Sodium Chloride 100 mls @ 999 mls/hr 04/01/21 11:51 Nacl 0.9% IV KARTHIK PRN Hypotension Insulin Human Isoph/Insulin Regular 27 unit 03/30/21 12:00 04/04/21 08:04 Insulin Nph/Regular 70/30 Inj SUB-Q Not Given BIDDIAB [facility] Insulin Human Lispro 0 unit 03/25/21 07:30 04/04/21 11:38 Insulin Lispro 100 Unit/Ml SUB-Q Not Given ACHS [facility] Protocol Labetalol HCl 5 mg 03/25/21 20:09 Labetalol 20 Mg/4 Ml Inj IV Q10MIN PRN Hypertension Ondansetron HCl 4 mg 03/24/21 23:35 03/26/21 00:37 Ondansetron 4 Mg/2 Ml Inj IV 4 mg Q8H PRN Administration Nausea And Vomiting Oxycodone/Acetaminophen 2 tab 03/24/21 23:33 04/03/21 15:36 Oxycodone /Acetaminophen 5-325mg Tab PO 2 tab Q4H PRN Administration Pain, Moderate (4-6) Pantoprazole Sodium 40 mg 03/25/21 07:30 04/04/21 08:04 Pantoprazole 40 Mg Tab PO Not Given QDAC ESTER Sodium Chloride 10 ml 03/24/21 23:45 04/04/21 09:54 Sodium Chloride 0.9% 10 Ml Flush Syringe IV 10 ml BID ESTER Administration Sodium Chloride 10 ml 03/24/21 23:35 Sodium Chloride 0.9% 10 Ml Flush Syringe IV PRN PRN LINE FLUSH Tizanidine HCl 4 mg 03/24/21 23:33 04/03/21 22:56 Tizanidine Tab 4 Mg Tab PO 4 mg QID PRN Administration muscle relaxer Verapamil HCl 80 mg 03/24/21 23:45 04/04/21 06:50 Verapamil 80 Mg Tab PO Not Given Q8HR [facility]
--- NOTE | 2021-04-04 22:07 | Progress Note ---
Assessment and Plan The high probability OF a clinically significant sudden or life-threatening deterioration of the cardiorespiratory system and endocrine system required my full and direct attention, intervention and postoperative management. The aggregate critical care time was 40 minutes. The time is in addition to time spent performing reported procedures but includes the followin: Data review and interpretation 2: Patient assessment and monitoring of vital signs 3: Documentation 4:: Medication orders and management - Patient Problems (1) Acute respiratory failure with hypoxia Current Visit: Yes Status: Acute Plan to address problem: Patient on high flow oxygen nearly FiO2 100% FiO2 dropped to 90% On 35 hours liters high flow nasal cannula oxygen Pulmonary consult appreciated (2) Pneumonia due to COVID-19 virus Current Visit: Yes Status: Acute Plan to address problem: IV Decadron for now No remdesivir because of the high creatinine (3) Acute hyperkalemia Current Visit: Yes Status: Acute Plan to address problem: Hyperkalemia resolved (4) QUENTIN (acute kidney injury) Current Visit: No Status: Acute Plan to address problem: IV fluids initiated ATN On hemodialysis- (5) Gangrene of right foot Current Visit: Yes Status: Acute Plan to address problem: S/p Rt BKA Stump care (6) Peripheral vascular disease Current Visit: Yes Status: Chronic Plan to address problem: S/p right BKA (7) Hypertension Current Visit: Yes Status: Chronic Qualifiers: Hypertension type: essential hypertension Qualified Code(s): I10 - Essential (primary) hypertension Plan to address problem: Continue antihypertensives Blood pressure well controlled Patient had couple of hypotensive episodes 3 to 4 days ago (8) IDDM (insulin dependent diabetes mellitus) Current Visit: Yes Status: Chronic Plan to address problem: Tight control of blood glucose levels Check hemoglobin A1c Increase insulin by 5 units Tighter control of blood glucose levels (9) DVT prophylaxis Current Visit: Yes Status: Acute Plan to address problem: On heparin and GI prophylaxis (10) Discharge planning issues Current Visit: Yes Status: Acute Plan to address problem: Initiated transfer to [facility] because of the daughter's request Daughter's phone numbers Ms. Denney with telephone number [phone] Also updated daughter Mia. Talked with transfer center at 15 0 0 hours [facility] refused transfer because of the patient being Covid positive Subjective Date of service: 04/04/21 Principal diagnosis: Right foot gangrene, s/p right BKA, Covid positive Interval history: 50-year-old obese female patient was admitted on 02/21/21 with diabetic ketoacidosis and cellulitis of the foot secondary to spider bite was discharged home on IV ceftriaxone 2 g daily for 6 weeks ending 04/06/2021 brought back to the emergency room via EMS from a local wound clinic after patient found to be febrile and right foot turned into black color. s/p BKA and now tested positive for COVID. Daily clinical course: 03/25/21: Patient is scheduled for right foot amputation today, continue empiric antibiotics, n.p.o. for now. Follow clinically. 03/26/21: s/p right BKA yesterday. cont to adjust pain meds. wait for PT eval. K 5.7 - ordered kayexalate. 03/27/21: Continue to complains of severe pain on amputated leg. Pending PT eval and will follow surgery recommendation. Potassium level appears to be normal today. 03/28/21: PT recommended ARMANDO, tested positive for covid. Per ID: she is currently on oxygen but not sure merely for comfort or due to hypoxia. Discussed with RN who will try to wean the oxygen off. If she remains hypoxic, start remdesivir a nd steroids. 03/29/21 S/p BKA of the right lower extremity Covid positive Patient on 35 L nasal cannula oxygen IV antibiotics as per ID recommendations 03/30/21 On 35 L high flow oxygen Slightly lethargic Creatinine has worsened from 1.4-5.3 over the last 48 hours Renal consult requested--- Dr. Valenzuela household refrigeration mechanic today IV fluids increased to 100 mL/h 03/31/2021 On 100% FiO2 04/01/2021 On 90% FiO2 35 L high flow oxygen And respiratory distress Pulmonary consult requested 04/02/2021 Patient still on 35 L nasal cannula high flow oxygen Patient getting Vas-Cath today 04/03/2021 Manager Of Engineering, ID, renal consults appreciated Patient is in the process of getting hemodialysis Patient on 35 L nasal cannula oxygen 100% FiO2 Alert but confused As per the daughters request initiated patient transfer to [facility] 04/04/21 Resp sistress On high flow oxygen 100% FiO2 Altered mental state Objective - Constitutional Vitals: Vital Signs - 12hr 04/04/21 04/04/21 04/04/21 11:00 11:30 12:00 Temperature 99.6 F Pulse Rate 113 H 114 H Pulse Rate [ 114 H From Monitor] Respiratory 20 26 H Rate Blood Pressure 102/68 108/77 O2 Sat by Pulse 83 L 97 Oximetry 04/04/21 04/04/21 04/04/21 13:00 13:49 14:00 Temperature Pulse Rate 104 H 107 H Pulse Rate [ From Monitor] Respiratory 20 18 Rate Blood Pressure 121/74 127/77 O2 Sat by Pulse 91 93 94 Oximetry 04/04/21 04/04/21 04/04/21 15:00 16:00 16:01 Temperature Pulse Rate 104 H 106 H 109 H Pulse Rate [ 109 H From Monitor] Respiratory 22 22 22 Rate Blood Pressure 128/79 110/80 O2 Sat by Pulse 92 93 93 Oximetry 04/04/21 04/04/21 04/04/21 17:00 17:30 18:00 Temperature 99.1 F Pulse Rate 108 H 111 H Pulse Rate [ From Monitor] Respiratory 21 21 Rate Blood Pressure 122/76 130/75 O2 Sat by Pulse 95 96 Oximetry 04/04/21 04/04/21 04/04/21 19:00 20:00 20:45 Temperature 101.0 F H Pulse Rate 116 H 113 H Pulse Rate [ From Monitor] Respiratory 26 H 23 Rate Blood Pressure 123/84 128/78 O2 Sat by Pulse 91 96 92 Oximetry 04/04/21 21:00 Temperature Pulse Rate 113 H Pulse Rate [ From Monitor] Respiratory 24 Rate Blood Pressure 133/79 O2 Sat by Pulse 93 Oximetry General appearance: Present: severe distress, well-nourished - EENT Eyes: PERRL, EOM intact ENT: hearing intact, clear oral mucosa Ears: bilateral: normal - Neck Neck: supple, normal ROM - Respiratory Respiratory effort: normal Respiratory: bilateral: CTA - Breasts Breasts: normal - Cardiovascular Heart rate: 98 Rhythm: regular Heart Sounds: Present: S1 & S2. Absent: gallop, rub Extremities: pulses intact, No edema, normal color, Full ROM - Gastrointestinal General gastrointestinal: Present: soft, non-tender, non-distended, normal bowel sounds - Genitourinary Female genitourinary: normal - Integumentary Integumentary: clear, warm, dry - Musculoskeletal Musculoskeletal: 1, strength equal bilaterally - Neurologic Neurologic: moves all extremities - Psychiatric Psychiatric: memory intact, appropriate mood/affect, intact judgment & insight - Labs CBC & Chem 7: 04/04/21 03:35 04/03/21 15:40 Labs: Abnormal lab results 04/03/21 04/04/21 04/04/21 Range/Units 21:53 03:35 07:40 WBC 22.4 H (4.5-11.0) K/mm3 RBC 2.95 L (3.65-5.03) M/mm3 Hgb 8.5 L (10.1-14.3) gm/dl Hct 26.1 L (30.3-42.9) % Seg Neuts % (Manual) 81.0 H (40.0-70.0) % Lymphocytes % (Manual) 11.0 L (13.4-35.0) % Nucleated RBC % 1.0 H (0.0-0.9) % Seg Neutrophils # Man 18.1 H (1.8-7.7) K/mm3 Monocytes # (Manual) 1.1 H (0.0-0.8) K/mm3 POC Glucose 107 H 59 L (70-105) mg/dL 04/04/21 04/04/21 04/04/21 Range/Units 08:28 11:07 17:07 WBC (4.5-11.0) K/mm3 RBC (3.65-5.03) M/mm3 Hgb (10.1-14.3) gm/dl Hct (30.3-42.9) % Seg Neuts % (Manual) (40.0-70.0) % Lymphocytes % (Manual) (13.4-35.0) % Nucleated RBC % (0.0-0.9) % Seg Neutrophils # Man (1.8-7.7) K/mm3 Monocytes # (Manual) (0.0-0.8) K/mm3 POC Glucose 155 H 130 H 184 H (70-105) mg/dL
[2021-04-04] MEDS: tiZANidine TAB 4 MG TAB PO PRN (22:08)
[2021-04-04] MEDS: ACETAMINOPHEN 325 MG TAB PO PRN (22:09)
[2021-04-05] MEDS: HEPARIN 5,000 UNIT/1 ML VIAL SUB-Q SCH ×3 (05:08→22:20)
[2021-04-05] MEDS: GABAPENTIN 100 MG CAP PO SCH ×3 (05:11→22:02)
[2021-04-05] MEDS: VERAPAMIL 80 MG TAB PO SCH ×3 (05:11→22:00)
[2021-04-05 06:52] LABS: Hematocrit 26.5 % (30.3-42.9); Hemoglobin 8.5 gm/dl (10.1-14.3); Mean Corpuscular HGB Conc 32 % (30-34); Mean Corpuscular Volume 89 fl (79-97); Platelet Count 393 K/mm3 (140-440); Red Blood Count 2.97 M/mm3 (3.65-5.03); Red Cell Distribution Width 13.6 % (13.2-15.2)
[2021-04-05 07:02] LABS: Albumin 2.8 g/dL (3.9-5); C-Reactive Protein 27.1 mg/dL (0.00-1.30); Calcium 8.7 mg/dL (8.4-10.2)
[2021-04-05 07:58] LABS: Total Cells Counted 100
[2021-04-05 08:00] LABS: Anisocytosis 1+; Band Neutrophils # (Manual) 0.7 K/mm3
[2021-04-05] MEDS: INSULIN LISPRO 100 UNIT/ML SUB-Q SCH ×4 (08:21→22:22)
[2021-04-05] MEDS: INSULIN NPH/REGULAR 70/30 INJ SUB-Q SCH ×2 (08:21→16:38)
[2021-04-05] MEDS: PANTOPRAZOLE 40 MG TAB PO SCH (10:55)
[2021-04-05] MEDS: DULoxetine 30 MG CAP PO SCH ×2 (10:55→22:01)
[2021-04-05] MEDS: ASPIRIN EC 81 MG TAB PO SCH (10:55)
[2021-04-05] MEDS: dexAMETHasone 4 MG/ML VIAL IV SCH (11:07)
[2021-04-05] MEDS: HYDROmorphone 1 MG/1 ML INJ IV PRN ×3 (11:07→22:20)
--- NOTE | 2021-04-05 12:22 | Progress Note ---
Assessment and Plan Impression: * QUENTIN--likely atn due to COVID and hypoperfusion with sepsis/hemodynamic fluctuation * Mild rhabdomyolysis * Hyperkalemia * Hypernatremia * Metabolic aciosis * Covid PNA * Sepsis * UTI * Acute Hypoxic Resp Failure * Type 2 DM * PVD s/p BKA * Bilateral renal cysts Recs: * Patient had dialysis on 04/02 and 04/03/2021. * Patient is scheduled for dialysis again for today. * Reassess patient on a daily basis for need for additional dialysis treatment. * CPK level is 309 * remdesivir held * Avoid hemodynamic fluctuations * May need renal biopsy once clinically stable * strict i/os, avoid nephrotoxins * daily electrolytes * continue steroids * iv abx per ID * Monitor inflammatory markers every 2 to 3 days * Will need outpatient f/u with urology for cysts Subjective Date of service: 04/05/21 Principal diagnosis: Right foot gangrene, s/p right BKA, Covid positive Interval history: Patient remains on high flow oxygen. Oxygen saturation 91%. Objective - Exam Narrative Exam: Physical exam deferred due to patient's Covid positive status - Vital Signs Vital signs: Vital Signs - 12hr 04/05/21 04/05/21 04/05/21 00:40 01:00 02:00 Temperature Pulse Rate 100 H 98 H 97 H Respiratory 19 19 Rate Blood Pressure 120/74 114/77 O2 Sat by Pulse 93 92 Oximetry 04/05/21 04/05/21 04/05/21 03:00 03:26 04:00 Temperature 100.6 F H Pulse Rate 100 H 108 H Respiratory 20 20 Rate Blood Pressure 125/84 113/77 O2 Sat by Pulse 88 94 Oximetry 04/05/21 04/05/21 04/05/21 05:00 06:01 07:00 Temperature Pulse Rate 102 H 108 H 93 H Respiratory 22 24 20 Rate Blood Pressure 124/82 140/90 132/83 O2 Sat by Pulse 88 89 90 Oximetry 04/05/21 04/05/21 04/05/21 07:27 08:00 09:00 Temperature Pulse Rate 101 H 110 H Respiratory 20 20 Rate Blood Pressure 152/95 149/98 O2 Sat by Pulse 92 90 87 Oximetry 04/05/21 10:00 Temperature Pulse Rate 112 H Respiratory 22 Rate Blood Pressure O2 Sat by Pulse 90 Oximetry - Lab 04/05/21 05:15 06/05/21 05:15 Most recent lab results ABG pH 7.357 (7.320-7.450) 03/30/21 00:17 ABG O2 Saturation 92.5 (0-100) 03/30/21 00:17 Calcium 8.7 mg/dL (8.4-10.2) 04/05/21 05:15 Urine Creatinine 175.6 mg/dL (0.1-20.0) H 03/30/21 Unknown Urine Sodium 72 mmol/L 03/30/21 Unknown Medications & Allergies - Medications Allergies/Adverse Reactions: Allergies bismuth subsalicylate [From Pepto-Bismol] Allergy (Verified 02/20/21 15:36) Nausea Penicillins Allergy (Verified 02/20/21 15:36) Nausea tramadol Allergy (Verified 09/27/20 14:56) Unknown Home Medications: Home Medications Medication Instructions Recorded Confirmed Last Taken Type Exenatide Microspheres [Bydureon 2 mg SQ 1XW 11/15/20 03/26/21 Unknown History Pen] AtorvaSTATin [Lipitor] 80 mg PO QHS #30 tablet 11/19/20 03/26/21 Unknown Rx DULoxetine [Cymbalta] 60 mg PO BID #60 cap 11/19/20 03/26/21 Unknown Rx tiZANidine [Zanaflex 4mg TAB] 4 mg PO QID PRN #10 11/19/20 03/26/21 Unknown Rx verapamiL [Calan] 80 mg PO Q8HR #90 tablet 11/19/20 03/26/21 Unknown Rx Clopidogrel [Plavix] 75 mg PO QDAY #90 tablet 11/26/20 03/26/21 Unknown Rx Gabapentin [Neurontin] 600 mg PO TID #90 cap 02/01/21 03/26/21 Unknown Rx Aspirin EC [Halfprin EC] 81 mg PO QDAY #30 tablet 02/28/21 03/26/21 Unknown Rx Insulin NPH/Regular [NovoLIN 70/30] 22 unit SUB-Q BIDDIAB 30 Days 02/28/21 03/26/21 Unknown Rx Lispro Insulin [HumaLOG] 0 unit SUB-Q ACHS 30 Days #1 units 02/28/21 03/26/21 Unknown Rx Pantoprazole [Protonix TAB] 40 mg PO QDAC #30 tablet 02/28/21 03/26/21 Unknown Rx oxyCODONE /ACETAMINOPHEN [Percocet 2 tab PO Q4H PRN #20 tablet 02/28/21 03/26/21 Unknown Rx 5/325 mg] Active Medications: Generic Name Dose Route Start Last Admin Trade Name Freq PRN Reason Stop Dose Admin Acetaminophen 650 mg 03/24/21 23:35 04/04/21 22:09 Acetaminophen 325 Mg Tab PO 650 mg Q4H PRN Administration Pain MILD(1-3)/Fever >100.5/SMITH Acetaminophen 650 mg 03/30/21 01:58 Acetaminophen 650 Mg Rect Supp [place] Q4H PRN Pain, Mild (1-3) Aspirin 81 mg 03/25/21 10:00 04/05/21 10:55 Aspirin Ec 81 Mg Tab PO Not Given QDAY ESTER Atorvastatin Calcium 80 mg 03/25/21 22:00 04/04/21 22:08 Atorvastatin 40 Mg Tab PO 80 mg QHS ESTER Administration Dexamethasone 6 mg 03/29/21 12:00 04/05/21 11:07 Dexamethasone 4 Mg/Ml Vial IV 04/07/21 10:01 6 mg DAILY ESTER Administration Duloxetine HCl 60 mg 03/25/21 10:00 04/05/21 10:55 Duloxetine 30 Mg Cap PO Not Given BID ESTER Gabapentin 100 mg 03/30/21 14:00 04/05/21 05:11 Gabapentin 100 Mg Cap PO Not Given Q8HR ESTER Heparin Sodium (Porcine) 5,000 unit 03/27/21 18:07 04/05/21 05:08 Heparin 5,000 Unit/1 Ml Vial SUB-Q 5,000 unit Q8HR ESTER Administration Hydromorphone HCl 1 mg 03/28/21 17:57 04/05/21 11:07 Hydromorphone 1 Mg/1 Ml Inj IV 1 mg Q4H PRN Administration Pain , Severe (7-10) Levofloxacin/Dextrose 500 mg in 100 mls @ 100 mls/hr 03/31/21 12:00 04/04/21 11:39 Levaquin 500mg/100ml IV 04/05/21 12:59 100 mls/hr Q48H ESTER Administration Protocol Sodium Chloride 100 mls @ 999 mls/hr 04/01/21 11:51 Nacl 0.9% IV KARTHIK PRN Hypotension Insulin Human Isoph/Insulin Regular 27 unit 03/30/21 12:00 04/05/21 08:21 Insulin Nph/Regular 70/30 Inj SUB-Q 27 unit BIDDIAB ESTER Administration Insulin Human Lispro 0 unit 03/25/21 07:30 04/05/21 08:21 Insulin Lispro 100 Unit/Ml SUB-Q 6 unit ACHS ESTER Administration Protocol Labetalol HCl 5 mg 03/25/21 20:09 Labetalol 20 Mg/4 Ml Inj IV Q10MIN PRN Hypertension Ondansetron HCl 4 mg 03/24/21 23:35 03/26/21 00:37 Ondansetron 4 Mg/2 Ml Inj IV 4 mg Q8H PRN Administration Nausea And Vomiting Oxycodone/Acetaminophen 2 tab 03/24/21 23:33 04/03/21 15:36 Oxycodone /Acetaminophen 5-325mg Tab PO 2 tab Q4H PRN Administration Pain, Moderate (4-6) Pantoprazole Sodium 40 mg 03/25/21 07:30 04/05/21 10:55 Pantoprazole 40 Mg Tab PO Not Given QDAC ESTER Sodium Chloride 10 ml 03/24/21 23:45 04/04/21 22:10 Sodium Chloride 0.9% 10 Ml Flush Syringe IV 10 ml BID ESTER Administration Sodium Chloride 10 ml 03/24/21 23:35 Sodium Chloride 0.9% 10 Ml Flush Syringe IV PRN PRN LINE FLUSH Tizanidine HCl 4 mg 03/24/21 23:33 04/04/21 22:08 Tizanidine Tab 4 Mg Tab PO 4 mg QID PRN Administration muscle relaxer Verapamil HCl 80 mg 03/24/21 23:45 04/05/21 05:11 Verapamil 80 Mg Tab PO Not Given Q8HR ESTER
--- NOTE | 2021-04-05 16:12 | Progress Note ---
Assessment and Plan The high probability OF a clinically significant sudden or life-threatening deterioration of the cardiorespiratory system and endocrine system required my full and direct attention, intervention and postoperative management. The aggregate critical care time was 32 minutes. The time is in addition to time spent performing reported procedures but includes the followin: Data review and interpretation 2: Patient assessment and monitoring of vital signs 3: Documentation 4:: Medication orders and management - Patient Problems (1) Acute respiratory failure with hypoxia Current Visit: Yes Status: Acute Plan to address problem: Patient on high flow oxygen nearly FiO2 100% FiO2 dropped to 90% On 35 hours liters high flow nasal cannula oxygen (2) Pneumonia due to COVID-19 virus Current Visit: Yes Status: Acute Plan to address problem: IV Decadron for now No remdesivir because of the high creatinine (3) Acute hyperkalemia Current Visit: Yes Status: Acute Plan to address problem: Hyperkalemia resolved (4) QUENTIN (acute kidney injury) Current Visit: No Status: Acute Plan to address problem: IV fluids initiated ATN On hemodialysis- (5) Gangrene of right foot Current Visit: Yes Status: Acute Plan to address problem: S/p Rt BKA Stump care (6) Peripheral vascular disease Current Visit: Yes Status: Chronic Plan to address problem: S/p right BKA (7) Hypertension Current Visit: Yes Status: Chronic Qualifiers: Hypertension type: essential hypertension Qualified Code(s): I10 - Essential (primary) hypertension Plan to address problem: Continue antihypertensives Blood pressure well controlled Patient had couple of hypotensive episodes 3 to 4 days ago (8) IDDM (insulin dependent diabetes mellitus) Current Visit: Yes Status: Chronic Plan to address problem: Tight control of blood glucose levels Check hemoglobin A1c Increase insulin by 5 units Tighter control of blood glucose levels (9) DVT prophylaxis Current Visit: Yes Status: Acute Plan to address problem: On heparin and GI prophylaxis (10) Discharge planning issues Current Visit: Yes Status: Acute Plan to address problem: Initiated transfer to [place] because of the daughter's request Daughter's phone numbers Ms. Denney with telephone number [phone] Also updated daughter Mia. Talked with transfer center at 15 0 0 hours [place] refused transfer because of the patient being Covid positive Subjective Date of service: 04/05/21 Principal diagnosis: Right foot gangrene, s/p right BKA, Covid positive Interval history: 50-year-old obese female patient was admitted on 02/21/21 with diabetic ketoacidosis and cellulitis of the foot secondary to spider bite was discharged home on IV ceftriaxone 2 g daily for 6 weeks ending 04/06/2021 brought back to the emergency room via EMS from a local wound clinic after patient found to be febrile and right foot turned into black color. s/p BKA and now tested positive for COVID. Daily clinical course: 03/25/21: Patient is scheduled for right foot amputation today, continue empiric antibiotics, n.p.o. for now. Follow clinically. 03/26/21: s/p right BKA yesterday. cont to adjust pain meds. wait for PT eval. K 5.7 - ordered kayexalate. 03/27/21: Continue to complains of severe pain on amputated leg. Pending PT eval and will follow surgery recommendation. Potassium level appears to be normal today. 03/28/21: PT recommended ARMANDO, tested positive for covid. Per ID: she is currently on oxygen but not sure merely for comfort or due to hypoxia. Discussed with RN who will try to wean the oxygen off. If she remains hypoxic, start remdesivir and steroids. 03/29/21 S/p BKA of the right lower extremity Covid positive Patient on 35 L nasal cannula oxygen IV antibiotics as per ID recommendations 03/30/21 On 35 L high flow oxygen Slightly lethargic Creatinine has worsened from 1.4-5.3 over the last 48 hours Renal consult requested--- Dr. Valenzuela applications programmer today IV fluids increased to 100 mL/h 03/31/2021 On 100% FiO2 04/01/2021 On 90% FiO2 35 L high flow oxygen And respiratory distress Pulmonary consult requested 04/02/2021 Patient still on 35 L nasal cannula high flow oxygen Patient getting Vas-Cath today 04/03/2021 Welfare [facility] Manager, ID, renal consults appreciated Patient is in the process of getting hemodialysis Patient on 35 L nasal cannula oxygen 100% FiO2 Alert but confused As per the daughters request initiated patient transfer to [place] 04/04/21 Resp sistress On high flow oxygen 100% FiO2 Altered mental state 04/05/21 On high flow oxygen Objective - Constitutional Vitals: Vital Signs - 12hr 04/05/21 04/05/2104/05/21 05:00 06:01 07:00 Temperature Pulse Rate 102 H 108 H 93 H Respiratory 22 24 20 Rate Blood Pressure 124/82 140/90 132/83 O2 Sat by Pulse 88 89 90 Oximetry 04/05/21 04/05/21 04/05/21 07:27 08:00 09:00 Temperature 98.4 F Pulse Rate 101 H 110 H Respiratory 20 20 Rate Blood Pressure 152/95 149/98 O2 Sat by Pulse 92 90 87 Oximetry 04/05/21 04/05/21 04/05/21 10:00 11:00 12:00 Temperature 98.7 F Pulse Rate 112 H 114 H 106 H Respiratory 22 14 15 Rate Blood Pressure 138/78 127/76 O2 Sat by Pulse 90 88 91 Oximetry 04/05/21 04/05/21 04/05/21 13:00 14:00 15:00 Temperature Pulse Rate 103 H 100 H 119 H Respiratory 15 16 16 Rate Blood Pressure 127/75 129/78 99/63 O2 Sat by Pulse 91 92 93 Oximetry 04/05/21 15:44 Temperature Pulse Rate Respiratory Rate Blood Pressure O2 Sat by Pulse 92 Oximetry General appearance: Present: severe distress - EENT Eyes: PERRL, EOM intact ENT: hearing intact, clear oral mucosa Ears: bilateral: normal - Neck Neck: supple, normal ROM - Respiratory Respiratory effort: normal Respiratory: bilateral: CTA - Breasts Breasts: normal - Cardiovascular Heart rate: 98 Rhythm: regular Heart Sounds: Present: S1 & S2. Absent: gallop, rub Extremities: no ischemia, pulses intact, No edema, normal color, Full ROM, abnormal (Right BKA) Extremity abnormal: other (Right BKA) - Gastrointestinal General gastrointestinal: Present: soft, non-tender, non-distended, normal bowel sounds - Genitourinary Female genitourinary: normal - Integumentary Integumentary: clear, warm, dry - Musculoskeletal Musculoskeletal: 1, strength equal bilaterally - Neurologic Neurologic: moves all extremities - Psychiatric Psychiatric: memory intact, appropriate mood/affect, intact judgment & insight - Labs CBC & Chem 7: 04/05/21 05:15 04/05/21 05:15 Labs: Abnormal lab results 04/04/21 04/04/21 04/05/21 Range/Units 17:07 21:05 05:15 WBC (4.5-11.0) K/mm3 RBC (3.65-5.03) M/mm3 Hgb (10.1-14.3) gm/dl Hct (30.3-42.9) % Seg Neuts % (Manual) (40.0-70.0) % Lymphocytes % (Manual) (13.4-35.0) % Seg Neutrophils # Man (1.8-7.7) K/mm3 Lymphocytes # (Manual) (1.2-5.4) K/mm3 D-Dimer 4116.26 H (0-234) ng/mlDDU Sodium (137-145) mmol/L Potassium (3.6-5.0) mmol/L BUN (7-17) mg/dL Creatinine (0.6-1.2) mg/dL Glucose (65-100) mg/dL POC Glucose 184 H 194 H (70-105) mg/dL Ferritin (10.0-200.0) ng/mL AST (5-40) units/L Alkaline Phosphatase (35-129) units/L Lactate Dehydrogenase (91-180) units/L C-Reactive Protein (0.00-1.30) mg/dL Albumin (3.9-5) g/dL 04/05/21 04/05/21 04/05/21 Range/Units 05:15 05:15 05:15 WBC 22.5 H (4.5-11.0) K/mm3 RBC 2.97 L (3.65-5.03) M/mm3 Hgb 8.5 L (10.1-14.3) gm/dl Hct 26.5 L (30.3-42.9) % Seg Neuts % (Manual) 91.0 H (40.0-70.0) % Lymphocytes % (Manual) 3.0 L (13.4-35.0) % Seg Neutrophils # Man 20.5 H (1.8-7.7) K/mm3 Lymphocytes # (Manual) 0.7 L (1.2-5.4) K/mm3 D-Dimer (0-234) ng/mlDDU Sodium 146 H (137-145) mmol/L Potassium 5.5 H D (3.6-5.0) mmol/L BUN 95 H (7-17) mg/dL Creatinine 5.9 H D (0.6-1.2) mg/dL Glucose 272 H (65-100) mg/dL POC Glucose (70-105) mg/dL Ferritin 1201.0 H (10.0-200.0) ng/mL AST 56 H (5-40) units/L Alkaline Phosphatase 176 H (35-129) units/L Lactate Dehydrogenase 560 H (91-180) units/L C-Reactive Protein 27.10 H (0.00-1.30) mg/dL Albumin 2.8 L (3.9-5) g/dL 04/05/21 04/05/21 Range/Units 07:52 11:34 WBC (4.5-11.0) K/mm3 RBC (3.65-5.03) M/mm3 Hgb (10.1-14.3) gm/dl Hct (30.3-42.9) % Seg Neuts % (Manual) (40.0-70.0) % Lymphocytes % (Manual) (13.4-35.0) % Seg Neutrophils # Man (1.8-7.7) K/mm3 Lymphocytes # (Manual) (1.2-5.4) K/mm3 D-Dimer (0-234) ng/mlDDU Sodium (137-145) mmol/L Potassium (3.6-5.0) mmol/L BUN (7-17) mg/dL Creatinine (0.6-1.2) mg/dL Glucose (65-100) mg/dL POC Glucose 275 H 235 H (70-105) mg/dL Ferritin (10.0-200.0) ng/mL AST (5-40) units/L Alkaline Phosphatase (35-129) units/L Lactate Dehydrogenase (91-180) units/L C-Reactive Protein (0.00-1.30) mg/dL Albumin (3.9-5) g/dL
[2021-04-06] MEDS: GABAPENTIN 100 MG CAP PO SCH ×3 (05:06→22:17)
[2021-04-06] MEDS: VERAPAMIL 80 MG TAB PO SCH ×3 (05:09→22:17)
[2021-04-06] MEDS: HEPARIN 5,000 UNIT/1 ML VIAL SUB-Q SCH ×3 (05:16→22:50)
[2021-04-06] MEDS: INSULIN LISPRO 100 UNIT/ML SUB-Q SCH ×7 (05:18→22:48)
[2021-04-06 07:07] LABS: Calcium 9.6 mg/dL (8.4-10.2)
[2021-04-06] MEDS: PANTOPRAZOLE 40 MG TAB PO SCH (08:00)
[2021-04-06] MEDS: INSULIN NPH/REGULAR 70/30 INJ SUB-Q SCH ×3 (08:00→17:00)
[2021-04-06] MEDS: ASPIRIN EC 81 MG TAB PO SCH (10:09)
[2021-04-06] MEDS: DULoxetine 30 MG CAP PO SCH ×2 (10:09→22:17)
[2021-04-06] MEDS: dexAMETHasone 4 MG/ML VIAL IV SCH (10:10)
[2021-04-06] MEDS: tiZANidine TAB 4 MG TAB PO PRN (10:11)
[2021-04-06] MEDS ORDERED: SODIUM POLYSTYRENE 15 GM/60 ML ORAL LIQD PO ONE (10:30)
--- NOTE | 2021-04-06 10:30 | Progress Note ---
Assessment and Plan Impression: * QUENTIN--likely atn due to COVID and hypoperfusion with sepsis/hemodynamic fluctuation * Mild rhabdomyolysis * Hyperkalemia * Hypernatremia * Metabolic aciosis * Covid PNA * Sepsis * UTI * Acute Hypoxic Resp Failure * Type 2 DM * PVD s/p BKA * Bilateral renal cysts Recs: * Patient had dialysis on 04/02 and 04/03/2021. * Patient had uneventful hemodialysis yesterday. * Clinically patient does not appear to be volume overloaded. No urgent indication for dialysis again today * Shall give 1 dose of Kayexalate for potassium of 5.4 * Schedule patient for hemodialysis treatment for tomorrow * CPK level is 309 * remdesivir held * Avoid hemodynamic fluctuations * May need renal biopsy once clinically stable * strict i/os, avoid nephrotoxins * daily electrolytes * continue steroids * iv abx per ID * Monitor inflammatory markers every 2 to 3 days * Will need outpatient f/u with urology for cysts Subjective Date of service: 04/06/21 Principal diagnosis: Right foot gangrene, s/p right BKA, Covid positive Interval history: Patient is arousable but appears more lethargic. Currently on 90% high flow oxygen. Objective - Vital Signs Vital signs: Vital Signs - 12hr 04/05/21 04/05/21 04/06/21 22:50 23:00 00:00 Temperature 98.4 F Pulse Rate 103 H 104 H Respiratory 18 15 14 Rate Blood Pressure 110/65 115/66 O2 Sat by Pulse 92 94 Oximetry 04/06/21 04/06/21 04/06/21 01:00 01:01 02:00 Temperature Pulse Rate 105 H 103 H Respiratory 15 14 Rate Blood Pressure 120/73 117/67 O2 Sat by Pulse 94 94 94 Oximetry 04/06/21 04/06/21 04/06/21 02:41 03:00 03:39 Temperature 99.0 F Pulse Rate 103 H 105 H Respiratory 15 Rate Blood Pressure 126/74 O2 Sat by Pulse 95 95 Oximetry 04/06/21 04/06/21 04/06/21 04:00 05:00 05:09 Temperature Pulse Rate 103 H 106 H 110 H Respiratory 16 17 Rate Blood Pressure 121/67 124/78 124/78 O2 Sat by Pulse 94 94 Oximetry 04/06/21 04/06/21 08:00 09:01 Temperature 99.0 F Pulse Rate Respiratory Rate Blood Pressure O2 Sat by Pulse 90 Oximetry - General Appearance General appearance: well-developed, well-nourished, appears stated age EENT: PERRL, mucous membranes moist Neck: no JVD, no thyromegaly, no carotid bruit, supple Respiratory: Present: Clear to Ascultation, Decreased Breath Sounds (At the bases) Cardiology: regular, normal heart rate Gastrointestinal: normal, normoactive bowel sounds Integumentary: other (Right BKA. Right femoral Vas-Cath in place. No peripheral edema) - Lab 04/05/21 05:15 04/06/21 Unknown Most recent lab results ABG pH 7.357 (7.320-7.450) 03/30/21 00:17 ABG O2 Saturation 92.5 (0-100) 03/30/21 00:17 Calcium 9.6 mg/dL (8.4-10.2) 04/06/21 Unknown Urine Creatinine 175.6 mg/dL (0.1-20.0) H 03/30/21 Unknown Urine Sodium 72 mmol/L 03/30/21 Unknown Medications & Allergies - Medications Allergies/Adverse Reactions: Allergies bismuth subsalicylate [From Pepto-Bismol] Allergy (Verified 02/20/21 15:36) Nausea Penicillins Allergy (Verified 02/20/21 15:36) Nausea tramadol Allergy (Verified 09/27/20 14:56) Unknown Home Medications: Home Medications Medication Instructions Recorded Confirmed Last Taken Type Exenatide Microspheres [Bydureon 2 mg SQ 1XW 11/15/20 03/26/21 Unknown History Pen] AtorvaSTATin [Lipitor] 80 mg PO QHS #30 tablet 11/19/20 03/26/21 Unknown Rx DULoxetine [Cymbalta] 60 mg PO BID #60 cap 11/19/20 03/26/21 Unknown Rx tiZANidine [Zanaflex 4mg TAB] 4 mg PO QID PRN #10 11/19/20 03/26/21 Unknown Rx verapamiL [Calan] 80 mg PO Q8HR #90 tablet 11/19/20 03/26/21 Unknown Rx Clopidogrel [Plavix] 75 mg PO QDAY #90 tablet 11/26/20 03/26/21 Unknown Rx Gabapentin [Neurontin] 600 mg PO TID #90 cap 02/01/21 03/26/21 Unknown Rx Aspirin EC [Halfprin EC] 81 mg PO QDAY #30 tablet 02/28/21 03/26/21 Unknown Rx Insulin NPH/Regular [NovoLIN 70/30] 22 unit SUB-Q BIDDIAB 30 Days 02/28/21 03/26/21 Unknown Rx Lispro Insulin [HumaLOG] 0 unit SUB-Q ACHS 30 Days #1 units 02/28/21 03/26/21 Unknown Rx Pantoprazole [Protonix TAB] 40 mg PO QDAC #30 tablet 02/28/21 03/26/21 Unknown Rx oxyCODONE /ACETAMINOPHEN [Percocet 2 tab PO Q4H PRN #20 tablet 02/28/21 03/26/21 Unknown Rx 5/325 mg] Active Medications: Generic Name Dose Route Start Last Admin Trade Name Freq PRN Reason Stop Dose Admin Acetaminophen 650 mg 03/24/21 23:35 04/04/21 22:09 Acetaminophen 325 Mg Tab PO 650 mg Q4H PRN Administration Pain MILD(1-3)/Fever >100.5/SMITH Acetaminophen 650 mg 03/30/21 01:58 Acetaminophen 650 Mg Rect Supp MD Q4H PRN Pain, Mild (1-3) Aspirin 81 mg 03/25/21 10:00 04/06/21 10:09 Aspirin Ec 81 Mg Tab PO 81 mg QDAY ESTER Administration Atorvastatin Calcium 80 mg 03/25/21 22:00 04/05/21 22:01 Atorvastatin 40 Mg Tab PO Not Given QHS ESTER Dexamethasone 6 mg 03/29/21 12:00 04/06/21 10:10 Dexamethasone 4 Mg/Ml Vial IV 04/07/21 10:01 6 mg DAILY ESTER Administration Duloxetine HCl 60 mg 03/25/21 10:00 04/06/21 10:09 Duloxetine 30 Mg Cap PO 60 mg BID ESTER Administration Gabapentin 100 mg 03/30/21 14:00 04/06/21 05:06 Gabapentin 100 Mg Cap PO Not Given Q8HR ESTER Heparin Sodium (Porcine) 5,000 unit 03/27/21 18:07 04/06/21 05:16 Heparin 5,000 Unit/1 Ml Vial SUB-Q 5,000 unit Q8HR ESTER Administration Hydromorphone HCl 1 mg 03/28/21 17:57 04/05/21 22:20 Hydromorphone 1 Mg/1 Ml Inj IV 1 mg Q4H PRN Administration Pain , Severe (7-10) Sodium Chloride 100 mls @ 999 mls/hr 04/01/21 11:51 Nacl 0.9% IV KARTHIK PRN Hypotension Insulin Human Isoph/Insulin Regular 27 unit 03/30/21 12:00 04/06/21 08:00 Insulin Nph/Regular 70/30 Inj SUB-Q Not Given BIDDIAB [facility] Insulin Human Lispro 0 unit 03/25/21 07:30 04/06/21 08:00 Insulin Lispro 100 Unit/Ml SUB-Q Not Given ACHS [facility] Protocol Labetalol HCl 5 mg 03/25/21 20:09 Labetalol 20 Mg/4 Ml Inj IV Q10MIN PRN Hypertension Ondansetron HCl 4 mg 03/24/21 23:35 03/26/21 00:37 Ondansetron 4 Mg/2 Ml Inj IV 4 mg Q8H PRN Administration Nausea And Vomiting Oxycodone/Acetaminophen 2 tab 03/24/21 23:33 04/03/21 15:36 Oxycodone /Acetaminophen 5-325mg Tab PO 2 tab Q4H PRN Administration Pain, Moderate (4-6) Pantoprazole Sodium 40 mg 03/25/21 07:30 04/06/21 08:00 Pantoprazole 40 Mg Tab PO 40 mg QDAC ESTER Administration Sodium Chloride 10 ml 03/24/21 23:45 04/06/21 10:12 Sodium Chloride 0.9% 10 Ml Flush Syringe IV 10 ml BID ESTER Administration Sodium Chloride 10 ml 03/24/21 23:35 Sodium Chloride 0.9% 10 Ml Flush Syringe IV PRN PRN LINE FLUSH Tizanidine HCl 4 mg 03/24/21 23:33 04/06/21 10:11 Tizanidine Tab 4 Mg Tab PO 4 mg QID PRN Administration muscle relaxer Verapamil HCl 80 mg 03/24/21 23:45 04/06/21 05:09 Verapamil 80 Mg Tab PO Not Given Q8HR [facility]
[2021-04-06] MEDS: HYDROmorphone 1 MG/1 ML INJ IV PRN (16:24)
[2021-04-07] MEDS ORDERED: SODIUM BICARB 8.4% 50 MEQ/50 ML SYRINGE IV ONE ×4 (05:28→20:48)
[2021-04-07] MEDS ORDERED: EPINEPHrine 1 MG/10 ML SYRINGE ONE ×3 (05:28→20:48)
[2021-04-07] MEDS ORDERED: CALCIUM CHLORIDE 1,000 MG/10 ML SYRINGE IV ONE (05:28)
[2021-04-07] MEDS ORDERED: DEXTROSE 50% IN WATER (25GM) 50 ML VIAL IV ONE (05:28)
[2021-04-07] MEDS ORDERED: ADENOSINE 6 MG/2 ML INJ ONE (05:28)
[2021-04-07] MEDS: GABAPENTIN 100 MG CAP PO SCH ×2 (05:37→16:41)
[2021-04-07] MEDS: VERAPAMIL 80 MG TAB PO SCH ×2 (05:37→16:41)
[2021-04-07] MEDS: HEPARIN 5,000 UNIT/1 ML VIAL SUB-Q SCH ×2 (06:39→17:19)
[2021-04-07] MEDS: PANTOPRAZOLE 40 MG TAB PO SCH (07:30)
[2021-04-07] MEDS: INSULIN LISPRO 100 UNIT/ML SUB-Q SCH ×4 (08:29→18:17)
[2021-04-07] MEDS: INSULIN NPH/REGULAR 70/30 INJ SUB-Q SCH ×2 (08:29→17:20)
--- NOTE | 2021-04-07 09:54 | Progress Note ---
Assessment and Plan Impression: * QUENTIN--likely atn due to COVID and hypoperfusion with sepsis/hemodynamic fluctuation * Mild rhabdomyolysis * Hyperkalemia * Hypernatremia * Metabolic aciosis * Covid PNA * Sepsis * UTI * Acute Hypoxic Resp Failure * Type 2 DM * PVD s/p BKA * Bilateral renal cysts Recs: * Patient had dialysis on 04/02 and 04/03/2021 initially; last HD 04/05, has been tolerating pretty well per report * HD today, plan to continue MWF as needed * No sign of renal recovery so far, minimal urine output and uptrending creatinine off HD * remdesivir held * Avoid hemodynamic fluctuations * May need renal biopsy once clinically stable * strict i/os, avoid nephrotoxins * daily electrolytes * continue steroids * iv abx per ID * Monitor inflammatory markers every 2 to 3 days * Will need outpatient f/u with urology for cysts Subjective Principal diagnosis: Right foot gangrene, s/p right BKA, Covid positive Objective - Vital Signs Vital signs: Vital Signs - 12hr 04/06/21 04/06/21 04/06/21 22:00 23:00 23:29 Temperature Pulse Rate 123 H 126 H 123 H Respiratory 19 23 21 Rate Blood Pressure 130/69 131/84 131/84 O2 Sat by Pulse 95 91 94 Oximetry 04/07/21 04/07/21 04/07/21 00:00 01:00 02:00 Temperature 101.4 F H Pulse Rate 125 H 123 H 124 H Respiratory 22 21 21 Rate Blood Pressure 141/93 151/77 146/78 O2 Sat by Pulse 94 94 94 Oximetry 04/07/21 04/07/21 04/07/21 02:35 03:00 03:41 Temperature 98.2 F Pulse Rate 131 H Respiratory 24 Rate Blood Pressure 146/74 O2 Sat by Pulse 94 91 Oximetry 04/07/21 04/07/21 04/07/21 04:00 05:00 06:00 Temperature Pulse Rate 123 H 119 H 118 H Respiratory 18 26 H 20 Rate Blood Pressure 138/84 131/86 146/87 O2 Sat by Pulse 93 94 95 Oximetry 04/07/21 04/07/21 08:00 08:33 Temperature 100 F H Pulse Rate Respiratory Rate Blood Pressure O2 Sat by Pulse 95 Oximetry - Lab 04/05/21 05:15 04/06/21 Unknown Most recent lab results ABG pH 7.357 (7.320-7.450) 03/30/21 00:17 ABG O2 Saturation 92.5 (0-100) 03/30/21 00:17 Calcium 9.6 mg/dL (8.4-10.2) 04/06/21 Unknown Urine Creatinine 175.6 mg/dL (0.1-20.0) H 03/30/21 Unknown Urine Sodium 72 mmol/L 03/30/21 Unknown Medications & Allergies - Medications Allergies/Adverse Reactions: Allergies bismuth subsalicylate [From Pepto-Bismol] Allergy (Verified 02/20/21 15:36) Nausea Penicillins Allergy (Verified 02/20/21 15:36) Nausea tramadol Allergy (Verified 09/27/20 14:56) Unknown Home Medications: Home Medications Medication Instructions Recorded Confirmed Last Taken Type Exenatide Microspheres [Bydureon 2 mg SQ 1XW 11/15/20 03/26/21 Unknown History Pen] AtorvaSTATin [Lipitor] 80 mg PO QHS #30 tablet 11/19/20 03/26/21 Unknown Rx DULoxetine [Cymbalta] 60 mg PO BID #60 cap 11/19/20 03/26/21 Unknown Rx tiZANidine [Zanaflex 4mg TAB] 4 mg PO QID PRN #10 11/19/20 03/26/21 Unknown Rx verapamiL [Calan] 80 mg PO Q8HR #90 tablet 11/19/20 03/26/21 Unknown Rx Clopidogrel [Plavix] 75 mg PO QDAY #90 tablet 11/26/20 03/26/21 Unknown Rx Gabapentin [Neurontin] 600 mg PO TID #90 cap 02/01/21 03/26/21 Unknown Rx Aspirin EC [Halfprin EC] 81 mg PO QDAY #30 tablet 02/28/21 03/26/21 Unknown Rx Insulin NPH/Regular [NovoLIN 70/30] 22 unit SUB-Q BIDDIAB 30 Days 02/28/21 03/26/21 Unknown Rx Lispro Insulin [HumaLOG] 0 unit SUB-Q ACHS 30 Days #1 units 02/28/21 03/26/21 Unknown Rx Pantoprazole [Protonix TAB] 40 mg PO QDAC #30 tablet 02/28/21 03/26/21 Unknown Rx oxyCODONE /ACETAMINOPHEN [Percocet 2 tab PO Q4H PRN #20 tablet 02/28/21 03/26/21 Unknown Rx 5/325 mg] Active Medications: Generic Name Dose Route Start Last Admin Trade Name Freq PRN Reason Stop Dose Admin Acetaminophen 650 mg 03/24/21 23:35 04/04/21 22:09 Acetaminophen 325 Mg Tab PO 650 mg Q4H PRN Administration Pain MILD(1-3)/Fever >100.5/SMITH Acetaminophen 650 mg 03/30/21 01:58 04/07/21 03:26 Acetaminophen 650 Mg Rect Supp [place] 650 mg Q4H PRN Administration Pain, Mild (1-3) Aspirin 81 mg 03/25/21 10:00 04/06/21 10:09 Aspirin Ec 81 Mg Tab PO 81 mg QDAY ESTER Administration Atorvastatin Calcium 80 mg 03/25/21 22:00 04/06/21 22:18 Atorvastatin 40 Mg Tab PO Not Given QHS ESTER Dexamethasone 6 mg 03/29/21 12:00 04/06/21 10:10 Dexamethasone 4 Mg/Ml Vial IV 04/07/21 10:01 6 mg DAILY ESTER Administration Duloxetine HCl 60 mg 03/25/21 10:00 04/06/21 22:17 Duloxetine 30 Mg Cap PO Not Given BID ESTER Gabapentin 100 mg 03/30/21 14:00 04/07/21 05:37 Gabapentin 100 Mg Cap PO Not Given Q8HR ESTER Heparin Sodium (Porcine) 5,000 unit 03/27/21 18:07 04/07/21 06:39 Heparin 5,000 Unit/1 Ml Vial SUB-Q 5,000 unit Q8HR ESTER Administration Hydromorphone HCl 1 mg 03/28/21 17:57 04/06/21 16:24 Hydromorphone 1 Mg/1 Ml Inj IV 1 mg Q4H PRN Administration Pain , Severe (7-10) Sodium Chloride 100 mls @ 999 mls/hr 04/01/21 11:51 Nacl 0.9% IV KARTHIK PRN Hypotension Insulin Human Isoph/Insulin Regular 27 unit 03/30/21 12:00 04/06/21 17:00 Insulin Nph/Regular 70/30 Inj SUB-Q 27 unit BIDDIAB ESTER Administration Insulin Human Lispro 0 unit 03/25/21 07:30 04/06/21 22:48 Insulin Lispro 100 Unit/Ml SUB-Q Not Given ACHS [facility] Protocol Labetalol HCl 5 mg 03/25/21 20:09 Labetalol 20 Mg/4 Ml Inj IV Q10MIN PRN Hypertension Ondansetron HCl 4 mg 03/24/21 23:35 03/26/21 00:37 Ondansetron 4 Mg/2 Ml Inj IV 4 mg Q8H PRN Administration Nausea And Vomiting Oxycodone/Acetaminophen 2 tab 03/24/21 23:33 04/03/21 15:36 Oxycodone /Acetaminophen 5-325mg Tab PO 2 tab Q4H PRN Administration Pain, Moderate (4-6) Pantoprazole Sodium 40 mg 03/25/21 07:30 04/06/21 08:00 Pantoprazole 40 Mg Tab PO 40 mg QDAC ESTER Administration Sodium Chloride 10 ml 03/24/21 23:45 04/06/21 22:50 Sodium Chloride 0.9% 10 Ml Flush Syringe IV 10 ml BID ESTER Administration Sodium Chloride 10 ml 03/24/21 23:35 Sodium Chloride 0.9% 10 Ml Flush Syringe IV PRN PRN LINE FLUSH Tizanidine HCl 4 mg 03/24/21 23:33 04/06/21 10:11 Tizanidine Tab 4 Mg Tab PO 4 mg QID PRN Administration muscle relaxer Verapamil HCl 80 mg 03/24/21 23:45 04/07/21 05:37 Verapamil 80 Mg Tab PO Not Given Q8HR ESTER
[2021-04-07] MEDS: DULoxetine 30 MG CAP PO SCH (10:09)
[2021-04-07] MEDS: ASPIRIN EC 81 MG TAB PO SCH (10:10)
[2021-04-07] MEDS: HYDROmorphone 1 MG/1 ML INJ IV PRN (10:14)
[2021-04-07] MEDS: dexAMETHasone 4 MG/ML VIAL IV SCH (10:14)
[2021-04-07] MEDS ORDERED: NORepinephrine/NS 4 MG-250 ML 0 MG/0 ML BAG IV ONE (10:42)
[2021-04-07] MEDS ORDERED: NORepinephrine/NS 4 MG-250 ML 4 MG/250 ML BAG IV ONE (12:07)
--- NOTE | 2021-04-07 12:20 | Event Note ---
Date: 04/07/21 Acute coding on going, patient intubated, I called and updated family as I was not actively involved in the resuscitation effort. Primary hospitalist advised.
[2021-04-07] MEDS ORDERED: SODIUM BICARB 8.4% 50 MEQ/50 ML VIAL IV ONE (12:23)
--- NOTE | 2021-04-07 12:27 | Consultation ---
History of Present Illness Consult date: 04/07/21 Requesting physician: MEDARDO TREVIÑO Reason for consult: other (Cardiac Arrest with ROSC) History of present illness: PULMONARY/CCM CONSULT NOTE (Full dictation # [id number]) Please see dictated notes for full details Medications and Allergies Allergies Allergy/AdvReac Type Severity Reaction Status Date / Time bismuth subsalicylate Allergy Nausea Verified 02/20/21 15:36 [From Pepto-Bismol] Penicillins Allergy Nausea Verified 02/20/21 15:36 tramadol Allergy Unknown Verified 09/27/20 14:56 Home Medications Medication Instructions Recorded Confirmed Last Taken Type Exenatide Microspheres [Bydureon 2 mg SQ 1XW 11/15/20 03/26/21 Unknown History Pen] AtorvaSTATin [Lipitor] 80 mg PO QHS #30 tablet 11/19/20 03/26/21 Unknown Rx DULoxetine [Cymbalta] 60 mg PO BID #60 cap 11/19/20 03/26/21 Unknown Rx tiZANidine [Zanaflex 4mg TAB] 4 mg PO QID PRN #10 11/19/20 03/26/21 Unknown Rx verapamiL [Calan] 80 mg PO Q8HR #90 tablet 11/19/20 03/26/21 Unknown Rx Clopidogrel [Plavix] 75 mg PO QDAY #90 tablet 11/26/20 03/26/21 Unknown Rx Gabapentin [Neurontin] 600 mg PO TID #90 cap 02/01/21 03/26/21 Unknown Rx Aspirin EC [Halfprin EC] 81 mg PO QDAY #30 tablet 02/28/21 03/26/21 Unknown Rx Insulin NPH/Regular [NovoLIN 70/30] 22 unit SUB-Q BIDDIAB 30 Days 02/28/21 03/26/21 Unknown Rx Lispro Insulin [HumaLOG] 0 unit SUB-Q ACHS 30 Days #1 units 02/28/21 03/26/21 Unknown Rx Pantoprazole [Protonix TAB] 40 mg PO QDAC #30 tablet 02/28/21 03/26/21 Unknown Rx oxyCODONE /ACETAMINOPHEN [Percocet 2 tab PO Q4H PRN #20 tablet 02/28/21 03/26/21 Unknown Rx 5/325 mg] Active Meds: Active Medications Acetaminophen (Acetaminophen 325 Mg Tab) 650 mg PO Q4H PRN PRN Reason: Pain MILD(1-3)/Fever >100.5/SMITH Last Admin: 04/04/21 22:09 Dose: 650 mg Documented by: Acetaminophen (Acetaminophen 650 Mg Rect Supp) 650 mg DC Q4H PRN PRN Reason: Pain, Mild (1-3) Last Admin: 04/07/21 03:26 Dose: 650 mg Documented by: Aspirin (Aspirin Ec 81 Mg Tab) 81 mg PO QDAY [facility] Last Admin: 04/07/21 10:10 Dose: Not Given Documented by: Atorvastatin Calcium (Atorvastatin 40 Mg Tab) 80 mg PO QHS [facility] Last Admin: 04/06/21 22:18 Dose: Not Given Documented by: Duloxetine HCl (Duloxetine 30 Mg Cap) 60 mg PO BID [facility] Last Admin: 04/07/21 10:09 Dose: Not Given Documented by: Gabapentin (Gabapentin 100 Mg Cap) 100 mg PO Q8HR [facility] Last Admin: 04/07/21 05:37 Dose: Not Given Documented by: Heparin Sodium (Porcine) (Heparin 5,000 Unit/1 Ml Vial) 5,000 unit SUB-Q Q8HR [facility] Last Admin: 04/07/21 06:39 Dose: 5,000 unit Documented by: Hydromorphone HCl (Hydromorphone 1 Mg/1 Ml Inj) 1 mg IV Q4H PRN PRN Reason: Pain , Severe (7-10) Last Admin: 04/07/21 10:14 Dose: 1 mg Documented by: Sodium Chloride (Nacl 0.9%) 100 mls @ 999 mls/hr IV KARTHIK PRN PRN Reason: Hypotension Vasopressin 20 unit/ Sodium (Chloride) 101 mls @ 9.09 mls/hr IV TITR [facility]; Protocol Insulin Human Isoph/Insulin Regular (Insulin Nph/Regular 70/30 Inj) 27 unit SUB-Q BIDDIAB [facility] Last Admin: 04/07/21 08:29 Dose: 27 unit Documented by: Insulin Human Lispro (Insulin Lispro 100 Unit/Ml) 0 unit SUB-Q ACHS [facility]; Protocol Last Admin: 04/07/21 08:29 Dose: 6 unit Documented by: Labetalol HCl (Labetalol 20 Mg/4 Ml Inj) 5 mg IV Q10MIN PRN PRN Reason: Hypertension Ondansetron HCl (Ondansetron 4 Mg/2 Ml Inj) 4 mg IV Q8H PRN PRN Reason: Nausea And Vomiting Last Admin: 03/26/21 00:37 Dose: 4 mg Documented by: Oxycodone/Acetaminophen (Oxycodone /Acetaminophen 5-325mg Tab) 2 tab PO Q4H PRN PRN Reason: Pain, Moderate (4-6) Last Admin: 04/03/21 15:36 Dose: 2 tab Documented by: Pantoprazole Sodium (Pantoprazole 40 Mg Tab) 40 mg PO QDAC [facility] Last Admin: 04/07/21 07:30 Dose: Not Given Documented by: Sodium Chloride (Sodium Chloride 0.9% 10 Ml Flush Syringe) 10 ml IV BID [facility] Last Admin: 04/07/21 10:14 Dose: 10 ml Documented by: Sodium Chloride (Sodium Chloride 0.9% 10 Ml Flush Syringe) 10 ml IV PRN PRN PRN Reason: LINE FLUSH Tizanidine HCl (Tizanidine Tab 4 Mg Tab) 4 mg PO QID PRN PRN Reason: muscle relaxer Last Admin: 04/06/21 10:11 Dose: 4 mg Documented by: Verapamil HCl (Verapamil 80 Mg Tab) 80 mg PO Q8HR [facility] Last Admin: 04/07/21 05:37 Dose: Not Given Documented by: Physical Examination Vital signs: Vital Signs Temp Pulse Resp BP Pulse Ox 100.3 F H 109 H 21 156/98 99 03/24/21 11:26 03/24/21 11:26 03/24/21 11:26 03/24/21 11:26 03/24/21 11:26 Results - Laboratory Findings CBC and BMP: 04/05/21 05:15 04/06/21 Unknown ABG ABG pH 7.357 (7.320-7.450) 03/30/21 00:17 POC ABG pCO2 26.6 mmHg (32.0-48.0) L 03/30/21 00:17 POC ABG pO2 66.7 mmHg (83-108) L 03/30/21 00:17 POC ABG HCO3 14.6 03/30/21 00:17 ABG O2 Saturation 92.5 (0-100) 03/30/21 00:17 PT/INR, D-dimer PT 15.5 Sec. (12.2-14.9) H 03/24/21 11:52 INR 1.25 (0.87-1.13) H 03/24/21 11:52 D-Dimer 4116.26 ng/mlDDU (0-234) H 04/05/21 05:15 Abnormal lab findings: Abnormal Labs 03/24/21 03/24/21 03/24/21 11:52 11:52 11:52 WBC 13.8 H RBC 3.63 L Hgb Hct RDW 13.0 L Plt Count Lymph % (Auto) [place] % (Auto) 11.6 H [place] # (Auto) 1.6 H Seg Neutrophils % 74.3 H Seg Neuts % (Manual) Lymphocytes % (Manual) Nucleated RBC % Seg Neutrophils # 10.3 H Seg Neutrophils # Man Lymphocytes # (Manual) Monocytes # (Manual) PT 15.5 H INR 1.25 H D-Dimer POC ABG pCO2 POC ABG pO2 ABG Hemoglobin ABG Oxyhemoglobin ABG Potassium ABG Chloride ABG Glucose Sodium 134 L Potassium 6.1 H* Chloride Carbon Dioxide BUN Creatinine Glucose 224 H POC Glucose Hemoglobin A1c Calcium Ferritin AST Alkaline Phosphatase 255 H Lactate Dehydrogenase Total Creatine Kinase C-Reactive Protein Total Protein 8.9 H Albumin 2.5 L Arterial Blood Glucose Arterial Blood Ionized Calcium Urine WBC (Auto) U Epithel Cells (Auto) Urine Creatinine Coronavirus (PCR) 03/24/21 03/25/21 03/25/21 18:50 04:34 04:34 WBC RBC 3.22 L Hgb 9.4 L Hct 28.8 L RDW 12.8 L Plt Count Lymph % (Auto) [place] % (Auto) 14.4 H [place] # (Auto) 1.4 H Seg Neutrophils % Seg Neuts % (Manual) Lymphocytes % (Manual) Nucleated RBC % Seg Neutrophils # Seg Neutrophils # Man Lymphocytes # (Manual) Monocytes # (Manual) PT INR D-Dimer POC ABG pCO2 POC ABG pO2 ABG Hemoglobin ABG Oxyhemoglobin ABG Potassium ABG Chloride ABG Glucose Sodium 133 L 135 L Potassium 5.4 H Chloride Carbon Dioxide BUN 18 H Creatinine Glucose 259 H 224 H POC Glucose Hemoglobin A1c Calcium 8.2 L Ferritin AST Alkaline Phosphatase 210 H Lactate Dehydrogenase Total Creatine Kinase C-Reactive Protein Total Protein Albumin 2.5 L Arterial Blood Glucose Arterial Blood Ionized Calcium Urine WBC (Auto) U Epithel Cells (Auto) Urine Creatinine Coronavirus (PCR) 03/25/21 03/25/21 03/25/21 04:34 12:07 16:08 WBC RBC Hgb Hct RDW Plt Count Lymph % (Auto) [place] % (Auto) [place] # (Auto) Seg Neutrophils % Seg Neuts % (Manual) Lymphocytes % (Manual) Nucleated RBC % Seg Neutrophils # Seg Neutrophils # Man Lymphocytes # (Manual) Monocytes # (Manual) PT INR D-Dimer POC ABG pCO2 POC ABG pO2 ABG Hemoglobin ABG Oxyhemoglobin ABG Potassium ABG Chloride ABG Glucose Sodium Potassium Chloride Carbon Dioxide BUN Creatinine Glucose POC Glucose 248 H 137 H Hemoglobin A1c 12.0 H Calcium Ferritin AST Alkaline Phosphatase Lactate Dehydrogenase Total Creatine Kinase C-Reactive Protein Total Protein Albumin Arterial Blood Glucose Arterial Blood Ionized Calcium Urine WBC (Auto) U Epithel Cells (Auto) Urine Creatinine Coronavirus (PCR) 03/25/21 03/25/21 03/26/21 19:21 21:17 04:39 WBC 12.6 H RBC 2.80 L Hgb 8.4 L Hct 25.1 L RDW 12.6 L Plt Count Lymph % (Auto) [place] % (Auto) 8.4 H [place] # (Auto) 1.1 H Seg Neutrophils % 72.6 H Seg Neuts % (Manual) Lymphocytes % (Manual) Nucleated RBC % Seg Neutrophils # 9.1 H Seg Neutrophils # Man Lymphocytes # (Manual) Monocytes # (Manual) PT INR D-Dimer POC ABG pCO2 POC ABG pO2 ABG Hemoglobin ABG Oxyhemoglobin ABG Potassium ABG Chloride ABG Glucose Sodium Potassium Chloride Carbon Dioxide BUN Creatinine Glucose POC Glucose 175 H 210 H Hemoglobin A1c Calcium Ferritin AST Alkaline Phosphatase Lactate Dehydrogenase Total Creatine Kinase C-Reactive Protein Total Protein Albumin Arterial Blood Glucose Arterial Blood Ionized Calcium Urine WBC (Auto) U Epithel Cells (Auto) Urine Creatinine Coronavirus (PCR) 03/26/21 03/26/21 03/26/21 04:39 07:22 11:44 WBC RBC Hgb Hct RDW Plt Count Lymph % (Auto) [place] % (Auto) [place] # (Auto) Seg Neutrophils % Seg Neuts % (Manual) Lymphocytes % (Manual) Nucleated RBC % Seg Neutrophils # Seg Neutrophils # Man Lymphocytes # (Manual) Monocytes # (Manual) PT INR D-Dimer POC ABG pCO2 POC ABG pO2 ABG Hemoglobin ABG Oxyhemoglobin ABG Potassium ABG Chloride ABG Glucose Sodium 136 L Potassium 5.7 H Chloride Carbon Dioxide BUN 18 H Creatinine Glucose 191 H POC Glucose 190 H 245 H Hemoglobin A1c Calcium 7.7 L Ferritin AST Alkaline Phosphatase Lactate Dehydrogenase Total Creatine Kinase C-Reactive Protein Total Protein Albumin Arterial Blood Glucose Arterial Blood Ionized Calcium Urine WBC (Auto) U Epithel Cells (Auto) Urine Creatinine Coronavirus (PCR) 03/26/21 03/26/21 03/26/21 17:28 21:27 Unknown WBC RBC Hgb Hct RDW Plt Count Lymph % (Auto) [place] % (Auto) [place] # (Auto) Seg Neutrophils % Seg Neuts % (Manual) Lymphocytes % (Manual) Nucleated RBC % Seg Neutrophils # Seg Neutrophils # Man Lymphocytes # (Manual) Monocytes # (Manual) PT INR D-Dimer POC ABG pCO2 POC ABG pO2 ABG Hemoglobin ABG Oxyhemoglobin ABG Potassium ABG Chloride ABG Glucose Sodium Potassium Chloride Carbon Dioxide BUN Creatinine Glucose POC Glucose 183 H 126 H Hemoglobin A1c Calcium Ferritin AST Alkaline Phosphatase Lactate Dehydrogenase Total Creatine Kinase C-Reactive Protein Total Protein Albumin Arterial Blood Glucose Arterial Blood Ionized Calcium Urine WBC (Auto) U Epithel Cells (Auto) Urine Creatinine Coronavirus (PCR) Positive A 03/27/21 03/27/21 03/27/21 05:15 07:17 11:39 WBC RBC Hgb Hct RDW Plt Count Lymph % (Auto) [place] % (Auto) [place] # (Auto) Seg Neutrophils % Seg Neuts % (Manual) Lymphocytes % (Manual) Nucleated RBC % Seg Neutrophils # Seg Neutrophils # Man Lymphocytes # (Manual) Monocytes # (Manual) PT INR D-Dimer POC ABG pCO2 POC ABG pO2 ABG Hemoglobin ABG Oxyhemoglobin ABG Potassium ABG Chloride ABG Glucose Sodium Potassium Chloride Carbon Dioxide BUN Creatinine Glucose 123 H POC Glucose 127 H 189 H Hemoglobin A1c Calcium 8.1 L Ferritin AST Alkaline Phosphatase Lactate Dehydrogenase Total Creatine Kinase C-Reactive Protein Total Protein Albumin Arterial Blood Glucose Arterial Blood Ionized Calcium Urine WBC (Auto) U Epithel Cells (Auto) Urine Creatinine Coronavirus (PCR) 03/27/21 03/27/21 03/27/21 16:17 16:17 16:17 WBC RBC Hgb Hct RDW Plt Count Lymph % (Auto) [place] % (Auto) [place] # (Auto) Seg Neutrophils % Seg Neuts % (Manual) Lymphocytes % (Manual) Nucleated RBC % Seg Neutrophils # Seg Neutrophils # Man Lymphocytes # (Manual) Monocytes # (Manual) PT INR D-Dimer 1177.49 H POC ABG pCO2 POC ABG pO2 ABG Hemoglobin ABG Oxyhemoglobin ABG Potassium ABG Chloride ABG Glucose Sodium Potassium Chloride Carbon Dioxide BUN Creatinine Glucose POC Glucose Hemoglobin A1c Calcium Ferritin 385.5 H AST Alkaline Phosphatase Lactate Dehydrogenase 230 H Total Creatine Kinase C-Reactive Protein 25.40 H Total Protein Albumin Arterial Blood Glucose Arterial Blood Ionized Calcium Urine WBC (Auto) U Epithel Cells (Auto) Urine Creatinine Coronavirus (PCR) 03/27/21 03/27/21 03/28/21 16:23 20:55 05:50 WBC 16.5 H RBC 2.70 L Hgb 7.8 L Hct 23.9 L RDW 12.8 L Plt Count Lymph % (Auto) 11.9 L [place] % (Auto) [place] # (Auto) 1.0 H Seg Neutrophils % 82.1 H Seg Neuts % (Manual) Lymphocytes % (Manual) Nucleated RBC % Seg Neutrophils # 13.5 H Seg Neutrophils # Man Lymphocytes # (Manual) Monocytes # (Manual) PT INR D-Dimer POC ABG pCO2 POC ABG pO2 ABG Hemoglobin ABG Oxyhemoglobin ABG Potassium ABG Chloride ABG Glucose Sodium Potassium Chloride Carbon Dioxide BUN Creatinine Glucose POC Glucose 186 H 172 H Hemoglobin A1c Calcium Ferritin AST Alkaline Phosphatase Lactate Dehydrogenase Total Creatine Kinase C-Reactive Protein Total Protein Albumin Arterial Blood Glucose Arterial Blood Ionized Calcium Urine WBC (Auto) U Epithel Cells (Auto) Urine Creatinine Coronavirus (PCR) 03/28/21 03/28/21 03/28/21 05:50 07:42 11:44 WBC RBC Hgb Hct RDW Plt Count Lymph % (Auto) [place] % (Auto) [place] # (Auto) Seg Neutrophils % Seg Neuts % (Manual) Lymphocytes % (Manual) Nucleated RBC % Seg Neutrophils # Seg Neutrophils # Man Lymphocytes # (Manual) Monocytes # (Manual) PT INR D-Dimer POC ABG pCO2 POC ABG pO2 ABG Hemoglobin ABG Oxyhemoglobin ABG Potassium ABG Chloride ABG Glucose Sodium Potassium 5.1 H Chloride Carbon Dioxide BUN 21 H Creatinine 1.4 H Glucose 140 H POC Glucose 148 H 161 H Hemoglobin A1c Calcium 8.3 L Ferritin AST Alkaline Phosphatase Lactate Dehydrogenase Total Creatine Kinase C-Reactive Protein Total Protein Albumin Arterial Blood Glucose Arterial Blood Ionized Calcium Urine WBC (Auto) U Epithel Cells (Auto) Urine Creatinine Coronavirus (PCR) 03/28/21 03/28/21 03/29/21 18:27 21:57 07:38 WBC RBC Hgb Hct RDW Plt Count Lymph % (Auto) [place] % (Auto) [place] # (Auto) Seg Neutrophils % Seg Neuts % (Manual) Lymphocytes % (Manual) Nucleated RBC % Seg Neutrophils # Seg Neutrophils # Man Lymphocytes # (Manual) Monocytes # (Manual) PT INR D-Dimer POC ABG pCO2 POC ABG pO2 ABG Hemoglobin ABG Oxyhemoglobin ABG Potassium ABG Chloride ABG Glucose Sodium Potassium Chloride Carbon Dioxide BUN Creatinine Glucose POC Glucose 134 H 120 H 127 H Hemoglobin A1c Calcium Ferritin AST Alkaline Phosphatase Lactate Dehydrogenase Total Creatine Kinase C-Reactive Protein Total Protein Albumin Arterial Blood Glucose Arterial Blood Ionized Calcium Urine WBC (Auto) U Epithel Cells (Auto) Urine Creatinine Coronavirus (PCR) 03/29/21 03/29/21 03/29/21 11:08 16:30 21:40 WBC RBC Hgb Hct RDW Plt Count Lymph % (Auto) [place] % (Auto) [place] # (Auto) Seg Neutrophils % Seg Neuts % (Manual) Lymphocytes % (Manual) Nucleated RBC % Seg Neutrophils # Seg Neutrophils # Man Lymphocytes # (Manual) Monocytes # (Manual) PT INR D-Dimer POC ABG pCO2 POC ABG pO2 ABG Hemoglobin ABG Oxyhemoglobin ABG Potassium ABG Chloride ABG Glucose Sodium Potassium Chloride Carbon Dioxide BUN Creatinine Glucose POC Glucose 125 H 156 H 183 H Hemoglobin A1c Calcium Ferritin AST Alkaline Phosphatase Lactate Dehydrogenase Total Creatine Kinase C-Reactive Protein Total Protein Albumin Arterial Blood Glucose Arterial Blood Ionized Calcium Urine WBC (Auto) U Epithel Cells (Auto) Urine Creatinine Coronavirus (PCR) 03/30/21 03/30/21 03/30/21 00:17 00:51 03:55 WBC 16.2 H RBC 2.59 L Hgb 7.5 L Hct 23.2 L RDW Plt Count Lymph % (Auto) 8.0 L [place] % (Auto) [place] # (Auto) Seg Neutrophils % 88.9 H Seg Neuts % (Manual) Lymphocytes % (Manual) Nucleated RBC % Seg Neutrophils # 14.4 H Seg Neutrophils # Man Lymphocytes # (Manual) Monocytes # (Manual) PT INR D-Dimer POC ABG pCO2 26.6 L POC ABG pO2 66.7 L ABG Hemoglobin 7.9 L ABG Oxyhemoglobin 91.8 L ABG Potassium 5.5 H ABG Chloride 112.0 H ABG Glucose 233 H Sodium Potassium 5.6 H Chloride 107.1 H Carbon Dioxide 17 L D BUN 50 H Creatinine 5.3 H D Glucose 239 H POC Glucose Hemoglobin A1c Calcium 7.9 L Ferritin AST 124 H Alkaline Phosphatase 136 H Lactate Dehydrogenase Total Creatine Kinase C-Reactive Protein Total Protein Albumin 2.4 L Arterial Blood Glucose 233 H Arterial Blood Ionized Calcium 4.4 L Urine WBC (Auto) U Epithel Cells (Auto) Urine Creatinine Coronavirus (PCR) 03/30/21 03/30/21 03/30/21 07:42 11:24 11:48 WBC RBC Hgb Hct RDW Plt Count Lymph % (Auto) [place] % (Auto) [place] # (Auto) Seg Neutrophils % Seg Neuts % (Manual) Lymphocytes % (Manual) Nucleated RBC % Seg Neutrophils # Seg Neutrophils # Man Lymphocytes # (Manual) Monocytes # (Manual) PT INR D-Dimer POC ABG pCO2 POC ABG pO2 ABG Hemoglobin ABG Oxyhemoglobin ABG Potassium ABG Chloride ABG Glucose Sodium Potassium Chloride Carbon Dioxide BUN Creatinine Glucose POC Glucose 264 H 303 H Hemoglobin A1c Calcium Ferritin AST Alkaline Phosphatase Lactate Dehydrogenase Total Creatine Kinase > 2000 H C-Reactive Protein Total Protein Albumin Arterial Blood Glucose Arterial Blood Ionized Calcium Urine WBC (Auto) U Epithel Cells (Auto) Urine Creatinine Coronavirus (PCR) 03/30/21 03/30/21 03/30/21 16:59 21:39 23:51 WBC RBC Hgb Hct RDW Plt Count Lymph % (Auto) [place] % (Auto) [place] # (Auto) Seg Neutrophils % Seg Neuts % (Manual) Lymphocytes % (Manual) Nucleated RBC % Seg Neutrophils # Seg Neutrophils # Man Lymphocytes # (Manual) Monocytes # (Manual) PT INR D-Dimer POC ABG pCO2 POC ABG pO2 ABG Hemoglobin ABG Oxyhemoglobin ABG Potassium ABG Chloride ABG Glucose Sodium Potassium Chloride Carbon Dioxide BUN Creatinine Glucose POC Glucose 285 H 247 H Hemoglobin A1c Calcium Ferritin AST Alkaline Phosphatase Lactate Dehydrogenase Total Creatine Kinase 4345 H C-Reactive Protein Total Protein Albumin Arterial Blood Glucose Arterial Blood Ionized Calcium Urine WBC (Auto) U Epithel Cells (Auto) Urine Creatinine Coronavirus (PCR) 03/30/21 03/30/21 03/31/21 Unknown Unknown 02:38 WBC 17.3 H RBC 2.88 L Hgb 8.5 L Hct 25.7 L RDW Plt Count Lymph % (Auto) 6.9 L [place] % (Auto) [place] # (Auto) Seg Neutrophils % 88.8 H Seg Neuts % (Manual) Lymphocytes % (Manual) Nucleated RBC % Seg Neutrophils # 15.4 H Seg Neutrophils # Man Lymphocytes # (Manual) Monocytes # (Manual) PT INR D-Dimer POC ABG pCO2 POC ABG pO2 ABG Hemoglobin ABG Oxyhemoglobin ABG Potassium ABG Chloride ABG Glucose Sodium Potassium Chloride Carbon Dioxide BUN Creatinine Glucose POC Glucose Hemoglobin A1c Calcium Ferritin AST Alkaline Phosphatase Lactate Dehydrogenase Total Creatine Kinase C-Reactive Protein Total Protein Albumin Arterial Blood Glucose Arterial Blood Ionized Calcium Urine WBC (Auto) 23.0 H U Epithel Cells (Auto) 33.0 H Urine Creatinine 175.6 H Coronavirus (PCR) 03/31/21 03/31/21 03/31/21 02:38 07:52 11:31 WBC RBC Hgb Hct RDW Plt Count Lymph % (Auto) [place] % (Auto) [place] # (Auto) Seg Neutrophils % Seg Neuts % (Manual) Lymphocytes % (Manual) Nucleated RBC % Seg Neutrophils # Seg Neutrophils # Man Lymphocytes # (Manual) Monocytes # (Manual) PT INR D-Dimer POC ABG pCO2 POC ABG pO2 ABG Hemoglobin ABG Oxyhemoglobin ABG Potassium ABG Chloride ABG Glucose Sodium 146 H Potassium Chloride 108.6 H Carbon Dioxide 19 L BUN 66 H Creatinine 6.1 H Glucose 243 H POC Glucose 209 H 214 H Hemoglobin A1c Calcium 8.3 L Ferritin AST Alkaline Phosphatase Lactate Dehydrogenase Total Creatine Kinase C-Reactive Protein Total Protein Albumin Arterial Blood Glucose Arterial Blood Ionized Calcium Urine WBC (Auto) U Epithel Cells (Auto) Urine Creatinine Coronavirus (PCR) 03/31/21 03/31/21 03/31/21 14:10 14:10 15:25 WBC RBC Hgb Hct RDW Plt Count Lymph % (Auto) [place] % (Auto) [place] # (Auto) Seg Neutrophils % Seg Neuts % (Manual) Lymphocytes % (Manual) Nucleated RBC % Seg Neutrophils # Seg Neutrophils # Man Lymphocytes # (Manual) Monocytes # (Manual) PT INR D-Dimer POC ABG pCO2 POC ABG pO2 ABG Hemoglobin ABG Oxyhemoglobin ABG Potassium ABG Chloride ABG Glucose Sodium Potassium Chloride 107.9 H Carbon Dioxide 19 L BUN 76 H Creatinine 6.6 H Glucose 235 H POC Glucose 197 H Hemoglobin A1c Calcium 7.6 L Ferritin AST 84 H Alkaline Phosphatase 138 H Lactate Dehydrogenase Total Creatine Kinase 3042 H C-Reactive Protein Total Protein Albumin 2.3 L Arterial Blood Glucose Arterial Blood Ionized Calcium Urine WBC (Auto) U Epithel Cells (Auto) Urine Creatinine Coronavirus (PCR) 03/31/21 03/31/21 03/31/21 16:50 21:12 23:10 WBC RBC Hgb Hct RDW Plt Count Lymph % (Auto) [place] % (Auto) [place] # (Auto) Seg Neutrophils % Seg Neuts % (Manual) Lymphocytes % (Manual) Nucleated RBC % Seg Neutrophils # Seg Neutrophils # Man Lymphocytes # (Manual) Monocytes # (Manual) PT INR D-Dimer POC ABG pCO2 POC ABG pO2 ABG Hemoglobin ABG Oxyhemoglobin ABG Potassium ABG Chloride ABG Glucose Sodium Potassium Chloride Carbon Dioxide BUN Creatinine Glucose POC Glucose 201 H 125 H Hemoglobin A1c Calcium Ferritin AST Alkaline Phosphatase Lactate Dehydrogenase Total Creatine Kinase 1972 H C-Reactive Protein Total Protein Albumin Arterial Blood Glucose Arterial Blood Ionized Calcium Urine WBC (Auto) U Epithel Cells (Auto) Urine Creatinine Coronavirus (PCR) 04/01/21 04/01/21 04/01/21 04:50 16:00 16:58 WBC RBC Hgb Hct RDW Plt Count Lymph % (Auto) [place] % (Auto) [place] # (Auto) Seg Neutrophils % Seg Neuts % (Manual) Lymphocytes % (Manual) Nucleated RBC % Seg Neutrophils # Seg Neutrophils # Man Lymphocytes # (Manual) Monocytes # (Manual) PT INR D-Dimer POC ABG pCO2 POC ABG pO2 ABG Hemoglobin ABG Oxyhemoglobin ABG Potassium ABG Chloride ABG Glucose Sodium 146 H Potassium Chloride 108.3 H Carbon Dioxide BUN 83 H Creatinine 7.1 H Glucose POC Glucose 130 H Hemoglobin A1c Calcium 8.0 L Ferritin AST 70 H Alkaline Phosphatase 134 H Lactate Dehydrogenase Total Creatine Kinase C-Reactive Protein Total Protein Albumin 2.3 L Arterial Blood Glucose Arterial Blood Ionized Calcium Urine WBC (Auto) 75.0 H U Epithel Cells (Auto) Urine Creatinine Coronavirus (PCR) 04/01/21 04/01/21 04/02/21 21:00 21:55 08:05 WBC RBC Hgb Hct RDW Plt Count Lymph % (Auto) [place] % (Auto) [place] # (Auto) Seg Neutrophils % Seg Neuts % (Manual) Lymphocytes % (Manual) Nucleated RBC % Seg Neutrophils # Seg Neutrophils # Man Lymphocytes # (Manual) Monocytes # (Manual) PT INR D-Dimer POC ABG pCO2 POC ABG pO2 ABG Hemoglobin ABG Oxyhemoglobin ABG Potassium ABG Chloride ABG Glucose Sodium Potassium Chloride Carbon Dioxide BUN Creatinine Glucose POC Glucose 177 H 194 H Hemoglobin A1c Calcium Ferritin AST Alkaline Phosphatase Lactate Dehydrogenase Total Creatine Kinase 1023 H C-Reactive Protein Total Protein Albumin Arterial Blood Glucose Arterial Blood Ionized Calcium Urine WBC (Auto) U Epithel Cells (Auto) Urine Creatinine Coronavirus (PCR) 04/02/21 04/02/21 04/02/21 11:08 11:08 11:43 WBC 18.1 H RBC 2.92 L Hgb 8.6 L Hct 25.6 L RDW Plt Count 512 H Lymph % (Auto) [place] % (Auto) [place] # (Auto) Seg Neutrophils % Seg Neuts % (Manual) 91.0 H Lymphocytes % (Manual) 2.0 L Nucleated RBC % Seg Neutrophils # Seg Neutrophils # Man 16.5 H Lymphocytes # (Manual) 0.4 L Monocytes # (Manual) PT INR D-Dimer POC ABG pCO2 POC ABG pO2 ABG Hemoglobin ABG Oxyhemoglobin ABG Potassium ABG Chloride ABG Glucose Sodium 151 H Potassium Chloride 113.0 H Carbon Dioxide BUN 88 H Creatinine 5.9 H Glucose 202 H POC Glucose 191 H Hemoglobin A1c Calcium 8.2 L Ferritin AST Alkaline Phosphatase 146 H Lactate Dehydrogenase Total Creatine Kinase C-Reactive Protein Total Protein Albumin 2.5 L Arterial Blood Glucose Arterial Blood Ionized Calcium Urine WBC (Auto) U Epithel Cells (Auto) Urine Creatinine Coronavirus (PCR) 04/02/21 04/02/21 04/03/21 16:17 20:56 04:27 WBC RBC Hgb Hct RDW Plt Count Lymph % (Auto) [place] % (Auto) [place] # (Auto) Seg Neutrophils % Seg Neuts % (Manual) Lymphocytes % (Manual) Nucleated RBC % Seg Neutrophils # Seg Neutrophils # Man Lymphocytes # (Manual) Monocytes # (Manual) PT INR D-Dimer 2842.63 H POC ABG pCO2 POC ABG pO2 ABG Hemoglobin ABG Oxyhemoglobin ABG Potassium ABG Chloride ABG Glucose Sodium Potassium Chloride Carbon Dioxide BUN Creatinine Glucose POC Glucose 181 H 170 H Hemoglobin A1c Calcium Ferritin AST Alkaline Phosphatase Lactate Dehydrogenase Total Creatine Kinase C-Reactive Protein Total Protein Albumin Arterial Blood Glucose Arterial Blood Ionized Calcium Urine WBC (Auto) U Epithel Cells (Auto) Urine Creatinine Coronavirus (PCR) 04/03/21 04/03/2104/03/21 04:27 04:27 07:51 WBC RBC Hgb Hct RDW Plt Count Lymph % (Auto) [place] % (Auto) [place] # (Auto) Seg Neutrophils % Seg Neuts % (Manual) Lymphocytes % (Manual) Nucleated RBC % Seg Neutrophils # Seg Neutrophils # Man Lymphocytes # (Manual) Monocytes # (Manual) PT INR D-Dimer POC ABG pCO2 POC ABG pO2 ABG Hemoglobin ABG Oxyhemoglobin ABG Potassium ABG Chloride ABG Glucose Sodium Potassium Chloride Carbon Dioxide BUN Creatinine Glucose POC Glucose 136 H Hemoglobin A1c Calcium Ferritin 912.6 H AST Alkaline Phosphatase Lactate Dehydrogenase 537 H Total Creatine Kinase C-Reactive Protein 8.90 H Total Protein Albumin Arterial Blood Glucose Arterial Blood Ionized Calcium Urine WBC (Auto) U Epithel Cells (Auto) Urine Creatinine Coronavirus (PCR) 04/03/21 04/03/21 04/03/21 11:24 15:40 15:40 WBC RBC Hgb Hct RDW Plt Count Lymph % (Auto) [place] % (Auto) [place] # (Auto) Seg Neutrophils % Seg Neuts % (Manual) Lymphocytes % (Manual) Nucleated RBC % Seg Neutrophils # Seg Neutrophils # Man Lymphocytes # (Manual) Monocytes # (Manual) PT INR D-Dimer POC ABG pCO2 POC ABG pO2 ABG Hemoglobin ABG Oxyhemoglobin ABG Potassium ABG Chloride ABG Glucose Sodium Potassium Chloride Carbon Dioxide BUN 44 H Creatinine 3.4 H Glucose 163 H POC Glucose 144 H Hemoglobin A1c Calcium Ferritin AST Alkaline Phosphatase Lactate Dehydrogenase Total Creatine Kinase 309 H C-Reactive Protein Total Protein Albumin Arterial Blood Glucose Arterial Blood Ionized Calcium Urine WBC (Auto) U Epithel Cells (Auto) Urine Creatinine Coronavirus (PCR) 04/03/21 04/03/21 04/04/21 15:54 21:53 03:35 WBC 22.4 H RBC 2.95 L Hgb 8.5 L Hct 26.1 L RDW Plt Count Lymph % (Auto) [place] % (Auto) [place] # (Auto) Seg Neutrophils % Seg Neuts % (Manual) 81.0 H Lymphocytes % (Manual) 11.0 L Nucleated RBC % 1.0 H Seg Neutrophils # Seg Neutrophils # Man 18.1 H Lymphocytes # (Manual) Monocytes # (Manual) 1.1 H PT INR D-Dimer POC ABG pCO2 POC ABG pO2 ABG Hemoglobin ABG Oxyhemoglobin ABG Potassium ABG Chloride ABG Glucose Sodium Potassium Chloride Carbon Dioxide BUN Creatinine Glucose POC Glucose 157 H 107 H Hemoglobin A1c Calcium Ferritin AST Alkaline Phosphatase Lactate Dehydrogenase Total Creatine Kinase C-Reactive Protein Total Protein Albumin Arterial Blood Glucose Arterial Blood Ionized Calcium Urine WBC (Auto) U Epithel Cells (Auto) Urine Creatinine Coronavirus (PCR) 04/04/21 04/04/21 04/04/21 07:40 08:28 11:07 WBC RBC Hgb Hct RDW Plt Count Lymph % (Auto) [place] % (Auto) [place] # (Auto) Seg Neutrophils % Seg Neuts % (Manual) Lymphocytes % (Manual) Nucleated RBC % Seg Neutrophils # Seg Neutrophils # Man Lymphocytes # (Manual) Monocytes # (Manual) PT INR D-Dimer POC ABG pCO2 POC ABG pO2 ABG Hemoglobin ABG Oxyhemoglobin ABG Potassium ABG Chloride ABG Glucose Sodium Potassium Chloride Carbon Dioxide BUN Creatinine Glucose POC Glucose 59 L 155 H 130 H Hemoglobin A1c Calcium Ferritin AST Alkaline Phosphatase Lactate Dehydrogenase Total Creatine Kinase C-Reactive Protein Total Protein Albumin Arterial Blood Glucose Arterial Blood Ionized Calcium Urine WBC (Auto) U Epithel Cells (Auto) Urine Creatinine Coronavirus (PCR) 04/04/21 04/04/21 04/05/21 17:07 21:05 05:15 WBC RBC Hgb Hct RDW Plt Count Lymph % (Auto) [place] % (Auto) [place] # (Auto) Seg Neutrophils % Seg Neuts % (Manual) Lymphocytes % (Manual) Nucleated RBC % Seg Neutrophils # Seg Neutrophils # Man Lymphocytes # (Manual) Monocytes # (Manual) PT INR D-Dimer 4116.26 H POC ABG pCO2 POC ABG pO2 ABG Hemoglobin ABG Oxyhemoglobin ABG Potassium ABG Chloride ABG Glucose Sodium Potassium Chloride Carbon Dioxide BUN Creatinine Glucose POC Glucose 184 H 194 H Hemoglobin A1c Calcium Ferritin AST Alkaline Phosphatase Lactate Dehydrogenase Total Creatine Kinase C-Reactive Protein Total Protein Albumin Arterial Blood Glucose Arterial Blood Ionized Calcium Urine WBC (Auto) U Epithel Cells (Auto) Urine Creatinine Coronavirus (PCR) 04/05/21 04/05/21 04/05/21 05:15 05:15 05:15 WBC 22.5 H RBC 2.97 L Hgb 8.5 L Hct 26.5 L RDW Plt Count Lymph % (Auto) [place] % (Auto) [place] # (Auto) Seg Neutrophils % Seg Neuts % (Manual) 91.0 H Lymphocytes % (Manual) 3.0 L Nucleated RBC % Seg Neutrophils # Seg Neutrophils # Man 20.5 H Lymphocytes # (Manual) 0.7 L Monocytes # (Manual) PT INR D-Dimer POC ABG pCO2 POC ABG pO2 ABG Hemoglobin ABG Oxyhemoglobin ABG Potassium ABG Chloride ABG Glucose Sodium 146 H Potassium 5.5 H D Chloride Carbon Dioxide BUN 95 H Creatinine 5.9 H D Glucose 272 H POC Glucose Hemoglobin A1c Calcium Ferritin 1201.0 H AST 56 H Alkaline Phosphatase 176 H Lactate Dehydrogenase 560 H Total Creatine Kinase C-Reactive Protein 27.10 H Total Protein Albumin 2.8 L Arterial Blood Glucose Arterial Blood Ionized Calcium Urine WBC (Auto) U Epithel Cells (Auto) Urine Creatinine Coronavirus (PCR) 04/05/21 04/05/21 04/05/21 07:52 11:34 15:57 WBC RBC Hgb Hct RDW Plt Count Lymph % (Auto) [place] % (Auto) [place] # (Auto) Seg Neutrophils % Seg Neuts % (Manual) Lymphocytes % (Manual) Nucleated RBC % Seg Neutrophils # Seg Neutrophils # Man Lymphocytes # (Manual) Monocytes # (Manual) PT INR D-Dimer POC ABG pCO2 POC ABG pO2 ABG Hemoglobin ABG Oxyhemoglobin ABG Potassium ABG Chloride ABG Glucose Sodium Potassium Chloride Carbon Dioxide BUN Creatinine Glucose POC Glucose 275 H 235 H 251 H Hemoglobin A1c Calcium Ferritin AST Alkaline Phosphatase Lactate Dehydrogenase Total Creatine Kinase C-Reactive Protein Total Protein Albumin Arterial Blood Glucose Arterial Blood Ionized Calcium Urine WBC (Auto) U Epithel Cells (Auto) Urine Creatinine Coronavirus (PCR) 04/05/21 04/06/21 04/06/21 21:29 04:58 07:23 WBC RBC Hgb Hct RDW Plt Count Lymph % (Auto) [place] % (Auto) [place] # (Auto) Seg Neutrophils % Seg Neuts % (Manual) Lymphocytes % (Manual) Nucleated RBC % Seg Neutrophils # Seg Neutrophils # Man Lymphocytes # (Manual) Monocytes # (Manual) PT INR D-Dimer POC ABG pCO2 POC ABG pO2 ABG Hemoglobin ABG Oxyhemoglobin ABG Potassium ABG Chloride ABG Glucose Sodium Potassium Chloride Carbon Dioxide BUN Creatinine Glucose POC Glucose 163 H 171 H 195 H Hemoglobin A1c Calcium Ferritin AST Alkaline Phosphatase Lactate Dehydrogenase Total Creatine Kinase C-Reactive Protein Total Protein Albumin Arterial Blood Glucose Arterial Blood Ionized Calcium Urine WBC (Auto) U Epithel Cells (Auto) Urine Creatinine Coronavirus (PCR) 04/06/21 04/06/21 04/06/21 11:05 16:50 21:31 WBC RBC Hgb Hct RDW Plt Count Lymph % (Auto) [place] % (Auto) [place] # (Auto) Seg Neutrophils % Seg Neuts % (Manual) Lymphocytes % (Manual) Nucleated RBC % Seg Neutrophils # Seg Neutrophils # Man Lymphocytes # (Manual) Monocytes # (Manual) PT INR D-Dimer POC ABG pCO2 POC ABG pO2 ABG Hemoglobin ABG Oxyhemoglobin ABG Potassium ABG Chloride ABG Glucose Sodium Potassium Chloride Carbon Dioxide BUN Creatinine Glucose POC Glucose 180 H 305 H 288 H Hemoglobin A1c Calcium Ferritin AST Alkaline Phosphatase Lactate Dehydrogenase Total Creatine Kinase C-Reactive Protein Total Protein Albumin Arterial Blood Glucose Arterial Blood Ionized Calcium Urine WBC (Auto) U Epithel Cells (Auto) Urine Creatinine Coronavirus (PCR) 04/06/21 04/07/21 04/07/21 Unknown 07:46 11:49 WBC RBC Hgb Hct RDW Plt Count Lymph % (Auto) [place] % (Auto) [place] # (Auto) Seg Neutrophils % Seg Neuts % (Manual) Lymphocytes % (Manual) Nucleated RBC % Seg Neutrophils # Seg Neutrophils # Man Lymphocytes # (Manual) Monocytes # (Manual) PT INR D-Dimer POC ABG pCO2 POC ABG pO2 ABG Hemoglobin ABG Oxyhemoglobin ABG Potassium ABG Chloride ABG Glucose Sodium Potassium 5.4 H Chloride Carbon Dioxide BUN 69 H Creatinine 4.9 H Glucose 190 H POC Glucose 296 H 189 H Hemoglobin A1c Calcium Ferritin AST Alkaline Phosphatase Lactate Dehydrogenase Total Creatine Kinase C-Reactive Protein Total Protein Albumin Arterial Blood Glucose Arterial Blood Ionized Calcium Urine WBC (Auto) U Epithel Cells (Auto) Urine Creatinine Coronavirus (PCR)
--- NOTE | 2021-04-07 12:28 | Event Note ---
Date: 04/07/21 CODE BLUE NOTE - witnessed assystole arrest - CPR X 2 rounds - epinephrine and bicarbonate given - patient intubated and bagged during CODE - ultimately ROSC - NaHCO3 drip ordered - prognosis guarded - please see nurses records for full details 32' CCT excluding procedures
[2021-04-07] MEDS ORDERED: MINERAL OIL/PETROLATUM, WHITE OPHTH OINT 3.5 GM OU PRN (12:56)
[2021-04-07] MEDS ORDERED: fentaNYL 100 MCG/2 ML INJ IV PRN (12:56)
[2021-04-07] MEDS ORDERED: LIP THERAPY VASELINE TP PRN (12:56)
[2021-04-07] MEDS ORDERED: fentaNYL DRIP Premix 2,000 MCG/100 ML BAG IV SCH (13:00)
[2021-04-07] MEDS ORDERED: VASOPRESSIN 20 UNIT in SODIUM CHLORIDE 0.9% 100 ML IV SCH (13:00)
[2021-04-07] MEDS ORDERED: VANCOMYCIN/NS 1 GM/250 ML 1 GM/250 ML BAG IV SCH (13:00)
--- NOTE | 2021-04-07 13:02 | XRay Report ---
CHEST 1 VIEW 04/07/2021 12:34 PM INDICATION / CLINICAL INFORMATION: ETT PLACEMENT/ og placement. COMPARISON: 03/27/21 FINDINGS: SUPPORT DEVICES: Right PICC is unchanged. Endotracheal and esophagogastric tubes have been placed in expected position. HEART / MEDIASTINUM: Stable. LUNGS / PLEURA: Mild bilateral interstitial edema. No pneumothorax. ADDITIONAL FINDINGS: No significant additional findings. IMPRESSION: 1. Endotracheal tube in expected position. Esophagogastric tube in expected position. Signer Name: Myra Olea MD Signed: 04/07/2021 12:57 PM Workstation Name: [id number]
[2021-04-07] MEDS ORDERED: DOPamine/D5W 800 MG/250 ML 800 MG/250 ML BAG IV ONE (13:16)
[2021-04-07] MEDS ORDERED: SODIUM BICARBONATE 325 MG TAB FEEDTUBE PRN (13:38)
[2021-04-07] MEDS ORDERED: SIMPLE SYRUP 15 ML FEEDTUBE PRN ×2 (13:38)
[2021-04-07] MEDS ORDERED: LIPASE 10,500/PROTEASE 25,000/AMYLASE 43,750 (UNITS) DR CAP FEEDTUBE PRN (13:38)
--- NOTE | 2021-04-07 13:45 | Progress Note ---
Assessment and Plan The high probability OF a clinically significant sudden or life-threatening deterioration of the cardiorespiratory system and endocrine system required my full and direct attention, intervention and postoperative management. The aggregate critical care time was 32 minutes. The time is in addition to time spent performing reported procedures but includes the followin: Data review and interpretation 2: Patient assessment and monitoring of vital signs 3: Documentation 4:: Medication orders and management - Patient Problems (1) Acute respiratory failure with hypoxia Current Visit: Yes Status: Acute Plan to address problem: Patient on high flow oxygen nearly FiO2 100% FiO2 dropped to 90% On 35 hours liters high flow nasal cannula oxygen Unable to wean poor prognosis (2) Pneumonia due to COVID-19 virus Current Visit: Yes Status: Acute Plan to address problem: IV Decadron for now No remdesivir because of the high creatinine (3) Acute hyperkalemia Current Visit: Yes Status: Acute Plan to address problem: Hyperkalemia resolved (4) QUENTIN (acute kidney injury) Current Visit: No Status: Acute Plan to address problem: IV fluids initiated ATN On hemodialysis- Same (5) Gangrene of right foot Current Visit: Yes Status: Acute Plan to address problem: S/p Rt BKA Stump care (6) Peripheral vascular disease Current Visit: Yes Status: Chronic Plan to address problem: S/p right BKA (7) Hypertension Current Visit: Yes Status: Chronic Qualifiers: Hypertension type: essential hypertension Qualified Code(s): I10 - Ess ential (primary) hypertension Plan to address problem: Continue antihypertensives Blood pressure well controlled Patient had couple of hypotensive episodes 3 to 4 days ago (8) IDDM (insulin dependent diabetes mellitus) Current Visit: Yes Status: Chronic Plan to address problem: Tight control of blood glucose levels Check hemoglobin A1c Increase insulin by 5 units Tighter control of blood glucose levels (9) DVT prophylaxis Current Visit: Yes Status: Acute Plan to address problem: On heparin and GI prophylaxis (10) Discharge planning issues Current Visit: Yes Status: Acute Subjective Date of service: 04/06/21 Principal diagnosis: Right foot gangrene, s/p right BKA, Covid positive Interval history: 50-year-old obese female patient was admitted on 02/21/21 with diabetic ketoacidosis and cellulitis of the foot secondary to spider bite was discharged home on IV ceftriaxone 2 g daily for 6 weeks ending 04/06/2021 brought back to the emergency room via EMS from a local wound clinic after patient found to be febr ile and right foot turned into black color. s/p BKA and now tested positive for COVID. Daily clinical course: 03/25/21: Patient is scheduled for right foot amputation today, continue empiric antibiotics, n.p.o. for now. Follow clinically. 03/26/21: s/p right BKA yesterday. cont to adjust pain meds. wait for PT eval. K 5.7 - ordered kayexalate. 03/27/21: Continue to complains of severe pain on amputated leg. Pending PT eval and will follow surgery recommendation. Potassium level appears to be normal today. 03/28/21: PT recommended ARMANDO, tested positive for covid. Per ID: she is currently on oxygen but not sure merely for comfort or due to hypoxia. Discussed with RN who will try to wean the oxygen off. If she remains hypoxic, start remdesivir and steroids. 03/29/21 S/p BKA of the right lower extremity Covid positive Patient on 35 L nasal cannula oxygen IV antibiotics as per ID recommendations 03/30/21 On 35 L high flow oxygen Slightly lethargic Creatinine has worsened from 1.4-5.3 over the last 48 hours Renal consult requested--- Dr. Valenzuela conference services manager today IV fluids increased to 100 mL/h 03/31/2021 On 100% FiO2 04/01/2021 On 90% FiO2 35 L high flow oxygen And respiratory distress Pulmonary consult requested 04/02/2021 Patient still on 35 L nasal cannula high flow oxygen Patient getting Vas-Cath today 04/03/2021 Sewing Demonstrator, ID, renal consults appreciated Patient is in the process of getting hemodialysis Patient on 35 L nasal cannula oxygen 100% FiO2 Alert but confused As per the daughters request initiated patient transfer to [place] 04/04/21 Resp sistress On high flow oxygen 100% FiO2 Altered mental state 04/05/21 On high flow oxygen 04/06/21 On High flow oxygen 100 percent FiO2 More lethargic Objective - Constitutional Vitals: Vital Signs - 12hr 04/07/21 04/07/21 04/07/21 02:00 02:35 03:00 Temperature Pulse Rate 124 H 131 H Respiratory 21 24 Rate Blood Pressure 146/78 146/74 O2 Sat by Pulse 94 94 91 Oximetry O2 Sat by Pulse Oximetry [ Anterior Bilateral Throughout] 04/07/21 04/07/21 04/07/21 03:41 04:00 05:00 Temperature 98.2 F Pulse Rate 123 H 119 H Respiratory 18 26 H Rate Blood Pressure 138/84 131/86 O2 Sat by Pulse 93 94 Oximetry O2 Sat by Pulse Oximetry [ Anterior Bilateral Throughout] 04/07/21 04/07/21 04/07/21 06:00 07:00 08:00 Temperature 100 F H Pulse Rate 118 H 115 H 116 H Respiratory 20 24 24 Rate Blood Pressure 146/87 138/84 145/84 O2 Sat by Pulse 95 94 95 Oximetry O2 Sat by Pulse Oximetry [ Anterior Bilateral Throughout] 04/07/21 04/07/21 04/07/21 08:33 09:00 09:20 Temperature 98.3 F Pulse Rate 116 H 116 H Respiratory 21 23 Rate Blood Pressure 152/86 133/88 O2 Sat by Pulse 95 94 Oximetry O2 Sat by Pulse 100 Oximetry [ Anterior Bilateral Throughout] 04/07/21 04/07/21 04/07/21 09:26 09:30 09:45 Temperature Pulse Rate 114 H 116 H 106 H Respiratory Rate Blood Pressure 157/82 151/85 101/47 O2 Sat by Pulse Oximetry O2 Sat by Pulse Oximetry [ Anterior Bilateral Throughout] 04/07/21 04/07/21 04/07/21 10:00 10:15 10:30 Temperature Pulse Rate 120 H 73 96 H Respiratory 29 H Rate Blood Pressure 84/47 79/55 79/38 O2 Sat by Pulse 95 Oximetry O2 Sat by Pulse Oximetry [ Anterior Bilateral Throughout] 04/07/21 04/07/21 04/07/21 10:45 11:00 11:01 Temperature Pulse Rate 126 H 112 H 112 H Respiratory 14 Rate Blood Pressure 106/51 89/37 89/37 O2 Sat by Pulse 86 Oximetry O2 Sat by Pulse Oximetry [ Anterior Bilateral Throughout] 04/07/21 04/07/21 04/07/21 11:15 11:30 11:45 Temperature Pulse Rate 119 H 85 82 Respiratory Rate Blood Pressure 92/46 112/25 85/20 O2 Sat by Pulse Oximetry O2 Sat by Pulse Oximetry [ Anterior Bilateral Throughout] 04/07/21 04/07/21 04/07/21 12:00 12:01 13:01 Temperature 97.9 F Pulse Rate 85 114 H 119 H Respiratory 105 H 28 H Rate Blood Pressure 63/16 63/16 109/69 O2 Sat by Pulse 100 99 Oximetry O2 Sat by Pulse Oximetry [ Anterior Bilateral Throughout] General appearance: Present: mild distress, well-nourished - EENT Eyes: PERRL, EOM intact ENT: hearing intact, clear oral mucosa Ears: bilateral: normal - Neck Neck: supple, normal ROM - Respiratory Respiratory effort: normal Respiratory: bilateral: CTA, rhonchi - Breasts Breasts: normal - Cardiovascular Rhythm: regular Heart Sounds: Present: S1 & S2. Absent: gallop, rub Extremities: pulses intact, No edema, normal color, Full ROM - Gastrointestinal General gastrointestinal: Present: soft, non-tender, non-distended, normal bowel sounds - Genitourinary Female genitourinary: normal - Integumentary Integumentary: clear, warm, dry - Musculoskeletal Musculoskeletal: 1, strength equal bilaterally - Neurologic Neurologic: moves all extremities - Psychiatric Psychiatric: memory intact, appropriate mood/affect, intact judgment & insight - Labs CBC & Chem 7: 04/05/21 05:15 04/06/21 Unknown Labs: Abnormal lab results 04/06/21 04/06/21 04/07/21 Range/Units 16:50 21:31 07:46 POC Glucose 305 H 288 H 296 H (70-105) mg/dL 04/07/21 Range/Units 11:49 POC Glucose 189 H (70-105) mg/dL
[2021-04-07] MEDS ORDERED: CEFEPIME/NS 1 GM/100 ML 1 GM/100 ML BAG IV SCH (14:00)
[2021-04-07] MEDS ORDERED: SODIUM BICARBONATE 150 MEQ in WATER FOR INJECTION (PF) 1,000 ML IV SCH (14:00)
[2021-04-07] MEDS: NORepinephrine/NS 4 MG-250 ML 4 MG/250 ML BAG IV SCH ×2 (14:00→19:18)
[2021-04-07] MEDS ORDERED: CALCIUM GLUCONATE 2,000 MG in SODIUM CHLORIDE 0.9% 100 ML IV ONE (14:00)
[2021-04-07] MEDS ORDERED: VANCOMYCIN PHARMACY TO DOSE IV SCH (14:00)
[2021-04-07] MEDS ORDERED: PHENYLEPHRINE 100 MG in SODIUM CHLORIDE 0.9% 90 ML IV ONE ×2 (14:00→19:40)
[2021-04-07] MEDS ORDERED: EPINEPHrine 1 MG/1 ML 8 MG in SODIUM CHLORIDE 0.9% 250ML 242 ML IV SCH (14:00)
--- NOTE | 2021-04-07 14:19 | Progress Note ---
Assessment and Plan Cultures: SARS CoV2 PCR: Positive 03/24/2021 blood culture: No growth 03/24/2021 right fourth toe wound culture: Pseudomonas, Enterococcus faecalis A/P: 50-year-old female with diabetes, hypertension, known to me from her recent hospitalization for right foot necrotic wound and cellulitis for which she was set up with IV antibiotics for 6 weeks ending 04/06/2021 was admitted to the hospital on 03/24/2021 with significant worsening and gangrene: #COVID-19: severe. As per hospital criteria, not a candidate for tocilizumab due to her gangrenous R foot requiring BKA. Got few days of remdesivir. On steroids. #Acute hypoxic respiratory failure: on HFNC. #QUENTIN: creatinine elevated. CK was also elevated. Nephrology following, now on HD. #Sepsis, gangrenous right foot: Status post right BKA. Wound culture with Pseudomonas. #Diabetes mellitus #Peripheral vascular disease: underwent BKA. Recs: -continue steroids, Decadron D10 of 10 -Completed levofloxacin. -On cefepime/vanco now as she spiked fevers over the weekend. -Repeat cultures negative so far -Monitor inflammatory markers every 2 to 3 days -prophylactic anticoag per protocol, based on d-dimer Had code blue today. Poor prognosis. Joss Jackman MD [facility] O: [phone] F: [phone] Subjective Date of service: 04/07/21 Principal diagnosis: Right foot gangrene, s/p right BKA, Covid positive Interval history: Febrile yesterday, currently afebrile. White count remains elevated. Had adequate glucose afternoon. Imaging personally reviewed: Chest x-ray: ET tube in place. Objective - Exam Narrative Exam: Physical exam deferred to reduce risk of transmission of COVID-19. Please refer to primary team's note. - Constitutional Vitals: Vital Signs Temp Pulse Resp BP Pulse Ox 97.9 F 119 H 28 H 109/69 99 04/07/21 12:00 04/07/21 13:01 04/07/21 13:01 04/07/21 13:01 04/07/21 13:01 Temperature -Last 24 Hours Temperature 97.9 F Temperature 98.3 F Temperature 100 F Temperature 98.2 F Temperature 101.4 F Temperature 97.7 F - Labs CBC & Chem 7: 04/05/21 05:15 04/06/21 Unknown Labs: Abnormal lab results 04/06/21 04/06/21 04/07/21 Range/Units 16:50 21:31 07:46 POC Glucose 305 H 288 H 296 H (70-105) mg/dL 04/07/21 Range/Units 11:49 POC Glucose 189 H (70-105) mg/dL
[2021-04-07] MEDS ORDERED: VANCOMYCIN 2,000 MG in SODIUM CHLORIDE 0.9% 500 ML 500 ML IV ONE (16:00)
[2021-04-07 16:02] LABS: Hematocrit 28.1 % (30.3-42.9); Hemoglobin 8.5 gm/dl (10.1-14.3); Mean Corpuscular HGB Conc 30 % (30-34); Mean Corpuscular Volume 92 fl (79-97); Platelet Count 398 K/mm3 (140-440); Red Blood Count 3.05 M/mm3 (3.65-5.03); Red Cell Distribution Width 13.9 % (13.2-15.2)
[2021-04-07 16:15] LABS: Calcium 8.4 mg/dL (8.4-10.2)
[2021-04-07] MEDS ORDERED: DOPamine/D5W 800 MG/250 ML 800 MG/250 ML BAG IV SCH (16:30)
[2021-04-07 16:47] LABS: Nucleated Red Blood Cells 12.5 % (0.0-0.9); Total Cells Counted 200
[2021-04-07 16:50] LABS: Anisocytosis 1+; Large Platelets Few; Platelet Estimate Consistent w Auto
--- NOTE | 2021-04-07 17:58 | Event Note ---
Date: 04/07/21 Had a family conference with all 3 daughters at 15 0 0 hours which lasted ~1540 hrs. Family was updated about her clinical picture from the date of admission to now. Family was also informed about multiple code blues today x3. Ms. Bellamy--one of the 3 daughters understands gravity of the situation The other 2 daughters are not able to accept that the patient has Covid They are questioning the diagnosis of Covid Ms. Bellamy had Covid and recovered from Covid recently. DNR request could not be made because the family was very upset and wanted everything to be done.
--- NOTE | 2021-04-07 18:01 | Event Note ---
Date: 04/07/21 NIKOLAS TRAVIS was called at 1744 hrs. and patient was revived Was given epinephrine and bicarb and patient is on bicarb drip Patient is on multiple pressor drips Prognosis is poor Family informed Ms. Bellamy was called around 1755 hrs. and informed about the CODE BLUE and the prognosis.
[2021-04-07] MEDS ORDERED: PHENYLEPHRINE 100 MG in SODIUM CHLORIDE 0.9% 90 ML IV SCH ×3 (19:00→20:00)
[2021-04-07] MEDS ORDERED: AMIODARONE 900 MG in DEXTROSE 5% IN WATER 482 ML IV SCH (20:00)
[2021-04-07] MEDS ORDERED: ATROPINE 0.1% (1 MG/10 ML) CARDIAC SYRINGE ONE (20:48)
--- NOTE | 2021-04-07 21:12 | Progress Note ---
Assessment and Plan The high probability OF a clinically significant sudden or life-threatening deterioration of the cardiorespiratory system and endocrine system required my full and direct attention, intervention and postoperative management. The aggregate critical care time was 32 minutes. The time is in addition to time spent performing reported procedures but includes the followin: Data review and interpretation 2: Patient assessment and monitoring of vital signs 3: Documentation 4:: Medication orders and management - Patient Problems (1) Acute respiratory failure with hypoxia Current Visit: Yes Status: Acute Plan to address problem: Patient on high flow oxygen nearly FiO2 100% FiO2 dropped to 90% On 35 hours liters high flow nasal cannula oxygen Unable to wean poor prognosis (2) Pneumonia due to COVID-19 virus Current Visit: Yes Status: Acute Plan to address problem: IV Decadron for now No remdesivir because of the high creatinine (3) Acute hyperkalemia Current Visit: Yes Status: Acute Plan to address problem: Hyperkalemia resolved (4) QUENTIN (acute kidney injury) Current Visit: No Status: Acute Plan to address problem: IV fluids initiated ATN On hemodialysis- Same (5) Gangrene of right foot Current Visit: Yes Status: Acute Plan to address problem: S/p Rt BKA Stump care (6) Peripheral vascular disease Current Visit: Yes Status: Chronic Plan to address problem: S/p right BKA (7) Hypertension Current Visit: Yes Status: Chronic Qualifiers: Hypertension type: essential hypertension Qualified Code(s): I10 - Ess ential (primary) hypertension Plan to address problem: Continue antihypertensives Blood pressure well controlled Patient had couple of hypotensive episodes 3 to 4 days ago (8) IDDM (insulin dependent diabetes mellitus) Current Visit: Yes Status: Chronic Plan to address problem: Tight control of blood glucose levels Check hemoglobin A1c Increase insulin by 5 units Tighter control of blood glucose levels (9) DVT prophylaxis Current Visit: Yes Status: Acute Plan to address problem: On heparin and GI prophylaxis (10) Discharge planning issues Current Visit: Yes Status: Acute Plan to address problem: Initiated transfer to [place] because of the daughter's request Daughter's phone numbers Ms. Denney with telephone number [phone] Also updated daughter Mia. Talked with transfer center at 15 0 0 hours [place] refused transfer because of the patient being Covid positive Subjective Date of service: 04/07/21 Principal diagnosis: Right foot gangrene, s/p right BKA, Covid positive Interval history: 50-year-old obese female patient was admitted on 02/21/21 with diabetic ketoacidosis and cellulitis of the foot secondary to spider bite was discharged home on IV ceftriaxone 2 g daily for 6 weeks ending 04/06/2021 brought back to the emergency room via EMS from a local wound clinic after patient found to be febrile and right foot turned into black color. s/p BKA and now tested positive for COVID. Daily clinical course: 03/25/21: Patient is scheduled for right foot amputation today, continue empiric antibiotics, n.p.o. for now. Follow clinically. 03/26/21: s/p right BKA yesterday. cont to adjust pain meds. wait for PT eval. K 5.7 - ordered kayexalate. 03/27/21: Continue to complains of severe pain on amputated leg. Pending PT eval and will follow surgery recommendation. Potassium level appears to be normal today. 03/28/21: PT recommended ARMANDO, tested positive for covid. Per ID: she is currently on oxygen but not sure merely for comfort or due to hypoxia. Discussed with RN who will try to wean the oxygen off. If she remains hypoxic, start remdesivir and steroids. 03/29/21 S/p BKA of the right lower extremity Covid positive Patient on 35 L nasal cannula oxygen IV antibiotics as per ID recommendations 03/30/21 On 35 L high flow oxygen Slightly lethargic Creatinine has worsened from 1.4-5.3 over the last 48 hours Renal consult requested--- Dr. Valenzuela bond writer today IV fluids increased to 100 mL/h 03/31/2021 On 100% FiO2 04/01/2021 On 90% FiO2 35 L high flow oxygen And respiratory distress Pulmonary consult requested 04/02/2021 Patient still on 35 L nasal cannula high flow oxygen Patient getting Vas-Cath today 04/03/2021 Statistics Professor, ID, renal consults appreciated Patient is in the process of getting hemodialysis Patient on 35 L nasal cannula oxygen 100% FiO2 Alert but confused As per the daughters request initiated patient transfer to [place] 04/04/21 Resp sistress On high flow oxygen 100% FiO2 Altered mental state 04/05/21 On high flow oxygen 04/06/21 On High flow oxygen 100 percent FiO2 More lethargic 04/07/2021 Patient has multiple code blues today Patient was revived six times after code CODE BLUE was Four of them were done by me Family conference was done at 15 hours and family was informed about the progress of the disease and prognosis. Family wanted a full code--and full code protocol was done Objective - Constitutional Vitals: Vital Signs - 12hr 04/07/21 04/07/21 04/07/21 09:20 09:26 09:30 Temperature 98.3 F Pulse Rate 116 H 114 H 116 H Pulse Rate [ From Monitor] Respiratory 23 Rate Blood Pressure 133/88 157/82 151/85 O2 Sat by Pulse Oximetry O2 Sat by Pulse 100 Oximetry [ Anterior Bilateral Throughout] 04/07/21 04/07/21 04/07/21 09:45 10:00 10:15 Temperature Pulse Rate 106 H 120 H 73 Pulse Rate [ From Monitor] Respiratory 29 H Rate Blood Pressure 101/47 84/47 79/55 O2 Sat by Pulse 95 Oximetry O2 Sat by Pulse Oximetry [ Anterior Bilateral Throughout] 04/07/21 04/07/21 04/07/21 10:30 10:45 11:00 Temperature Pulse Rate 96 H 126 H 112 H Pulse Rate [ From Monitor] Respiratory Rate Blood Pressure 79/38 106/51 89/37 O2 Sat by Pulse Oximetry O2 Sat by Pulse Oximetry [ Anterior Bilateral Throughout] 04/07/21 04/07/21 04/07/21 11:01 11:15 11:30 Temperature Pulse Rate 112 H 119 H 85 Pulse Rate [ From Monitor] Respiratory 14 Rate Blood Pressure 89/37 92/46 112/25 O2 Sat by Pulse 86 Oximetry O2 Sat by Pulse Oximetry [ Anterior Bilateral Throughout] 04/07/21 04/07/21 04/07/21 11:45 12:00 12:01 Temperature 97.9 F Pulse Rate 82 125 H 114 H Pulse Rate [ From Monitor] Respiratory 105 H Rate Blood Pressure 85/20 63/16 63/16 O2 Sat by Pulse 100 Oximetry O2 Sat by Pulse Oximetry [ Anterior Bilateral Throughout] 04/07/21 04/07/21 04/07/21 12:25 13:01 14:01 Temperature Pulse Rate 119 H 126 H Pulse Rate [ From Monitor] Respiratory 28 H 32 H Rate Blood Pressure 109/69 141/75 O2 Sat by Pulse 98 99 100 Oximetry O2 Sat by Pulse Oximetry [ Anterior Bilateral Throughout] 04/07/21 04/07/21 04/07/21 14:59 15:01 16:00 Temperature Pulse Rate 131 H 134 H 124 H Pulse Rate [ 117 H From Monitor] Respiratory 33 H 30 H Rate Blood Pressure 146/71 115/64 O2 Sat by Pulse 100 100 100 Oximetry O2 Sat by Pulse Oximetry [ Anterior Bilateral Throughout] 04/07/21 04/07/21 04/07/21 17:00 18:01 19:01 Temperature Pulse Rate 118 H 139 H 131 H Pulse Rate [ From Monitor] Respiratory 28 H 27 H 26 H Rate Blood Pressure 110/44 140/46 111/62 O2 Sat by Pulse 99 98 Oximetry O2 Sat by Pulse Oximetry [ Anterior Bilateral Throughout] 04/07/21 04/07/21 04/07/21 19:11 19:13 19:15 Temperature Pulse Rate 136 H 136 H 133 H Pulse Rate [ From Monitor] Respiratory 25 H 22 26 H Rate Blood Pressure 127/30 134/20 134/20 O2 Sat by Pulse 98 98 96 Oximetry O2 Sat by Pulse Oximetry [ Anterior Bilateral Throughout] 04/07/21 04/07/21 04/07/21 19:16 19:19 19:21 Temperature Pulse Rate 134 H 132 H 132 H Pulse Rate [ From Monitor] Respiratory 28 H 25 H 29 H Rate Blood Pressure 103/69 109/61 126/33 O2 Sat by Pulse 97 97 98 Oximetry O2 Sat by Pulse Oximetry [ Anterior Bilateral Throughout] 04/07/21 04/07/21 04/07/21 19:23 19:24 19:26 Temperature Pulse Rate 127 H 127 H 123 H Pulse Rate [ From Monitor] Respiratory 28 H 27 H 32 H Rate Blood Pressure 126/33 113/19 O2 Sat by Pulse 97 95 Oximetry O2 Sat by Pulse Oximetry [ Anterior Bilateral Throughout] 04/07/21 04/07/21 04/07/21 19:29 19:31 19:33 Temperature Pulse Rate 104 H 65 228 H Pulse Rate [ From Monitor] Respiratory 29 H 19 119 H Rate Blood Pressure 82/20 82/20 111/17 O2 Sat by Pulse 34 L Oximetry O2 Sat by Pulse Oximetry [ Anterior Bilateral Throughout] 04/07/21 04/07/21 04/07/21 19:34 19:37 19:38 Temperature Pulse Rate 165 H 147 H 146 H Pulse Rate [ From Monitor] Respiratory 120 H 88 H 34 H Rate Blood Pressure 111/17 126/53 126/53 O2 Sat by Pulse 44 L 40 L Oximetry O2 Sat by Pulse Oximetry [ Anterior Bilateral Throughout] 04/07/21 04/07/21 04/07/21 19:41 19:43 19:45 Temperature Pulse Rate 174 H 182 H 123 H Pulse Rate [ From Monitor] Respiratory 24 24 21 Rate Blood Pressure 126/53 99/10 99/10 O2 Sat by Pulse Oximetry O2 Sat by Pulse Oximetry [ Anterior Bilateral Throughout] 04/07/21 04/07/21 04/07/21 19:47 19:49 19:51 Temperature Pulse Rate 78 216 H 61 Pulse Rate [ From Monitor] Respiratory 30 H 32 H 32 H Rate Blood Pressure 99/10 99/10 99/10 O2 Sat by Pulse 65 L 40 L Oximetry O2 Sat by Pulse Oximetry [ Anterior Bilateral Throughout] 04/07/21 04/07/21 04/07/21 19:53 19:55 19:57 Temperature Pulse Rate 147 H 158 H 139 H Pulse Rate [ From Monitor] Respiratory 26 H 27 H 27 H Rate Blood Pressure 152/51 99/57 99/57 O2 Sat by Pulse 22 L 20 L 13 L Oximetry O2 Sat by Pulse Oximetry [ Anterior Bilateral Throughout] 04/07/21 04/07/21 04/07/21 19:59 20:00 20:01 Temperature Pulse Rate 138 H 137 H Pulse Rate [ 129 H From Monitor] Respiratory 29 H 15 Rate Blood Pressure 99/57 61/37 O2 Sat by Pulse 37 L 26 L Oximetry O2 Sat by Pulse Oximetry [ Anterior Bilateral Throughout] 04/07/21 04/07/21 04/07/21 20:03 20:05 20:07 Temperature Pulse Rate 135 H 134 H 134 H Pulse Rate [ From Monitor] Respiratory 27 H 24 18 Rate Blood Pressure 61/37 61/37 105/38 O2 Sat by Pulse 42 L 41 L 27 L Oximetry O2 Sat by Pulse Oximetry [ Anterior Bilateral Throughout] 04/07/21 04/07/21 04/07/21 20:09 20:11 20:12 Temperature Pulse Rate 133 H 129 H 128 H Pulse Rate [ From Monitor] Respiratory 25 H 21 24 Rate Blood Pressure 96/18 112/33 124/70 O2 Sat by Pulse 26 L 30 L 28 L Oximetry O2 Sat by Pulse Oximetry [ Anterior Bilateral Throughout] 04/07/21 20:14 Temperature Pulse Rate 134 H Pulse Rate [ From Monitor] Respiratory Rate Blood Pressure O2 Sat by Pulse Oximetry O2 Sat by Pulse Oximetry [ Anterior Bilateral Throughout] General appearance: Present: no acute distress, well-nourished - EENT Eyes: PERRL, EOM intact ENT: hearing intact, clear oral mucosa Ears: bilateral: normal - Neck Neck: supple, normal ROM - Respiratory Respiratory effort: normal Respiratory: bilateral: CTA - Breasts Breasts: normal - Cardiovascular Heart rate: 145 Rhythm: irregularly irregular Heart Sounds: Present: S1 & S2. Absent: gallop, rub Extremities: pulses intact, No edema, normal color, Full ROM, abnormal (Right BKA) Extremity abnormal: other (Right BKA) - Gastrointestinal General gastrointestinal: Present: soft, non-tender, non-distended, normal bowel sounds - Genitourinary Female genitourinary: normal - Integumentary Integumentary: clear, warm, dry - Musculoskeletal Musculoskeletal: 1, strength equal bilaterally - Neurologic Neurologic: moves all extremities - Psychiatric Psychiatric: memory intact, appropriate mood/affect, intact judgment & insight - Labs CBC & Chem 7: 04/07/21 15:39 04/07/21 15:39 Labs: Abnormal lab results 04/06/21 04/07/21 04/07/21 Range/Units 21:31 07:46 11:49 WBC (4.5-11.0) K/mm3 RBC (3.65-5.03) M/mm3 Hgb (10.1-14.3) gm/dl Hct (30.3-42.9) % Seg Neuts % (Manual) (40.0-70.0) % Lymphocytes % (Manual) (13.4-35.0) % Nucleated RBC % (0.0-0.9) % Seg Neutrophils # Man (1.8-7.7) K/mm3 Lymphocytes # (Manual) (1.2-5.4) K/mm3 ABG pH (7.320-7.450) POC ABG pCO2 (32.0-48.0) mmHg POC ABG pO2 (83-108) mmHg ABG Hemoglobin (12.0-17.5) ABG Oxyhemoglobin (94-98) ABG Sodium (136.0-145.0) mmol/L ABG Potassium (3.40-4.50) mmol/L ABG Glucose (65-95) mg/dL Carboxyhemoglobin (0.5-1.5) Sodium (137-145) mmol/L Potassium (3.6-5.0) mmol/L Chloride (98-107) mmol/L Carbon Dioxide (22-30) mmol/L BUN (7-17) mg/dL Creatinine (0.6-1.2) mg/dL Glucose (65-100) mg/dL POC Glucose 288 H 296 H 189 H (70-105) mg/dL Arterial Blood Glucose (65-95) mg/dL Arterial Blood Ionized Calcium (4.6-5.3) mg/dL 04/07/21 04/07/21 04/07/21 Range/Units 13:21 15:03 15:39 WBC 58.8 H* (4.5-11.0) K/mm3 RBC 3.05 L (3.65-5.03) M/mm3 Hgb 8.5 L (10.1-14.3) gm/dl Hct 28.1 L (30.3-42.9) % Seg Neuts % (Manual) 78.0 H (40.0-70.0) % Lymphocytes % (Manual) 4.5 L (13.4-35.0) % Nucleated RBC % 12.5 H (0.0-0.9) % Seg Neutrophils # Man 0.0 L (1.8-7.7) K/mm3 Lymphocytes # (Manual) 0.0 L (1.2-5.4) K/mm3 ABG pH 6.896 L (7.320-7.450) POC ABG pCO2 140.1 H (32.0-48.0) mmHg POC ABG pO2 58.1 L (83-108) mmHg ABG Hemoglobin 9.9 L (12.0-17.5) ABG Oxyhemoglobin 60.8 L (94-98) ABG Sodium 146.4 H (136.0-145.0) mmol/L ABG Potassium 7.2 H (3.40-4.50) mmol/L ABG Glucose 171 H (65-95) mg/dL Carboxyhemoglobin 0.1 L (0.5-1.5) Sodium (137-145) mmol/L Potassium (3.6-5.0) mmol/L Chloride (98-107) mmol/L Carbon Dioxide (22-30) mmol/L BUN (7-17) mg/dL Creatinine (0.6-1.2) mg/dL Glucose (65-100) mg/dL POC Glucose 166 H (70-105) mg/dL Arterial Blood Glucose 171 H (65-95) mg/dL Arterial Blood Ionized Calcium 3.9 L (4.6-5.3) mg/dL 04/07/21 04/07/21 04/07/21 Range/Units 15:39 15:41 17:39 WBC (4.5-11.0) K/mm3 RBC (3.65-5.03) M/mm3 Hgb (10.1-14.3) gm/dl Hct (30.3-42.9) % Seg Neuts % (Manual) (40.0-70.0) % Lymphocytes % (Manual) (13.4-35.0) % Nucleated RBC % (0.0-0.9) % Seg Neutrophils # Man (1.8-7.7) K/mm3 Lymphocytes # (Manual) (1.2-5.4) K/mm3 ABG pH 7.314 L (7.320-7.450) POC ABG pCO2 (32.0-48.0) mmHg POC ABG pO2 (83-108) mmHg ABG Hemoglobin (12.0-17.5) ABG Oxyhemoglobin (94-98) ABG Sodium 135.3 L (136.0-145.0) mmol/L ABG Potassium (3.40-4.50) mmol/L ABG Glucose 299 H (65-95) mg/dL Carboxyhemoglobin (0.5-1.5) Sodium 153 H D (137-145) mmol/L Potassium 5.9 H (3.6-5.0) mmol/L Chloride 96.3 L (98-107) mmol/L Carbon Dioxide 19 L D (22-30) mmol/L BUN 52 H (7-17) mg/dL Creatinine 4.3 H (0.6-1.2) mg/dL Glucose 163 H (65-100) mg/dL POC Glucose 108 H (70-105) mg/dL Arterial Blood Glucose 299 H (65-95) mg/dL Arterial Blood Ionized Calcium 4.4 L (4.6-5.3) mg/dL
[2021-04-07 21:16] VITALS: BP 105/33
--- NOTE | 2021-04-07 21:17 | Event Note ---
Date: 04/07/21 NIKOLAS TRAVIS was called again at 1930 hours and lasted till 1944 hours and patient was revived CODE ANGY was called again at 1948 and patient was revived by 1952 hrs. NIKOLAS TRAVIS was called again at 2047 and patient's was revived by 2051 hours NIKOLAS TRAVIS was called again at 2055 hours and in spite of ACLS protocol and multiple atropine and epinephrine and bicarbonate IV pushes patient could not be revived. Time of expiration is 2105 hrs. Family was called and Viviana one of the daughters was informed by me. Pronouncing physician Priti Suazo Certifying physician Priti Suazo
[2021-04-07] MEDS ORDERED: SENNOSIDES/DOCUSATE SODIUM 8.6/50 MG TAB FEEDTUBE SCH (22:00)
[2021-04-07] MEDS ORDERED: FAMOTIDINE 20 MG/2 ML INJ IV SCH (22:00)
--- NOTE | 2021-04-08 09:27 | Discharge Summary ---
Providers - Providers Date of Admission: 03/24/21 13:21 Date of discharge: 04/07/21 Attending physician: LIYA GARCIA 03/24/21 Consult to Case Management [CONS] Routine Services Needed at Discharge: Home Health Services Notified:: mental health case manager 03/24/21 11:48 Consult to Physician [CONS] Stat Comment: Consulting Provider: ALEXIS GOODMAN Physician Instructions: Reason For Exam: Right foot gangrene 03/24/21 12:31 Consult to Physician [CONS] Stat Comment: Consulting Provider: DENNIS DILLON Physician Instructions: Reason For Exam: Right foot with gangrene 03/24/21 23:51 Consult to Wound/ET Nurse [CONS] Routine Reason For Exam: sacrum wound 03/26/21 11:44 Physical Therapy Evaluation and Treat [CONS] Routine Comment: Reason For Exam: R BKA 03/26/21 11:45 Occupational Therapy Evaluate and Treat [CONS] Routine Comment: Reason For Exam: R BKA 03/27/21 15:06 Consult to Physician [CONS] Stat Comment: Consulting Provider: MARTA GARCIA Physician Instructions: Reason For Exam: Covid positive 03/30/21 10:54 Consult to Physician [CONS] Routine Comment: Consulting Provider: KELI LANDIN Physician Instructions: Reason For Exam: Hyperkalemia, acute kidney injury, creatinine of 5 04/01/21 11:50 Consult to Physician [CONS] Urgent Comment: paged dr. dillon/ [facility] Consulting Provider: DENNIS DILLON Physician Instructions: Reason For Exam: Vasc cath placement 04/01/21 16:13 Speech Therapy Evaluation and Treat [CONS] Routine Reason For Exam: impaired swallowing 04/01/21 16:44 Consult to Wound/ET Nurse [CONS] Routine Reason For Exam: wound eval 04/07/21 12:26 Consult to Physician [CONS] Routine Comment: dr. 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 s/p BKA and now tested positive for COVID. Daily clinical course: 03/25/21: Patient is scheduled for right foot amputation today, continue empiric antibiotics, n.p.o. for now. Follow clinically. 03/26/21: s/p right BKA yesterday. cont to adjust pain meds. wait for PT eval. K 5.7 - ordered kayexalate. 03/27/21: Continue to complains of severe pain on amputated leg. Pending PT eval and will follow surgery recommendation. Potassium level appears to be normal today. 03/28/21: PT recommended ARMANDO, tested positive for covid. Per ID: she is currently on oxygen but not sure merely for comfort or due to hypoxia. Discussed with RN who will try to wean the oxygen off. If she remains hypoxic, start remdesivir and steroids. 03/29/21 S/p BKA of the right lower extremity Covid positive Patient on 35 L nasal cannula oxygen IV antibiotics as per ID recommendations 03/30/21 On 35 L high flow oxygen Slightly lethargic Creatinine has worsened from 1.4-5.3 over the last 48 hours Renal consult requested--- Dr. Valenzuela primary care nurse practitioner today IV fluids increased to 100 mL/h 03/31/2021 On 100% FiO2 04/01/2021 On 90% FiO2 35 L high flow oxygen And respiratory distress Pulmonary consult requested 04/02/2021 Patient still on 35 L nasal cannula high flow oxygen Patient getting Vas-Cath today Patient has 2 superficial sacral ulcers. BKA site looks healthy. No signs of infection. 04/03/2021 Conveyor Man, ID, renal consults appreciated Patient is in the process of getting hemodialysis Patient on 35 L nasal cannula oxygen 100% FiO2 Alert but confused As per the daughters request initiated patient transfer to [facility] 04/04/21 Resp distress On high flow oxygen 100% FiO2 Altered mental state 04/05/21 On high flow oxygen 04/06/21 On High flow oxygen 100 percent FiO2 More lethargic BKA site looks healthy. No signs of infection. 04/07/2021 Patient has multiple code blues today Patient was revived six times after code CODE BLUE was Four of them were done by me Family conference was done at 15 hours and family was informed about the progress of the disease and prognosis. Family wanted a full code--and full code protocol was done Patient coded around 1145 hrs. and was revived and transferred to ICU. After transfer patient coded multiple times--- around 7 times and patient was revived. On the seventh attempt patient could not be revived and time of expiration is 2106 hrs. Patient was on multiple pressors and vent support. - Patient Problems (1) Acute respiratory failure with hypoxia Current Visit: Yes Status: Acute Plan to address problem: Patient on high flow oxygen nearly FiO2 100% FiO2 dropped to 90% On 35 hours liters high flow nasal cannula oxygen Unable to wean poor prognosis (2) Pneumonia due to COVID-19 virus Current Visit: Yes Status: Acute Plan to address problem: IV Decadron for now No remdesivir because of the high creatinine (3) Acute hyperkalemia Current Visit: Yes Status: Acute Plan to address problem: Hyperkalemia resolved (4) QUENTIN (acute kidney injury) Current Visit: No Status: Acute Plan to address problem: IV fluids initiated ATN On hemodialysis- Same (5) Gangrene of right foot Current Visit: Yes Status: Acute Plan to address problem: S/p Rt BKA Stump care (6) Peripheral vascular disease Current Visit: Yes Status: Chronic Plan to address problem: S/p right BKA (7) Hypertension Current Visit: Yes Status: Chronic Qualifiers: Hypertension type: essential hypertension Qualified Code(s): I10 - Essential (primary) hypertension Plan to address problem: Continue antihypertensives Blood pressure well controlled Patient had couple of hypotensive episodes 3 to 4 days ago (8) IDDM (insulin dependent diabetes mellitus) Current Visit: Yes Status: Chronic Plan to address problem: Tight control of blood glucose levels Check hemoglobin A1c Increase insulin by 5 units Tighter control of blood glucose levels (9) DVT prophylaxis Current Visit: Yes Status: Acute Plan to address problem: On heparin and GI prophylaxis (10) Discharge planning issues Current Visit: Yes Status: Acute Plan to address problem: Initiated transfer to [facility] because of the daughter's request Daughter's phone numbers Ms. Denney with telephone number [phone] Also updated daughter Mia. Talked with transfer center at 15 0 0 hours [facility] refused transfer because of the patient being Covid positive Disposition: DC-20 Final Discharge Diagnosis (Prints w/discharge instructions): Acute respiratory failure with hypoxia. Cardiorespiratory failure. Cardiac arrest. . COVID-19 positive test (U07.1, COVID-19) with Acute Pneumonia (J12.89, Other viral pneumonia). (If respiratory failure or sepsis present, add as separate assessment). Right foot gangrene. Right BKA secondary to right foot gangrene. Acute tubular necrosis Time spent for discharge: 45 minutes - Discharge Diagnoses (1) Acute respiratory failure with hypoxia Status: Acute (2) Pneumonia due to COVID-19 virus Status: Acute (3) Acute hyperkalemia Status: Acute (4) QUENTIN (acute kidney injury) Status: Acute (5) Gangrene of right foot Status: Acute (6) Peripheral vascular disease Status: Chronic (7) Hypertension Status: Chronic Qualifiers: Hypertension type: essential hypertension Qualified Code(s): I10 - Essential (primary) hypertension (8) IDDM (insulin dependent diabetes mellitus) Status: Chronic (9) DVT prophylaxis Status: Acute (10) Discharge planning issues Status: Acute Core Measure Documentation - Palliative Care Palliative Care/ Comfort Measures: Not Applicable - Core Measures Any of the following diagnoses?: none Exam - Physical Exam Narrative exam: Before the code patient was given respiratory distress and bradycardic - Constitutional Vitals: Temp Pulse Resp BP Pulse Ox 97.9 F 136 H 17 105/33 56 L 04/07/21 12:00 04/07/21 20:57 04/07/21 20:57 04/07/21 20:57 04/07/21 20:57 General appearance: Present: severe distress, well-nourished - EENT Eyes: Present: PERRL ENT: hearing intact, clear oral mucosa - Neck Neck: Present: supple, normal ROM - Respiratory Respiratory effort: normal Respiratory: bilateral: CTA - Cardiovascular Heart rate: 130 Rhythm: regular Heart Sounds: Present: S1 & S2. Absent: rub, click - Extremities Extremities: pulses symmetrical, No edema, abnormal (Right below-knee amputation) Extremity abnormal: other (Right below-knee amputation) Peripheral Pulses: within normal limits - Abdominal General gastrointestinal: Present: soft, non-tender, non-distended, normal bowel sounds Female genitourinary: Present: normal - Rectal Rectal Exam: deferred - Integumentary Integumentary: Present: clear, warm, dry - Musculoskeletal Musculoskeletal: generalized weakness - Psychiatric Psychiatric: other (Lethargic before the first code) - Neurologic Neurologic: moves all extremities, other (Before the first code) - Allied Health Allied health notes reviewed: nursing, case management Plan Activity: other (Patient ) Follow up with: PRIMARY CARE, [Primary Care Provider] - 3-5 Days
--- NOTE | 2021-04-08 12:46 | Consultation ---
DATE OF CONSULTATION: 04/07/2021 PULMONARY CRITICAL CARE CONSULT NOTE CONSULTING PHYSICIANS: Dr. Pratt, Dr. Suazo. REASON FOR CONSULTATION: 1. Status post cardiac arrest with return of spontaneous circulation. 2. Acute hypoxemic respiratory failure. CHIEF COMPLAINT AND HISTORY OF PRESENT ILLNESS: As follows: The patient is a now 51-year-old female with a past medical history significant amongst other things for a diagnosis of diabetes, being morbidly obese, who was recently diagnosed with a diabetic foot ulcer. I believe she underwent incision and drainage. She also had vascular surgery evaluation with placement of a superficial femoral artery stent and popliteal artery stent. She was brought into the emergency room here on 03/24/2021 from a local wound clinic after she was found to be febrile and her right foot had turned to black color. She was found with a deep ulcer, exposing the tendons of her right dorsum and foot. So, ultimately, she was admitted to the hospital and I believe she was seen by General Surgery. After general surgery evaluation, the patient did undergo a right below-knee amputation. She has been in the hospital getting antibiotics and wound care treatments. While in the hospital, it seems like the patient developed an acute kidney injury. She also tested positive for COVID-19. She ultimately was started on dialysis. Vas-Cath was placed on the 2nd of this month about 3-4 days ago. She today was undergoing dialysis when they noticed essentially asystole arrest. A code blue was called. I responded also to the code blue. She ultimately responded to resuscitative efforts, but then went into a second round of cardiac arrest and then we were able to resuscitate her. She is intubated and transferred to the critical care unit and I am asked to assist with management. This really is as much of the history of presentation as I have. With regards to the patient's tobacco use/abuse history, she was described as a never smoker. PAST MEDICAL HISTORY: According to the records, history of diabetes, history of hypertension, history of asthma. She is morbidly obese. PAST SURGICAL HISTORY: Now status post right below the foot amputation. She is status post right Vas-Cath placement. MEDICATIONS: She was on at the time I stopped by to see her according to the medication administration record included the following: Tylenol 650 mg p.o. q.4 hours p.r.n. mild pain or fevers, aspirin 81 mg p.o. daily, Lipitor 80 mg p.o. at bedtime, Cymbalta 60 mg p.o. b.i.d., Neurontin 100 mg p.o. q.8 hours, heparin 5000 units subQ q.8 hours, Dilaudid 1 mg IV every 4 hours p.r.n. severe pain, 70/30 insulin 27 units subQ b.i.d. as well as insulin via sliding scale. She has p.r.n. labetalol for hypertension, Percocet 2 tablets p.o. q.4 hours p.r.n. moderate pain that is 5/325 mg, Protonix 40 mg p.o. daily, Zanaflex 4 mg p.o. q.i.d. p.r.n. muscle relaxant. I have just started her on a Levophed drip, she is maxed at 30 mcg per minute and she is also on vasopressin drip. ALLERGIES: BISMUTH SUBSALICYLATE, PENICILLINS AND TRAMADOL. Nature of these allergies are unknown. DIET: Morbidly obese, acute weight loss or gain history is unknown. FAMILY AND SOCIAL HISTORY: Apparently lives in the community. According to the records, no alcohol, tobacco, illicit drug use or abuse. FAMILY HISTORY: Otherwise unknown. REVIEW OF SYSTEMS: Unobtainable secondary to patient's medical and mental condition. Since she has been here, no gross hematochezia or melena, no gross hematuria has been reported. No witnessed seizures. No bloody tracheal secretions. No hematemesis. Review of systems otherwise unobtainable or as in the body of history above. PHYSICAL EXAMINATION: VITAL SIGNS: Shows that at initial presentation in the emergency room, she had a low-grade fever of 100.3 degrees Fahrenheit. Her T-max since then has been 101.8 degrees Fahrenheit, which was about 3 days ago. Current temperature today 100 degrees Fahrenheit with pulse initially of 119 earlier today. Respiratory rate of 26 and blood pressure 131/86, O2 sats were 95% at the time she was on Vapotherm 100% FiO2, 40 liters of flow. GENERAL: She is elderly looking, morbidly obese female. Normocephalic, atraumatic. Resting in bed, now on the mechanical ventilator riding the set rate. HEENT: Anicteric. No conjunctival erythema. Oropharynx was moist. ET tube is now 24 cm at the lips. No gross jugular venous distention. She does have a large neck circumference. Grossly, there were no palpable lymph nodes in the supraclavicular or submandibular lymph node chains. LUNGS: Auscultation of both lung heredia, actually good bilateral air movement. Occasional rhonchi bilaterally are heard. No wheezing. HEART: Sounds 1 and 2 are heard, at this time regular tachycardia without overt rubs or murmurs. ABDOMEN: Soft, full, protuberant. Bowel sounds are positive, nontender, no palpable hepatosplenomegaly. EXTREMITIES: Without overt digital clubbing or cyanosis. She has a right below-knee amputation. Pedal pulses 2+ in the left lower extremity, it is warm. NEUROLOGIC: Pupils are equal, round, about 5 mm, sluggishly reactive to light. Extraocular muscle movements could not be assessed. She has just been resuscitated and did not have any spontaneous movements to all extremities. She had flaccid muscles. SKIN: Normal turgor in the areas I examined. She has the postsurgical changes. Please see the wound care nurses' notes for full description of her skin. PSYCHIATRIC: Mood and affect could not be assessed. LABORATORY DATA: From my review are as follows: Admission white cell count was 13,800 with hemoglobin of 10.9, hematocrit of 32.3, platelet count of 417. No manual differential. INR was 1.25 at that time. Serum sodium was 134, potassium 6.1, chloride 99, bicarbonate 24, BUN 17, creatinine 1.2, glucose was 224, albumin 2.5 at that time. Coronavirus PCR on 03/26/2021 was positive. Most recent labs, white count on , couple of days ago was 22,500, hemoglobin 8.5, hematocrit 26.1, platelet count was 393. D-dimer elevated. Today's labs: Serum sodium 144, potassium 5.4, chloride 101, bicarbonate 27, BUN 69, creatinine 4.9, glucose 288. Wound cultures grew Pseudomonas and Enterococcus faecalis. However, blood cultures drawn on the , no growth to date. A chest x-ray has been done, which shows endotracheal tube with the tip at the level of the aortic knob. She has faint perihilar infiltrates. She has a right PICC line with the tip in the distal SVC/right atrial junction. Otherwise, the lung heredia are clear. ASSESSMENT: 1. Acute hypoxemic respiratory failure, on mechanical ventilatory support. 2. Severe metabolic acidosis, pH of 6.9. 3. Severe sepsis. 4. Cardiac arrest with return of spontaneous circulation. 5. Acute kidney injury, now on dialysis. 6. Oropharyngeal dysphagia. 7. Hyperkalemia. 8. History of diabetes. 9. History of hypertension. 10. History of asthma. 11. Peripheral vascular disease. PLAN: She is now intubated. She is requiring multiple vasopressors, so far Levophed and vasopressin to keep mean arterial pressures greater than about 65 mmHg. She will be weaned from there. She has received a total of 4 amps of sodium bicarbonate and resuscitative efforts, I am going to start her on sterile water with 3 amps of sodium bicarbonate per liter, I run that at 100 mL per hour for the next at least about 3 liters and reevaluate. I will defer to the color paste mixer in terms of further dialysis. Oxygen will be weaned to keep sats greater than or equal to about 92%. She is currently on the assist control mode of ventilation, tidal volume 450, rate of 30 empirically in light of the metabolic acidosis and a PEEP of 10. Enteral nutrition will ultimately be the feeding modality of choice. She is on GI prophylaxis. Anti-infectives will be deferred to the Infectious Disease team. Of note, she did receive Levaquin, got day 5 of 5 days, with recommendations to repeat cultures if she spikes a fever greater than 100.5, which she has done in the short time while she did have a fever of 101.4, so I will be drawing two sets of blood cultures, but also I will start her empirically on cefepime and vancomycin. If they have signed off, they will be reconsulted, tracheal aspirate is also going to be sent as part of the intubation protocol. Otherwise, flu and pneumonia vaccination will be addressed per protocol. Family is apparently down stairs and we are awaiting their arrival up on the floor. Thank you very much for the consult. We will follow along and make further recommendations as picture progresses/becomes clearer. She is critically ill on life-sustaining interventions including mechanical ventilation at high risk of from cardiopulmonary system decompensation and renal system. At this time, I spent about 40 minutes of critical care time without overlap and excluding any procedural time that may be necessary. TID: [id number] RECEIPT: [id number] SADIE/YOVANI/LAURA
== END 2021-04-08 00:37 | DRG 853 ==
LOC: ED 11:08 → 4A 13:21 → 3A 03-27 18:47 → IMCU 03-30 15:32 → CC1 04-07 12:35 → UNDODISIN 04-07 23:02
PROVIDERS: ADMIT Internal Medicine; ATTEND Internal Medicine
PROC: 0Y6H0Z2 Detachment at Right Lower Leg, Mid, Open Approach (ICD-10-PCS; 2021-03-23)
PROC: 5A0955A Assistance with Respiratory Ventilation, Greater than 96 Consecutive Hours, High Flow/Velocity Cannula (ICD-10-PCS; principal; 2021-03-30)
PROC: 4A033R1 Measurement of Arterial Saturation, Peripheral, Percutaneous Approach (ICD-10-PCS; 2021-03-30)
PROC: 02HV33Z Insertion of Infusion Device into Superior Vena Cava, Percutaneous Approach (ICD-10-PCS; 2021-03-30)
PROC: 5A1D70Z Performance of Urinary Filtration, Intermittent, Less than 6 Hours Per Day (ICD-10-PCS; 2021-04-02)
PROC: 5A1D70Z Performance of Urinary Filtration, Intermittent, Less than 6 Hours Per Day (ICD-10-PCS; 2021-04-03)
PROC: 5A1D70Z Performance of Urinary Filtration, Intermittent, Less than 6 Hours Per Day (ICD-10-PCS; 2021-04-05)
PROC: 5A1935Z Respiratory Ventilation, Less than 24 Consecutive Hours (ICD-10-PCS; 2021-04-07)
PROC: 0BH17EZ Insertion of Endotracheal Airway into Trachea, Via Natural or Artificial Opening (ICD-10-PCS; 2021-04-07)
PROC: 5A12012 Performance of Cardiac Output, Single, Manual (ICD-10-PCS; 2021-04-07)
PROC: 5A1D70Z Performance of Urinary Filtration, Intermittent, Less than 6 Hours Per Day (ICD-10-PCS; 2021-04-07)
DX: A41.89 Other specified sepsis (principal); U07.1 COVID-19; J96.01 Acute respiratory failure with hypoxia; J12.82 Pneumonia due to coronavirus disease 2019; N17.0 Acute kidney failure with tubular necrosis; R65.20 Severe sepsis without septic shock; E87.5 Hyperkalemia; E87.0 Hyperosmolality and hypernatremia; N39.0 Urinary tract infection, site not specified; I10 Essential (primary) hypertension; M19.90 Unspecified osteoarthritis, unspecified site; E11.40 Type 2 diabetes mellitus with diabetic neuropathy, unspecified; E66.9 Obesity, unspecified; E11.52 Type 2 diabetes mellitus with diabetic peripheral angiopathy with gangrene; L97.519 Non-pressure chronic ulcer of other part of right foot with unspecified severity; E11.621 Type 2 diabetes mellitus with foot ulcer; M62.82 Rhabdomyolysis; N28.1 Cyst of kidney, acquired; I46.9 Cardiac arrest, cause unspecified; Z79.899 Other long term (current) drug therapy
CPT/HCPCS: 31500; 36415; 36600; 71045; 76770; 80048; 80053; 80074; 80076; 81001; 82550; 82570; 82728; 82805; 82962; 83036; 83615; 83735; 84145; 84300; 85007; 85025; 85379; 85610; 85730; 86140; 86850; 86900; 86901; 87040; 87076; 87086; 87116; 87186; 88307; 88311; 89050; 93922; 93925; 94002; 94003; 96365; 96367; 96375; 99214; G0378; A9270-GY; G0463; J0153; J0171; J0461; J0610; J0692; J0696; J1100; J1170; J1265; J1644; J1815; J1956; J2250; J2270; J2370; J2405; J2704; J3010; J3370; J3490; J7030; J7040; J7050; J7120; U0003